=== PATIENT | female | born 1980 | race Caucasian/White ===

== ENCOUNTER 2017-03-12 06:40 | Day surgery (SDC) | payer OTHER ==
[~2017-03-12] VITALS: Ht 177.8 cm; Wt 81.7 kg
--- NOTE | 2017-03-12 09:34 | NUR ---
03/12/17 0933 Vilma Hester PT O2 100%, O2 DECREASED TO 6L
[2017-03-12] MEDS ORDERED: HYCET 7.5 MG-3473 ML PO (10:55)
--- NOTE | 2017-03-12 12:19 | NUR ---
PT IN RESTING-SEEMED TO BE ALMOST ENJOYING QUIETNESS. SHE WAS INFORMED AND SEEMED READY. HER MOTHER CAME IN WELL STAFF TO CONTINUE PREP. GOD BLESS HER.
--- NOTE | 2017-03-26 15:10 | OR ---
[facility] [address] [place], [place] [address] Signed DATE OF PROCEDURE: 03/12/17 PREOPERATIVE DIAGNOSIS: Chronic tonsillitis. POSTOPERATIVE DIAGNOSIS: Chronic tonsillitis. PROCEDURE: Tonsillectomy. ANESTHESIA: General orotracheal by Sylvia Rojas CRNA. PREOPERATIVE HISTORY Jayda is a 36-year-old young lady with chronic tonsillitis, multiple infections, persistent difficulties. She is taken to the operating room for the above-mentioned procedures. OPERATIVE PROCEDURE AND FINDINGS After informed consent, the patient was taken to the operating room, placed in supine position where general orotracheal anesthesia was induced. The patient and procedure were verified. The patient was repositioned. McIvor mouth gag placed into suspension. Headlight exam of the pharynx showed cryptic tonsils, not acutely infected. The right tonsil was grasped with a tenaculum, retracted medially and removed from its fossa with mucosa-sparing incision with coblation. Field was dry after the procedure. Same procedure on the left tonsil. Tonsils were sent to pathology. Reinspection of the tonsil fossae showed no bleeding points. The pharynx was suctioned clear of blood and secretions. The mouth gag was removed. The patient was awakened, extubated and transported to recovery room in good condition. No complications. BLOOD LOSS: Minimal. SPECIMEN: To pathology. DRAINS: No drains. Qamar Qureshi MD GC/Modl Electronically Signed By: QAMAR QURESHI MD 03/26/17 1510 PATIENT NAME: JAYDA DAVID OPERATIVE REPORT DATE OF : 80 PHYSICIAN: QAMAR QURESHI MD REPORT #: [id number] REPORT IS CONFIDENTIAL AND NOT TO BE RELEASED WITHOUT AUTHORIZATION [address] [address] Signed /[id number] Electronically Signed By: QAMAR QURESHI MD 03/26/17 1510 PATIENT NAME: JAYDA DAVID OPERATIVE REPORT DATE OF : 80 PHYSICIAN: QAMAR QURESHI MD REPORT #: [id number] REPORT IS CONFIDENTIAL AND NOT TO BE RELEASED WITHOUT AUTHORIZATION
== END 2017-03-12 13:00 | disposition home or self-care (01) ==
LOC: DS 06:40
PROVIDERS: Otolaryngology
PROC: 0CTPXZZ Resection of Tonsils, External Approach (ICD-10-PCS; principal; 2017-03-12 08:30)
DX: J35.1 Hypertrophy of tonsils (principal)
CPT/HCPCS: 00170; J0330; J1100; J2250; J2405; J2704; J3010; J7120

== ENCOUNTER 2017-03-14 09:26 | Emergency (ER) | payer OTHER ==
[~2017-03-14] VITALS: Ht 177.8 cm; Wt 81.7 kg
[~2017-03-14 09:26] MED LIST: HYCET 7.5 MG-3473 ML PO
[2017-03-14] MEDS ORDERED: AUGMENTIN 875-1 EACH PO (11:51)
[2017-03-14] MEDS ORDERED: ONDANSETRON ODT8 MG PO (11:51)
== END 2017-03-14 13:05 | disposition home or self-care (01) ==
LOC: ED 09:26
DX: J18.9 Pneumonia, unspecified organism (principal); Z90.89 Acquired absence of other organs; Z88.2 Allergy status to sulfonamides; Z88.6 Allergy status to analgesic agent; Z91.040 Latex allergy status; Z88.5 Allergy status to narcotic agent; Z88.8 Allergy status to other drugs, medicaments and biological substances
CPT/HCPCS: 71020; 80053; 81001; 83605; 85025; 96374; 96375; 99284; J0295; J1885; J2405; J7030

== ENCOUNTER 2019-05-03 16:49 | Emergency (ER) | payer OTHER ==
[~2019-05-03] VITALS: Ht 177.8 cm; Wt 86.2 kg
--- OUTSIDE RECORDS SUMMARY | ~2019-05-03 | XMS | Clinical Summary ---
Demographics + + + | Address | [address] | | | [place] [address] | + + + | Home Phone | | + + + | Preferred Language | Unknown | + + + | Marital Status | | + + + | Moravian Affiliation | Unknown | + + + | Race | Unknown | + + + | Ethnic Group | Unknown | + + + Author + + + | Author | [facility] | | | and [place] | + + + | Organization | [facility] | | | and [...] Team Providers + +------+ + | Care Welt Butter Hand Name | Role | Phone | + +------+ + | Jarocho Tate | PCP | | | MD | | | + +------+ + Allergies + + + + + + | Active Allergy | Reactions | Severity | Noted | Comments | | | | | Date | | + + + + + + | Sulfamethoxazole-Tri | Other (See Comments) | Medium | 07/21/19 | Kidney failure | | methoprim | | | 19 | | + + + + + + | Bee Venom | Other (See Comments) | Medium | 07/21/19 | Other | | | | | 19 | | + + + + + + | Dicyclomine | Other (See Comments) | Medium | | | + + + + + + | Latex | Other (See Comments) | Medium | 07/21/19 | Other | | | | | 19 | | + + + + + + | Oxycodone-Acetaminop | Other (See Comments) | High | 07/21/19 | Other reaction(s): | | hen | | | 19 | Vomiting, Other | | | | | | reaction(s): | | | | | | Confusion, other | + + + + + + | Sulfa Antibiotics | Other (See Comments) | Medium | | | + + + + + + Medications + + + +---------+------+------+-------+ | Medication | Sig | Dispensed | Refills | Star | End | Statu | | | | | | t | Date | s | | | | | | Date | | | + + + +---------+------+------+-------+ | VOLTAREN 1 % GEL | | | 0 | 08/1 | | Activ | | | | | | 3/20 | | e | | | | | | 19 | | | + + + +---------+------+------+-------+ | metroNIDAZOLE | Apply bid to face | 45 g | 11 | 10/0 | | Activ | | (METROGEL) 0.75 % | | | | 8/20 | | e | | gelIndications: | | | | 19 | | | | Perioral dermatitis | | | | | | | + + + +---------+------+------+-------+ | meloxicam (MOBIC) | Take 1 tablet by | 30 | 0 | 11/1 | | Activ | | 15 mg | mouth Daily. | tablet | | 1/20 | | e | | tabletIndications: | | | | 19 | | | | Impingement syndrome | | | | | | | | of right shoulder | | | | | | | + + + +---------+------+------+-------+ Active Problems + + + | Problem | Noted Date | + + + | Fibrocystic disease of breast | 09/03/2018 | + + + | Fibroadenoma of right breast | 07/30/2018 | + + + | Knee pain | 07/30/2018 | + + + | Mastodynia of right breast | 07/30/2018 | + + + | Peripheral venous insufficiency | 07/30/2018 | + + + | Pain of breast | 07/28/2018 | + + + Encounters +--------+ + + + + | Date | Type | Specialty | Care Team | Description | +--------+ + + + + | 04/03/ | Hospital | Radiology | Forest Castillo, | Acute pain of right | | 2018 | Encounter | | MD | shoulder | +--------+ + + + + | 04/03/ | Office | Orthopedic Surgery | Forest Castillo, | Acute pain of right | | 2018 | Visit | | MD | shoulder (Primary | | | | | | Dx); Impingement | | | | | | syndrome of right | | | | | | shoulder | +--------+ + + + + | 03/19/ | Office | Vascular Surgery | Selvin Larson MD | Chronic venous | | 2018 | Visit | | | insufficiency | | | | | | (Primary Dx); | | | | | | 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 | | | | | | extremities with | | | | | | pain | +--------+ + + + + | 03/03/ | Office | Dermatology | Aniekt Melia | Perioral dermatitis | | 2018 | Visit | | [address] | (Primary Dx); | | | | | | Seborrheic | | | | | | dermatitis; Pilar | | | | | | cyst; Multiple | | | | | | benign nevi | +--------+ + + + + from Last 3 Months Family History + + +------+ + | Medical History | Relation | Name | Comments | + + +------+ + | Dementia | Father | | | + + +------+ + | High cholesterol | Father | | | + + +------+ + | Parkinsonism | Father | | | + + +------+ + | Cancer | Mother | | uvula | + + +------+ + | Drug abuse | Mother | | | + + +------+ + | Heart attack | Paternal | | | | | Grandfath | | | | | er | | | + + +------+ + | Cancer | Paternal | | colon | | | Grandmoth | | | | | er | | | + + +------+ + | Diabetes, IDDM | Paternal | | | | | Grandmoth | | | | | er | | | + + +------+ + | Other (see comment) | Paternal | | Hypothyroidism | | | Grandmoth | | | | | er | | | + + +------+ + + +------+--------+ + | Relation | Name | Status | Comments | + +------+--------+ + | Father | | Alive | | + +------+--------+ + | Father | | | | + +------+--------+ + | Mother | | | | + +------+--------+ + | Mother | | | | + +------+--------+ + | Paternal Grandfather | | | | + +------+--------+ + | Paternal Grandfather | | | | + +------+--------+ + | Paternal Grandmother | | | | + +------+--------+ + | Paternal Grandmother | | | | + +------+--------+ + Social History + +-------+ +--------+------+ | [...] recent travel history available. | + + Last Filed Vital Signs + + + + + | Vital Sign | Reading | Time Taken | Comments | + + + + + | Blood Pressure | 140/60 | 04/03/2019 8:35 AM | | | | | PST | | + + + + + | Pulse | 71 | 04/03/2019 8:35 AM | | | | | PST | | + + + + + | Temperature | - | - | | + + + + + | Respiratory Rate | 16 | 01/13/2019 8:25 AM | | | | | PDT | | + + + + + | Oxygen Saturation | 98% | 04/03/2019 8:35 AM | | | | | PST | | + + + + + | Inhaled Oxygen | - | - | | | Concentration | | | | + + + + + | Weight | 88.7 kg (195 lb 9.6 | 04/03/2019 8:35 AM | | | | oz) | PST | | + + + + + | Height | 177.8 cm (5' 10") | 04/03/2019 8:35 AM | | | | | PST | | + + + + + | Body Mass Index | 28.07 | 04/03/2019 8:35 AM | | | | | PST | | + + + + + Plan of Treatment +--------+---------+ + + + | Date | Type | Specialty | Care Team | Description | +--------+---------+ + + + | 05/26/ | Office | Orthopedic Surgery | Forest Castillo, | | | 2018 | Visit | | [address] | | | | | | [place] [address] | | | | | | [phone] | | | | | | | | +--------+---------+ + + + + + + + + | Health Maintenance | Due Date | Last Done | Comments | + + + + + | Vaccine: | | | | | Dtap/Tdap/Td (1 - | 9 | | | | Tdap) | | | | + + + + + | Cervical Cancer | 11/23/201 | | | | Screening (Pap) | 0 | | | + + + + + | Vaccine: Influenza | Completed | 03/19/2019 | | + + + + + Procedures + +--------+ + + + | Procedure Name | Priori | Date/Time | Associated Diagnosis | Comments | | | ty | | | | + +--------+ + + + | XR SHOULDER RIGHT 2 | Routin | 04/03/2019 | Acute pain of | Results for this | | + VW | e | 8:51 AM | right shoulder | procedure are in the | | | | PST | | results section. | + +--------+ + + + from Last 3 Months Results XR Shoulder Right 2 + Vw (04/03/2019 8:51 AM PST) + + | Specimen | + + | | + + + + + | Narrative | Performed At | + + + | History: This | [facility] | | is a 38 y.o. year old female. Diagnosis for Order right shoulder | | | pain. Findings: No fracture, subluxation, dislocation, no | | | degeneration. Electronically signed by: Forest Castillo MD 04/03/2019 | | | 8:58 Forest Castillo MD has created this entry using Mod[employer] | | | Voice Recognition software and [employer]. The entry has been | | | reviewed and there may still exist sound alike word errors. | | | | | | | | |Forest Castillo MD has created this entry using [employer] | | |Recognition software and [employer]. The entry has been reviewed and | | |there may still exist sound alike word errors. | | | | | + + + + +---------+ + + | Performing | Address | City/State/Zipcode | Phone Number | | Organization | | | | + +---------+ + + | [facility] | | | | + +---------+ + + from Last 3 Months Insurance + +--------+ +--------+ +---------+------+ | Payer | Benefi | Subscriber | Effect | Phone | Address | Type | | | t Plan | ID | branden | | | | | | / | | Dates | | | | | | Group | | | | | | + +--------+ +--------+ +---------+------+ | [employer] | UNITED | [id number] | 05/27/19 | [phone] | | PPO | | | | | 19-Pre | 2 | | | | | HEALTH | | sent | | | | | | CARE | | | | | | | | PPO | | | | | | + +--------+ +--------+ +---------+------+ + +--------+ +--------+ + + | Guarantor Name | Accoun | Relation to | Date | Phone | Billing Address | | | t Type | Patient | of | | | | | | | | | | + +--------+ +--------+ + + | Anushka Delcid | Person | Self [birth year] | [address] | | [place] | al/Fam | | 1980 | [phone] | [place] | | | albaro | | | [address] (Home) | [address] | + +--------+ +--------+ + + Advance Directives + + + + + | Type | Date Recorded | Patient | Explanation | | | | Corporate Financial Analyst | | + + + + + | Power of | | | | | Vegetable Washing Machine Operator | | | | + + + + + | Advance | | | | | Directive | | | | + + + + +
--- OUTSIDE RECORDS SUMMARY | ~2019-05-03 | XMS | Encounter Summary ---
Demographics + + + | Address | [address] | | | [place] [address] | + + + | Home Phone | | + + + | Preferred Language | Unknown | + + + | Marital Status | | + + + | Episcopalian Affiliation | Unknown | + + + | Race | Unknown | + + + | Ethnic Group | Unknown | + + + Author + + + | Author | [facility] | | | and [place] | + + + | Organization | [facility] | | | and [...] Team Providers + +------+ + | Care Hospice Director Name | Role | Phone | + +------+ + | Edwige Moreira MD | PCP | | + +------+ + Reason for Visit + + + | Reason | Comments | + + + | Annual Exam | | + + + Encounter Details +--------+---------+ + + + | Date | Type | Department | Care Team | Description | +--------+---------+ + + + | 03/03/ | Office | [facility] | Melia Marcial | Perioral dermatitis | | 2019 | Visit | PLASTIC SURGERY AND | [address] | (Primary Dx); | | | | DERMATOLOGY [address] | Seborrheic | | | | [address] | [place] [address] | dermatitis; Pilar | | | | [place], [place] | [phone] | cyst; Multiple | | | | [address] | | benign nevi | | | | [phone] | | | +--------+---------+ + + + [...] + + + | Blood Pressure | - | - | | + [...] + + + + | Weight | 88.5 kg (195 lb) | 03/03/2019 8:57 AM | | | | | PDT | | + + + + + | Height | 177.8 cm (5' 10") | 03/03/2019 8:57 AM | | | | | PDT | | + + + + + | Body Mass Index | 27.98 | 03/03/2019 8:57 AM | | | | | PDT | | + + + + + documented in this encounter Patient Instructions Patient Instructions Anjali Villeda, Supervisor Brine - 03/03/2019 9:20 AM PDTFormattin g of this note might be different from the original. Preventing Skin Cancer Use sunscreen of SPF 30 or greater. Apply liberally. Relaxing in the sun may feel good, but it isn t good for your skin. In fact, being expose d to the sun s harmful rays is a major cause of skin cancer. This is a serious disease asiya t can be life-threatening. People of all ages and backgrounds are at risk. But in most cases , skin cancer can be prevented. Your role in prevention You can act today to help prevent skin cancer. Start by avoiding the sun s UV (ultraviole t) rays. And don t use tanning beds. These are no safer than the sun. Taking these steps c an help keep you from getting skin cancer. It can also help prevent wrinkles and otheragin g effects caused by the sun. Make sure your children also follow these safeguards. Now is th e time to start taking preventive steps against skin cancer. When you are outdoors Protect your skin when you go outdoors during the day. Take precautions whenever you go out to eat, run errands by car or on foot, or do any outdoor activity. There isn t just one e asy way to protect your skin. It s best to follow all of these steps: Wear tightly woven clothing that covers your skin. Put on a wide-brimmed hat to protect your face, ears, and scalp. Watch the clock. Try to avoid the sun between 10 a.m. and 4 p.m., when it is strongest. Head for the shade or create your own. Use an umbrella when sitting or strolling. Know that the sun s rays can reflect off sand, water, and snow. This can harm your ski n. Take extra care when you are near reflective surfaces. Keep in mind that even when the weather is hazy or cloudy, your skin can be exposed to s lewis UV rays. Shield your skin with sunscreen. Also apply sunscreen to your children s skin. Tips for using sunscreen To help prevent skin cancer, choose the right sunscreen and use it correctly. Try the follo wing tips: Choose a sunscreen that has a sun protection factor (SPF) of at least 30. Also choose a sunscreen labeled broad spectrum. This will shield you from both UVA and UVB (ultravio let A and B) rays. If one brand irritates your skin, try another, particularly ones without fragrance. Use a water-resistant sunscreen if you swim or sweat. Use at least an ounce of sunscreento cover exposed areas. This is enough to fill a forest t glass. You might need to adjust the amount depending on your body size. Apply the sunscreen to dry skin about 15 minutes before going outdoors. This gives it ti me to be absorbed. Reapply sunscreen every2 hours. If you re active, do this more often. Cover any sun-exposed skin, from your face to your feet. Don t forget your ears and yo ur lips. Know that while sunscreen helps protect you, it isn t enough. Sunscreens extend the le ngth of time you can be outdoors before your skin begins to vannesa, but they don't give you total protection. Using sunscreen doesn't mean you can stay out in the sun indefinitely. Dam age to the skin cells is still occurring. You should also wear protective clothing. And try to stay out of the sun as much as you can, especially from 10 a.m. to 4 p.m. Date Last Reviewed: 05/27/201619998318-6012 [employer]. [address] [place] [address], [place] [address]. All righ ts reserved. This information is not intended as a substitute for professional medical care. Always follow your healthcare professional's instructions. documented in this encounter Progress Notes Melia Marcial ARNP - 03/03/2019 9:20 AM PDT Subjective Patient ID: Anushka Delcid is a 38 y.o. female. New patient is here for a full cutaneous exam due to a family history of skin cancer (grand mother). She complains of a growth located on the scalp, it has been present for over a year . She states that its raised and has not gone away, it has not been treated. She also compla ins of constantly breaking out around the chin area along with facial redness present throug hout the facial cheeks, it has been going on for the last 2 years. She states that she break s out in whiteheads and large painful cysts, it has not been treated. She also complains of a rash located in between the eyebrows, the skin is scaly and itchy, it has not been treated . The following elements of the patient's history were reviewed and updated as appropriate. T hey are available elsewhere in the patient record. allergies, current medications, past fam albaro history, past medical history, past social history, past surgical history and problem li st Review of Systems Constitutional: Negative. Skin: FB All other systems reviewed and are negative. Objective Ht 1.778 m (5' 10") | Wt 88.5 kg (195 lb) | BMI 27.98 kg/m Physical Exam Constitutional: She is oriented to person, place, and time. She appears well-developed and well-nourished. HENT: Head: Normocephalic. Eyes: Pupils are equal, round, and reactive to light. Neck: Normal range of motion. Neck supple. Pulmonary/Chest: Effort normal. Abdominal: Soft. Musculoskeletal: Normal range of motion. Neurological: She is alert and oriented to person, place, and time. Skin: Skin is warm and dry. Erythematous papular dermatitis present around the mouth Easily movable cystic nodule present on the posterior scalp. Intradermal, junctional, and compound nevi scattered on the face, trunk, bilateral arms, an d bilateral legs with uniform shape and color- examined under dermoscopy. Brown circular areas of macular discoloration present throughout face, neck, chest, bilater al arms, back, and bilateral legs. Non irritated waxy brown keratotic exophytic papules and plaques with uniform color distrib uted throughout face and body. Multiple bright red circular, asymptomatic, domed vascular lesions throughout body. Psychiatric: She has a normal mood and affect. Her behavior is normal. Assessment /Plan Assessment: perioral dermatitis. We discussed this distinctive eruption that occurs in wom en and can resemble other rashes and skin conditions such as acne. I explained that topical steroids make this condition worsen which can be helpful for diagnosis. I explained that top ical treatments with benzoyl peroxide, tretinoin, and alcohol based products can aggravate t his condition as well. I explained that the exact cause is unknown but there could be a sonia k with petroleum based cosmetic products so these should be avoided as well. We discussed t reatment options and doxycycline 50 mg daily for 1 month, pt will also be prescribed metroge l. Assessment seborrheic dermatitis. We discussed that this is an overgrowth of yeast on the s kin and the chronicity and high probability of recurrence in the future. I discussed the di fference in strength with over the counter and with prescription shampoos/ solutions for thi s problem. Pt will treat with otc hydrocortisone. Assessment pilar cyst. We discussed this benign entity and the possiblity of surgical esequiel karime. We discussed the possibility of inflammation with injury and we discussed the importanc e of not squeezing the cyst. Pt opted to wait to schedule surgical removal if the cyst becom es inflamed or painful. Skin cancer screening. Multiple benign skin growths found throughout the full cutaneous exa m, including multiple benign nevi. I explained each of these benign growths in detail. The nature of sun-induced photo-aging and skin cancers was discussed. I discussed character istics of skin cancer, including large size, irregular border, irregular shape, or color. I explained precancerous lesions actinic keratosis and typical nevus, and skin cancers includi ng basal cell carcinoma, squamous cell carcinoma, and melanoma. We discussed continuing to monitor for any changes and continuing to have full cutaneous ex ams. Sun avoidance, protective clothing, and the use of SPF 30-50 sunscreen advised. The for clifford should block both UVA and UVB rays. We discussed reapplying sunscreen every 2 hours or hourly if the patient is in the water or sweating profusely, even if product is labeled javier erproof or sweatproof. We discussed the difference between sunscreens and sunblocks. We disc ussed the best formula to use is the one that the pt will use consistently and reapply as di rected. Observe closely for skin damage/changes, and recheck sooner if such occurs. Anushka was seen today for annual exam. Diagnoses and all orders for this visit: Perioral dermatitis - doxycycline (VIBRAMYCIN) 50 MG capsule; Take 1 capsule by mouth Daily for 30 days. - metroNIDAZOLE (METROGEL) 0.75 % gel; Apply bid to face Seborrheic dermatitis Pilar cyst Multiple benign nevi I, Anjali Villeda CMA, am scribing for, and in the presence of Melia RUBIN. I, CARYN Jurado, personally performed the services described in this documentati on, as scribed by Anjali Villeda CMA in my presence, and it is both accurate and complete. documented in this encounter Plan of Treatment +--------+---------+ + + + | Date | Type | Specialty | Care Team | Description | +--------+---------+ + + + | 05/26/ | Office | Orthopedic Surgery | Forest Castillo, | | | 2018 | Visit | | MD Nikki MARTE | | | | | | [place] [address] | | | | | | [phone] | | | | | | | | +--------+---------+ + + + documented as of this encounter Visit Diagnoses + + | Diagnosis | + + | Perioral dermatitis - Primary Rosacea | + + | Seborrheic dermatitis Seborrheic dermatitis, unspecified | + + | Pilar cyst | + + | Multiple benign nevi Benign neoplasm of skin, site unspecified | + + documented in this encounter
--- OUTSIDE RECORDS SUMMARY | ~2019-05-03 | XMS | Encounter Summary ---
Demographics + + + | Address | [address] | | | [place] [address] | + + + | Home Phone | | + + + | Preferred Language | Unknown | + + + | Marital Status | | + + + | Mormonism Affiliation | Unknown | + + + | Race | Unknown | + + + | Ethnic Group | Unknown | + + + Author + + + | Author | [facility] | | | and [place] | + + + | Organization | [facility] | | | [...] Team Providers + +------+ + | Care Roustabout Hand Name | Role | Phone | + +------+ + | Edwige Moreira MD | PCP | | + +------+ + Encounter Details +--------+ + + + + | Date | Type | Department | Care Team | Description | +--------+ + + + + | 11/10/ | Orders Only | [facility] | Vianney Michele, | | | 2019 | | VASCULAR SURGERY | ZINC PLATE GRAINER [address] | | | | | ULTR[address]OUND [address] | [address] [place], [place] | | | | | [address] | [address] | | | | | [place] | [phone] | | | | | [address] | | | | | | [phone] | | | +--------+ + + + [...] as of this encounter Plan of Treatment +--------+---------+ + + + | Date | Type | Specialty | Care Team | Description | +--------+---------+ + + + | 05/26/ | Office | Orthopedic Surgery | Forest Castillo, | | | 2018 | Visit | | [address] | | | | | | [place] [address] | | | | | | [phone] | | | | | | | | +--------+---------+ + + + documented as of this encounter Procedures + +--------+ + + + | Procedure Name | Priori | Date/Time | Associated Diagnosis | Comments | | | ty | | | | + +--------+ + + + | VAS VENOUS REFLUX | Routin | 11/10/2018 | | Results for this | | BILATERAL | e | 2:38 PM | | procedure are in the | | | | PDT | | results section. | + +--------+ + + + documented in this encounter Results VAS Venous Reflux Bilateral (11/10/2018 2:38 PM PDT) + + | Specimen | + + | | + + + + + | Impressions | Performed At | + + + | 1. No evidence of acute or chronic deep or superficial venous | | | thrombosis in either lower extremity from the inguinal ligament | | | through the calves. 2. Please see details above regarding bilateral | | | lower extremity venous insufficiency studies. Signed by: Rosibel | | | Artur Hernandez Date/Time: 11/11/2018 10:37 AM | | + + + + + + | Narrative | Performed At | + + + | VAS VENOUS REFLUX BILATERAL CLINICAL INFORMATION: Varicose veins | | | COMPARISON: None PROCEDURE: Grayscale, color Doppler and spectral | | | Doppler evaluation with compression was performed in both lower | | | extremity deep and superficial veins from the inguinal ligament | | | through the calves. Bilateral lower extremity deep venous and greater | | | and lesser saphenous vein insufficiency studies were performed using | | | both Valsalva and augmentation, and weight-bearing, if needed. | | | FINDINGS: No evidence of acute or chronic deep or superficial venous | | | thrombosis in either lower extremity from the inguinal ligament | | | through the calves. No intraluminal echoes seen. Normal | | | compressibility noted. Augmentation noted. Venous insufficiency | | | studies: RIGHT: Right calf incompetent varicose veins appear to | | | confluence with the greater saphenous vein. Common femoral vein: | | | Reflux greater than 1 second Femoral proximal: Reflux greater than 1 | | | second Femoral mid: No reflux Femoral distal: No reflux Popliteal | | | mid: Reflux greater than 0.5 seconds Posterior tibial: No reflux | | | Peroneal: No reflux Greater saphenous: Saphenofemoral junction: 9.1 | | | mm AP diameter, 19.1 mm depth, greater than 1 second reflux Thigh | | | proximal: 5.6 mm AP diameter, 20.1 mm depth Thigh mid: 5.1 mm AP | | | diameter, 16 mm depth, greater than 0.5 seconds reflux Thigh distal: | | | 4.9 mm AP diameter diameter, 13.8 mm depth, no reflux Knee: 3.8 mm | | | AP diameter, 10.3 mm depth, no reflux Calf proximal: 0.6 mm AP | | | diameter, 8.6 mm depth, greater than 0.5 seconds reflux Calf mid: | | | 4.0 mm AP diameter, 5.4 mm depth, no reflux Calf distal: 3.7 mm AP | | | diameter, 6.7 mm depth, no reflux Lesser saphenous: Calf proximal: | | | 1.8 mm AP diameter, 12.6 mm depth, greater than 1 second reflux Calf | | | mid: 3.0 mm AP diameter, 16.3 mm depth, no reflux Calf distal: 2.9 | | | mm AP diameter, 9.1 mm depth, no reflux LEFT: Common femoral: Reflux | | | greater than 1 second Femoral proximal: No reflux Femoral mid: | | | Reflux greater than 0.5 seconds Femoral distal: No reflux Popliteal | | | mid: No reflux Posterior tibial: Reflux greater than 0.5 seconds | | | Peroneal: No reflux Greater saphenous: Saphenofemoral junction: 7.1 | | | mm AP diameter, 19.7 mm depth, no reflux Thigh proximal: 4.8 mm AP | | | diameter, 20.2 mm depth Thigh mid: 4.0 mm AP diameter, 16.2 mm depth, | | | no reflux Thigh distal: 4.0 mm AP diameter, 15.4 mm depth, no reflux | | | Knee: 3.0 mm AP diameter, 8.3 mm depth, greater than 0.5 seconds | | | reflux Calf proximal: 2.8 mm AP diameter, 8.5 mm depth, no reflux | | | Calf mid: 2.3 mm AP diameter, 7.9 mm depth, greater than 1 second | | | reflux Calf distal: 2.0 mm AP diameter, 10.7 mm depth, no reflux | | | Lesser saphenous: Calf proximal: 2.8 mm AP diameter, 14.0 mm depth, | | | no reflux Calf mid: 3.3 mm AP diameter, 13.7 mm depth, no reflux | | | Calf distal: 3.0 mm AP diameter, 10.3 mm depth, no reflux | | + + + + + | Procedure Note | + + | Timbo Sheth Conversion - 01/15/2019 2:01 PM PDT VAS VENOUS REFLUX BILATERAL | | CLINICAL INFORMATION: | | Varicose veins | | COMPARISON: | | None | | PROCEDURE: | | Grayscale, color Doppler and spectral Doppler evaluation with | | compression was performed in both lower extremity deep and superficial | | veins from the inguinal ligament through the calves. | | Bilateral lower extremity deep venous and greater and lesser saphenous | | vein insufficiency studies were performed using both Valsalva and | | augmentation, and weight-bearing, if needed. | | FINDINGS: | | No evidence of acute or chronic deep or superficial venous thrombosis | | in either lower extremity from the inguinal ligament through the | | calves. No intraluminal echoes seen. Normal compressibility noted. | | Augmentation noted. | | Venous insufficiency studies: | | RIGHT: | | Right calf incompetent varicose veins appear to confluence with the | | greater saphenous vein. | | Common femoral vein: Reflux greater than 1 second | | Femoral proximal: Reflux greater than 1 second | | Femoral mid: No reflux | | Femoral distal: No reflux | | Popliteal mid: Reflux greater than 0.5 seconds | | Posterior tibial: No reflux | | Peroneal: No reflux | | Greater saphenous: | | Saphenofemoral junction: 9.1 mm AP diameter, 19.1 mm depth, greater | | than 1 second reflux | | Thigh proximal: 5.6 mm AP diameter, 20.1 mm depth | | Thigh mid: 5.1 mm AP diameter, 16 mm depth, greater than 0.5 seconds | | reflux | | Thigh distal: 4.9 mm AP diameter diameter, 13.8 mm depth, no reflux | | Knee: 3.8 mm AP diameter, 10.3 mm depth, no reflux | | Calf proximal: 0.6 mm AP diameter, 8.6 mm depth, greater than 0.5 | | seconds reflux | | Calf mid: 4.0 mm AP diameter, 5.4 mm depth, no reflux | | Calf distal: 3.7 mm AP diameter, 6.7 mm depth, no reflux | | Lesser saphenous: | | Calf proximal: 1.8 mm AP diameter, 12.6 mm depth, greater than 1 second | | reflux | | Calf mid: 3.0 mm AP diameter, 16.3 mm depth, no reflux | | Calf distal: 2.9 mm AP diameter, 9.1 mm depth, no reflux | | LEFT: | | Common femoral: Reflux greater than 1 second | | Femoral proximal: No reflux | | Femoral mid: Reflux greater than 0.5 seconds | | Femoral distal: No reflux | | Popliteal mid: No reflux | | Posterior tibial: Reflux greater than 0.5 seconds | | Peroneal: No reflux | | Greater saphenous: | | Saphenofemoral junction: 7.1 mm AP diameter, 19.7 mm depth, no reflux | | Thigh proximal: 4.8 mm AP diameter, 20.2 mm depth | | Thigh mid: 4.0 mm AP diameter, 16.2 mm depth, no reflux | | Thigh distal: 4.0 mm AP diameter, 15.4 mm depth, no reflux | | Knee: 3.0 mm AP diameter, 8.3 mm depth, greater than 0.5 seconds reflux | | Calf proximal: 2.8 mm AP diameter, 8.5 mm depth, no reflux | | Calf mid: 2.3 mm AP diameter, 7.9 mm depth, greater than 1 second reflux | | Calf distal: 2.0 mm AP diameter, 10.7 mm depth, no reflux | | Lesser saphenous: | | Calf proximal: 2.8 mm AP diameter, 14.0 mm depth, no reflux | | Calf mid: 3.3 mm AP diameter, 13.7 mm depth, no reflux | | Calf distal: 3.0 mm AP diameter, 10.3 mm depth, no reflux | | IMPRESSION: | | 1. No evidence of acute or chronic deep or superficial venous | | thrombosis in either lower extremity from the inguinal ligament through | | the calves. | | 2. Please see details above regarding bilateral lower extremity venous | | insufficiency studies. | | Signed by: Mary Gleason Sean | | Sign Date/Time: 11/11/2018 10:37 AM | + + documented in this encounter Visit Diagnoses Not on filedocumented in this encounter"
--- OUTSIDE RECORDS SUMMARY | ~2019-05-03 | XMS | Encounter Summary ---
Demographics + + + | Address | [address] | | | [place] [address] | + + + | Home Phone | | + + + | Preferred Language | Unknown | + + + | Marital Status | | + + + | Zoroastrianism Affiliation | Unknown | + + + [...] Team Providers + +------+ + | Care Lime Spreader Name | Role | Phone | + +------+ + | Edwige Moreira MD | PCP | | + +------+ + Encounter Details +--------+ + + + + | Date | Type | Department | Care Team | Description | +--------+ + + + + | 11/10/ | Orders Only | [facility] | Vianney Michele, | | | 2019 | | VASCULAR SURGERY | FURNACE OPERATOR OIL OR GAS [address] | | | | | ULTRASOUND [address] | [address] [place], [place] | | | | | [address] | [address] | | | | | [place] | [phone] | | | | | [address] | | | | | | [phone] | | | +--------+ + + + [...] [address] | | | | | | [place] [address] | | | | | | [phone] | | | | | | | [...] studies. Signed by: Rosibel | | | Arutr Hernandez Date/Time: 11/11/2018 10:37 AM | | [...]
--- OUTSIDE RECORDS SUMMARY | ~2019-05-03 | XMS | Encounter Summary ---
Demographics + + + | Address | [address] | | | [place] [address] | + + + | Home Phone | | + + + | Preferred Language | Unknown | + + + | Marital Status | | + + + | Cheondoism Affiliation | Unknown | + + + | Race | Unknown | + + + | Ethnic Group | Unknown | + + + Author + + + | Author | [facility] | | | and [place] | + + + | Organization | [facility] | | | and [place] | + + + | Address | Unknown | + + + | Phone | Unavailable | + + + Support + + +---------+ + | Name | Relationship | Address | Phone | + + +---------+ + | Rubén Henryveronica | ECON | Unknown | | + + +---------+ + | Anushka Mitchell | ECON | Unknown | | + + +---------+ + Care Team Providers + +------+ + | Care Day Camp Unit Leader Name | Role | Phone | + +------+ + | Jarocho Tate | PCP | | | MD | | | + +------+ + Reason for Referral Evaluate & Treat (Routine) + + + + + + + | Status | Reason | Specialty | Diagnoses / | Referred By | Referred To | | | | | Procedures | Contact | Contact | + + + + + + + | Authorized | Specialty | Physical | Diagnoses | [facility] | | | Services | Therapy | Impingement | Forest White MD | [place] | | | Required | | syndrome of | [address] | PHYSICAL | | | | | right | ST | THERAPY - | | | | | shoulder | [address] | [place] | | | | | | [address] | [address] | | | | | | Phone: | [address] | | | | | | [phone] | 15 | | | | | | Fax: | [place] | | | | | | [phone] | [address] | | | | | | | Phone: | | | | | | | [phone] | | | | | | | Fax: | | | | | | | [phone] | + + + + + + + Reason for Visit + + + | Reason | Comments | + + + | Shoulder Pain | Right Shoulder Pain | + + + Self-referral (Routine) + +--------+ + + + + | Status | Reason | Specialty | Diagnoses / | Referred By | Referred To | | | | | Procedures | Contact | Contact | + +--------+ + + + + | Authorized | | Orthopedic | Diagnoses | | Jonathan, | | | | Surgery | new pt | | Forest White MD | | | | | right | | [address] | | | | | shoulder | | [facility], | | | | | pain/crane | | [place] [address] | | | | | conf | | Phone: | | | | | Procedures | | [phone] | | | | | NEW PATIENT | | Fax: | | | | | | | [phone] | + +--------+ + + + + Encounter Details +--------+---------+ + + + | Date | Type | Department | Care Team | Description | +--------+---------+ + + + | 04/03/ | Office | [facility] | Forest Castillo, | Acute pain of right | | 2019 | Visit | ORTHO SPORTS | [address] | shoulder (Primary | | | | MED[facility] [place] | [place] [address] | Dx); Impingement | | | | [address] | [phone] | syndrome of right | | | | [place], [place] | | shoulder | | | | [address] | | | | | | [phone] | | | +--------+---------+ + + + [...] + documented in this encounter Progress Notes Forest Castillo MD - 04/03/2019 8:20 AM PSTFormatting of this note might be different fro m the original. [facility]opaedic [facility] Medicine Service: Orthopedic Surgery History and Physical Exam Chief complaint: Right shoulder pain Subjective: Anushka Delcid is a pleasant 38 y.o. year old female who presents compl aining of right shoulder pains. She states she has had pain in the right shoulder off and o n for years. 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 She states the pain is in the medial scapula and is a stabbing, aching pain with b urning with reaching. She states the pain is an 8 out of 10 and is fairly constant. It is worse with laying at night as well as with wearing a backpack or with activity. She denies loss of motion, instability. She does report some numbness in her fingers. She had chante jade tried physical therapy years ago which did provide improvement. She occasionally takes anti-inflammatories. She also had multiple injections years ago. She has been trying chiro practics and massage without relief.. Past Medical History: Past Medical History: Diagnosis Date Breast mass, right Dyslipidemia Endometriosis PCOS (polycystic ovarian syndrome) Past Surgical History: Past Surgical History: Procedure Laterality Date CERVICAL SPINE SURGERY 2010 c2-c5 OTHER SURGICAL HISTORY Bilateral 2010 UNLISTED PROCEDURE ARTHROSCOPY - knee OTHER SURGICAL HISTORY 2009 NASAL RECONSTRUCTION TONSILLECTOMY AND ADENOIDECTOMY 2016 Dr. Mercado TUBAL LIGATION 12/2003 Medications: Current Outpatient Medications: metroNIDAZOLE (METROGEL) 0.75 % gel, Apply bid to face, Disp: 45 g, Rfl: 11 VOLTAREN 1 % GEL, , Disp: , Rfl: 0 Allergies: Allergies Allergen Reactions Percocet [Oxycodone-Acetaminophen] Other (See Comments) Other reaction(s): Vomiting, Other reaction(s): Confusion, other Bactrim [Sulfamethoxazole-Trimethoprim] Other (See Comments) Kidney failure Bee Venom Other (See Comments) Other Dicyclomine Other (See Comments) Latex Other (See Comments) Other Sulfa Antibiotics Other (See Comments) Review of Systems: Review of Systems HENT: Positive for ear pain, rhinorrhea and sore throat. Eyes: Positive for visual disturbance. Cardiovascular: Positive for leg swelling. Musculoskeletal: Positive for myalgias, neck pain and neck stiffness. Allergic/Immunologic: Positive for environmental allergies. Neurological: Positive for weakness, numbness and headaches. Psychiatric/Behavioral: Positive for sleep disturbance. All other systems reviewed and are negative. Objective: Vital Signs: There were no vitals taken for this visit. There is no height or weight on file to calculate BMI. Exam: Gen: No acute distress, pleasant and cooperative with examination. Alert and oriented. Head: Normocephalic, conjugate gaze Neck: Supple Resp: Clear unlabored breathing Cardiac: Palpable peripheral pulses Gait: Normal Right shoulder: Skin is intact without erythema, ecchymosis or edema. Posterior scapular tenderness to palpation Range of motion, forward flexion 180 Abduction 165 Internal rotation T10 External rotation 60 Empty can test: 5/5 strength without pain External Rotation against resistance: 5/5 strength without pain Belly Press: 5/5 strength without pain Speeds Test: 5/5 strength without pain Acevedo's test: 5/5 strength with mild pain Pain with impingement Mild pain with apprehension test Palpable Radial pulse Sensation intact to light touch. Imaging: Recent Results (from the past 360 hour(s)) XR Shoulder Right 2 + Vw Narrative History: This is a 38 y.o. year old female. Diagnosis for Order right shoulder pain. Findings: No fracture, subluxation, dislocation, no degeneration. Electronically signed by: Forest Castillo MD 04/03/2019 8:58 Forest Castillo MD has created this entry using [employer] Recognition software and Twonq macros. The entry has been reviewed and there may still exist sound alike word errors. Assessment: Right shoulder impingement Plan: I reviewed the patient's findings and diagnosis and would recommend conservative man agement. We discussed NSAIDS, activity modification, and physical therapy with the patient and they would like to proceed with these at this time. We have provided a therapy prescrip tion today as well as a prescription for meloxicam. We will plan to see her back in 6 weeks if her pain persists. All questions were answered they understood this plan. Forest Castillo MD has created this entry using [employer] Voice Recognition software a [employer]. The entry has been reviewed and there may still exist sound alike word err ors. documented in this encounter Plan of Treatment +--------+---------+ + + + | Date | Type | Specialty | Care Team | Description | +--------+---------+ + + + | 05/26/ | Office | Orthopedic Surgery | Forest Castillo, | | | 2018 | Visit | | MD [address] | | | | | | [place] [address] | | | | | | [phone] | | | | | | | | +--------+---------+ + + + + + +--------+ + + | Name | Type | Priori | Associated Diagnoses | Order Schedule | | | | ty | | | + + +--------+ + + | Ambulatory referral | Outpatient | Routin | Impingement | Ordered: 04/06/2019 | | to Physical Therapy | Referral | e | syndrome of right | | | | | | shoulder | | + + +--------+ + + documented as of this encounter Results XR Shoulder Right 2 [...] Castillo MD has created this entry using [employer] | | | Voice Recognition software and Netadmin. The entry has been | | | reviewed and there may still exist sound alike word errors. | | | | | | | | |Forest Castillo MD has created this entry using [employer] | | |Recognition software and Netadmin. The entry has been reviewed and | | |there may still exist sound alike word errors. | | | | | + + + + +---------+ + + | Performing | Address | City/State[facility] | Phone Number | | Organization | | | | + +---------+ + + | [facility] | | | | + +---------+ + + documented in this encounter Visit Diagnoses + + | Diagnosis | + + | Acute pain of right shoulder - Primary | + + | Impingement syndrome of right shoulder Other affections of shoulder region, not | | elsewhere classified | + + documented in this encounter
--- OUTSIDE RECORDS SUMMARY | ~2019-05-03 | XMS | Encounter Summary ---
Demographics + + + | Address | [address] | | | [place] [address] | + + + | Home Phone | | + + + | Preferred Language | Unknown | + + + | Marital Status | | + + + | Judaism Affiliation | Unknown | + + + | Race | Unknown | + + + | Ethnic Group | Unknown | + + + Author + + + | Author | [facility] | | | and [place] | + + + | Organization | [facility] | | | and [...] Team Providers + +------+ + | Care Car Park Attendant Name | Role | Phone | + +------+ + | Jarocho Tate | PCP | | | MD | | | + +------+ + Encounter Details +--------+ + + + + | Date | Type | Department | Care Team | Description | +--------+ + + + + | 11/10/ | Orders Only | [facility] | Conversion | | | 2019 | | [address] | Transaction, | | | | | [address] | Provider Unknown | | | | | [place], [place] | [phone] | | | | | [address] | | | | | | [phone] | | | +--------+ + + + [...] [address] | | | | | | [place] [address] | | | | | | [phone] | | | | | | | | +--------+---------+ + + + documented as of this encounter Visit Diagnoses Not on filedocumented in this encounter"
--- OUTSIDE RECORDS SUMMARY | ~2019-05-03 | XMS | Encounter Summary ---
Demographics + + + | Address | [address] | | | [place] [address] | + + + | Home Phone | | + + + | Preferred Language | Unknown | + + + | Marital Status | | + + + | Baptism Affiliation | Unknown | + + + | Race | Unknown | + + + | Ethnic Group | Unknown | + + + Author + + + | Author | [facility] | | | and [place] | + + + | Organization | [facility] | | | [...] Team Providers + +------+ + | Care Aircraft Avionics Technician Name | Role | Phone | + +------+ + | Edwige Moreira MD | PCP | | + +------+ + Encounter Details +--------+ + + + + | Date | Type | Department | Care Team | Description | +--------+ + + + + | 01/13/ | Hospital | [facility] | Shaheed Bailon | Right foot pain; | | 2018 | Encounter | [facility] ANKLE XRAY [address] | [address] | Left foot pain | | | | [address] | [address] | | | | | [place], [place] | [place] [address] | | | | | [address] | [phone] | | | | | [phone] | | | +--------+ + + + [...] + + +---------+ + + | | take 1 tablet by | | 0 | 01/13/20 | | | amoxicillin-clavulan | mouth every 12 hours | | | 19 | 9 | | ate (AUGMENTIN) | for 10 days | | | | | | 875-125 mg per | | | | | | | tablet | | | | | | + + + +---------+ + + | chlorhexidine | RINSE AND SWISH AND | | 0 | 09/23/19 | | | (PERIDEX) 0.12% | SPIT WITH 1 CAPFULL | | | 19 | 9 | | solution | TWO TIMES DAILY | | | | | + + + +---------+ + + | ibuprofen | | | 0 | 08/14/19 | | | (KATI JOHNSON) 600 | | | | 19 | 9 | | MG tablet | | | | | | + + + +---------+ + + | methylPREDNISolone | Follow package | 21 | 0 | 01/14/20 | | | (MEDROL DOSEPAK) 4 | directions. | tablet | | 19 | 9 | | mg tablet | | | | | | + + + +---------+ + + | Multiple | Take 1 tablet by | | 0 | 07/21/19 | | | Vitamins-Minerals | mouth daily. | | | 19 | 9 | | (MULTIVITAMIN ADULT | | | | | | | PO) | | | | | | + + + +---------+ + + | oxybutynin | Take 5 mg by mouth | | 0 | 07/21/19 | | | (DITROPAN XL) 5 mg | daily. | | | 19 | 9 | | 24 hr tablet | | | | | | + + + +---------+ + + documented as of this encounter Plan of Treatment +--------+---------+ + + + | Date | Type | Specialty | Care Team | Description | +--------+---------+ + + + | 05/26/ | Office | Orthopedic Surgery | Forest Castillo, | | | 2019 | Visit | | [address] | | | | | | [place] [address] | | | | | | [phone] | | | | | | | | +--------+---------+ + + + documented as of this encounter Procedures + +--------+ + + + | Procedure Name | Priori | Date/Time | Associated Diagnosis | Comments | | | ty | | | | + +--------+ + + + | XR FOOT RIGHT 3 + VW | Routin | 01/13/2019 | Right foot pain | Results for this | | | e | 8:39 AM | | procedure are in the | | | | PDT | | results section. | + +--------+ + + + | XR FOOT LEFT 3 + VW | Routin | 01/13/2019 | Left foot pain | Results for this | | | e | 8:39 AM | | procedure are in the | | | | PDT | | results section. | + +--------+ + + + documented in this encounter Results XR Foot Left 3 + Vw (01/13/2019 8:39 AM [...] + | Diagnosis | + + | Right foot pain Pain in limb | + + | Left foot pain Pain in limb | + + documented in this encounter"
--- OUTSIDE RECORDS SUMMARY | ~2019-05-03 | XMS | Clinical Summary ---
Demographics + + + | Address | [address] | | | [place] [address] | + + + | Home Phone | | + + + | Preferred Language | Unknown | + + + | Marital Status | | + + + | Scientology Affiliation | Unknown | + + + | Race | Unknown | + + + | Ethnic Group | Unknown | + + + Author + + + | Author | [facility] | | | and [place] | + + + | Organization | [facility] | | | [...] Team Providers + +------+ + | Care Ship Liner Name | Role | Phone | + [...] | 03/03/ | Office | Dermatology | Aniket Melia | Perioral dermatitis | | 2018 [...] [address] | | | | | | [place] [address] | | | | | | [phone] | | | | | | | [...] Castillo MD has created this entry using Restaro | | | Voice Recognition software and NeoStem. The entry has been | | | reviewed and there may still exist sound alike word errors. | | | | | | | | |Forest Castillo MD has created this entry using StyleTread | | |Recognition software and NeoStem. The entry has been reviewed and | [...] +---------+------+ | [employer] | UNITED | [id number] | 05/27/19 | [phone] | | PPO [...] | Self | [birth year] | [address] | | [place] | al/Fam | | 1980 | [phone] | [place] | | | [place]baro | | | 5 (Home) | [address] | + +--------+ +--------+ + + Advance Directives + + + + + | Type | Date Recorded | Patient | Explanation | | | | Virtual Recruiter | | + + + + + | Power of | | | | | Boat Cleaning Supervisor | | | | + + + + + | Advance | | | | | Directive | | | | + + + + +
--- OUTSIDE RECORDS SUMMARY | ~2019-05-03 | XMS | Encounter Summary ---
Demographics + + + | Address | [address] | | | [place] [address] | + + + | Home Phone [...] Team Providers + +------+ + | Care Electrician Supervisor Airplane Name | Role | Phone | + +------+ + | Edwige Moreira MD | PCP | | + +------+ + Encounter Details +--------+---------+ + + + | Date | Type | Department | Care Team | Description | +--------+---------+ + + + | 01/13/ | Office | [facility] | Kb Bailon | Plantar fasciitis, | | 2019 | Visit | [address] | [address] | bilateral (Primary | | | | [address] | [address] | Dx); Right foot | | | | [place], [place] | [place] [address] | pain; Left foot | | | | [address] | [phone] | pain; Tendonitis of | | | | [phone] | | ankle | +--------+---------+ + + [...] encounter Patient Instructions Patient Instructions Florence Alejo, Arts Therapist - 01/13/2019 8:30 AM PDTPlantar Fasciitis Regimen [...] co unter arch support (can find on [employer] or other online vendor) 5. Injections: If [...] Kb Bailon DPM - 01/20/2019 9:28 AM [facility] OFFICE NOTE KB BAILON DPRick Patient: JAYDA DELCID Admitting: MR #: [id number] LOC: PT TYPE: Adm Date: 01/13/2019 : 1980 Three views of the left foot demonstrate a calcaneal inclination angle within normal limits . Infracalcaneal spurring. Bone density within normal limits. Rectus great toe position. IMPRESSION: Normal x-ray left foot with infracalcaneal spurring. KB BAILON DPM Dictated by KB BAILON DPM 01/20/2019 09:28:10 Transcribed on 01/20/2019 10:01:19 by job# [id number] Confirmation #: [id number] signed by Kb Bailon DPM at 01/20/2019 4:02 PM Kb Casiano DPM - 01/20/2019 9:27 AM [facility] OFFICE NOTE KB BAILON DPRick Patient: JAYDA DELCID Admitting: MR #: [id number] LOC: PT TYPE: Adm Date: 01/13/2019 : [...] 01/20/2019 09:27:26 Transcribed on 01/20/2019 10:03:42 by job# [id number] Confirmation #: [id number] signed by Kb Bailon DPM at 01/20/2019 4:03 PM Kb Casiano DPM - 01/13/2019 8:30 AM PDT [facility] Date of visit:01/13/2019 Patient [...] 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 Larson in [facility] for lower extremity edema and has been [...] ADENOIDECTOMY 2016 Dr. Mercado TUBAL LIGATION 12/2003 Allergies Allergen [...] 5 mg by mouth daily. 07/21/18 Provider Woodrowk jaleesan Conversion Transaction Family History Problem Relation Age [...] or malodor. No str eaking. Muscle strength /5. PROBLEM LIST Encounter Diagnoses Name Primary? Right [...] | 2018 | Visit | | [address] | | | | | | [place] [address] | | | | | | [phone] | | | | | | | | +--------+---------+ + + + documented as of this encounter Results XR Foot Left 3 [...]
--- OUTSIDE RECORDS SUMMARY | ~2019-05-03 | XMS | Encounter Summary ---
Demographics + + + | Address | [address] | | | [place] [address] | + + + | Home Phone | | + + + | Preferred Language | Unknown | + + + | Marital Status | | + + + | Religion Affiliation | Unknown | + + + | Race | Unknown | + + + | Ethnic Group | Unknown | + + + Author + + + | Author | [facility] | | | and [place] | + + + | Organization | [facility] | | | [...] Team Providers + +------+ + | Care Department Clerk Name | Role | Phone | + +------+ + | Jarocho Tate | PCP | | | MD | | | + +------+ + Reason for Visit + + + | Reason | Comments | + + + | Varicose Veins | | + + + Encounter Details +--------+---------+ + + + | Date | Type | Department | Care Team | Description | +--------+---------+ + + + | 03/19/ | Office | [facility] | Selvin Larson MD | Chronic venous | | 2019 | Visit | VASCULAR SURGERY | [address] | insufficiency | | | | [address] | [place], [place] | (Primary Dx); | | | | [place], [place] | [address] | Varicose veins of | | | | [address] | [phone] | bilateral lower | | | | [phone] | | extremities with | | | | | | pain | +--------+---------+ + + + Social History [...] +---------+ + + | Blood Pressure | 121/89 | 03/19/2019 3:25 PM | | | | | PDT | | + +---------+ + + | Pulse | 57 | 03/19/2019 3:25 PM | | | | | PDT | | + +---------+ + + | Temperature | - | - | | + +---------+ + + | Respiratory Rate | - | - | | + +---------+ + + | Oxygen Saturation | 99% | 03/19/2019 3:25 PM | | | | | PDT | [...] +---------+ + + documented in this encounter Progress Notes Selvin Larson MD - 03/19/2019 4:30 PM PDT Subjective Subjective Ms. Delcid is a pleasant 38 y.o. female with PMH significant for dyslipidemia who presents for follow-up concerning varicose veins. The patient was seen here three months ago for leg swelling and venous duplex ultrasound was obtained which showed evidence of valvular insuff iciency and venous reflux bilaterally. The patient was prescribed compression stockings. Pat richi indicates that she has been tolerating compression stocking use very well and her leg s welling and has been greatly improved. The patient seems happy with her compression stocking s. 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 When she looked at her left leg she found a bruise on the upper calf area. Past Medical History: Diagnosis Date Breast mass, right Dyslipidemia Endometriosis PCOS (polycystic ovarian syndrome) Past Surgical History: Procedure Laterality Date CERVICAL SPINE SURGERY 2010 c2-c5 OTHER SURGICAL HISTORY Bilateral 2010 UNLISTED PROCEDURE ARTHROSCOPY - knee OTHER SURGICAL HISTORY 2010 NASAL RECONSTRUCTION TONSILLECTOMY AND ADENOIDECTOMY 2016 Dr. Mercado TUBAL LIGATION 12/2003 Social History Tobacco Use Smoking status: Never Smoker Smokeless tobacco: Never Used Substance Use Topics Alcohol use: Not on file Drug use: Not on file Comment: Drug use: No Family History Problem Relation Age of Onset Cancer Mother uvula Drug abuse Mother Parkinsonism Father High cholesterol Father Dementia Father Cancer Paternal Grandmother colon Diabetes, IDDM Paternal Grandmother Other (see comment) Paternal Grandmother Hypothyroidism Heart attack Paternal Grandfather Current Outpatient Medications on File Prior to Visit Medication Sig Dispense Refill doxycycline (VIBRAMYCIN) 50 MG capsule Take 1 capsule by mouth Daily for 30 days. 30 ca psule 0 metroNIDAZOLE (METROGEL) 0.75 % gel Apply bid to face 45 g 11 VOLTAREN 1 % GEL 0 No current facility-administered medications on file prior to visit. Allergies Allergen Reactions Percocet [Oxycodone-Acetaminophen] Other (See Comments) Other reaction(s): Vomiting, Other reaction(s): Confusion, other Bactrim [Sulfamethoxazole-Trimethoprim] Other (See Comments) Kidney failure Bee Venom Other (See Comments) Other Dicyclomine Other (See Comments) Latex Other (See Comments) Other Sulfa Antibiotics Other (See Comments) Comprehensive ROS performed and pertinent items described in the HPI. Objective Objective Vitals:reviewed CONSTITUTIONAL: Conversant, well developed, NAD EYES: Anicteric sclerae, no lid drag, no proptosis RESP: Normal effort, regular, even, unlabored rate CV: No peripheral edema, rate regular SKIN: [place], warm, dry without rash/lesion MS: ROM not limited, no digital cyanosis, normal gait NEURO: Cranial nerves II-XII grossly intact, A&O times 3 PSYCH: appropriate affect, speech and tone, judgement and insight intact Vascular: Minimal edema Assessment Assessment and Plan As the patient's leg swelling has improved significantly and the patient has been toleratin g compression stockings well, I recommend lifelong compression stocking use for the patient. I do not believe surgery would benefit the patient greatly as her symptoms are well control led with compression. I discussed with the patient that the bruise on her left leg is not co ncerning and is likely just a broken capillary. I recommend that the patient wear a minimum of 20-30 mm Hg compression stockings but I would recommend 30-40 mm Hg compression stockings if the she is looking for tighter compression and if she is able to tolerate them. Patient was reminded to put on compression stockings first thing in the morning and to wear them unt il she goes to bed at night. Patient was also encouraged to elevate her legs during the nigh t. Patient was instructed to change her compression stockings every 6 months as they lose th eir elasticity over time. All questions and concerns addressed. Patient will follow up as ne eded. Patient understands and is agreeable. Attending Note: Documentation assistance provided by Hailey Sevilla (Jaqui). Information homer rded by the jaqui has been reviewed and validated by me. I agree with its contents. Signed by: Jaqui Richter 03/19/19, 15:44 Selvin Larson MD documented in this encounter Plan of Treatment +--------+---------+ + + + | Date | Type | Specialty | Care Team | Description | +--------+---------+ + + + | 05/26/ | Office | Orthopedic Surgery | Forest Castillo, | | | 2018 | Visit | | [address] | | | | | | [place] [address] | | | | | | [phone] | | | | | | | | +--------+---------+ + + + documented as of this encounter Visit Diagnoses + + | Diagnosis | + + | Chronic venous insufficiency - Primary Unspecified venous (peripheral) insufficiency | + + | Varicose veins of bilateral lower extremities with pain | + + documented in this encounter"
--- OUTSIDE RECORDS SUMMARY | ~2019-05-03 | XMS | Encounter Summary ---
Demographics + + + | Address | [address] | | | [place] [address] | + + + | Home Phone | | + + + | Preferred Language | Unknown | + + + | Marital Status | | + + + | Protestant Affiliation | Unknown | + + + | Race | Unknown | + + + | Ethnic Group | Unknown | + + + Author + + + | Author | [facility] | | | and [place] | + + + | Organization | [facility] | | | and [...] Team Providers + +------+ + | Care Community Specialist Name | Role | Phone | + +------+ + | Jarocho Tate | PCP | | | MD | | | + +------+ + Encounter Details +--------+ + + + + | Date | Type | Department | Care Team | Description | +--------+ + + + + | 04/03/ | Hospital | [facility] | Forest Castillo, | Acute pain of right | | 2019 | Encounter | [facility] | MD [address] | shoulder | | | | [address] | [place] [address] | | | | | [place], [place] | [phone] | | | | | [address] | | | | | | [phone] | | | +--------+ + + + [...] | | 2019 | Visit | | [address] | | | | | | [place] [address] | | | | | | [phone] | | | | | | | [...] Castillo MD has created this entry using Camerborn | | | Voice Recognition software and TIME PLUS Q. The entry has been | | | reviewed and there may still exist sound alike word errors. | | | | | | | | |Forest Castillo MD has created this entry using VirnetX | | |Recognition software and TIME PLUS Q. The entry has been reviewed and | [...]
--- OUTSIDE RECORDS SUMMARY | ~2019-05-03 | XMS | Encounter Summary ---
Demographics + + + | Address | [address] | | | [place] [address] | + + + | Home Phone | | + + + | Preferred Language | Unknown | + + + | Marital Status | | + + + | Buddhism Affiliation | Unknown | + + + | Race | Unknown | + + + | Ethnic Group | Unknown | + + + Author + + + | Author | [facility] | | | and [place] | + + + | Organization | [facility] | | | [...] Team Providers + +------+ + | Care Hydrodynamics Teacher Name | Role | Phone | + +------+ + | Edwige Moreira MD | PCP | | + +------+ + Encounter Details +--------+---------+ + + + | Date | Type | Department | Care Team | Description | +--------+---------+ + + + | 01/13/ | Office | [facility] | Kb Bailon | Plantar fasciitis, | | 2019 | Visit | [address] | [address] | bilateral (Primary | | | | [address] | [address] | Dx); Right foot | | | | [place], [place] | [place] [address] | pain; Left foot | | | | [address] | [phone] | pain; Tendonitis of | | | | [phone] | | ankle | +--------+---------+ + + [...] encounter Patient Instructions Patient Instructions Florence Alejo, Sql Database Developer - 01/13/2019 8:30 AM PDTPlantar Fasciitis Regimen [...] co unter arch support (can find on [employer] or other online vendor) 5. Injections: If [...] Kb Bailon DPM - 01/20/2019 9:28 AM [facility] OFFICE NOTE KB BAILON DPRick Patient: JAYDA DELCID Admitting: MR #: [id number] LOC: PT TYPE: Adm Date: 01/13/2019 : 1980 Three views of the left foot demonstrate a calcaneal inclination angle within normal limits . Infracalcaneal spurring. Bone density within normal limits. Rectus great toe position. IMPRESSION: Normal x-ray left foot with infracalcaneal spurring. KB BAILON DPM Dictated by KB BAILON DPM 01/20/2019 09:28:10 Transcribed on 01/20/2019 10:01:19 by job# [id number] Confirmation #: [id number] signed by Kb Bailon DPM at 01/20/2019 4:02 PM Kb Casiano DPM - 01/20/2019 9:27 AM [facility] OFFICE NOTE KB BAILON DPRick Patient: JAYDA DELCID Admitting: MR #: [id number] LOC: PT TYPE: Adm Date: 01/13/2019 : [...] 09:27:26 Transcribed on 01/20/2019 10:03:42 by job# [id number] Confirmation #: [id number] signed by Kb Bailon DPM at 01/20/2019 4:03 PM Kb Casiano DPM - 01/13/2019 8:30 AM PDT [facility] Date of visit:01/13/2019 Patient [...] 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 The patient states that she does have a large hike that [place] in the coming weeks and is preparing for this hike. The patient states she has tried different shoes, custom orthotics, topical Voltaren gel a nd other treatment options with minimal relief. The patient has seen Dr. Larson in [facility] for lower extremity edema and has been [...] | 2018 | Visit | | [address] | | | | | | [place] [address] | | | | | | [phone] | | | | | | | [...]
--- OUTSIDE RECORDS SUMMARY | ~2019-05-03 | XMS | Clinical Summary ---
Demographics + + + | Address | [address] | | | [place] [address] | + + + | Home Phone | | + + + | Preferred Language | Unknown | + + + | Marital Status | | + + + | Yarsanism Affiliation | Unknown | + + + | Race | Unknown | + + + | Ethnic Group | Unknown | + + + Author + + + | Author | [facility] (Historical as of | | | 01-10-19) | + + + | Organization | [facility] (Historical as of | | | 01-10-19) | + + + | Address | Unknown | + + + | Phone | Unavailable | + + + Support + + +---------+ + | Name | Relationship | Address | Phone | + + +---------+ + | Contact,No | ECON | Unknown | | + + +---------+ + Care Team Providers + +------+ + | Care Kettle Skimmer Name | Role | Phone | + +------+ + | Edwige Moreira MD | PP | | + +------+ + Allergies + [...] | hen | | | 19 | Vomiting Other | | | | | | reaction(s): | | | | | | Confusion other | + + + + + + | Sulfa Antibiotics | Other (See Comments) | Medium | | | + + + + + + Current Medications + + +-------+---------+------+------+-------+ | Prescription | Sig. | Disp. | Refills | Star | End | Statu | | | | | | t | Date | s | | | | | | Date | | | + + +-------+---------+------+------+-------+ | oxybutynin | Take 5 mg by mouth | | | | | Activ | | (DITROPAN-XL) 5 MG | daily. | | | | | e | | 24 hr tablet | | | | | | | + + +-------+---------+------+------+-------+ | Multiple | Take 1 tablet by | | | | | Activ | | Vitamins-Minerals | mouth daily. | | | | | e | | (MULTIVITAMIN ADULT | | | | | | | | PO) | | | | | | | + + +-------+---------+------+------+-------+ | chlorhexidine | RINSE AND SWISH AND | | 0 | 04/2 | | Activ | | (PERIDEX) 0.12 % | SPIT WITH 1 CAPFULL | | | 9/20 | | e | | solution | TWO TIMES DAILY | | | 19 | | | + + +-------+---------+------+------+-------+ | ibuprofen (MOTRIN) | | | 0 | 03/2 | | Activ | | 600 MG tablet | | | | 0/20 | | e | | | | | | 19 | | | + + +-------+---------+------+------+-------+ Active Problems + + + | Problem [...] breast | 07/28/2018 | + + + Family History + + +------+ + | Medical History | Relation | Name | Comments | + + +------+ + | Dementia | Father | | | + + +------+ + | Hypercholesterolemia | Father | | | + + +------+ + | Parkinson's disease | Father | | | + + [...] | | + + +------+ + | Diabetes type I | Paternal | | | | | Grandmoth | | | | | er | | | + + +------+ + | Hypothyroidism | Paternal | | | | | Grandmoth | | | | | er | | | + + +------+ + + +------+--------+ + | Relation | Name | Status | Comments | + +------+--------+ + | Father | | Alive | | + +------+--------+ + | Mother [...] + +---------+ + | Alcohol Use | Drinks/We | oz/Week | Comments | | | ek | | | + + +---------+ + | Yes | | | | + + +---------+ + + + + | Sex Assigned at | Date Recorded | | | | + + + | Not on file | | + + + Last Filed Vital Signs + +---------+ + | Vital Sign | Reading | Time Taken | + +---------+ + | Blood Pressure | 112/77 | 11/10/2018 2:33 PM PDT | + +---------+ + | Pulse | 57 | 11/10/2018 2:33 PM PDT | + +---------+ + | Temperature | - | - | + +---------+ + | Respiratory Rate | - | - | + +---------+ + | Oxygen Saturation | 99% | 11/10/2018 2:33 PM PDT | + +---------+ + | Inhaled Oxygen | - | - | | Concentration | | | + +---------+ + | Weight | - | - | + +---------+ + | Height | - | - | + +---------+ + | Body Mass Index | - | - | + +---------+ + Plan of Treatment + + + + + | Health Maintenance | Due Date | Last Done | Comments | + + + + + | Vaccine: | | | | | Dtap/Tdap/Td (1 - | 9 | | | | Tdap) | | | | + + + + + | Cervical Cancer | | | | | Screening (Pap) | 0 | | | + + + + + | Vaccine: Influenza | | | | | (#1) | 9 | | | + + + + + Results Not on filefrom Last 3 Months Insurance + +--------+ +------+-------+---------+ | Payer | Benefi | Subscriber | Type | Phone | Address | | | t Plan | ID | | | | | | / | | | | | | | Group | | | | | + +--------+ +------+-------+---------+ | [employer] | UNITED | [id number] | | | | | | | | | | | | | HEALTH | | | | | | | CARE - | | | | | | | SLC | | | | | + +--------+ +------+-------+---------+ + +--------+ +--------+ + + | Guarantor Name | Accoun | Relation to | Date | Phone | Billing Address | | | t Type | Patient | of | | | | | | | | | | + +--------+ +--------+ + + | JAYDA DAVID | Person | Self [birth year] | Home: | [address] | | [place] | al/Fam | | 1980 | [phone] | [place] | | | [place] | | | [phone] | [address] | + +--------+ +--------+ + +"
--- OUTSIDE RECORDS SUMMARY | ~2019-05-03 | XMS | Encounter Summary ---
Demographics + + + | Address | [address] | | | [place] [address] | + + + | Home Phone | | + + + | Preferred Language | Unknown | + + + | Marital Status | | + + + | Sikh Affiliation | Unknown | + + + | Race | Unknown | + + + | Ethnic Group | Unknown | + + + Author + + + | Author | [facility] | | | and [place] | + + + | Organization | [facility] | | | [...] Team Providers + +------+ + | Care Bag Worker Name | Role | Phone | + +------+ + | Jarocho Tate | PCP | | | MD | | | + +------+ + Encounter Details +--------+ + + + + | Date | Type | Department | Care Team | Description | +--------+ + + + + | 07/21/ | Orders Only | [facility] | Conversion | | | 2019 | | CONVERSION [address] | Transaction, | | | | [address] | Provider Unknown | | | | | [place], [place] | [phone] | | | | | [address] | | | | | | [phone] | | | +--------+ + + + [...] | | | | | [place] [address] | | | | | | [phone] | | | | | | | | +--------+---------+ + + + documented as of this encounter Visit Diagnoses Not on filedocumented in this encounter"
--- OUTSIDE RECORDS SUMMARY | ~2019-05-03 | XMS | Encounter Summary ---
Demographics + + + | Address | [address] | | | [place] [address] | + + + | Home Phone | | + + + | Preferred Language | Unknown | + + + | Marital Status | | + + + | Sabianism Affiliation | Unknown | + + + | Race | Unknown | + + + | Ethnic Group | Unknown | + + + Author + + + | Author | [facility] | | | and [place] | + + + | Organization | [facility] | | | and [...] Team Providers + +------+ + | Care Information Systems Security Specialist Name | Role | Phone | [...] Provider Unknown | | | | | [place], [place] | [phone] | | | | | [address] | | | | | | [phone] | | | +--------+ + + + [...] | | | | | [place] [address] | | | | | | [phone] | | | | | | | | +--------+---------+ + + + documented as of this encounter Visit Diagnoses Not on filedocumented in this encounter"
--- OUTSIDE RECORDS SUMMARY | ~2019-05-03 | XMS | Clinical Summary ---
Demographics + + + | Address | [address] | | | [place] [address] | + + + | Home Phone | | + + + | Preferred Language | Unknown | + + + | Marital Status | | + + + | Caodaism Affiliation | Unknown | + + + | Race | Unknown | + + + | Ethnic Group | Unknown | + + + Author + + + | Author | [facility] (Historical as of | | | 01-10-19) | + + + | Organization | [facility] (Historical as of | | | 01-10-19) [...] Team Providers + +------+ + | Care Station Air Traffic Control Specialist Name | Role | Phone | [...] +------+-------+---------+ | [employer] | UNITED | [id number] | | | | | | | [...] Self | [birth year] | Home: | [address] | | [place] | al/Fam | | 1980 | [phone] | [place] | | | [place] | | | [address] | [address] | + +--------+ +--------+ + +"
--- OUTSIDE RECORDS SUMMARY | ~2019-05-03 | XMS | Encounter Summary ---
Demographics + + + | Address | [address] | | | [place] [address] | + + + | Home Phone [...] Team Providers + +------+ + | Care Forest Fire Prevention Specialist Name | Role | Phone | [...] + + | 03/03/ | Office | [facility] | Melia Marcial | Perioral dermatitis | | 2019 | Visit | PLASTIC SURGERY AND | [address] | (Primary Dx); | | | | DERMATOLOGY [address] | [address] | Seborrheic | | | | [address] | [place] [address] | dermatitis; Pilar | | | | [place], [place] | [phone] | cyst; Multiple | | | | [address] | | benign nevi | | | | [phone] | | | +--------+---------+ + + + [...] encounter Patient Instructions Patient Instructions Anjali Villeda, Quartz Orientator - 03/03/2019 9:20 AM PDTFormattin g of [...] a.m. to 4 p.m. Date Last Reviewed: 05/27/201619997228-6314 [employer]. [address] [place] [address], [place] [address]. All righ ts reserved. This information is not intended as a substitute for professional medical care. Always follow your healthcare professional's instructions. documented in this encounter Progress Notes Melia Marcial ARNP - 03/03/2019 9:20 AM PDT Subjective Patient ID: Anushka Dlecid is a 38 y.o. female. New patient [...] [address] | | | | | | [place] [address] | | | | | | [phone] | | | | | | | [...]
--- OUTSIDE RECORDS SUMMARY | ~2019-05-03 | XMS | Encounter Summary ---
Demographics + + + | Address | [address] | | | [place] [address] | + + + | Home Phone | | + + + | Preferred Language | Unknown | + + + | Marital Status | | + + + | Baptism Affiliation | Unknown | + + + | Race | Unknown | + + + | Ethnic Group | Unknown | + + + Author + + + | Author | [facility] | | | and [place] | + + + | Organization | [facility] | | [...] Team Providers + +------+ + | Care Offshoring Manager Name | Role | Phone | + +------+ + | Edwige Moreira MD | PCP | | + +------+ + Encounter Details +--------+ + + + + | Date | Type | Department | Care Team | Description | +--------+ + + + + | 01/13/ | Hospital | [facility] | Shaheed Bailon | Right foot pain; | | 2018 | Encounter | [address] | Dusty, DPM [address] | Left foot pain | | | | [address] | [address] | | | | | [place], [place] | [place] [address] | | | | | [address] | [phone] | | | | | [phone] | | | +--------+ + + + [...] | | 2019 | Visit | | [address] | | | | | | [place] [address] | | | | | | [phone] | | | | | | | [...]
--- OUTSIDE RECORDS SUMMARY | ~2019-05-03 | XMS | Encounter Summary ---
Demographics + + + | Address | [address] | | | [place] [address] | + + + | Home Phone | | + + + | Preferred Language | Unknown | + + + | Marital Status | | + + + | Sabianist Affiliation | Unknown | + + + | Race | Unknown | + + + | Ethnic Group | Unknown | + + + Author + + + | Author | [facility] | | | and [place] | + + + | Organization | [facility] | | | and [...] Team Providers + +------+ + | Care Lightning Rod Erector Name | Role | Phone | + [...] + + | 03/19/ | Office | [facility] | Selvin Larson MD | Chronic venous | | 2019 | Visit | VASCULAR SURGERY | [address] | insufficiency | | | | [address] | [address], [place] | (Primary Dx); | | | | [place], [place] | [address] | Varicose veins of | | | | [address] | [phone] | bilateral lower | | | | [phone] | | extremities with | | | [...] CV: No peripheral edema, rate regular SKIN: [place], warm, dry without rash/lesion MS: ROM not [...] 05/26/ | Office | Orthopedic Surgery | Froest Castillo, | | | 2018 | Visit | | [address] | | | | | | [place] [address] | | | | | | [phone] | | | | | | | | +--------+---------+ + + + documented as of this encounter Visit Diagnoses + + | Diagnosis | + + | Chronic venous insufficiency - Primary Unspecified venous (peripheral) insufficiency | + + | Varicose veins of bilateral lower extremities with pain | + + documented in this encounter"
--- OUTSIDE RECORDS SUMMARY | ~2019-05-03 | XMS | Encounter Summary ---
Demographics + + + | Address | [address] | | | [place] [address] | + + + | Home Phone [...] | Author | [facility] | | | and [place] | + + + | Organization | [facility] | | | [...] Team Providers + +------+ + | Care Checker Loader Name | Role | Phone | [...] Provider Unknown | | | | | [place], [place] | [phone] | | | | | [address] | | | | | | [phone] | | | +--------+ + + + [...] | | | | | [place] [address] | | | | | | [phone] | | | | | | | | +--------+---------+ + + + documented as of this encounter Visit Diagnoses Not on filedocumented in this encounter"
--- OUTSIDE RECORDS SUMMARY | ~2019-05-03 | XMS | Encounter Summary ---
Demographics + + + | Address | [address] | | | [place] [address] | + + + | Home Phone | | + + + | Preferred Language | Unknown | + + + | Marital Status | | + + + | Orthodox Affiliation | Unknown | + + + | Race | Unknown | + + + | Ethnic Group | Unknown | + + + Author + + + | Author | [facility] | | | and [place] | + + + | Organization | [facility] | | | [...] Providers + +------+ + | Care Fire Control Officer Name | Role | Phone | [...] JES | | | | | | [address] | [address] | | | | | | Phone: | [address] | | | | | | [phone] | 15 | | | | | | Fax: | [place] | | | | | | [phone] | [address] | | | | | | | Phone: | | | | | | | [phone] | | | | | | | Fax: | | | | | | | [phone] | + + + + + + [...] | | | | shoulder | | [facility], | | | | | pain/crane | | [place] [address] | | | | | conf | | Phone: | | | | | Procedures | | [phone] | | | | | NEW PATIENT | | Fax: | | | | | | | [phone] | + +--------+ + + + + Encounter Details +--------+---------+ + + + | Date | Type | Department | Care Team | Description | +--------+---------+ + + + | 04/03/ | Office | [facility] | Forest Castillo, | Acute pain of right | | 2019 | Visit | ORTHO SPORTS | [address] | shoulder (Primary | | | | MEDICINE [facility] | [place] [address] | Dx); Impingement | | | | [address] | [phone] | syndrome of right | | | | [place], [place] | | shoulder | | | | [address] | | | | | | [phone] | | | +--------+---------+ + + + [...] might be different fro m the original. [facility] Service: Orthopedic Surgery [...] dislocation, no degeneration. Electronically signed by: Forest Casitllo MD 04/03/2019 8:58 Forest Castillo MD has created this entry using Saber Hacer Recognition software and [employer]ee[employer]ee macros. The entry has been reviewed and [...] Castillo MD has created this entry using Parametric Voice Recognition software a [employer]. The entry has been reviewed and there [...] [address] | | | | | | [place] [address] | | | | | | [phone] | | | | | | | [...] Castillo MD has created this entry using Parametric | | | Voice Recognition software and [employer]. The entry has been | | | reviewed and there may still exist sound alike word errors. | | | | | | | | |Forest Castillo MD has created this entry using Saber Hacer | | |Recognition software and [employer]. The entry has been reviewed and | | |there may still exist sound alike word errors. | | | | | + + + + +---------+ + + | Performing | Address | City/State/[facility] | Phone Number | | Organization | [...]
--- OUTSIDE RECORDS SUMMARY | ~2019-05-03 | XMS | Encounter Summary ---
Demographics + + + | Address | [address] | | | [place] [address] | + + + | Home Phone | | + + + | Preferred Language | Unknown | + + + | Marital Status | | + + + | Gnosticist Affiliation | Unknown | + + + | Race | Unknown | + + + | Ethnic Group | Unknown | + + + Author + + + | Author | [facility] | | | and [place] | + + + | Organization | [facility] | | [...] Team Providers + +------+ + | Care Educational Psychology Professor Name | Role | Phone | + +------+ + | Jarocho Tate | PCP | | | MD | | | + +------+ + Encounter Details +--------+ + + + + | Date | Type | Department | Care Team | Description | +--------+ + + + + | 04/03/ | Hospital | [facility] | Forest Castillo, | Acute pain of right | | 2019 | Encounter | [address] | MD [address] | shoulder | | | | [address] | [place] [address] | | | | | [place], [place] | [phone] | | | | | [address] | | | | | | [phone] | | | +--------+ + + + [...] | | 2019 | Visit | | [address] | | | | | | [place] [address] | | | | | | [phone] | | | | | | | [...] Castillo MD has created this entry using Smarter Remarketer | | | Voice Recognition software and crobo. The entry has been | | | reviewed and there may still exist sound alike word errors. | | | | | | | | |Forest Castillo MD has created this entry using Simplilearn | | |Recognition software and crobo. The entry has been reviewed and | [...]
[~2019-05-03 16:49] MED LIST changes: +AUGMENTIN 875-1 EACH PO; +HYDROCODON-ACE1 EA10 PO; +IBUPROFEN600 MG PO; +MAPAP325 MG PO; +ONDANSETRON ODT8 MG PO
[2019-05-03] MEDS ORDERED: SUDAFED 12-HOU120 MG PO (18:50)
== END 2019-05-03 19:33 | disposition home or self-care (01) ==
LOC: ED 16:49
DX: J32.9 Chronic sinusitis, unspecified (principal); Z91.040 Latex allergy status; Z88.2 Allergy status to sulfonamides; Z88.5 Allergy status to narcotic agent; Z88.1 Allergy status to other antibiotic agents; Z88.8 Allergy status to other drugs, medicaments and biological substances
CPT/HCPCS: 70486; 96372; 99284-25; J1885

== ENCOUNTER 2019-12-19 11:07 | Emergency (ER) | payer OTHER ==
[~2019-12-19] VITALS: Ht 177.8 cm; Wt 86.2 kg
--- OUTSIDE RECORDS SUMMARY | ~2019-12-19 | XMS | Encounter Summary ---
Demographics + + + | Address | [address] | | | [place] [address] | + + + | Home Phone | | + + + | Preferred Language | Unknown | + + + | Marital Status | | + + + | Gnosticism Affiliation | Unknown | + + + | Race | Unknown | + + + | Ethnic Group | Unknown | + + + Author + + + | Author | [facility] | | | and [place] | + + + | Organization | [facility] | | | and [place] | + + + | Address | Unknown | + + + | Phone | Unavailable | + + + Support + + +---------+ + | Name | Relationship | Address | Phone | + + +---------+ + | Rubén Puentes | ECON | Unknown | | + + +---------+ + | Anushka Mitchell | ECON | Unknown | | + + +---------+ + Care Team Providers + +------+ + | Care Edi Manager Name | Role | Phone | + +------+ + | Jarocho Tate | PCP | | | MD | | | + +------+ + Encounter Details +--------+ + + + + | Date | Type | Department | Care Team | Description | +--------+ + + + + | 06/18/ | Imaging | [facility] | Provider, | | | 2020 | Exam | [facility] | MD [address] | | | | | IMAGING [address] | [address] | | | | | [address] | [place] [address] | | | | | [place] [address] | | | | | | [phone] | | | +--------+ + + + + Social History + +-------+ +--------+------+ | Tobacco Use | Types | Packs/Day | Years | Date | | | | | Used | | + +-------+ +--------+------+ | Never Smoker | | | | | + +-------+ +--------+------+ + +---+---+---+ | Smokeless Tobacco: | | | | | Never Used | | | | + +---+---+---+ + + + | Sex Assigned at | Date Recorded | | | | + + + | Not on file | | + + + documented as of this encounter Plan of Treatment Not on filedocumented as of this encounter Procedures + +--------+ + + + | Procedure Name | Priori | Date/Time | Associated Diagnosis | Comments | | | ty | | | | + +--------+ + + + | MRI BRAIN W WO | Routin | 05/08/2019 | | Results for this | | CONTRAST | e | 12:00 AM | | procedure are in the | | | | PST | | results section. | + +--------+ + + + documented in this encounter Results MRI Brain w wo Contrast (05/08/2019 12:00 AM PST) + + | Specimen | + + | | + + + + + | Narrative | Performed At | + + + | External films for comparison only | [facility] | | | | | No results will be in the chart. | | + + + + +---------+ + + | Performing | Address | City/State/Zipcode | Phone Number | | Organization | | | | + +---------+ + + | [facility] | | | | + +---------+ + + documented in this encounter Visit Diagnoses Not on filedocumented in this encounter"
--- OUTSIDE RECORDS SUMMARY | ~2019-12-19 | XMS | Encounter Summary ---
Demographics + + + | Address | [address] | | | [place] [address] | + + + | Home Phone | | + + + | Preferred Language | Unknown | + + + | Marital Status | | + + + | Buddhist Affiliation | CHR | + + + | Race | White | + + + | Ethnic Group | Not or | + + + Author + + + | Author | [facility] | + + + | Organization | [facility] | + + + | Address | Unknown | + + + | Phone | Unavailable | + + + Support + + +---------+ + | Name | Relationship | Address | Phone | + + +---------+ + | Anushka Mitchell | ECON | Unknown | | + + +---------+ + Care Team Providers + +------+ + | Care Warp Trucker Name | Role | Phone | + +------+ + | Lisa Adorno PA-C | PCP | | + +------+ + Encounter Details +--------+ + + + + | Date | Type | Department | Care Team | Description | +--------+ + + + + | 12/17/ | MyChart | Diagnostic Imaging | | MRI Screening Form | | 2019 | Encounter | Services [address] | | | | | [address] | | | | | | [place], [place] | | | | | | [address] | | | +--------+ + + + [...] | | | + +---+---+---+ + + +---------+ + | Alcohol Use | Drinks/Week | oz/Week | Comments | + + +---------+ + | Not Currently | | | | + + +---------+ + + + + | Sex Assigned at | Date Recorded | | | | + + + | Not on file | | + + + + + + + | Job Start Date | Occupation | Industry | + + + + | Not on file | Not on file | Not on file | + + + + + + + + | Travel History | Travel Start | Travel End | + + + + + + | No recent travel history available. | + + + + + + | COVID-19 Exposure | Response | Date Recorded | + + + + | In the last month, have you been in contact | No / Unsure | 11/20/2019 9:30 AM | | with someone who was confirmed or | | PDT | | suspected to have Coronavirus / COVID-19? | | | + + + + documented as of this encounter Functional Status + + + + | Functional Status | Response | Date of Assessment | + + + + | Because of a physical, mental, or emotional | No | 07/30/2019 | | condition, do you have serious difficulty | | | | doing errands alone such as visiting the | | | | doctor? | | | + + + + + + + + | Cognitive Status | Response | Date of Assessment | + + + + | Because of a physical, mental, or emotional | No | 07/30/2019 | | condition, do you have serious difficulty | | | | concentrating, remembering, or making | | | | decisions? (5 years old or older) | | | + + + + documented as of this encounter Plan of Treatment +--------+ + + + + | Date | Type | Specialty | Care Team | Description | +--------+ + + + + | 11/19/ | Procedure | Radiology | | | | 2019 | Pass | | | | +--------+ + + + + | 11/19/ | Procedure | Radiology | | | | 2019 | Pass | | | | +--------+ + + + + | 12/30/ | Appointment | Clinical | Celestino Henriquez | | | 2019 | | Neurophysiology | Outpatient [address] | | | | [address] | | | | | | [address] [place], [place] | | | | | | [address] | | +--------+ + + + + | 12/30/ | Appointment | Radiology | Thu Fields, | | | 2019 | | | [address] | | | | | | [address] | | | | | | [place] [address] | | | | | | [phone] | | | | | | | | +--------+ + + + + | 12/30/ | Appointment | Radiology | Thu Fields, | | | 2019 | | | MD [address] | | | | | | [address] [place], | | | | | | [place] [address] | | | | | | [phone] | | | | | | | | +--------+ + + + + | 01/21/ | Office | Neurology | Thu Fields, | | 2019 | Visit | | MD [address] | | | | | | [address] [place], | | | | | | [place] [address] | | | | | | [phone] | | | | | | | | +--------+ + + + + documented as of this encounter Visit Diagnoses Not on filedocumented in this encounter"
--- OUTSIDE RECORDS SUMMARY | ~2019-12-19 | XMS | Encounter Summary ---
Demographics + + + | Address | [address] | | | [place] [address] | + + + | Home Phone | | + + + | Preferred Language | Unknown | + + + | Marital Status | | + + + | Hinduism Affiliation | CHR | + + + | Race | White | + + + | Ethnic Group | Not or | + + + Author + + + | Author | [facility] | + + + | Organization | [facility] | + + + | Address | Unknown | + + + | Phone | Unavailable | + + + Support + + +---------+ + | Name | Relationship | Address | Phone | + + +---------+ + | Anushka Mitchell | ECON | Unknown | | + + +---------+ + Care Team Providers + +------+ + | Care Astronomy Professor Name | Role | Phone | + +------+ + | Lisa Adorno PA-C | PCP | | + +------+ + Encounter Details +--------+ + + + + | Date | Type | Department | Care Team | Description | +--------+ + + + + | 07/14/ | Anesthesia | Preoperative | Rios, | | | 2020 | Event | Medicine Clinic at | Jamie Downing NP [address] | | | | | [facility] | [facility] | | | | | [address] | [place], [place] | | | | | [place] [facility] | [address] | | | | | and Healing, | [phone] | | | | | [address] | | | | | | [facility] [place] | | | | | | [address] | | | | | | [phone] | | | +--------+ + + + + Anesthesia Record + + + + + | Procedure Name | Responsible | Anesthesia Start | Anesthesia Stop Time | | | Anesthesiologist | Time | | + + + + + | PREANESTHETIC | | | | | EVALUATION | | | | + + + + + + + | No events on file. | + + +------+ | Meds | +------+ + + + No medications | on file. | + + + + + | No agents on file. | + + + + | No blood administrations on file. | + + + + | No LDAs on file. | + + documented in this encounter Social History + +-------+ +--------+------+ | Tobacco [...] in contact | No / Unsure | 08/11/2019 9:51 AM | | with someone who was [...] | 12/30/ | Appointment | Clinical | Tech[facility] | | | 2019 | | Neurophysiology | Outpatient [address] | [address] | | | | | | Road [place], [place] | | | | | | [address] | | +--------+ + + + + | 12/30/ | Appointment | Radiology | Thu Fields, | | | 2019 | | | MD [address] | | | | | | [address] [place], | | | | | | [place] [address] | | | | | | [phone] | | | | | | | | +--------+ + + + + | 12/30/ | Appointment | Radiology | Thu Fields, | | | 2019 | | | MD [address] | | | | | | [address] [place], | | | | | | [place] [address] | | | | | | [phone] | | | | | | | | +--------+ + + + + | 01/21/ | Office | Neurology | Thu Fields, | | | 2020 | Visit | | [address] | | | | | | [address], | | | | | | [place] [address] | | | | | | [phone] | | | | | | | | +--------+ + + + + documented as of this encounter Visit Diagnoses Not on filedocumented in this encounter"
--- OUTSIDE RECORDS SUMMARY | ~2019-12-19 | XMS | Encounter Summary ---
Demographics + + + | Address | [address] | | | [place] [address] | + + + | Home Phone | | + + + | Preferred Language | Unknown | + + + | Marital Status | | + + + | Adventism Affiliation | CHR | + + + | Race | White | + + + | Ethnic Group | Not or | + + + Author + + + | Author | [facility] | + + + | Organization | [facility] | + + + | Address | Unknown | + + + | Phone | Unavailable | + + + Support + + +---------+ + | Name | Relationship | Address | Phone | + + +---------+ + | Anushka Mitchell | ECON | Unknown | | + + +---------+ + Care Team Providers + +------+ + | Care Mdm Sr Name | Role | Phone | + +------+ + | Lisa Adorno PA-C | PCP | | + +------+ + Encounter Details +--------+ + + + + | Date | Type | Department | Care Team | Description | +--------+ + + + + | 09/03/ | [facility] | Neurosurgery at | Kathryn, | RE: FMLA Back to | | 2019 | Encounter | [facility] | Shayy, | Work Papers | | | | and Healing [address] | DENISSE,PROFESSOR IN FAMILY [employer]UDIES,[place] [address] | | | | | [address] [facility] | [facility] | | | | | Health and Healing, | [place] [address] | | | | | [place] [address] | [phone] | | | | | [place], [place] | | | | | | [address] | | | | | | [phone] | | | +--------+ + + + [...] | Appointment | Clinical | Celestino Henriquez [facility] | | | 2019 | | Neurophysiology | Outpatient [address] | | | | | [address] | | | | | | Road [place], [place] | | | | | | [address] | | +--------+ + + + + | 12/30/ | Appointment | Radiology | Thu Fields, | | | 2019 | | | [address] | | | | | | [facility] [address] [place], | | | | | | [place] [address] | | | | | | [phone] | | | | | | | | +--------+ + + + + | 12/30/ | Appointment | Radiology | Thu Fields, | | | 2019 | | | MD [address] | | | | | | [address] [place], | | | | | | [place] [address] | | | | | | [phone] | | | | | | | | +--------+ + + + + | 01/21/ | Office | Neurology | Thu Fields, | | | 2019 | Visit | | MD [address] | | | | | | [address] [place], | | | | | | [place] [address] | | | | | | [phone] | | | | | | | | +--------+ + + + + documented as of this encounter Visit Diagnoses Not on filedocumented in this encounter"
--- OUTSIDE RECORDS SUMMARY | ~2019-12-19 | XMS | Encounter Summary ---
Demographics + + + | Address | [address] | | | [place] [address] | + + + | Home Phone | | + + + | Preferred Language | Unknown | + + + | Marital Status | | + + + | Anglican Affiliation | CHR | + + + | Race | White | + + + | Ethnic Group | Not or | + + + Author + + + | Author | [facility] | + + + | Organization | [facility] | + + + | Address | Unknown | + + + | Phone | Unavailable | + + + Support + + +---------+ + | Name | Relationship | Address | Phone | + + +---------+ + | Anushka Mitchell | ECON | Unknown | | + + +---------+ + Care Team Providers + +------+ + | Care Boating Safety Officer Name | Role | Phone | + +------+ + | Lisa Adorno PA-C | PCP | | + +------+ + Reason for Visit Benefits Check (Routine) + +--------+ + + + + | Status | Reason | Specialty | Diagnoses / | Referred By | Referred To | | | | | Procedures | Contact | Contact | + +--------+ + + + + | Pending | | Otolaryngolog | Diagnoses | Kyree, | Krish, | | Review | | y | Zach | Lisa | MD Brandon | | | | | disorders of | JEROME Sin | [address] | | | | | pituitary | [place] | [place] [place] | | | | | gland | Family | Andrew Bolanos | | | | | Procedures | Medicine | [place] | | | | | [place] | [address] | [address] | | | | | OFFICE/OUTPT | Mike Dias | Phone: | | | | | | Analy, | [phone] | | | | | VISIT,EST,[place] | [place] [address] | Fax: | | | | | KORINA III | Phone: | [phone] | | | | | | [phone] | | | | | | | Fax: | | | | | | | [phone] | | + +--------+ + + + + Encounter Details +--------+ + + + + | Date | Type | Department | Care Team | Description | +--------+ + + + + | 09/07/ | Video/TeleH | Otolaryngology | Brandon Rutherford, | | | 2020 | ealt-Sched | Head and Neck | [address] | | | | uled | Surgery Services at | [facility] [address] | | | | | [facility] [address] | [place], [place] | | | | | [facility] | [address] | | | | | [facility] and He[facility], | [phone] | | | | | [address] | | | | | | [facility] [place] | | | | | | [address] | | | | | | [phone] | | | +--------+ + + + [...] + + documented as of this encounter Progress Brandon Hung MD - 09/08/2019 1:45 PM PDTFormatting of this note might be different fro m the original. [address] The visit took place via Telemedicine. Patient location is the home. Patient was located in the [facility] at the time of the visit. Telepresenter (relative and/or event promoter) wa s not used during the visit. She is doing OK from a nasal standpoint. No evidence of CSF leakage. Her main concern is a sore throat that has been going on for 3 weeks. Says she has been to PCP several times. Has had labs done and swab for strep and mono. Says both were negative. H as had US which shows swollen lymph nodes. All this is from Ms. Delcid. I don't have any r ecords. Has been tried on z-pack, diflucan. 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 She will have to come in for visit. Brandon Rutherford MD Professor of Otolaryngology, Head & Neck Surgery documented in this en counter Plan of Treatment +--------+ + + + + | Date | Type | Specialty | Care Team | Description | +--------+ + + + + | 11/19/ | Procedure | Radiology | | | 2019 | Pass | | | | +--------+ + + + + | 11/19/ | Procedure | Radiology | | | | 2019 | Pass | | | | +--------+ + + + + | 12/30/ | Appointment | Clinical | [facility] | | | 2019 | | Neurophysiology | Outpatient [address] | | | | | [address] [place], [place] | | | | | | [address] | | +--------+ + + + + | 12/30/ | Appointment | Radiology | Thu Fields, | | | 2019 | | | MD [address] | | | | | | [address] [place], | | | | | | [place] [address] | | | | | | [phone] | | | | | | | | +--------+ + + + + | 12/30/ | Appointment | Radiology | Thu Fields, | | | 2019 | | | MD [address] | | | | | | [address] [place], | | | | | | [place] [address] | | | | | | [phone] | | | | | | | | +--------+ + + + + | 01/21/ | Office | Neurology | Thu Fields, | | | 2019 | Visit | | MD [address] | | | | | | [address] [place], | | | | | | [place] [address] | | | | | | [phone] | | | | | | | | +--------+ + + + + documented as of this encounter Visit Diagnoses + + | Diagnosis | + + | 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
--- OUTSIDE RECORDS SUMMARY | ~2019-12-19 | XMS | Encounter Summary ---
Demographics + + + | Address | [address] | | | [place] [address] | + + + | Home Phone | | + + + | Preferred Language | Unknown | + + + | Marital Status | | + + + | Taoist Affiliation | CHR | + + + | Race | White | + + + | Ethnic Group | Not or | + + + Author + + + | Author | [facility] | + + + | Organization | [facility] | + + + | Address | Unknown | + + + | Phone | Unavailable | + + + Support + + +---------+ + | Name | Relationship | Address | Phone | + + +---------+ + | Anushka Mitchell | ECON | Unknown | | + + +---------+ + Care Team Providers + +------+ + | Care Marketing Associate Name | Role | Phone | + +------+ + | Lisa Adorno PA-C | PCP | | + +------+ + Reason for Visit AUTH/CERT +--------+--------+ + + + + | Status | Reason | Specialty | Diagnoses / | Referred By | Referred To | | | | | Procedures | Contact | Contact | +--------+--------+ + + + + | | | | | | | +--------+--------+ + + + + Encounter Details +--------+---------+ + + + | Date | Type | Department | Care Team | Description | +--------+---------+ + + + | 07/28/ | Surgery | 6A Intra Op [id number] | Pawan Mann MD | FRAMELESS | | 2019 | | [facility] | [address] | STEREOTACTIC | | | | Rd [facility] | [place], [place] | EXPANDED ENDOSCOPIC | | | | Hospital Admitting | [address] | ENDONASAL APPROACH | | | | Desk Located on the | [phone] | FOR RESECTION OF | | | | 9th floor | | PIT[place]ARY [place] | | | | [place], [place] | | | | | | [address] | | | +--------+---------+ + + + Social History + +-------+ [...] recent travel history available. | + + documented as of this encounter Last Filed Vital Signs + + + + + | Vital Sign | Reading | Time Taken | Comments | + + + + + | Blood Pressure | 114/72 | 08/01/2019 8:00 AM | | | | | PST | | + + + + + | Pulse | 55 | 08/01/2019 8:00 AM | | | | | PST | | + + + + + | Temperature | 36.7 C (98.1 F) | 08/01/2019 8:00 AM | | | | | PST | | + + + + + | Respiratory Rate | 16 | 08/01/2019 8:00 AM | | | | | PST | | + + + + + | Oxygen Saturation | 98% | 08/01/2019 8:00 AM | | | | | PST | | + + + + + | Inhaled Oxygen | - | - | | | Concentration | | | | + + + + + | Weight | 93.3 kg (205 lb 11 | 07/29/2019 6:41 AM | | | | oz) | PST | | + + + + + | Height | 172.7 cm (5' 8") | 07/29/2019 6:41 AM | | | | | PST | | + + + + + | Body Mass Index | 31.27 | 07/29/2019 6:41 AM | | | | | PST | | + + + + + documented in this encounter Functional Status + + + [...] + + documented as of this encounter Discharge Summaries Kaye Trinidad PA-C - 08/01/2019 8:45 AM PSTFormatting of this note might be different f rom the original. NEUROSURGERY DISCHARGE SUMMARY: Patient: Anushka David Admission Date: 07/29/2019 Discharge Date: 08/01/2019 Attending Physician: Pawan Mann MD PCP: Lisa Diaz PA-C Service: [facility] Neurosurgery Diagnoses Principal Final Diagnosis: Pituitary adenoma; Additional Diagnoses: History reviewed. No pertinent past medical history. 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 You were sub sequently evaluated by Dr. Mann in clinic and after review of MRI, clinic evaluation, and c onsultation by our neuro-endocrine team it was determined that surgical resection was indica rossy. You were admitted to [facility] and underwent endoscopic nasal approach for resection of pituitar y mass on 07/29/19. A cerebrospinal fluid leak was not encountered during surgery. Post opera tively, you were monitored on the figueredo by neurosurgery, otolaryngology, and neuroendocrinolo gy. Serum sodium, urinary output/ intake, and urine specific gravity were monitored for evid ence of diabetes insipidus (elevated sodium) or syndrome of antidiuretic hormone (low sodium ). Labs did remain within normal range. You did not demonstrate evidence for spinal fluid leak throughout the hospital stay. You t olerated a general consistency diet without nausea or vomiting and were able to urinate with out a urinary catheter. Your pain was controlled with oral pain medications. You reported i mprovement in her left eye peripheral vision. You were able to walk independently. On post op day #3, you were cleared for discharge home in good condition. Follow up is scheduled a s below, including laboratory follow up, and instructions regarding use of hydrocortisone. Activity ACTIVITY: You should avoid lifting more than 10-15 lbs or strenuous exercise until instruct ed that it is safe to resume these activities by your surgeon. BATHING: You may shower or bathe when you go home. If you have an abdominal incision from a fat graft, avoid getting it wet for the first 4 days after surgery by covering it with plas tic wrap. After the 4th post-operative day your abdominal incision needs no dressing. Suture removal is not necessary as the sutures are buried. DRIVING: You may resume driving two weeks after surgery provided your vision is not impaire d since surgery and you do not have double vision. You should not drive while you are on kay cotics. WORK: You should have clearance from your doctor before going back to work. At least 2-3 we eks off after surgery is recommended before resuming work although working at a desk on a co mputer is often possible after 7 to 10 days. Follow Up Please call the Otolaryngology (ENT) office at as needed for any sinus or na allen issues. PCP:Lisa Diaz PA-C When: Please follow-up with your primary care physician as soon as possible to review new medications and recent interventions Call: Please call and ask for the Neurosurgery Resident on-call if you have any of the following: - Difficulty breathing or unusual shortness of breath - Excessive bleeding, drainage at the operative site - Fevers, chills, increased pain that is not relieved by pain medications - Persistent nausea or vomiting - Severe headaches, dizziness, or visual changes Medication List START taking these medications acetaminophen 500 mg Tab Commonly known as: TYLENOL Take 2 tablets by mouth every six hours. guaiFENesin LA 600 mg Ta12 Commonly known as: MUCINEX Take 1 tablet by mouth two times daily. hydrocortisone 20 mg Tab Commonly known as: CORTEF Take 1 tablet by mouth once daily in the morning. HYDROmorphone 2 mg Tab Commonly known as: DILAUDID Take 1 tablet by mouth every three hours as needed for moderate pain or severe pain. polyethylene glycol 17 gram Pwpk Commonly known as: MIRALAX Mix 1 packet and take orally three times daily as needed (1st line - for no BM for 2 days). Indications: constipation senna-docusate 8.6-50 mg Tab Commonly known as: SENOKOT S Take 1 tablet by mouth two times daily. Indications: constipation sodium chloride 0.65 % Spra Commonly known as: OCEAN Instill 2 sprays into each nostril as needed. Indications: dryness of the nose CONTINUE taking these medications ascorbic acid (vitamin C) 250 mg Tab Take 250 mg by mouth three times daily. BIOTIN ORAL Take by mouth. FIBER DIET ORAL Take by mouth. MULTIPLE VITAMIN, WOMENS ORAL Take by mouth. ondansetron ODT 4 mg Tbdi Commonly known as: ZOFRAN ODT Dissolve 1 tablet on tongue and swallow every eight hours as needed for nausea/vomiting. pregabalin 75 mg Cap Commonly known as: LYRICA Take 1 capsule by mouth two times daily. UP4 PROBIOTICS WOMEN'S ORAL Take by mouth. VITAMIN D-3 ORAL Take by mouth. Special Instructions/Tests: N/A Condition On Discharge: Good Vital Signs at discharge as appropriate: BP: 114/72 (08/01/19799) Pulse: 55 (08/01/19799) Resp: 16 (799) Weight: 93.3 kg (205 lb 11 oz) (07/29/19 0641) Discharge Patient To: Home Does patient have a planned readmission: No Discharge Summary Completed?: Yes. 08/01/2019 Discharging Provider: KAYE TRINIDAD PA-C Date Completed: 08/01/2019 Time Completed: 8:45 AM Discharging Attending: Pawan Mann MD [id number] [address] documented in this encounter Medications at Time of Discharge + + + +---------+ + + | Medication | Sig | Dispensed | Refills | Start | End Date | | | | | | Date | | + + + +---------+ + + | acetaminophen 500 | Take 2 tablets by | | 0 | 08/01/19 | | | mg oral | mouth every six | | | 20 | | | tabletIndications: | hours. | | | | | | Pituitary mass (HCC) | | | | | | + + + +---------+ + + | ascorbic acid | Take 250 mg by mouth | | 0 | | | | (vitamin C) 250 mg | three times daily. | | | | | | oral tablet | | | | | | + + + +---------+ + + | BIOTIN ORAL | Take by mouth. | | 0 | | | + + + +---------+ + + | calcium | Take by mouth. | | 0 | | | | carbonate/vitamin D3 | | | | | | | (VITAMIN D-3 ORAL) | | | | | | + + + +---------+ + + | guaiFENesin LA 600 | Take 1 tablet by | | 0 | 08/01/19 | | | mg oral tablet | mouth two times | | | 20 | | | extended release | daily. | | | | | | 12hr | | | | | | + + + +---------+ + + | herbal drugs | Take by mouth. | | 0 | | | | (FIBER DIET ORAL) | | | | | | + + + +---------+ + + | hydrocortisone 20 | Take 1 tablet by | 30 | 1 | 08/01/19 | | | mg oral | mouth once daily in | tablet | | 20 | | | tabletIndications: | the morning. | | | | | | Pituitary mass (HCC) | | | | | | + + + +---------+ + + | HYDROmorphone 2 mg | Take 1 tablet by | 80 | 0 | 08/01/19 | | | oral | mouth every three | tablet | | 20 | | | tabletIndications: | hours as needed for | | | | | | Pituitary mass (HCC) | moderate pain or | | | | | | | severe pain. | | | | | + + + +---------+ + + | | Take by mouth. | | 0 | | | | L.acid,gas,plan,rhm/ | | | | | | | B.ani/cran (UP4 | | | | | | | PROBIOTICS WOMEN'S | | | | | | | ORAL) | | | | | | + + + +---------+ + + | multivit with | Take by mouth. | | 0 | | | | calcium,iron,min | | | | | | | (MULTIPLE VITAMIN, | | | | | | | WOMENS ORAL) | | | | | | + + + +---------+ + + | ondansetron ODT 4 | Dissolve 1 tablet on | 30 | 2 | 07/10/19 | | | mg oral | tongue and swallow | tablet | | 20 | | | tablet,disintegratin | every eight hours as | | | | | | gIndications: | needed for | | | | | | Atypical facial | nausea/vomiting. | | | | | | pain, Pituitary | | | | | | | adenoma (HCC), | | | | | | | Nausea and vomiting, | | | | | | | intractability of | | | | | | | vomiting not | | | | | | | specified, | | | | | | | unspecified vomiting | | | | | | | type | | | | | | + + + +---------+ + + | polyethylene | Mix 1 packet and | 30 | 0 | 08/01/19 | | | glycol 17 gram oral | take orally three | packet | | 20 | | | powder in | times daily as | | | | | | packetIndications: | needed (1st line - | | | | | | constipation | for no BM for 2 | | | | | | | days). Indications: | | | | | | | constipation | | | | | + + + +---------+ + + | senna-docusate | Take 1 tablet by | 60 | 0 | 08/01/19 | | | 8.6-50 mg oral | mouth two times | tablet | | 20 | | | tabletIndications: | daily. Indications: | | | | | | constipation | constipation | | | | | + + + +---------+ + + | sodium chloride | Instill 2 sprays | | 0 | 08/01/19 | | | 0.65 % nasal | into each nostril as | | | 20 | | | aerosol,sprayIndicat | needed. | | | | | | ions: dry nose | Indications: dryness | | | | | | | of the nose | | | | | + + + +---------+ + + documented as of this encounter Progress Notes Layo Javed MD - 08/01/2019 9:23 AM PSTFormatting of this note might be differ ent from the original. DOS: 07/31/2019 Head and Neck Surgery Inpatient Daily Progress Note: Primary Care Provider: Lisa Diaz PA-C Admission Date: 07/29/2019 ANUSHKA DAVID, [id number] Hospital Day #3 SUBJECTIVE INTERVAL EVENTS: No evidence of any CSF leak Wants to DC home OBJECTIVE Last 24 hour min/max Temp: 36.7 C (98.1 F) Temp Min: 36.3 C (97.3 F) Max: 36.7 C (98.1 F) Pulse: 55 Pulse Min: 55 Max: 72 Resp: 16 Resp Min: 16 Max: 16 BP: 114/72 BP Min: 98/66 Max: 114/72 SpO2: 98 % SpO2 Min: 95 % Max: 98 % Body mass index is 31.27 kg/m. Intake/Output Summary (Last 24 hours) at 08/01/2019 0923 Last data filed at 08/01/2019 0800 Gross per 24 hour Intake 1280 ml Output 1475 ml Net -195 ml PHYSICAL EXAM: General: Alert, comfortable, NAD HEENT: No evidence of any CSF leak Respiratory: breathing non-labored on RA LABS: Recent Labs 07/30/19 0920 07/31/19 0515 07/31/19 1446 07/31/19202908/01/19 0155 NA 140 | 140 < > 142 < > 143 139 142 K 4.0 -- 4.0 -- -- -- 4.0 CL 110* -- 111* -- -- -- 111* BICARB 23 -- 24 -- -- -- 25 BUN 9 -- 12 -- -- -- 16 CR 0.77 -- 0.78 -- -- -- 0.72 GLU 99 -- 91 -- -- -- 92 CA 9.0 -- 8.5* -- -- -- 8.4* < > = values in this interval not displayed. CBG's Recent Labs 07/29/19 1058 07/30/19 0920 07/31/19 0515 08/01/19 0155 GLU 93 99 91 92 ASSESSMENT/PLAN: Anushka David is a 39 y.o. female with Sellar mass who is HD# 3, POD#3 S/P Endoscopi c endonasal transsphenoidal approach by ENT and resection of sellar mass by NSG. No evidence of any CSF leak Continue saline nasal spray to keep nasal mucosa moist and to prevent nasal crusting and nasal congestion ENT team will continue to follow along with you, ok with discharge Appointment has been scheduled with ENT team as an o/p Code Status: FULL LAYO JAVED MD Pager #[phone] Surgery Resident R4 [facility] [place], Kaye García PA-C - 08/01/2019 8:19 AM PSTFormatting of this note might be different from the origina l. Neurosurgery Progress Note Hospital Day:3 Author; KAYE TRINIDAD PA-C Attending Physician: Pawan Mann MD Interval Hx: -Patient reports stable MACIEL. No nausea. Not very stuffy. States she has improved peripheral vision in OS since surgery. -Na is 142, SG is 1.031 Last Vitals: BP 114/72 (BP Location: Left upper arm, Patient Position: Sitting) | Pulse 55 | Temp 36.7 C (98.1 F) (Axillary) | Resp 16 | Ht 1.727 m (5' 8") | Wt 93.3 kg (205 lb 11 oz) | SpO2 98% | BMI 31.27 kg/m | BSA 2.12 m O2 Delivery Device: None (room ai r) (08/01/19 0800) 24 Hour Vital Min/Max: Systolic (24hrs), Av , Min:98 , Max:114 Diastolic (24hrs), Av, Min:66, Max:78Pulse Min: 55 Max: 72 Temp Min: 36.3 C (97.3 F) Max: 36.7 C (98.1 F) Resp Min: 16 Max: 16 SpO2 Min: 95 % Max: 98 % Intake/Output Summary (Last 24 hours) at 08/01/2019 0819 Last data filed at 08/01/2019 0800 Gross per 24 hour Intake 1280 ml Output 1475 ml Net -195 ml Exam: Alert, oriented x3. Speech clear, fluent. Pupils equal, brisk. Gaze conjugate. EOMI. VSS. No drainage from nares. LT sensation inta ct. Face symmetric. Tongue midline. Moves AE>AG Labs: Chemistries: Last 72 Hours (or 3 results): Recent Labs 07/30/19 0920 07/31/19 0515 07/31/19 1446 07/31/19202908/01/19 0155 NA 140 | 140 < > 142 < > 143 139 142 K 4.0 -- 4.0 -- -- -- 4.0 CL 110* -- 111* -- -- -- 111* BICARB 23 -- 24 -- -- -- 25 BUN 9 -- 12 -- -- -- 16 EGFRAFRICAN >60 -- >60 -- -- -- >60 CR 0.77 -- 0.78 -- -- -- 0.72 GLU 99 -- 91 -- -- -- 92 CA 9.0 -- 8.5* -- -- -- 8.4* MG 2.1 -- -- -- -- -- -- PO4 2.4 -- -- -- -- -- -- < > = values in this interval not displayed. Results for ANUSHKA DAVID ( ) as of 08/01/2019 08:24 Ref. Range 07/31/2019 14:46 07/31/2019 20:00 07/31/2019 20:30 08/01/2019 01:55 08/01/2019 01:58 SPECIFIC GRAVITY Latest Ref Range: 1.005 - 1.030 1.021 1.031 (H) Current Medications: acetaminophen (TYLENOL) tablet 1,000 mg, 1,000 mg, oral, Q6H bisacodyL (DULCOLAX) suppository 10 mg, 10 mg, rectal, DAILY PRN guaiFENesin LA (MUCINEX) tablet 600 mg, 600 mg, oral, BID hydrocortisone (CORTEF) tablet 20 mg, 20 mg, oral, QAM HYDROmorphone (DILAUDID) tablet 2 mg, 2 mg, oral, Q3H PRN ondansetron ODT (ZOFRAN ODT) tablet 4 mg, 4 mg, oral, Q12H PRN OR ondansetron (ZOFRAN) injection 4 mg, 4 mg, intravenous, Q12H PRN phenol (CHLORASEPTIC) 1.4 % spray 1-3 spray, 1-3 spray, oral, Q2H PRN polyethylene glycol (MIRALAX) packet 34 g, 34 g, oral, TID PRN pregabalin (LYRICA) capsule 75 mg, 75 mg, oral, BID senna-docusate (SENOKOT S) 8.6-50 mg 1 tablet, 1 tablet, oral, BID sodium chloride (OCEAN) 0.65 % nasal spray 2 spray, 2 spray, both nostrils, PRN Impression: Anushka David is a 39 y.o. female with incidentally discovered pituitary macroadenoma found upon work up of headaches and sinusitis; irregular menses; abnormal hair growth; facia l pain admitted to [facility] on 07/29/[address] Rutherfrod and Dr Mann. No CSF leakencou ntered. Doing well post op with expected post op pain, improving. Plan: Neuro: Improved OS peripheral vision. Pain control with APAP and dilaudid. Continue home ga bapentin 75mg BID for baseline facial pain. Endo: Appreciate Endocrinology following with recs. - At risk for AI: continue HC taper per Endo, currently on 20mg daily until OP follow up - At risk for DI/SIADH: continue q6h Na+/uSG checks, strict I/O HEENT: Appreciate ENT following. Nasal spray to keep mucosa moist. CV: HD stable. Pulm: IS, cough/deep breath GI/diet: Regular diet. +Anti-emetics. Scheduled bowl regimen to prevent straining. : Voiding independently. Musculoskeletal/skin: Routine decubitus ulcer prevention. Activity ad jordan. ID/Heme: Afebrile. DVT ppx: SCDs while in bed Dispo: Home today. KAYE TRINIDAD PA-C [facility] [id number] [place] [address] ttila Woodson P A-C - 07/31/2019 8:59 AM PST DOS: 07/31/2019 Head and Neck Surgery Inpatient Daily Progress Note: Primary Care Provider: Lisa Diaz PA-C Admission Date: 07/29/2019 ANUSHKA Downing DAVID, [id number] Hospital Day #2 SUBJECTIVE INTERVAL EVENTS: No evidence of any CSF leak OBJECTIVE Last 24 hour min/max Temp: 36.4 C (97.5 F) Temp Min: 36.4 C (97.5 F) Max: 36.7 C (98.1 F) Pulse: 64 Pulse Min: 59 Max: 73 Resp: 16 Resp Min: 16 Max: 16 BP: 102/71 BP Min: 102/71 Max: 118/74 SpO2: 94 % SpO2 Min: 93 % Max: 97 % Body mass index is 31.27 kg/m. Intake/Output Summary (Last 24 hours) at 07/31/2019 0859 Last data filed at 07/31/2019 0800 Gross per 24 hour Intake 2111 ml Output 1400 ml Net 711 ml PHYSICAL EXAM: General: Alert, comfortable, NAD HEENT: No evidence of any CSF leak Respiratory: breathing non-labored on RA LABS: Recent Labs 07/29/19 1058 07/30/19 0920 07/30/19201607/31/19 0202 07/31/19 0515 NA -- < > 140 | 140 < > 141 143 142 K -- -- 4.0 -- -- -- 4.0 CL -- -- 110* -- -- -- 111* BICARB -- -- 23 -- -- -- 24 BUN -- -- 9 -- -- -- 12 CR -- -- 0.77 -- -- -- 0.78 GLU 93 -- 99 -- -- -- 91 CA -- -- 9.0 -- -- -- 8.5* < > = values in this interval not displayed. CBG's Recent Labs 07/29/19 1058 07/30/19 0920 07/31/19 0515 GLU 93 99 91 ASSESSMENT/PLAN: Anushka David is a 39 y.o. female with Sellar mass who is HD# 2, POD# 2 S/P Endoscop ic endonasal transsphenoidal approach by ENT and resection of sellar mass by NSG. No evidenc e of any CSF leak Continue saline nasal spray to keep nasal mucosa moist and to prevent nasal crusting and nasal congestion ENT team will continue to follow along with you Appointment has been scheduled with ENT team as an o/p Code Status: FULL ATTILA WOODSON PA-C Otolaryngology-Head and Neck Surgery [facility] Pager [phone] Associated attestation - Bradnon Rutherford MD - 07/31/2019 9:14 AM PSTI examined the patien t on rounds and agree with Ms. Woodson's assessment and plan. Brandon Rutherford MD Professor of Otolaryngology, Head & Neck Surgery Sharonda Sommers AGACNP - 07/31/2019 7:40 AM PSTFormatting of this note might be d ifferent from the original. NEUROLOGICAL SURGERY INPATIENT PROGRESS NOTE Hospital Day:2 Author: DERIK Krishna Attending Physician: Pawan Mann MD 07/29/19: with Dr Rutherford 1. Endoscopic endonasal transsphenoidal approach for resection of sellar mass - Left sphenoidotomy - Right sphenoidotomy - Removal of posterior nasal septum 2. Use of frameless stereotactic navigation Interval Hx: - NAEON; VS WNL - Na+ 143-->142, uSG 1.032-->1.029 - I/O net even over last 24h Objective: Last Vitals: BP 102/70 (BP Location: Left upper arm, Patient Position: Lying on back) | Pulse 59 | Tem p 36.5 C (97.7 F) (Oral) | Resp 16 | Ht 1.727 m (5' 8") | Wt 93.3 kg (205 lb 11 oz) | SpO2 97% | BMI 31.27 kg/m | BSA 2.12 m O2 Delivery Device: None (room air) (07/31/19 0434) 24 Hour Vital Min/Max: Systolic (24hrs), Av , Min:102 , Max:118 Diastolic (24hrs), Av, Min:64, Max:74 Pulse Min: 59 Max: 73 Temp Min: 36.4 C (97.5 F) Max: 36.7 C (98.1 F) Resp Min: 16 Max: 16 SpO2 Min: 93 % Max: 97 % Intake/Output Summary (Last 24 hours) at 07/31/2019 0740 Last data filed at 07/31/2019 0400 Gross per 24 hour Intake 1726 ml Output 1550 ml Net 176 ml Physical Exam: Awake, alert and oriented to person, place, time, situation PERRL, gaze conjugate, EOMI, VFF Faces symmetric, TML Fluent and articulate without evidence of aphasia or dysarthria Zoraida, equal strength and sensation to light touch intact BUE/BLE No nasal drainage noted Labs: CBC with diff last 72 hours (or 3 results) - Refreshable Chemistries: Last 72 Hours (or 3 results) - Refreshable Recent Labs 07/29/19 1058 07/30/19 0920 07/30/19201607/31/19 0202 07/31/19 0515 NA -- < > 140 | 140 < > 141 143 142 K -- -- 4.0 -- -- -- 4.0 CL -- -- 110* -- -- -- 111* BICARB -- -- 23 -- -- -- 24 BUN -- -- 9 -- -- -- 12 EGFRAFRICAN -- -- >60 -- -- -- >60 CR -- -- 0.77 -- -- -- 0.78 GLU 93 -- 99 -- -- -- 91 CA -- -- 9.0 -- -- -- 8.5* MG -- -- 2.1 -- -- -- -- PO4 -- -- 2.4 -- -- -- -- < > = values in this interval not displayed. Current Medications: acetaminophen (TYLENOL) tablet 1,000 mg, 1,000 mg, oral, Q6H bisacodyL (DULCOLAX) suppository 10 mg, 10 mg, rectal, DAILY PRN guaiFENesin LA (MUCINEX) tablet 600 mg, 600 mg, oral, BID hydrocortisone (CORTEF) tablet 20 mg, 20 mg, oral, QAM HYDROmorphone (DILAUDID) tablet 2 mg, 2 mg, oral, Q3H PRN ondansetron ODT (ZOFRAN ODT) tablet 4 mg, 4 mg, oral, Q12H PRN OR ondansetron (ZOFRAN) injection 4 mg, 4 mg, intravenous, Q12H PRN phenol (CHLORASEPTIC) 1.4 % spray 1-3 spray, 1-3 spray, oral, Q2H PRN polyethylene glycol (MIRALAX) packet 34 g, 34 g, oral, TID PRN pregabalin (LYRICA) capsule 75 mg, 75 mg, oral, BID senna-docusate (SENOKOT S) 8.6-50 mg 1 tablet, 1 tablet, oral, BID sodium chloride (OCEAN) 0.65 % nasal spray 2 spray, 2 spray, both nostrils, PRN ASSESSMENT: Anushka David is a 39 y.o. female with incidentally discovered pituitary macroadenoma found upon work up of headaches and sinusitis; irregular menses; abnormal hair growth; facia l pain admitted to [facility] on 07/29/[address] Rutherford and Dr Mann. No CSF leak encoun tered. Doing well post op with expected post op pain, improving. PLAN: Neurological: - Continue acute care therapies - Pain control: sched tylenol, prn PO dilaudid, toradol available; lyrica for baseline faci al pain - Monitor for acute neurologic changes HEENT: Nasal cares per ENT; continue to monitor for CSF rhinorrhea Cardiovascular: Monitor BP and HR; goal SBP < 160 Respiratory: IS, cough/deep breathe GI: Diet: Reg; anti-emetics, bowel regimen / Renal: 24-hour I/O goal: euvolemic; strict I/O ID/HO: No active issues Endocrine: Endo following, appreciate recs - At risk for AI: continue HC taper per Endo - At risk for DI/SIADH: continue q6h Na+/uSG checks, strict I/O Musculoskeletal / Skin: No active issues. Routine decubitus ulcer prevention. Ambulate, PT/ OT DVT prophylaxis: SCDs while in bed, ambulate Disposition: Plan is for home, likely ready for discharge Sat DERIK Krishna Neurological Surgery Pager: [phone] Attila Banuelos PA-C - 07/30/2019 11:02 AM PSTFormatting of this note might be different from the o riginal. DOS: 07/30/2019 Head and Neck Surgery Inpatient Daily Progress Note: Primary Care Provider: Lisa Diaz PA-C Admission Date: 07/29/2019 ANUSHKA Chang DAVID, [id number] Hospital Day #1 SUBJECTIVE INTERVAL EVENTS: No evidence of any CSF leak OBJECTIVE Last 24 hour min/max Temp: 36.4 C (97.5 F) Temp Min: 36.4 C (97.5 F) Max: 36.9 C (98.4 F) Pulse: 59 Pulse Min: 49 Max: 84 Resp: 16 Resp Min: 10 Max: 18 BP: 108/65 BP Min: 98/62 Max: 134/83 SpO2: 94 % SpO2 Min: 90 % Max: 100 % Body mass index is 31.27 kg/m. Intake/Output Summary (Last 24 hours) at 07/30/2019 1102 Last data filed at 07/30/2019 1027 Gross per 24 hour Intake 1300 ml Output 3300 ml Net -2000 ml PHYSICAL EXAM: General: Alert, comfortable, NAD HEENT: No evidence of any CSF leak Respiratory: breathing non-labored on RA LABS: Recent Labs 07/29/19 1058 07/29/19 1511 07/29/19 20307/30/19 0219 NA -- 139 138 138 GLU 93 -- -- -- CBG's Recent Labs 07/29/19 1058 GLU 93 ASSESSMENT/PLAN: Anushka David is a 39 y.o. female with Sellar mass who is HD# 1, POD# 1 S/P Endoscop ic endonasal transsphenoidal approach by ENT and resection of sellar mass by NSG. No evidenc e of any CSF leak Continue saline nasal spray to keep nasal mucosa moist and to prevent nasal crusting and nasal congestion ENT team will continue to follow along with you Code Status: FULL YVETTE PALOMINO-C Otolaryngology-Head and Neck Surgery [facility] Pager [phone] Associated attestation - Brandon Rutherford MD - 07/30/2019 12:01 PM PSTI examined the patien t on rounds and agree with Kandice's assessment and plan. Brandon Rutherford MD Professor of Otolaryngology, Head & Neck Surgery Shu Cade PA - 07/30/2019 6:28 AM PST INPATIENT PROGRESS NOTE Hospital Day:1 Author; YVETTE ROJAS Attending Physician: Pawan Mann MD Interval Hx: -POD 1 from [facility] -Na+ 138; spec grav 1.012 -pt reports headache/frontal sinus pain Physical Exam: Last Vitals: BP 98/62 (BP Location: Left upper arm, Patient Position: Lying on back) | Pul se 55 | Temp 36.4 C (97.5 F) (Axillary) | Resp 16 | Ht 1.727 m (5' 8") | Wt 93.3 kg (205 lb 11 oz) | SpO2 90% | BMI 31.27 kg/m | BSA 2.12 m O2 Delivery Device: None (ro om air) (07/30/19 0528) 24 Hour Vital Min/Max: Systolic (24hrs), Av , Min:98 , Max:134 Diastolic (24hrs), Av, Min:62, Max:98Pulse Min: 49 Max: 84 Temp Min: 36.4 C (97.5 F) Max: 36.9 C (98.4 F) Resp Min: 9 Max: 18 SpO2 Min: 90 % Max: 100 % Intake/Output Summary (Last 24 hours) at 07/30/2019 0628 Last data filed at 07/30/2019 0500 Gross per 24 hour Intake 1980 ml Output 2625 ml Net -645 ml Physical Exam: Awake, alert and oriented to person, place and time ANTON; EOMs intact; VF intact Faces symmetric No notable nasal drainage LOPEZ's Labs: Chemistries: Last 72 Hours (or 3 results): Recent Labs 07/29/19 1058 07/29/19 1511 07/29/19203007/30/19 0219 NA -- 139 138 138 GLU 93 -- -- -- Current Medications: acetaminophen (TYLENOL) tablet 650 mg, 650 mg, oral, Q4H PRN bisacodyL (DULCOLAX) suppository 10 mg, 10 mg, rectal, DAILY PRN ceFAZolin IV 2 grams in NS (RTU), 2 g, intravenous, Q8H hydrocortisone (CORTEF) tablet 20 mg, 20 mg, oral, BID [START ON 07/31/2019] hydrocortisone (CORTEF) tablet 20 mg, 20 mg, oral, QAM HYDROmorphone (DILAUDID) injection 0.5-1 mg, 0.5-1 mg, intravenous, Q3H PRN HYDROmorphone (DILAUDID) tablet 2-4 mg, 2-4 mg, oral, Q3H PRN ondansetron ODT (ZOFRAN ODT) tablet 4 mg, 4 mg, oral, Q12H PRN OR ondansetron (ZOFRAN) injection 4 mg, 4 mg, intravenous, Q12H PRN oxyCODONE (immediate release) (ROXICODONE) tablet 5-15 mg, 5-15 mg, oral, Q4H PRN phenol (CHLORASEPTIC) 1.4 % spray 1-3 spray, 1-3 spray, oral, Q2H PRN polyethylene glycol (MIRALAX) packet 34 g, 34 g, oral, TID PRN pregabalin (LYRICA) capsule 75 mg, 75 mg, oral, BID senna-docusate (SENOKOT S) 8.6-50 mg 1 tablet, 1 tablet, oral, BID sodium chloride (OCEAN) 0.65 % nasal spray 2 spray, 2 spray, both nostrils, PRN ASSESSMENT: Anushka David is a 39 y.o. year old F with incidentally discovered pituitary macroaden shaka found upon work up of headaches and sinusitis; irregular menses; abnormal hair growth; f acial pain admitted to [facility] on 07/28 for EEEA. No CSF leak encountered. Doing well post op wit h expected post op pain PLAN: Neurological: -Pain control- -toradol 30 mg every 6 hrs x 3 doses -schedule tylenol 1 g every 6 hrs -continue Lyrica 75 mg BID -decrease hydromorphone to 2 mg every 3 hrs prn breakthrough pain -Monitor for acute neurologic changes -Hydrocortisone taper per endocrine HEENT: routine nasal care; monitor for evidence CSF leak Cardiovascular: monitor BP and HR Respiratory: IS GI: oral diet (ok for straws); anti-emetics prn; aggressive bowel regimen to prevent from v alsalva / Renal: 24-hour I/O goal: euvolemic; remove barrett catheter (out) ID/HO: Continue ancef while nasal packs in place Endocrine: monitor for evidence of DI/SIADH via q 6 hr serum sodium; q 6 hr specific gravit y; I/O's Musculoskeletal / Skin: No active issues. Routine decubitus ulcer prevention. DVT prophylaxis: SCDs while in bed, ambulate Disposition: pending clinical course; anticipate discharge to home in next 2-3 days. YVETTE ROJAS [facility] [email or web address] [place], [place] [id number] Joshua Claudio MD - 07/29/2019 11:36 AM PSTNeurosurgery Post-Op Check 07/29/2019 11:36 AM Examined in PACU Procedure performed: EEA Awakening from anesthesia Minimally interactive PERRL, EOMI, VFF FS BUE/BLE 09/28 No drift SILT No drainage from nares Please page [phone] with any questions Joshua Miller M.D. Neurosurgery PGY-2 documented in this enc ounter Plan of Treatment +--------+ + + + [...] 2019 | | Neurophysiology | Outpatient [address] | | | | | [address] | | | | | | [address] [place], [place] | | | | | | [address] | | +--------+ + + + + | 12/30/ | Appointment | Radiology | Thu Fields, | | | 2019 | | | MD [address] | | | | | | [address] [place], | | | | | | [place] [address] | | | | | | [phone] | | | | | | | | +--------+ + + + + | 12/30/ | Appointment | Radiology | Thu Fields, | | | 2019 | | | MD [address] | | | | | | [address] [place], | | | | | | [place] [address] | | | | | | [phone] | | | | | | | | +--------+ + + + + | 01/21/ | Office | Neurology | Thu Fields, | | | 2019 | Visit | | MD [address] | | | | | | [address] [place], | | | | | | [place] [address] | | | | | | [phone] | | | | | | | | +--------+ + + + + + +------+--------+ + + | Name | Type | Priori | Associated Diagnoses | Order Schedule | | | | ty | | | + +------+--------+ + + | BASIC METABOLIC SET | Lab | Urgent | | Daily, default to | | (NA, K, CL, TCO2, | | | | 0500. for 3 | | BUN, CR, GLU, CA) | | | | Occurrences starting | | | | | | 07/30/2019 until | | | | | | 08/01/2019, 3 | | | | | | completed | + +------+--------+ + + | BASIC METABOLIC SET | Lab | Routin | Pituitary mass | Expected: 08/01/2019 | | (NA, K, CL, TCO2, | | e | (HCC) | (Approximate), | | BUN, CR, GLU, CA) | | | | Expires: 08/31/2020 | + +------+--------+ + + documented as of this encounter Procedures + +--------+ + + + | Procedure Name | Priori | Date/Time | Associated Diagnosis | Comments | | | ty | | | | + +--------+ + + + | PROCEDURE NOTE | Routin | 08/01/2019 | | Results for this | | | e | 1:32 PM | | procedure are in the | | | | PST | | results section. | + +--------+ + + + | SODIUM, PLASMA | Urgent | 08/01/2019 | | Results for this | | | | 9:15 AM | | procedure are in the | | | | PST | | results section. | + +--------+ + + + | SPECIFIC | Urgent | 08/01/2019 | | Results for this | | GRAVITY,URINE | | 8:00 AM | | procedure are in the | | | | PST | | results section. | + +--------+ + + + | SPECIFIC | Urgent | 08/01/2019 | | Results for this | | GRAVITY,URINE | | 1:58 AM | | procedure are in the | | | | PST | | results section. | + +--------+ + + + | BASIC METABOLIC SET | Urgent | 08/01/2019 | | Results for this | | (NA, K, CL, TCO2, | | 1:55 AM | | procedure are in the | | BUN, CR, GLU, CA) | | PST | | results section. | + +--------+ + + + | SODIUM, PLASMA | Urgent | 07/31/2019 | | Results for this | | | | 8:30 PM | | procedure are in the | | | | PST | | results section. | + +--------+ + + + | SPECIFIC | Urgent | 07/31/2019 | | Results for this | | GRAVITY,URINE | | 8:00 PM | | procedure are in the | | | | PST | | results section. | + +--------+ + + + | SODIUM, PLASMA | Urgent | 07/31/2019 | | Results for this | | | | 2:46 PM | | procedure are in the | | | | PST | | results section. | + +--------+ + + + | SPECIFIC | Urgent | 07/31/2019 | | Results for this | | GRAVITY,URINE | | 2:25 PM | | procedure are in the | | | | PST | | results section. | + +--------+ + + + | SODIUM, PLASMA | Urgent | 07/31/2019 | | Results for this | | | | 9:17 AM | | procedure are in the | | | | PST | | results section. | + +--------+ + + + | SPECIFIC | Urgent | 07/31/2019 | | Results for this | | GRAVITY,URINE | | 8:08 AM | | procedure are in the | | | | PST | | results section. | + +--------+ + + + | BASIC METABOLIC SET | Urgent | 07/31/2019 | | Results for this | | (NA, K, CL, TCO2, | | 5:15 AM | | procedure are in the | | BUN, CR, GLU, CA) | | PST | | results section. | + +--------+ + + + | SPECIFIC | Urgent | 07/31/2019 | | Results for this | | GRAVITY,URINE | | 2:16 AM | | procedure are in the | | | | PST | | results section. | + +--------+ + + + | SODIUM, PLASMA | Urgent | 07/31/2019 | | Results for this | | | | 2:02 AM | | procedure are in the | | | | PST | | results section. | + +--------+ + + + | SODIUM, PLASMA | Urgent | 07/30/2019 | | Results for this | | | | 8:17 PM | | procedure are in the | | | | PST | | results section. | + +--------+ + + + | SPECIFIC | Urgent | 07/30/2019 | | Results for this | | GRAVITY,URINE | | 7:40 PM | | procedure are in the | | | | PST | | results section. | + +--------+ + + + | SPECIFIC | Urgent | 07/30/2019 | | Results for this | | GRAVITY,URINE | | 3:08 PM | | procedure are in the | | | | PST | | results section. | + +--------+ + + + | SODIUM, PLASMA | Urgent | 07/30/2019 | | Results for this | | | | 2:45 PM | | procedure are in the | | | | PST | | results section. | + +--------+ + + + | SPECIFIC | Urgent | 07/30/2019 | | Results for this | | GRAVITY,URINE | | 9:32 AM | | procedure are in the | | | | PST | | results section. | + +--------+ + + + | SODIUM, PLASMA | Urgent | 07/30/2019 | | Results for this | | | | 9:20 AM | | procedure are in the | | | | PST | | results section. | + +--------+ + + + | BASIC METABOLIC SET | Urgent | 07/30/2019 | | Results for this | | (NA, K, CL, TCO2, | | 9:20 AM | | procedure are in the | | BUN, CR, GLU, CA) | | PST | | results section. | + +--------+ + + + | PHOSPHORUS, PLASMA | Urgent | 07/30/2019 | | Results for this | | | | 9:20 AM | | procedure are in the | | | | PST | | results section. | + +--------+ + + + | MAGNESIUM, PLASMA | Urgent | 07/30/2019 | | Results for this | | | | 9:20 AM | | procedure are in the | | | | PST | | results section. | + +--------+ + + + | SPECIFIC | Urgent | 07/30/2019 | | Results for this | | GRAVITY,URINE | | 2:30 AM | | procedure are in the | | | | PST | | results section. | + +--------+ + + + | SODIUM, PLASMA | Urgent | 07/30/2019 | | Results for this | | | | 2:19 AM | | procedure are in the | | | | PST | | results section. | + +--------+ + + + | SPECIFIC | Urgent | 07/29/2019 | | Results for this | | GRAVITY,URINE | | 9:06 PM | | procedure are in the | | | | PST | | results section. | + +--------+ + + + | SODIUM, PLASMA | Urgent | 07/29/2019 | | Results for this | | | | 8:31 PM | | procedure are in the | | | | PST | | results section. | + +--------+ + + + | SPECIFIC | Urgent | 07/29/2019 | | Results for this | | GRAVITY,URINE | | 3:49 PM | | procedure are in the | | | | PST | | results section. | + +--------+ + + + | SODIUM, PLASMA | Urgent | 07/29/2019 | | Results for this | | | | 3:11 PM | | procedure are in the | | | | PST | | results section. | + +--------+ + + + | PROCEDURE NOTE | Routin | 07/29/2019 | | Results for this | | | e | 11:24 AM | | procedure are in the | | | | PST | | results section. | + +--------+ + + + | CAPILLARY BLOOD | Routin | 07/29/2019 | Pituitary mass | Results for this | | GLUCOSE (NO CHG), | e | 10:58 AM | (HCC) | procedure are in the | | POC | | PST | | results section. | + +--------+ + + + | SURGICAL PATHOLOGY | Routin | 07/29/2019 | | Results for this | | | e | 9:41 AM | | procedure are in the | | | | PST | | results section. | + +--------+ + + + | APPROACH FOR EEA | Electi | 07/29/2019 | D35.2 | | | SURGERY(OTOLARYNGOLO | ve | 7:32 AM | | | | GY) | Surgic | PST | | | | | al | | | | + +--------+ + + + | ENDOSCOPIC ENDONASAL | Electi | 07/29/2019 | D35.2 | | | APPROACH FOR | ve | 7:32 AM | | | | PITUITARY TUMOR | Surgic | PST | | | | RESECTION WITH STORZ | al | | | | | CAMERA | | | | | + +--------+ + + + | INTRAPROCEDURE | Routin | 07/29/2019 | | Results for this | | IMAGING | e | 6:01 AM | | procedure are in the | | | | PST | | results section. | + +--------+ + + + | CARDIOLOGY | | 07/29/2019 | | Results for this | | | | 12:00 AM | | procedure are in the | | | | PST | | results section. | + +--------+ + + + documented in this encounter Results PROCEDURE NOTE (08/01/2019 1:32 PM PST)SODIUM, PLASMA (08/01/2019 9:15 AM PST) + +-------+ + + + | Component | Value | Ref Range | Performed | Pathologist | | | | | At | Signature | + +-------+ + + + | SODIUM, | 143 | 136 - 145 | [facility] | | | PLASMA | | mmol/L | LABORATORY | | | (LAB) | | | SERVICES, | | | | | | CORE | | + +-------+ + + + + + | Specimen | + + | Blood - Blood | | (substance) | + + + + + + + | Performing | Address | City/State/Zipcode | Phone Number | | Organization | | | | + + + + + | [facility] | [address] | [place] [address] | | | SERVICES, CORE | [address] | | | + + + + + SPECIFIC GRAVITY,URINE (08/01/2019 8:00 AM PST) + + + + + + | Component | Value | Ref Range | Performed | Pathologist | | | | | At | Signature | + + + + + + | SPECIFIC | 1.032 (H)Comment: | 1.005 - 1.030 | [facility] | | | GRAVITY | Specific Nixon | | LABORATORY | | | | performed by | | SERVICES, | | | | refractometry | | CORE | | + + + + + + + + | Specimen | + + | Urine - Urine | | (substance) | + + + + + + + | Performing | Address | City/State/Zipcode | Phone Number | | Organization | | | | + + + + + | [facility] | [address] | [place] [address] | | | SERVICES, CORE | [address] | | | + + + + + SPECIFIC GRAVITY,URINE (08/01/2019 1:58 AM PST) + + + + + + | Component | Value | Ref Range | Performed | Pathologist | | | | | At | Signature | + + + + + + | SPECIFIC | 1.031 (H)Comment: | 1.005 - 1.030 | [facility] | | | GRAVITY | Specific Nixon | | LABORATORY | | | | performed by | | SERVICES, | | | | refractometry | | CORE | | + + + + + + + + | Specimen | + + | Urine - Urine | | (substance) | + + + + + + + | Performing | Address | City/State/Zipcode | Phone Number | | Organization | | | | + + + + + | [facility] | [address] | [place] [address] | | | SERVICES, CORE | [address] | | | + + + + + BASIC METABOLIC SET (NA, K, CL, TCO2, BUN, CR, GLU, CA) (08/01/2019 1:55 AM PST) + +---------+ + + + | Component | Value | Ref Range | Performed | Pathologist | | | | | At | Signature | + +---------+ + + + | GLUCOSE, | 92 | 70 - 99 mg/dL | [facility] | | | PLASMA | | | LABORATORY | | | (LAB) | | | SERVICES, | | | | | | CORE | | + +---------+ + + + | BUN, PLASMA | 16 | 6 - 20 mg/dL | [facility] | | | (LAB) | | | LABORATORY | | | | | | SERVICES, | | | | | | CORE | | + +---------+ + + + | CREATININE | 0.72 | 0.60 - 1.10 | [facility] | | | PLASMA | | mg/dL | LABORATORY | | | (LAB) | | | SERVICES, | | | | | | CORE | | + +---------+ + + + | EGFR | >60 | >60 mL/min | [facility] | | | - | | | LABORATORY | | | MICRONESIAN | | | SERVICES, | | | | | | CORE | | + +---------+ + + + | EGFR NON | >60 | >60 mL/min | [facility] | | | -JUAQUIN | | | LABORATORY | | | RICAN | | | SERVICES, | | | | | | CORE | | + +---------+ + + + | SODIUM, | 142 | 136 - 145 | [facility] | | | PLASMA | | mmol/L | LABORATORY | | | (LAB) | | | SERVICES, | | | | | | CORE | | + +---------+ + + + | POTASSIUM, | 4.0 | 3.4 - 5.0 | [facility] | | | PLASMA | | mmol/L | LABORATORY | | | (LAB) | | | SERVICES, | | | | | | CORE | | + +---------+ + + + | CHLORIDE, | 111 (H) | 97 - 108 mmol/L | [facility] | | | PLASMA | | | LABORATORY | | | (LAB) | | | SERVICES, | | | | | | CORE | | + +---------+ + + + | TOTAL CO2, | 25 | 21 - 32 mmol/L | [facility] | | | PLASMA | | | LABORATORY | | | (LAB) | | | SERVICES, | | | | | | CORE | | + +---------+ + + + | CALCIUM, | 8.4 (L) | 8.6 - 10.2 | [facility] | | | PLASMA | | mg/dL | LABORATORY | | | (LAB) | | | SERVICES, | | | | | | CORE | | + +---------+ + + + | ANION GAP | 6 | 4 - 11 mmol/L | [facility] | | | | | | LABORATORY | | | | | | SERVICES, | | | | | | CORE | | + +---------+ + + + | POTASSIUM | No Hemo | | [facility] | | | CMNT | | | LABORATORY | | | | | | SERVICES, | | | | | | CORE | | + +---------+ + + + | BUN/CREATIN | 22 | 8 - 25 | [facility] | | | INE RATIO | | | LABORATORY | | | | | | SERVICES, | | | | | | CORE | | + +---------+ + + + + + | Specimen | + + | Blood - Blood | | (substance) | + + + + + | Narrative | Performed At | + + + | GFR is estimated using the MDRD equation recommended by the National | [facility] | | Kidney Disease Education Program. Estimated GFR Interpretive | LABORATORY | | Information: <60 mL/min/1.73 sq m Chronic Kidney | SERVICES, CORE | | Disease <15 mL/min/1.73 sq m Kidney Failure | | | Estimated GFR greater than 60 mL/min/1.73 sq m is of limited clinical | | | value. The MDRD equation is not valid in the following situations: | | | - Patients under 18 years of age - Severe malnutrition or obesity | | | - Vegetarian diet - Rapidly changing kidney function - Amputees, | | | paraplegics, or other muscle-wasting diseases | | + + + + + + + + | Performing | Address | City/State/Zipcode | Phone Number | | Organization | | | | + + + + + | [facility] | [address] | [place] [address] | | | SERVICES, CORE | [address] | | | + + + + + SODIUM, PLASMA (07/31/2019 8:30 PM PST) + +-------+ + + + | Component | Value | Ref Range | Performed | Pathologist | | | | | At | Signature | + +-------+ + + + | SODIUM, | 139 | 136 - 145 | [facility] | | | PLASMA | | mmol/L | LABORATORY | | | (LAB) | | | SERVICES, | | | | | | CORE | | + +-------+ + + + + + | Specimen | + + | Blood - Blood | | (substance) | + + + + + + + | Performing | Address | City/State/Zipcode | Phone Number | | Organization | | | | + + + + + | [facility] | [address] | [place] [address] | | | SERVICES, CORE | [address] | | | + + + + + SPECIFIC GRAVITY,URINE (07/31/2019 8:00 PM PST) + + + + + + | Component | Value | Ref Range | Performed | Pathologist | | | | | At | Signature | + + + + + + | SPECIFIC | 1.021Comment: Specific | 1.005 - 1.030 | [facility] | | | GRAVITY | Nixon performed by | | LABORATORY | | | | refractometry | | SERVICES, | | | | | | CORE | | + + + + + + + + | Specimen | + + | Urine - Urine | | (substance) | + + + + + + + | Performing | Address | City/State/Zipcode | Phone Number | | Organization | | | | + + + + + | [facility] | [address] | [place] [address] | | | SERVICES, CORE | [address] | | | + + + + + SODIUM, PLASMA (07/31/2019 2:46 PM PST) + +-------+ + + + | Component | Value | Ref Range | Performed | Pathologist | | | | | At | Signature | + +-------+ + + + | SODIUM, | 143 | 136 - 145 | [facility] | | | PLASMA | | mmol/L | LABORATORY | | | (LAB) | | | SERVICES, | | | | | | CORE | | + +-------+ + + + + + | Specimen | + + | Blood - Blood | | (substance) | + + + + + + + | Performing | Address | City/State/Zipcode | Phone Number | | Organization | | | | + + + + + | [facility] | [address] | [place] [address] | | | SERVICES, CORE | [address] | | | + + + + + SPECIFIC GRAVITY,URINE (07/31/2019 2:25 PM PST) + + + + + + | Component | Value | Ref Range | Performed | Pathologist | | | | | At | Signature | + + + + + + | SPECIFIC | 1.029Comment: Specific | 1.005 - 1.030 | [facility] | | | GRAVITY | Nixon performed by | | LABORATORY | | | | refractometry | | SERVICES, | | | | | | CORE | | + + + + + + + + | Specimen | + + | Urine - Urine | | (substance) | + + + + + + + | Performing | Address | City/State/Zipcode | Phone Number | | Organization | | | | + + + + + | [facility] | [address] | [place] [address] | | | SERVICES, CORE | [address] | | | + + + + + SODIUM, PLASMA (07/31/2019 9:17 AM PST) + +-------+ + + + | Component | Value | Ref Range | Performed | Pathologist | | | | | At | Signature | + +-------+ + + + | SODIUM, | 145 | 136 - 145 | [facility] | | | PLASMA | | mmol/L | LABORATORY | | | (LAB) | | | SERVICES, | | | | | | CORE | | + +-------+ + + + + + | Specimen | + + | Blood - Blood | | (substance) | + + + + + + + | Performing | Address | City/State/Zipcode | Phone Number | | Organization | | | | + + + + + | [facility] | [address] | [place] [address] | | | MADHU, VALERY | [address] | | | + + + + + SPECIFIC GRAVITY,URINE (07/31/2019 8:08 AM PST) + + + + + + | Component | Value | Ref Range | Performed | Pathologist | | | | | At | Signature | + + + + + + | SPECIFIC | 1.027Comment: Specific | 1.005 - 1.030 | [facility] | | | GRAVITY | Nixon performed by | | LABORATORY | | | | refractometry | | MADHU, | | | | | | CORE | | + + + + + + + + | Specimen | + + | Urine - Urine | | (substance) | + + + + + + + | Performing | Address | City/State/Zipcode | Phone Number | | Organization | | | | + + + + + | [facility] | [address] | [place] [address] | | | SERVICES, CORE | [address] | | | + + + + + BASIC METABOLIC SET (NA, K, CL, TCO2, BUN, CR, GLU, CA) (07/31/2019 5:15 AM PST) + +---------+ + + + | Component | Value | Ref Range | Performed | Pathologist | | | | | At | Signature | + +---------+ + + + | GLUCOSE, | 91 | 70 - 99 mg/dL | [facility] | | | PLASMA | | | LABORATORY | | | (LAB) | | | SERVICES, | | | | | | CORE | | + +---------+ + + + | BUN, PLASMA | 12 | 6 - 20 mg/dL | [facility] | | | (LAB) | | | LABORATORY | | | | | | SERVICES, | | | | | | CORE | | + +---------+ + + + | CREATININE | 0.78 | 0.60 - 1.10 | [facility] | | | PLASMA | | mg/dL | LABORATORY | | | (LAB) | | | SERVICES, | | | | | | CORE | | + +---------+ + + + | EGFR | >60 | >60 mL/min | [facility] | | | - | | | LABORATORY | | | MICRONESIAN | | | SERVICES, | | | | | | CORE | | + +---------+ + + + | EGFR NON | >60 | >60 mL/min | [facility] | | | -JUAQUIN | | | LABORATORY | | | RICAN | | | SERVICES, | | | | | | CORE | | + +---------+ + + + | SODIUM, | 142 | 136 - 145 | [facility] | | | PLASMA | | mmol/L | LABORATORY | | | (LAB) | | | SERVICES, | | | | | | CORE | | + +---------+ + + + | POTASSIUM, | 4.0 | 3.4 - 5.0 | [facility] | | | PLASMA | | mmol/L | LABORATORY | | | (LAB) | | | SERVICES, | | | | | | CORE | | + +---------+ + + + | CHLORIDE, | 111 (H) | 97 - 108 mmol/L | [facility] | | | PLASMA | | | LABORATORY | | | (LAB) | | | SERVICES, | | | | | | CORE | | + +---------+ + + + | TOTAL CO2, | 24 | 21 - 32 mmol/L | [facility] | | | PLASMA | | | LABORATORY | | | (LAB) | | | SERVICES, | | | | | | CORE | | + +---------+ + + + | CALCIUM, | 8.5 (L) | 8.6 - 10.2 | [facility] | | | PLASMA | | mg/dL | LABORATORY | | | (LAB) | | | SERVICES, | | | | | | CORE | | + +---------+ + + + | ANION GAP | 7 | 4 - 11 mmol/L | [facility] | | | | | | LABORATORY | | | | | | SERVICES, | | | | | | CORE | | + +---------+ + + + | POTASSIUM | No Hemo | | [facility] | | | CMNT | | | LABORATORY | | | | | | SERVICES, | | | | | | CORE | | + +---------+ + + + | BUN/CREATIN | 15 | 8 - 25 | [facility] | | | [facility]ATIO | | | LABORATORY | | | | | | SERVICES, | | | | | | CORE | | + +---------+ + + + + + | Specimen | + + | Blood - Blood | | (substance) | + + + + + | Narrative | Performed At | + + + | GFR is estimated using the MDRD equation recommended by the National | [facility] | | Kidney Disease Education Program. Estimated GFR Interpretive | LABORATORY | | Information: <60 mL/min/1.73 sq m Chronic Kidney | SERVICES, CORE | | Disease <15 mL/min/1.73 sq m Kidney Failure | | | Estimated GFR greater than 60 mL/min/1.73 sq m is of limited clinical | | | value. The MDRD equation is not valid in the following situations: | | | - Patients under 18 years of age - Severe malnutrition or obesity | | | - Vegetarian diet - Rapidly changing kidney function - Amputees, | | | paraplegics, or other muscle-wasting diseases | | + + + + + + + + | Performing | Address | City/State/Zipcode | Phone Number | | Organization | | | | + + + + + | [facility] | [address] | [place] [address] | | | SERVICES, CORE | [address] | | | + + + + + SPECIFIC GRAVITY,URINE (07/31/2019 2:16 AM PST) + + + + + + | Component | Value | Ref Range | Performed | Pathologist | | | | | At | Signature | + + + + + + | SPECIFIC | 1.029Comment: Specific | 1.005 - 1.030 | [facility] | | | GRAVITY | [facility] performed by | | LABORATORY | | | | refractometry | | SERVICES, | | | | | | CORE | | + + + + + + + + | Specimen | + + | Urine - Urine | | (substance) | + + + + + + + | Performing | Address | City/State/Zipcode | Phone Number | | Organization | | | | + + + + + | [facility] | [address] | [place] [address] | | | SERVICES, CORE | [address] | | | + + + + + SODIUM, PLASMA (07/31/2019 2:02 AM PST) + +-------+ + + + | Component | Value | Ref Range | Performed | Pathologist | | | | | At | Signature | + +-------+ + + + | SODIUM, | 143 | 136 - 145 | [facility] | | | PLASMA | | mmol/L | LABORATORY | | | (LAB) | | | SERVICES, | | | | | | CORE | | + +-------+ + + + + + | Specimen | + + | Blood - Blood | | (substance) | + + + + + + + | Performing | Address | City/State/Zipcode | Phone Number | | Organization | | | | + + + + + | [facility] | [address] | [place] [address] | | | SERVICES, CORE | [address] | | | + + + + + SODIUM, PLASMA (07/30/2019 8:17 PM PST) + +-------+ + + + | Component | Value | Ref Range | Performed | Pathologist | | | | | At | Signature | + +-------+ + + + | SODIUM, | 141 | 136 - 145 | [facility] | | | PLASMA | | mmol/L | LABORATORY | | | (LAB) | | | SERVICES, | | | | | | CORE | | + +-------+ + + + + + | Specimen | + + | Blood - Blood | | (substance) | + + + + + + + | Performing | Address | City/State/Zipcode | Phone Number | | Organization | | | | + + + + + | [facility] | [address] | [place] [address] | | | SERVICES, CORE | [address] | | | + + + + + SPECIFIC GRAVITY,URINE (07/30/2019 7:40 PM PST) + + + + + + | Component | Value | Ref Range | Performed | Pathologist | | | | | At | Signature | + + + + + + | SPECIFIC | 1.032 (H)Comment: | 1.005 - 1.030 | [facility] | | | GRAVITY | Specific Nixon | | LABORATORY | | | | performed by | | MADHU, | | | | refractometry | | CORE | | + + + + + + + + | Specimen | + + | Urine - Urine | | (substance) | + + + + + + + | Performing | Address | City/State/Zipcode | Phone Number | | Organization | | | | + + + + + | [facility] | [address] | [place] [address] | | | MADHU, VALERY | [address] | | | + + + + + SPECIFIC GRAVITY,URINE (07/30/2019 3:08 PM PST) + + + + + + | Component | Value | Ref Range | Performed | Pathologist | | | | | At | Signature | + + + + + + | SPECIFIC | 1.011Comment: Specific | 1.005 - 1.030 | [facility] | | | GRAVITY | Nixon performed by | | LABORATORY | | | | refractometry | | SERVICES, | | | | | | CORE | | + + + + + + + + | Specimen | + + | Urine - Urine | | (substance) | + + + + + + + | Performing | Address | City/State/Zipcode | Phone Number | | Organization | | | | + + + + + | [facility] | [address] | [place] [address] | | | SERVICES, CORE | [address] | | | + + + + + SODIUM, PLASMA (07/30/2019 2:45 PM PST) + +-------+ + + + | Component | Value | Ref Range | Performed | Pathologist | | | | | At | Signature | + +-------+ + + + | SODIUM, | 141 | 136 - 145 | [facility] | | | PLASMA | | mmol/L | LABORATORY | | | (LAB) | | | SERVICES, | | | | | | CORE | | + +-------+ + + + + + | Specimen | + + | Blood - Blood | | (substance) | + + + + + + + | Performing | Address | City/State/Zipcode | Phone Number | | Organization | | | | + + + + + | [facility] | [address] | [place] [address] | | | SERVICES, CORE | [address] | | | + + + + + SPECIFIC GRAVITY,URINE (07/30/2019 9:32 AM PST) + + + + + + | Component | Value | Ref Range | Performed | Pathologist | | | | | At | Signature | + + + + + + | SPECIFIC | 1.005Comment: Specific | 1.005 - 1.030 | [facility] | | | GRAVITY | Nixon performed by | | LABORATORY | | | | refractometry | | SERVICES, | | | | | | CORE | | + + + + + + + + | Specimen | + + | Urine - Urine | | (substance) | + + + + + + + | Performing | Address | City/State/Zipcode | Phone Number | | Organization | | | | + + + + + | [facility] | [address] | [place] [address] | | | SERVICES, CORE | [address] | | | + + + + + SODIUM, PLASMA (07/30/2019 9:20 AM PST) + +-------+ + + + | Component | Value | Ref Range | Performed | Pathologist | | | | | At | Signature | + +-------+ + + + | SODIUM, | 140 | 136 - 145 | [facility] | | | PLASMA | | mmol/L | LABORATORY | | | (LAB) | | | SERVICES, | | | | | | CORE | | + +-------+ + + + + + | Specimen | + + | Blood - Blood | | (substance) | + + + + + + + | Performing | Address | City/State/Zipcode | Phone Number | | Organization | | | | + + + + + | [facility] | [address] | [place] [address] | | | SERVICES, CORE | [address] | | | + + + + + PHOSPHORUS, PLASMA (07/30/2019 9:20 AM PST) + +-------+ + + + | Component | Value | Ref Range | Performed | Pathologist | | | | | At | Signature | + +-------+ + + + | PHOSPHORUS, | 2.4 | 2.4 - 4.7 mg/dL | [facility] | | | PLASMA | | | LABORATORY | | | (LAB) | | | MADHU, | | | | | | CORE | | + +-------+ + + + + + | Specimen | + + | Blood - Blood | | (substance) | + + + + + + + | Performing | Address | City/State/Zipcode | Phone Number | | Organization | | | | + + + + + | [facility] | [address] | [place] [address] | | | SERVICES, VALERY | [address] | | | + + + + + MAGNESIUM, PLASMA (07/30/2019 9:20 AM PST) + +-------+ + + + | Component | Value | Ref Range | Performed | Pathologist | | | | | At | Signature | + +-------+ + + + | MAGNESIUM,P | 2.1 | 1.6 - 2.6 mg/dL | [facility] | | | LASMA | | | LABORATORY | | | | | | SERVICES, | | | | | | CORE | | + +-------+ + + + + + | Specimen | + + | Blood - Blood | | (substance) | + + + + + + + | Performing | Address | City/State/Zipcode | Phone Number | | Organization | | | | + + + + + | [facility] | [address] | [place] [address] | | | SERVICES, CORE | [address] | | | + + + + + BASIC METABOLIC SET (NA, K, CL, TCO2, BUN, CR, GLU, CA) (07/30/2019 9:20 AM PST) + +---------+ + + + | Component | Value | Ref Range | Performed | Pathologist | | | | | At | Signature | + +---------+ + + + | GLUCOSE, | 99 | 70 - 99 mg/dL | [facility] | | | PLASMA | | | LABORATORY | | | (LAB) | | | SERVICES, | | | | | | CORE | | + +---------+ + + + | BUN, PLASMA | 9 | 6 - 20 mg/dL | [facility] | | | (LAB) | | | LABORATORY | | | | | | SERVICES, | | | | | | CORE | | + +---------+ + + + | CREATININE | 0.77 | 0.60 - 1.10 | [facility] | | | PLASMA | | mg/dL | LABORATORY | | | (LAB) | | | SERVICES, | | | | | | CORE | | + +---------+ + + + | EGFR | >60 | >60 mL/min | [facility] | | | - | | | LABORATORY | | | MICRONESIAN | | | SERVICES, | | | | | | CORE | | + +---------+ + + + | EGFR NON | >60 | >60 mL/min | [facility] | | | -JUAQUIN | | | LABORATORY | | | RICAN | | | SERVICES, | | | | | | CORE | | + +---------+ + + + | SODIUM, | 140 | 136 - 145 | [facility] | | | PLASMA | | mmol/L | LABORATORY | | | (LAB) | | | SERVICES, | | | | | | CORE | | + +---------+ + + + | POTASSIUM, | 4.0 | 3.4 - 5.0 | [facility] | | | PLASMA | | mmol/L | LABORATORY | | | (LAB) | | | SERVICES, | | | | | | CORE | | + +---------+ + + + | CHLORIDE, | 110 (H) | 97 - 108 mmol/L | [facility] | | | PLASMA | | | LABORATORY | | | (LAB) | | | SERVICES, | | | | | | CORE | | + +---------+ + + + | TOTAL CO2, | 23 | 21 - 32 mmol/L | [facility] | | | PLASMA | | | LABORATORY | | | (LAB) | | | SERVICES, | | | | | | CORE | | + +---------+ + + + | CALCIUM, | 9.0 | 8.6 - 10.2 | [facility] | | | PLASMA | | mg/dL | LABORATORY | | | (LAB) | | | SERVICES, | | | | | | CORE | | + +---------+ + + + | ANION GAP | 7 | 4 - 11 mmol/L | [facility] | | | | | | LABORATORY | | | | | | SERVICES, | | | | | | CORE | | + +---------+ + + + | POTASSIUM | No Hemo | | [facility] | | | CMNT | | | LABORATORY | | | | | | SERVICES, | | | | | | CORE | | + +---------+ + + + | BUN/CREATIN | 12 | 8 - 25 | [facility] | | | INE RATIO | | | LABORATORY | | | | | | SERVICES, | | | | | | CORE | | + +---------+ + + + + + | Specimen | + + | Blood - Blood | | (substance) | + + + + + | Narrative | Performed At | + + + | GFR is estimated using the MDRD equation recommended by the National | [facility] | | Kidney Disease Education Program. Estimated GFR Interpretive | LABORATORY | | Information: <60 mL/min/1.73 sq m Chronic Kidney | SERVICES, [place] [facility] [place] | | Disease <15 mL/min/1.73 sq m Kidney Failure | | | Estimated GFR greater than 60 mL/min/1.73 sq m is of limited clinical | | | value. The MDRD equation is not valid in the following situations: | | | - Patients under 18 years of age - Severe malnutrition or obesity | | | - Vegetarian diet - Rapidly changing kidney function - Amputees, | | | paraplegics, or other muscle-wasting diseases | | + + + + + + + + | Performing | Address | City/State/Zipcode | Phone Number | | Organization | | | | + + + + + | [facility] | [address] | [place] [address] | | | VALERY LEUNG | [address] | | | + + + + + SPECIFIC GRAVITY,URINE (07/30/2019 2:30 AM PST) + + + + + + | Component | Value | Ref Range | Performed | Pathologist | | | | | At | Signature | + + + + + + | SPECIFIC | 1.012Comment: Specific | 1.005 - 1.030 | [facility] | | | GRAVITY | Nixon performed by | | LABORATORY | | | | refractometry | | SERVICES, | | | | | | CORE | | + + + + + + + + | Specimen | + + | Urine - Urine | | (substance) | + + + + + + + | Performing | Address | City/State/Zipcode | Phone Number | | Organization | | | | + + + + + | [facility] | [address] | [place] [address] | | | SERVICES, CORE | [address] | | | + + + + + SODIUM, PLASMA (07/30/2019 2:19 AM PST) + +-------+ + + + | Component | Value | Ref Range | Performed | Pathologist | | | | | At | Signature | + +-------+ + + + | SODIUM, | 138 | 136 - 145 | [facility] | | | PLASMA | | mmol/L | LABORATORY | | | (LAB) | | | SERVICES, | | | | | | CORE | | + +-------+ + + + + + | Specimen | + + | Blood - Blood | | (substance) | + + + + + + + | Performing | Address | City/State/Zipcode | Phone Number | | Organization | | | | + + + + + | [facility] | [address] | [place] [address] | | | SERVICES, CORE | [address] | | | + + + + + SPECIFIC GRAVITY,URINE (07/29/2019 9:06 PM PST) + + + + + + | Component | Value | Ref Range | Performed | Pathologist | | | | | At | Signature | + + + + + + | SPECIFIC | 1.023Comment: Specific | 1.005 - 1.030 | [facility] | | | GRAVITY | Nixon performed by | | LABORATORY | | | | refractometry | | SERVICES, | | | | | | CORE | | + + + + + + + + | Specimen | + + | Urine - Urine | | (substance) | + + + + + + + | Performing | Address | City/State/Zipcode | Phone Number | | Organization | | | | + + + + + | [facility] | [address] | [place] [address] | | | SERVICES, CORE | [address] | | | + + + + + SODIUM, PLASMA (07/29/2019 8:31 PM PST) + +-------+ + + + | Component | Value | Ref Range | Performed | Pathologist | | | | | At | Signature | + +-------+ + + + | SODIUM, | 138 | 136 - 145 | [facility] | | | PLASMA | | mmol/L | LABORATORY | | | (LAB) | | | SERVICES, | | | | | | CORE | | + +-------+ + + + + + | Specimen | + + | Blood - Blood | | (substance) | + + + + + + + | Performing | Address | City/State/Zipcode | Phone Number | | Organization | | | | + + + + + | [facility] | [address] | [place] [address] | | | SERVICES, VALERY | [address] | | | + + + + + SPECIFIC GRAVITY,URINE (07/29/2019 3:49 PM PST) + + + + + + | Component | Value | Ref Range | Performed | Pathologist | | | | | At | Signature | + + + + + + | SPECIFIC | 1.023Comment: Specific | 1.005 - 1.030 | [facility] | | | GRAVITY | Nixon performed by | | LABORATORY | | | | refractometry | | SERVICES, | | | | | | CORE | | + + + + + + + + | Specimen | + + | Urine - Catheter, | | device (physical | | object) | + + + + + + + | Performing | Address | City/State/Zipcode | Phone Number | | Organization | | | | + + + + + | [facility] | [address] | [place] [address] | | | SERVICES, CORE | [address] | | | + + + + + SODIUM, PLASMA (07/29/2019 3:11 PM PST) + +-------+ + + + | Component | Value | Ref Range | Performed | Pathologist | | | | | At | Signature | + +-------+ + + + | SODIUM, | 139 | 136 - 145 | [facility] | | | PLASMA | | mmol/L | LABORATORY | | | (LAB) | | | SERVICES, | | | | | | CORE | | + +-------+ + + + + + | Specimen | + + | Blood - Blood | | (substance) | + + + + + + + | Performing | Address | City/State/Zipcode | Phone Number | | Organization | | | | + + + + + | [facility] | [address] | [place] [address] | | | SERVICES, CORE | [address] | | | + + + + + PROCEDURE NOTE (07/29/2019 11:24 AM PST) + + + | Narrative | Performed At | + + + | Brandon Rutherford MD 07/29/2019 11:26 AM Date of Service: | | | 07/29/2019 Attending Surgeon: | | | Brandon Rutherford MD | | | Spike Machine Operator(s): | | | | | | Preoperative Diagnosis: Pituitary adenoma. Postoperative | | | Diagnosis: Pituitary adenoma. Procedure: 1. | | | Left sphenoidotomy. 2. Right | | | sphenoidotomy. 3. Removal of posterior | | | nasal septum. Anesthesia: General endotracheal. Specimens | | | Removed: None. Indications: The patient is a 39 y.o. female | | | with a sellar lesion. She is being brought to the operating room | | | today by Dr. Mann who has asked me to perform the endoscopic | | | approach. Findings: The patient appears to have had previous | | | sinus surgery with bilateral maxillary antrostomies, partial | | | resection of both middle turbinates and a partial ethmoidectomy on | | | the left. Description Of Procedure: The patient was brought to | | | the operating room, identified and placed on the table in the supine | | | position. After adequate anesthesia was obtained using an oral | | | endotracheal tube, she was prepped and draped in the usual fashion. | | | The nose was then inspected using the 0 degree endoscope and the | | | findings noted above. The nose was decongested using topical | | | epinephrine on neurosurgical cottonoids. Beginning on the | | | left-hand side, the turbinates were lateralized and the | | | sphenoethmoidal recess was identified. The left sphenoid sinus was | | | then entered and the opening was enlarged. Beginning on the | | | right-hand side, again the turbinates were lateralized and the | | | sphenoethmoidal recess was identified. This was opened and the | | | sphenoid sinus was widely opened. The septal mucosa was then | | | removed from the posterior nasal septum on both sides and the bony | | | septum was perforated, and the posterior bony septum was removed, | | | thus connecting the right and left sphenoid sinuses. The inner | | | sinus septum was removed as well as the mucosa of the sphenoid | | | sinus, and the bone overlying the sella was then removed. The | | | case was then turned over to Dr. Mann who will complete the | | | resection of the pituitary tumor. This will be dictated as a | | | separate procedure. At the conclusion of Dr. Mann' portion of the | | | operation, I came back into the field. The turbinates were then | | | medialized. Bilateral Nasopore dressings were placed into the | | | middle meatus on both sides and the procedure was terminated. | | | The patient's anesthesia was then reversed. She was removed from | | | the operating table and taken to the PAR in stable condition. | | | Sponge and needle counts were correct. Estimated Blood Loss: | | | The estimated blood loss for the head and neck portion of the | | | procedure was 100 cc's. The patient tolerated the procedure | | | well. There were no complications. Peter Rutherford, MD | | + + + CAPILLARY BLOOD GLUCOSE (NO CHG), POC (07/29/2019 10:58 AM PST) + +-------+ + + + | Component | Value | Ref Range | Performed | Pathologist | | | | | At | Signature | + +-------+ + + + | BLOOD | 93 | 70 - 99 mg/dL | [facility] - | | | GLUCOSE, | | | [facility] | | | POC | | | [facility] | | | | | | OF CARE | | | | | | TESTS | | + +-------+ + + + + + | Specimen | + + | Blood | + + + + + + + | Performing | Address | City/State/Zipcode | Phone Number | | Organization | | | | + + + + + | [facility] | [address] | [place], [place] | | | [facility] | [address] | [address] | | | TESTS | | | | + + + + + SURGICAL PATHOLOGY (07/29/2019 9:41 AM PST) + + + + + + | Component | Value | Ref Range | Performed | Pathologist | | | | | At | Signature | + + + + + + | Clinical | Per the requisition: | | [facility] | | | History | pituitary adenoma. Per | | DEPARTMENT | | | | review of the electronic | | OF | | | | medical record, the | | PATHOLOGY | | | | patient is a 39-year-old | | | | | | woman with history of | | | | | | headaches and sinusitis, | | | | | | found to have a >1 cm | | | | | | sellar mass on imaging. | | | | | | She presents for | | | | | | surgical resection. | | | | + + + + + + | Final | A. Brain, sellar mass, | | [facility] | Electronically | | Pathologic | resection: Anterior | | DEPARTMENT | signed by | | Diagnosis | pituitary tissue, no | | OF | Jerome Yoo, | | | adenoma identified. See | | PATHOLOGY | ,PhD on | | | comment.Comment: | | | 08/03/2019 at | | | Sections show anterior | | | 4:16 PM | | | pituitary with retained | | | | | | acinar architecture on | | | | | | H&E and highlighted by | | | | | | collagen IV | | | | | | immunhistochemisty. The | | | | | | tissue is composed of a | | | | | | mixture of anterior | | | | | | pituitary cell types | | | | | | that show positivity for | | | | | | the auditor/quality | | | | | | factors Pit-1, T-pit, | | | | | | and SF-1, as well as for | | | | | | anterior pituitary | | | | | | hormones. The Ki-67 | | | | | | labeling index is low. | | | | | | There is no significant | | | | | | inflammation. Additional | | | | | | level sections are | | | | | | examined on block A2 and | | | | | | support the final | | | | | | diagnosis.Case seen | | | | | | by:Deborah Hagen, DO - | | | | | | Neuropathology | | | | | | FellowJerome Yoo MD, | | | | | | PhD | | | | | | | | | | | | | | | | | | NeuropathologistPatholog | | | | | | y, [facility] | | | | | | [facility] | | | electronic signature | | | | | | indicates that I have | | | | | | personally reviewed all | | | | | | diagnostic slides, the | | | | | | gross and/or microscopic | | | | | | portion of this report | | | | | | and formulated the final | | | | | | diagnosis. | | | | + + + + + + | Gross | Received is 1 specimen | | [facility] | | | Description | fresh in a container, | | DEPARTMENT | | | | labeled with the | | OF | | | | patient's name (initials | | PATHOLOGY | | | | [facility]) and medical record | | | | | | number [id number]. | | | | | | Brain, Sellar mass: | | | | | | Received for | | | | | | intraoperative | | | | | | consultation labeled | | | | | | "sellar mass | | | | | | | | | | | | 1" is a 0.5 x 0.2 x 0.1 | | | | | | cm aggregate of red-pacheco | | | | | | soft tissue. | | | | | | Approximately one half | | | | | | the specimen is | | | | | | submitted for touch | | | | | | prep, squish prep, and | | | | | | frozen section diagnosis | | | | | | and resubmitted in | | | | | | cassette A1. The | | | | | | non-frozen remainder the | | | | | | specimen is wrapped in | | | | | | paper and submitted in | | | | | | cassette A2.RML | | | | + + + + + + | Intraoperat | Frozen section | | [facility] | | | branden use | diagnosis: A1. Brain. | | DEPARTMENT | | | only - | Sellar mass (FS, touch | | OF | | | Final | prep, squish prep): | | PATHOLOGY | | | diagnosis | small portion of | | | | | listed | anterior pituitary | | | | | separately | tissue, unclear if | | | | | | adenoma or normal | | | | | | pituitaryFrozen section | | | | | | pathologist(s): Cyndie | | | | | | DO [facility] | | | | | | | | | | | | Pathology | | | | | | Poornima Pérez, | | | | | | , PhD | | | | | | | | | | | | | | | | | | NeuropathologistPatholog | | | | | | , [facility] & | | | | | | [facility] | | | | + + + + + + | Ancillary | Immunohistochemical | | [facility] | | | Information | stains performed and | | DEPARTMENT | | | | evaluated on block A1 | | OF | | | | show:Collagen IV: | | PATHOLOGY | | | | Retained acinar | | | | | | architectureImmunohistoc | | | | | | hemical stains performed | | | | | | and evaluated on block | | | | | | A2 show:Collagen IV: | | | | | | Retained acinar | | | | | | architectureT-pit: | | | | | | Positive in a subset of | | | | | | cells, normal anterior | | | | | | pituitary patternPit-1: | | | | | | Positive in a subset of | | | | | | cells, normal anterior | | | | | | pituitary patternSF-1: | | | | | | Positive in a subset of | | | | | | cells, normal anterior | | | | | | pituitary patternACTH: | | | | | | Positive in a subset of | | | | | | cells, normal anterior | | | | | | pituitary patternHGH: | | | | | | Positive in a subset of | | | | | | cells, normal anterior | | | | | | pituitary | | | | | | patternProlactin: | | | | | | Positive in a subset of | | | | | | cells, normal anterior | | | | | | pituitary patternCAM5.2: | | | | | | Cytoplasmic positivity, | | | | | | no fibrous bodies or | | | | | | Crooke [id number]: | | | | | | Positive, patchyKi-67: | | | | | | Labeling index | | | | | | <1%Analyte specific | | | | | | reagents are used in | | | | | | many laboratory tests | | | | | | necessary for standard | | | | | | medical care. This test | | | | | | was developed and its | | | | | | performance | | | | | | characteristics | | | | | | determined by [facility] | | | | | | laboratories. It has not | | | | | | been cleared or | | | | | | approved by the [place] Food | | | | | | and Drug Administration | | | | | | (FDA). FDA does not | | | | | | require this test to go | | | | | | through premarket FDA | | | | | | review. This test is | | | | | | used for clinical | | | | | | purposes. It should not | | | | | | be regarded as | | | | | | investigational or for | | | | | | research. This | | | | | | laboratory is certified | | | | | | under the Clinical | | | | | | Laboratory Improvement | | | | | | Amendments (CLIA) as | | | | | | qualified to perform | | | | | | high complexity clinical | | | | | | laboratory testing. If | | | | | | immunohistochemical | | | | | | analysis (IHC) was | | | | | | performed concurrently | | | | | | with flow cytometry, the | | | | | | IHC was done to allow | | | | | | assessment of | | | | | | immunoarchitecture, | | | | | | which is not supplied by | | | | | | flow cytometry. Flow | | | | | | cytometry enables better | | | | | | assessment of clonality | | | | | | and antigen aberrancy | | | | | | than IHC. Appropriate | | | | | | positive controls and/or | | | | | | negative controls were | | | | | | used for all stains, | | | | | | including | | | | | | immunohistochemical | | | | | | stains, special stains, | | | | | | and in situ | | | | | | hybridization, and these | | | | | | reacted appropriately. | | | | + + + + + + + + | Specimen | + + | Tissue - Brain | | structure (body | | structure) | + + + + + + + | Performing | Address | City/State/Zipcode | Phone Number | | Organization | | | | + + + + + | [facility] | [address] | [place] [address] | | | PATHOLOGY | [address] | | | + + + + + INTRAPROCEDURE IMAGING (07/29/2019 6:01 AM PST) + + | Specimen | + + | | + + + + + | Narrative | Performed At | + + + | See admission or procedure notes for details of any intraprocedure | [facility] | | images obtained. | RADIOLOGY | + + + + +---------+ + + | Performing | Address | City/State/Zipcode | Phone Number | | Organization | | | | + +---------+ + + | [facility] | | | | + +---------+ + + CARDIOLOGY (07/29/2019 12:00 AM PST) + + + | Narrative | Performed At | + + + | | | + + + documented in this encounter Visit Diagnoses Not on filedocumented in this encounter Administered Medications + +--------+ + +------+------+ | Medication Order | MAR | Action | Dose | Rate | Site | | | Action | Date | | | | + +--------+ + +------+------+ | acetaminophen (TYLENOL) tablet | Given | 08/01/19 | 1,000 mg | | | | 1,000 mg 1,000 mg, oral, EVERY 6 | | 20 11:59 | | | | | HOURS, First dose (after last | | AM PST | | | | | modification) on Sat07/30/19 at | | | | | | | 1000, Until Discontinued | | | | | | + +--------+ + +------+------+ +-------+ + +---+---+ | Given | 08/01/19 | 1,000 mg | | | | | 20 6:15 | | | | | | AM PST | | | | +-------+ + +---+---+ | Given | 08/01/19 | 1,000 mg | | | | | 20 12:26 | | | | | | AM PST | | | | +-------+ + +---+---+ +---+---+ | | | +---+---+ + +-------+ +-------+---+ + | EPINEPHrine (ADRENALIN) 1 mg/mL | Given | 07/29/19 | 30 mL | | Surgical | | nasal solution INTRAPROCEDURE | | 20 8:18 | | | Site | | PRN, Starting Sat07/29/19 at 0818, | | AM PST | | | | | Until Sat07/29/19 at 1041 | | | | | | + +-------+ +-------+---+ + +---+---+ | | | +---+---+ + +-------+ +---------+---+ + | fluorescein (FLUORETS) | Given | 07/29/19 | 1 strip | | Surgical | | ophthalmic strip INTRAPROCEDURE | | 20 8:18 | | | Site | | PRN, Starting Sat07/29/19 at 0818, | | AM PST | | | | | Until Sat07/29/19 at 1041 | | | | | | + +-------+ +---------+---+ + +---+---+ | | | +---+---+ + +-------+ +--------+---+---+ | guaiFENesin LA (MUCINEX) tablet | Given | 08/01/19 | 600 mg | | | | 600 mg 600 mg, oral, TWICE | | 20 9:24 | | | | | DAILY, First dose on Sat07/30/19 | | AM PST | | | | | at 1200, Until Discontinued | | | | | | + +-------+ +--------+---+---+ +-------+ +--------+---+---+ | Given | 07/31/19 | 600 mg | | | | | 20 9:27 | | | | | | PM PST | | | | +-------+ +--------+---+---+ | Given | 07/31/19 | 600 mg | | | | | 20 7:52 | | | | | | AM PST | | | | +-------+ +--------+---+---+ +---+---+ | | | +---+---+ + +-------+ +-------+---+---+ | hydrocortisone (CORTEF) tablet | Given | 08/01/19 | 20 mg | | | | 20 mg 20 mg, oral, EVERY | | 20 9:24 | | | | | MORNING, First dose on Sat07/31/19 | | AM PST | | | | | at 0900, Until Discontinued | | | | | | + +-------+ +-------+---+---+ +-------+ +-------+---+---+ | Given | 07/31/19 | 20 mg | | | | | 20 7:51 | | | | | | AM PST | | | | +-------+ +-------+---+---+ +---+---+ | | | +---+---+ + +-------+ +------+---+---+ | HYDROmorphone (DILAUDID) tablet | Given | 08/01/19 | 2 mg | | | | 2 mg 2 mg, oral, EVERY 3 HOURS | | 20 12:34 | | | | | NEEDED, Starting Jimena 07/30/19 at | | PM PST | | | | | 0903, Until 08/01/19 at 1939, | | | | | | | moderate pain, severe pain | | | | | | + +-------+ +------+---+---+ +-------+ +------+---+---+ | Given | 08/01/19 | 2 mg | | | | | 20 9:24 | | | | | | AM PST | | | | +-------+ +------+---+---+ | Given | 08/01/19 | 2 mg | | | | | 20 6:15 | | | | | | AM PST | | | | +-------+ +------+---+---+ +---+---+ | | | +---+---+ + +-------+ +------+---+---+ | ondansetron (ZOFRAN) injection | Given | 07/29/19 | 4 mg | | | | 4 mg 4 mg, intravenous, EVERY 12 | | 20 5:26 | | | | | HOURS NEEDED, Starting Wed | | PM PST | | | | | 07/29/19 at 1410, Until 08/01/19 | | | | | | | at 1939, n/v, if unable to take | | | | | | | oral form of medication | | | | | | + +-------+ +------+---+---+ + +---+ | | | + +---+ | ondansetron ODT (ZOFRAN ODT) | | | tablet 4 mg 4 mg, oral, EVERY 12 | | | HOURS NEEDED, Starting Wed | | | 07/29/19 at 1410, Until 08/01/19 | | | at 1939, nausea/vomiting, first | | | line | | + +---+ | | | + +---+ + +-------+ + +---+ + | oxymetazoline (AFRIN) 0.05 % | Given | 07/29/19 | 2 sprays | | Surgical | | nasal spray INTRAPROCEDURE PRN, | | 20 8:10 | | | Site | | Starting 07/29/19 at 0810, | | AM PST | | | | | Until 07/29/19 at 1041 | | | | | | + +-------+ + +---+ + + +---+ | | | + +---+ | phenol (CHLORASEPTIC) 1.4 % | | | spray 1-3 spray 1-3 spray, oral, | | | EVERY 2 HOURS NEEDED, | | | Starting 07/29/19 at 1552, | | | Until 08/01/19 at 1939, sore | | | throat | | + +---+ | | | + +---+ + +-------+ +------+---+---+ | polyethylene glycol (MIRALAX) | Given | 07/31/19 | 34 g | | | | packet 34 g 34 g, oral, THREE | | 20 10:58 | | | | | TIMES DAILY NEEDED, Starting | | AM PST | | | | | 07/29/19 at 1408, Until Sat | | | | | | | 08/01/19 at 1939, 1st line - for no | | | | | | | BM for 2 days | | | | | | + +-------+ +------+---+---+ +-------+ +------+---+---+ | Given | 07/31/19 | 34 g | | | | | 20 8:05 | | | | | | AM PST | | | | +-------+ +------+---+---+ +---+---+ | | | +---+---+ + +-------+ +-------+---+---+ | pregabalin (LYRICA) capsule 75 | Given | 08/01/19 | 75 mg | | | | mg 75 mg, oral, TWICE DAILY, | | 20 9:24 | | | | | First dose on Sat07/29/19 at 2100, | | AM PST | | | | | Until Discontinued | | | | | | + +-------+ +-------+---+---+ +-------+ +-------+---+---+ | Given | 07/31/19 | 75 mg | | | | | 20 9:27 | | | | | | PM PST | | | | +-------+ +-------+---+---+ | Given | 07/31/19 | 75 mg | | | | | 20 7:51 | | | | | | AM PST | | | | +-------+ +-------+---+---+ +---+---+ | | | +---+---+ + +-------+ + +---+---+ | senna-docusate (SENOKOT S) | Given | 08/01/19 | 1 tablet | | | | 8.6-50 mg 1 tablet 1 tablet, | | 20 9:24 | | | | | oral, TWICE DAILY, First dose on | | AM PST | | | | | 07/29/19 at 1415, Until | | | | | | | Discontinued | | | | | | + +-------+ + +---+---+ +-------+ + +---+---+ | Given | 07/31/19 | 1 tablet | | | | | 20 9:27 | | | | | | PM PST | | | | +-------+ + +---+---+ | Given | 07/31/19 | 1 tablet | | | | | 20 7:52 | | | | | | AM PST | | | | +-------+ + +---+---+ +---+---+ | | | +---+---+ + +-------+ + +---+---+ | sodium chloride (OCEAN) 0.65 % | Given | 07/31/19 | 2 sprays | | | | nasal spray 2 spray 2 spray, | | 20 2:54 | | | | | both nostrils, NEEDED, | | PM PST | | | | | Starting 07/29/19 at 1408, | | | | | | | Until 08/01/19 at 1939, dry | | | | | | | nose, nasal congestion | | | | | | + +-------+ + +---+---+ +-------+ + +---+---+ | Given | 07/31/19 | 2 sprays | | | | | 20 7:53 | | | | | | AM PST | | | | +-------+ + +---+---+ | Given | 07/31/19 | 2 sprays | | | | | 20 4:36 | | | | | | AM PST | | | | +-------+ + +---+---+ +---+---+ | | | +---+---+ + +-------+ +---------+---+ + | thrombin 5000 unit topical | Given | 07/29/19 | 10,000 | | Surgical | | solution INTRAPROCEDURE PRN, | | 20 8:49 | Units | | Site | | Starting Sat07/29/19 at 0849, | | AM PST | | | | | Until Sat07/29/19 at 1041 | | | | | | + +-------+ +---------+---+ + +---+---+ | | | +---+---+ documented in this encounter
--- OUTSIDE RECORDS SUMMARY | ~2019-12-19 | XMS | Encounter Summary ---
Demographics + + + | Address | [address] | | | [place] [address] | + + + | Home Phone | | + + + | Preferred Language | Unknown | + + + | Marital Status | | + + + | Denominational Affiliation | CHR | + + + | Race | White | + + + | Ethnic Group | Not or | + + + Author + + + | Author | [facility] | + + + | Organization | [facility] | + + + | Address | Unknown | + + + | Phone | Unavailable | + + + Support + + +---------+ + | Name | Relationship | Address | Phone | + + +---------+ + | Anushka Mitchell | ECON | Unknown | | + + +---------+ + Care Team Providers + +------+ + | Care Cabinet Abrasive Sandblaster Name | Role | Phone | + +------+ + | Lisa Adorno PA-C | PCP | | + +------+ + Reason for Referral Diagnostic Testing (Routine) +--------+--------+ + + + + | Status | Reason | Specialty | Diagnoses / | Referred By | Referred To | | | | | Procedures | Contact | Contact | +--------+--------+ + + + + | Closed | | Radiology | Diagnoses | [facility], | [facility] | | | | | Benign | MD Pawan | [address] | | | | | neoplasm of | [address] | [place] | | | | | pituitary | Avenue | [place] | | | | | gland and | [place], [place] | Research | | | | | craniopharyn | [address] | Center | | | | | geal duct | Phone: | [facility] [place] | | | | | ([facility]) | [phone] | [address] | | | | | Pituitary | Fax: | Phone: | | | | | adenoma | [phone] | [phone] | | | | | (HCC) | | Fax: | | | | | Procedures | | [phone] | | | | | MRI | | | | | | | PITUITARY | | | | | | | WWO CONTRAST | | | | | | | MD MRI | | | | | | | BRAIN COMBO | | | +--------+--------+ + + + + Encounter Details +--------+ + + + + | Date | Type | Department | Care Team | Description | +--------+ + + + + | 07/09/ | [employer] | Neurosurgery at | Pawan Mann MD | Pituitary adenoma | | 2020 | | [facility] [address] | [address] | (HCC) (Primary Dx); | | | | e Center for | [place], [place] | Benign neoplasm of | | | | [facility], | [address] | pituitary gland and | | | | Building | [phone] | craniopharyngeal | | | | floor [place], [place] | | duct (HCC) | | | | [address] | | | | | | [phone] | | | +--------+ + + + [...] 12/30/ | Appointment | Clinical | [facility] | | | 2019 | | Neurophysiology | Outpatient [id number] | | | | | | [address] [place], [place] | | | | | | [address] | | +--------+ + + + + | 12/30/ | Appointment | Radiology | Thu Fields, | | | 2019 | | | [address] | | | | | | [address] | | | | | | [place] [address] | | | | | | [phone] | | | | | | | | +--------+ + + + + | 12/30/ | Appointment | Radiology | Thu Fields, | | | 2019 | | | MD [address] | | | | | | [address] [place], | | | | | | [place] [address] | | | | | | [phone] | | | | | | | | +--------+ + + + + | 01/21/ | Office | Neurology | Thu Fields, | | | 2019 | Visit | | MD [address] | | | | | | [address] [place], | | | | | | [place] [address] | | | | | | [phone] | | | | | | | | +--------+ + + + + documented as of this encounter Results MRI PITUITARY WWO CONTRAST (10/09/2019 9:27 AM PDT) + + | Specimen | + + | | + + + + + | Narrative | Performed At | + + + | EXAM: MRI PITUITARY WITHOUT AND WITH CONTRAST HISTORY: | [facility] | | pituitary evaluation. History of pituitary mass status post | RADIOLOGY VOICE | | transsphenoidal surgery on 07/29/2019 with pathology showing pituitary | RECOGNITION 2 | | tissue, no adenoma. COMPARISON: CTA from 07/14/2019 and pituitary | | | MRI from 06/04/2019. TECHNIQUE: Multiplanar multi-sequence MRI | | | tailored to the pituitary without and with gadolinium based | | | intravenous contrast: DOTAREM. FINDINGS: SELLA AND PARASELLAR: | | | Postsurgical changes of transsphenoidal surgery with marked T1 | | | shortening in the floor of the sella that resolves with fat saturation | | | imaging most likely reflecting fat packing. Previously noted T1 | | | hyperintense, T2 hypointense, hypoenhancing bilobed in the posterior | | | sella right of midline now measures approximately 3.0 x 2.6 x 3.5 mm | | | (AP X RL X CC), previously 6 x 12 x 6 mm. The infundibulum is | | | midline. Optic chiasm is normal. The sellar-suprasellar contents | | | previously contacted and mildly displace the optic chiasm although do | | | not contact the chiasm on the current exam. Parasellar structures are | | | normal. BRAIN: Visualized portions are unremarkable with similar | | | appearance of mildly asymmetric morphology of the lateral ventricles. | | | SOFT TISSUES AND MARROW: Visualized portions are unremarkable. | | | IMPRESSION: Interval decrease in size of a hypoenhancing focus to | | | the right of midline in the posterior pituitary, now measuring 3.0 x | | | 2.6 x 3.5 mm, status post transsphenoidal surgery. Attention on | | | follow-up imaging could be considered. Previously seen mild mass | | | effect on the undersurface of the optic chiasm has resolved. I | | | have personally reviewed the images and, if necessary, edited the | | | report. I agree with the report as now presented. Final | | | signature: Jonatan Bryant MD 10/09/2019 12:50 PM Preliminary: | | | Danae Downs MD Dictation initiated: Danae Downs MD | | | 10/09/2019 9:35 AM | | + + + + + | Procedure Note | + + | Service Account, Radiant Res In Interface - 10/09/2019 12:51 PM PDT EXAM: MRI | | PITUITARY WITHOUT AND WITH CONTRAST HISTORY: pituitary evaluation. History of pituitary | | mass status post transsphenoidal surgery on 07/29/2019 with pathology showing pituitary | | tissue, no adenoma. COMPARISON: CTA from 07/14/2019 and pituitary MRI from 06/04/2019. | | TECHNIQUE: Multiplanar multi-sequence MRI tailored to the pituitary without and with | | gadolinium based intravenous contrast: DOTAREM. FINDINGS: SELLA AND PARASELLAR: | | Postsurgical changes of transsphenoidal surgery with marked T1 shortening in the floor | | of the sella that resolves with fat saturation imaging most likely reflecting fat | | packing. Previously noted T1 hyperintense, T2 hypointense, hypoenhancing bilobed in the | | posterior sella right of midline now measures approximately 3.0 x 2.6 x 3.5 mm (AP X RL | | X CC), previously 6 x 12 x 6 mm. The infundibulum is midline. Optic chiasm is normal. | | The sellar-suprasellar contents previously contacted and mildly displace the optic | | chiasm although do not contact the chiasm on the current exam. Parasellar structures are | | normal. BRAIN: Visualized portions are unremarkable with similar appearance of mildly | | asymmetric morphology of the lateral ventricles.SOFT TISSUES AND MARROW: Visualized | | portions are unremarkable. IMPRESSION: Interval decrease in size of a hypoenhancing | | focus to the right of midline in the posterior pituitary, now measuring 3.0 x 2.6 x 3.5 | | mm, status post transsphenoidal surgery. Attention on follow-up imaging could be | | considered. Previously seen mild mass effect on the undersurface of the optic chiasm has | | resolved. I have personally reviewed the images and, if necessary, edited the report. I | | agree with the report as now presented. Final signature: Jonatan Bryant MD | | 10/09/2019 12:50 PM Preliminary: Danae Downs MD Dictation initiated: Danae Downs MD | | 10/09/2019 9:35 AM | |I have personally reviewed the images and, if necessary, edited the report. I agree with th e report as now presented. 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
--- OUTSIDE RECORDS SUMMARY | ~2019-12-19 | XMS | Encounter Summary ---
Demographics + + + | Address | [address] | | | [place] [address] | + + + | Home Phone | | + + + | Preferred Language | Unknown | + + + | Marital Status | | + + + | Jehovah'S Witness Affiliation | CHR | + + + | Race | White | + + + | Ethnic Group | Not or | + + + Author + + + | Author | [facility] | + + + | Organization | [facility] | + + + | Address | Unknown | + + + | Phone | Unavailable | + + + Support + + +---------+ + | Name | Relationship | Address | Phone | + + +---------+ + | Anushka Mitchell | ECON | Unknown | | + + +---------+ + Care Team Providers + +------+ + | Care Gas Turbine Powerplant Mechanic Name | Role | Phone | + [...] | +--------+ + + + + | 07/28/ | Hospital | [facility] [address] | Pawan Mann MD | | | 2020 - | Encounter | [place] | [address] | | | | | [id number] [facility] | [place], [place] | | | 07/31/ | | HOSPITAL [place], | [address] | | | 2019 | | [place] [address] | [phone] | | | | | [phone] | | | +--------+ + + + [...] Mann MD PCP: Lisa Diaz PA-C Service: [facility] Neurosurgery Diagnoses Principal Final Diagnosis: Pituitary adenoma; [...] was indica rossy. You were admitted to [facility] and underwent endoscopic nasal approach for resection [...] Signs at discharge as appropriate: BP: 114/72 (08/01/19 0800) Pulse: 55 (08/01/19 08) Resp: 16 (799) Weight: 93.3 kg (205 lb 11 oz) (07/29/19 0641) Discharge Patient To: Home Does patient have a planned readmission: No Discharge Summary Completed?: Yes. 08/01/2019 Discharging Provider: KAYE TRINIDAD PA-C Date Completed: 08/01/2019 Time Completed: 8:45 AM Discharging Attending: Pawan Mann MD [facility] [address] [email or web address] [address] documented in this encounter Medications at Time [...] tablet by | 80 | 0 | //20 | | | oral | mouth every [...] Diaz PA-C Admission Date: 07/29/2019 ANUSHKA Downing JOANN, [id number] Hospital Day #3 SUBJECTIVE INTERVAL EVENTS: No [...] Code Status: FULL LAYO JAVED MD Pager #[phone] Surgery Resident R4 Replaced By [facility] dams, Kaye García PA-C - 08/01/2019 8:19 AM PSTFormatting of this note might be different from the milly lOmer Neurosurgery Progress Note Hospital Day:3 Author; KAYE [...] hair growth; facia l pain admitted to [facility] on 07/29/[address] Rutherford and Dr Mann. No CSF leakencou ntered. [...] bed Dispo: Home today. KAYE TRINIDAD PA-C [facility] [address] [email or web address] [address] iAttila leon P A-C - 07/31/2019 8:59 AM PST DOS: 07/31/2019 Head and Neck Surgery Inpatient Daily Progress Note: Primary Care Provider: Lisa Diaz PA-C Admission Date: 07/29/2019 ANUSHKA DAVID, [id number] Hospital Day #2 SUBJECTIVE INTERVAL EVENTS: No [...] ATTILA WOODSON PA-C Otolaryngology-Head and Neck Surgery Replaced By [facility] Pager [phone] Associated attestation - Brandon Rutherford MD - 07/31/2019 9:14 AM PSTI [...] hair growth; facia l pain admitted to [facility] on 07/29/[address] Rutherford [...] discharge Sat DERIK Krishna Neurological Surgery Pager: [phone] Attila Banuelos PA-C - 07/30/2019 11:02 AM PSTFormatting of this note might be different from the o riginal. DOS: 07/30/2019 Head and Neck Surgery Inpatient Daily Progress Note: Primary Care Provider: Lisa Diaz PA-C Admission Date: 07/29/2019 ANUSHKA DAVID, [id number] Hospital Day #1 SUBJECTIVE INTERVAL EVENTS: No [...] Recent Labs 07/29/19 1058 07/29/19 1511 07/29/19 2031 07/30/19 0219 NA -- 139 138 138 GLU [...] follow along with you Code Status: FULL DONALDO PALOMINOC Otolaryngology-Head and Neck Surgery Replaced By [facility] Pager [phone] Associated attestation - Brandon Rutherford MD - 07/30/2019 12:01 PM PSTI examined the patien t on rounds and agree with Ms. Woodson's assessment and plan. Brandon Rutherford MD Professor of Otolaryngology, Head & Neck Surgery Shu Cade PA - 07/30/2019 6:28 AM PST INPATIENT PROGRESS NOTE Hospital Day:1 Author; YVETTE ROJAS Attending Physician: Pawan Mann MD Interval Hx: -POD 1 from EEEA -Na+ 138; spec grav 1.012 -pt reports [...] hair growth; f acial pain admitted to [facility] on 07/28 for EEEA. No CSF leak [...] home in next 2-3 days. YVETTE ROJAS [facility] [address] [email or web address] [place], [place] [id number] Joshua Claudio MD - 07/29/2019 11:36 AM PSTNeurosurgery Post-Op Check 07/29/2019 11:36 AM Examined in PACU Procedure performed: EEA Awakening from anesthesia Minimally interactive PERRL, EOMI, VFF FS BUE/BLE / No drift SILT No drainage from nares Please page [phone] with any questions Joshua Miller M.D. Neurosurgery [...] | Clinical | Celestino Henriquez [facility] | | | 2019 | | Neurophysiology | Outpatient [address] | | | | | [address] | | | | | | [address] [place], [place] | | | | | | [address] | | +--------+ + + + + | 12/30/ | Appointment | Radiology | Thu Fields, | | | 2019 | | | [address] | | | | | | [address] [place], | | | | | | [place] [address] | | | | | | [phone] | | | | | | | | +--------+ + + + + | 12/30/ | Appointment | Radiology | Thu Fields, | | | 2019 | | | MD [address] | | | | | | [address] [place], | | | | | | [place] [address] | | | | | | [phone] | | | | | | | | +--------+ + + + + | 01/21/ | Office | Neurology | Thu Fields, | | | 2019 | Visit | | MD [address] | | | | | | [address] [place], | | | | | | [place] [address] | | | | | | [phone] | | | | | | | [...] | + + + + + | [facility] | [address] | [place] [address] | | | SERVICES, CORE | MAICO [...] [facility] | | | GRAVITY | Specific [place] | | LABORATORY | | | | [...] | + + + + + | [facility] | [address] | [place] [address] | | | VALERY LEUNG | MAICO [...] [facility] | | | GRAVITY | Specific [place] | | LABORATORY | | | | [...] [facility] | [address] | [place] [address] | | | SERVICES, CORE | PARK [...] | | | LABORATORY | | | EGYPTIAN | | | SERVICES, | | | [...] MDRD equation recommended by the National | [facility] | | Kidney Disease Education Program. Estimated [...] [facility] | [address] | [place] [address] | | | SERVICES, CORE | PARK [...] | + + + + + | [facility] | [address] [facility] | [place] [address] | | | SERVICES, CORE | MAICO [...] | [facility] | | | GRAVITY | [place] performed by | | LABORATORY | | [...] [facility] | [address] | [place] [address] | | | SERVICES, CORE | PARK [...] | + + + + + | [facility] | [address] | [place] [address] | | | SERVICES, CORE | PARK [...] | [facility] | | | GRAVITY | [place] performed by | | LABORATORY | | [...] | + + + + + | [facility] | [address] | [place] [address] | | | SERVICES, CORE | MAICO [...] [facility] | [address] | [place] [address] | | | SERVICES, CORE | PARK [...] | [facility] | | | GRAVITY | [place] performed by | | LABORATORY | | [...] [facility] | [address] | [place] [address] | | | SERVICES, CORE | PARK [...] | | | LABORATORY | | | EGYPTIAN | | | SERVICES, | | | [...] MDRD equation recommended by the National | [facility] | | Kidney Disease Education Program. Estimated [...] | + + + + + | [facility] | [address] | [place] [address] | | | SERVICES, CORE | MAICO [...] | [facility] | | | GRAVITY | [place] performed by | | LABORATORY | | [...] | + + + + + | [facility] | [address] | [place] [address] | | | SERVICES, CORE | MAICO [...] [facility] | [address] | [place] [address] | | | SERVICES, CORE | PARK [...] | + + + + + | [facility] | [address] | [place] [address] | | | SERVICES, VALERY | MAICO [...] [facility] | | | GRAVITY | Specific [place] | | LABORATORY | | | | [...] | + + + + + | [facility] | [address] | [place] [address] | | | SERVICES, CORE | PARK [...] | [facility] | | | GRAVITY | [place] performed by | | LABORATORY | | [...] [facility] | [address] | [place] [address] | | | SERVICES, CORE | PARK [...] | + + + + + | [facility] | [address] | [place] [address] | | | SERVICES, CORE | MAICO [...] | [facility] | | | GRAVITY | [place] performed by | | LABORATORY | | [...] [facility] | [address] | [place] [address] | | | SERVICES, CORE | MAICO [...] [facility] | [address] | [place] [address] | | | SERVICES, CORE | PARK [...] | + + + + + | [facility] | [address] | [place] [address] | | | SERVICES, CORE | [address] | | | + + + + + MAGNESIUM, PLASMA (07/30/2019 9:20 AM PST) + +-------+ + + + | Component | Value | Ref Range | Performed | Pathologist | | | | | At | Signature | + +-------+ + + + | MAGNESIUM,P | 2.1 | 1.6 - 2.6 mg/dL | WON | | | LASMA | | | [...] [facility] | [address] | [place] [address] | | | MADHU, VALERY | MAICO [...] | | | LABORATORY | | | EGYPTIAN | | | SERVICES, | | | [...] MDRD equation recommended by the National | [facility] | | Kidney Disease Education Program. Estimated [...] | + + + + + | [facility] [employer] | [address] [facility] | [place] [address] | | | VALERY LEUNG | [address] | | | + [...] | [facility] | | | GRAVITY | [place] performed by | | LABORATORY | | [...] [facility] | [address] | [place] [address] | | | SERVICES, CORE | PARK [...] | + + + + + | [facility] | [address] | [place] [address] | | | SERVICES, CORE | MAICO [...] | [facility] | | | GRAVITY | [place] performed by | | LABORATORY | | [...] [facility] | [address] | [place] [address] | | | SERVICES, CORE | PARK [...] [facility] | [address] | [place] [address] | | | SERVICES, CORE | PARK [...] | [facility] | | | GRAVITY | [place] performed by | | LABORATORY | | [...] | + + + + + | [facility] | [address] [facility] | [place] [address] | | | MADHU, VALERY | MAICO [...] [facility] | [address] | [place] [address] | | | SERVICES, CORE | [address] | | | + + + + + PROCEDURE NOTE (07/29/2019 11:24 AM PST) + + + | Narrative | Performed At | + + + | Brandon Rutherford MD 07/29/2019 11:26 AM Date of Service: | | | 07/29/2019 Attending Surgeon: | | | Brandon Rutherford MD | | | Qa Architect(s): | | | | | | Preoperative [...] | | well. There were no complications. Brandon Rutherford MD | | + + + CAPILLARY [...] | | | POC | | | [facility] | | | | | | OF CARE | | | | | | TESTS | | + +-------+ + + + + + | Specimen | + + | Blood | + + + + + + + | Performing | Address | City/State/Zipcode | Phone Number | | Organization | | | | + + + + + | [facility] | [address] [facility] [address] | [place], [place] | | | [facility] | [address] | [address] | | | TESTS | | | [...] | | | | | | the roller coaster operator | | | | | | factors [...] Neuropathology | | | | | | FellowMamaribeth Yoo MD, | | | | | | PhD | | | | | | | | | | | | | | | | | | NeuropathologistPatholog | | | | | | y, Replaced By [facility] | | | | | | [facility] | | | | [...] | | PATHOLOGY | | | | RUST) and medical record | | | | | | number [id number]. | | | | | | Brain, [...] | | | | | | , Replaced By [facility] | | | | | | [facility] | | | | + + + [...] | | | | | | [place] [id number]: | | | | | | Positive, [...] | | | | | determined by [facility] | | | | | | laboratories. [...] | + + + + + | [facility] DEPARTMENT | [address] | [place] [address] | | | PATHOLOGY | [address] [...] control | + + documented in this encounter Administered Medications + +--------+ [...] | | | | | modification) on [facility] 07/30/19 at | | | | | | [...] | | +---+---+ + +-------+ +--------+---+---+ | acetaminophen (TYLENOL) tablet | Given | 07/29/19 | 650 mg | | | | 650 mg 650 mg, oral, | | 20 12:34 | | | | | POSTPROCEDURE PRN, 1 dose, | | PM PST | | | | | Starting 07/29/19 at 0835, | | | | | | | Until 07/29/19 at 1234, mild or | | | | | | | greater pain while in Phase 1 | | | | | | + +-------+ +--------+---+---+ +---+---+ | | | +---+---+ + +-------+ +--------+---+---+ | acetaminophen (TYLENOL) tablet | Given | 07/30/19 | 650 mg | | | | 650 mg 650 mg, oral, EVERY 4 | | 20 5:08 | | | | | HOURS NEEDED, Starting Wed | | AM PST | | | | | 07/29/19 at 1233, Until Jimena 07/30/19 | | | | | | | at 0903, multimodal pain control, | | | | | | | mild pain, fever | | | | | | + +-------+ +--------+---+---+ +-------+ +--------+---+---+ | Given | 07/29/19 | 650 mg | | | | | 20 9:19 | | | | | | PM PST | | | | +-------+ +--------+---+---+ +---+---+ | | | +---+---+ + +---------+ +-----+---+---+ | ceFAZolin IV 2 grams in NS | New Bag | 07/30/19 | 2 g | | | | (RTU) 2 g, intravenous, EVERY 8 | | 20 9:17 | | | | | HOURS, 3 doses, First dose (after | | AM PST | | | | | last modification) on Sat07/29/19 | | | | | | | at 1600, Last dose on Sat07/30/19 | | | | | | | at 0800 | | | | | | + +---------+ +-----+---+---+ +---------+ +-----+---+---+ | New Bag | 07/30/19 | 2 g | | | | | 20 12:16 | | | | | | AM PST | | | | +---------+ +-----+---+---+ | New Bag | 07/29/19 | 2 g | | | | | 20 5:52 | | | | | | PM PST | | | | +---------+ +-----+---+---+ +---+---+ | | | +---+---+ + +-------+ [...] | hydrocortisone (CORTEF) tablet | Given | 07/30/19 | 20 mg | | | | 20 mg 20 mg, oral, TWICE DAILY, | | 20 8:50 | | | | | 2 doses, First dose on Sat07/30/19 | | PM PST | | | | | at 0900, Last dose on Sat07/30/19 | | | | | | | at 2100 | | | | | | + +-------+ +-------+---+---+ +-------+ +-------+---+---+ | Given | 07/30/19 | 20 mg | | | | | 20 9:17 | | | | | | AM [...] | | +---+---+ + +-------+ +--------+---+---+ | HYDROmorphone (DILAUDID) | Given | 07/29/19 | 0.5 mg | | | | injection 0.2-0.5 mg 0.2-0.5 mg, | | 20 11:49 | | | | | intravenous, POSTPROCEDURE PRN, | | AM PST | | | | | Starting Sat07/29/19 at 0835, | | | | | | | Until Sat07/29/19 at 1354, | | | | | | | moderate pain while in Phase I | | | | | | | Recovery, if unable to take PO | | | | | | + +-------+ +--------+---+---+ +-------+ +--------+---+---+ | Given | 07/29/19 | 0.3 mg | | | | | 20 11:26 | | | | | | AM PST | | | | +-------+ +--------+---+---+ | Given | 07/29/19 | 0.2 mg | | | | | 20 11:16 | | | | | | AM PST | | | | +-------+ +--------+---+---+ +---+---+ | | | +---+---+ + +-------+ +--------+---+---+ | HYDROmorphone (DILAUDID) | Given | 07/29/19 | 0.5 mg | | | | injection 0.5-1 mg 0.5-1 mg, | | 20 5:19 | | | | | intravenous, EVERY 3 HOURS | | PM PST | | | | | NEEDED, Starting Sat07/29/19 at | | | | | | | 1408, Until Sat07/30/19 at 0639, | | | | | | | Severe post-op pain. | | | | | | + +-------+ +--------+---+---+ +---+---+ | | | +---+---+ [...] | HYDROmorphone (DILAUDID) tablet | Given | 07/30/19 | 2 mg | | | | 2-4 mg 2-4 mg, oral, EVERY 3 | | 20 7:29 | | | | | HOURS NEEDED, Starting Wed | | AM PST | | | | | 07/29/19 at 1225, Until Jimena 07/30/19 | | | | | | | at 0903, moderate pain | | | | | | + +-------+ +------+---+---+ +-------+ +------+---+---+ | Given | 07/29/19 | 2 mg | | | | | 20 9:18 | | | | | | PM PST | | | | +-------+ +------+---+---+ | Given | 07/29/19 | 4 mg | | | | | 20 3:45 | | | | | | PM PST | | | | +-------+ +------+---+---+ + +---+ | | | + +---+ | HYDROmorphone (DILAUDID) tablet | | | 1 dose, Starting Sat07/29/19 at | | | 1231, Until Sat07/29/19 at 1233 | | + +---+ | | | + +---+ + +-------+ +-------+---+---+ | ketorolac (TORADOL) injection | Given | 07/31/19 | 30 mg | | | | 30 mg 30 mg, intravenous, EVERY | | 20 12:20 | | | | | 6 HOURS, 3 doses, First dose on | | AM PST | | | | | Jimena 07/30/19 at 1000, Last dose on | | | | | | | [place] 07/30/19 at 2200 | | | | | | + +-------+ +-------+---+---+ +-------+ +-------+---+---+ | Given | 07/30/19 | 30 mg | | | | | 20 6:18 | | | | | | PM PST | | | | +-------+ +-------+---+---+ | Given | 07/30/19 | 30 mg | | | | | 20 10:25 | | | | | | AM [...] AM PST | | | | | Sat07/29/19 at 1415, Until | | | | [...] +---+---+ +---+---+ | | | +---+---+ + +---------+ + + +---+ | sodium chloride (NS) 0.9 % | New Bag | 07/29/19 | 10 mL/hr | 10 mL/hr | | | infusion 10 mL/hr, intravenous, | | 20 7:05 | | | | | PROCEDURE CONTINUOUS, Starting | | AM PST | | | | | 07/29/19 at 0615, Until Wed | | | | | | | 07/29/19 at 1354 | | | | | | + +---------+ + + +---+ +---+---+ | | | +---+---+ + +-------+ [...] + +---+---+ +---+---+ | | | +---+---+ documented in this encounter
--- OUTSIDE RECORDS SUMMARY | ~2019-12-19 | XMS | Encounter Summary ---
Demographics + + + | Address | [address] | | | [place] [address] | + + + | Home Phone | | + + + | Preferred Language | Unknown | + + + | Marital Status | | + + + | Faith Affiliation | CHR | + + + | Race | White | + + + | Ethnic Group | Not or | + + + Author + + + | Author | [facility] | + + + | Organization | [facility] | + + + | Address | Unknown | + + + | Phone | Unavailable | + + + Support + + +---------+ + | Name | Relationship | Address | Phone | + + +---------+ + | Anushka Mitchell | ECON | Unknown | | + + +---------+ + Care Team Providers + +------+ + | Care President Practicing Urologist Name | Role | Phone | + [...] + + | 07/28/ | Hospital | [facility] [address] | Pawan Mann MD | | | 2020 - | Encounter | [place] | [address] | | | | | [id number] [facility] | [place], [place] | | | 07/31/ | | HOSPITAL [place], | [address] | | | 2019 | | [place] [address] | [phone] | | | | | [phone] | | | +--------+ + + + [...] Mann MD PCP: Lisa Diaz PA-C Service: [facility] Neurosurgery Diagnoses Principal Final Diagnosis: Pituitary [...] was indica rossy. You were admitted to [facility] and underwent endoscopic nasal approach for [...] 8:45 AM Discharging Attending: Pawan Mann MD [facility] [address] [email or web address] [address] documented in this encounter Medications at Time [...] PA-C Admission Date: 07/29/2019 ANUSHKA Downing JOANN, [id number] Hospital Day #3 SUBJECTIVE INTERVAL EVENTS: No [...] Code Status: FULL LAYO JAVED MD Pager #[phone] Surgery Resident R4 [facility] dams, Kaye García PA-C - 08/01/2019 [...] hair growth; facia l pain admitted to [facility] on 07/29/[address] [...] bed Dispo: Home today. KAYE TRINIDAD PA-C [facility] [address] [email or web address] [address] iAttila leon P A-C - 07/31/2019 8:59 AM PST DOS: 07/31/2019 Head and Neck Surgery Inpatient Daily Progress Note: Primary Care Provider: Lisa Diaz PA-C Admission Date: 07/29/2019 ANUSHKA DAVID, [id number] Hospital Day #2 SUBJECTIVE INTERVAL EVENTS: No [...] ATTILA WOODSON PA-C Otolaryngology-Head and Neck Surgery [facility] Pager [phone] Associated attestation - Brandon Rutherford MD - [...] hair growth; facia l pain admitted to [facility] on 07/29/[address] [...] discharge Sat DERIK Krishna Neurological Surgery Pager: [phone] Attila Banuelos PA-C - 07/30/2019 11:02 AM PSTFormatting of this note might be different from the o riginal. DOS: 07/30/2019 Head and Neck Surgery Inpatient Daily Progress Note: Primary Care Provider: Lisa Diaz PA-C Admission Date: 07/29/2019 ANUSHKA DAVID, [id number] Hospital Day #1 SUBJECTIVE INTERVAL EVENTS: No [...] FULL DONALDO PALOMINOC Otolaryngology-Head and Neck Surgery [facility] Pager [phone] Associated attestation - Brandon Rutherford MD - [...] hair growth; f acial pain admitted to [facility] on 07/28 for EEEA. No CSF [...] home in next 2-3 days. YVETTE ROJAS [facility] [address] [email or web address] [place], [place] [id number] Joshua Claudio MD - 07/29/2019 11:36 AM PSTNeurosurgery Post-Op Check 07/29/2019 11:36 AM Examined in PACU Procedure performed: EEA Awakening from anesthesia Minimally interactive PERRL, EOMI, VFF FS BUE/BLE / No drift SILT No drainage from nares Please page [phone] with any questions Joshua Miller M.D. Neurosurgery [...] | Appointment | Clinical | [facility] | | | 2019 | | Neurophysiology | Outpatient [address] | | | [address] | | | | | | [address] [place], [place] | | | | | | [address] | | +--------+ + + + + | 12/30/ | Appointment | Radiology | Thu Fields, | | | 2019 | | | [address] | | | | | | [address] [place], | | | | | | [place] [address] | | | | | | [phone] | | | | | | | | +--------+ + + + + | 12/30/ | Appointment | Radiology | Thu Fields, | | | 2019 | | | MD [address] | | | | | | [address] [place], | | | | | | [place] [address] | | | | | | [phone] | | | | | | | | +--------+ + + + + | 01/21/ | Office | Neurology | Thu Fields, | | | 2019 | Visit | | MD [address] | | | | | | [address] [place], | | | | | | [place] [address] | | | | | | [phone] | | | | | | | [...] | + + + + + | [facility] | [address] | [place] [address] | | | SERVICES, CORE | MAICO [...] [facility] | | | GRAVITY | [facility] [place] | | LABORATORY | | | | [...] | + + + + + | [facility] | [address] | [place] [address] | | | VALERY LEUNG | MAICO [...] [facility] | | | GRAVITY | [facility] [place] | | LABORATORY | | | | [...] [facility] | [address] | [place] [address] | | | SERVICES, CORE | PARK [...] | | | LABORATORY | | | DUTCH | | | SERVICES, | | | [...] [facility] | [address] | [place] [address] | | | SERVICES, CORE | PARK [...] | + + + + + | [facility] | [address] | [place] [address] | | | SERVICES, CORE | MAICO [...] | [facility] | | | GRAVITY | [place] performed by | | LABORATORY | | [...] [facility] | [address] | [place] [address] | | | SERVICES, CORE | PARK [...] | + + + + + | [facility] | [address] | [place] [address] | | | SERVICES, CORE | PARK [...] | [facility] | | | GRAVITY | [place] performed by | | LABORATORY | | [...] | + + + + + | [facility] | [address] | [place] [address] | | | SERVICES, CORE | MAICO [...] [facility] | [address] | [place] [address] | | | SERVICES, CORE | PARK [...] | [facility] | | | GRAVITY | [place] performed by | | LABORATORY | | [...] [facility] | [address] | [place] [address] | | | SERVICES, CORE | PARK [...] | | | LABORATORY | | | DUTCH | | | SERVICES, | | | [...] | + + + + + | [facility] | [address] | [place] [address] | | | SERVICES, CORE | MAICO [...] | [facility] | | | GRAVITY | [place] performed by | | LABORATORY | | [...] | + + + + + | [facility] | [address] | [place] [address] | | | SERVICES, CORE | MAICO [...] [facility] | [address] | [place] [address] | | | SERVICES, CORE | PARK [...] [facility] | [address] | [place] [address] | | | SERVICES, VALERY | MAICO [...] [facility] | | | GRAVITY | Specific [place] | | LABORATORY | | | | [...] | + + + + + | [facility] | [address] | [place] [address] | | | SERVICES, CORE | PARK [...] | [facility] | | | GRAVITY | [place] performed by | | LABORATORY | | [...] [facility] | [address] | [place] [address] | | | SERVICES, CORE | PARK [...] | + + + + + | [facility] | [address] | [place] [address] | | | SERVICES, CORE | MAICO [...] | [facility] | | | GRAVITY | [place] performed by | | LABORATORY | | [...] [facility] | [address] | [place] [address] | | | SERVICES, CORE | MAICO [...] [facility] | [address] | [place] [address] | | | SERVICES, CORE | PARK [...] | + + + + + | [facility] | [address] | [place] [address] | | | SERVICES, CORE | MAICO [...] | + + + + + | [facility] | [address] | [place] [address] | | | MADHU, VALERY | MAICO [...] | | | LABORATORY | | | DUTCH | | | SERVICES, | | | [...] | + + + + + | [facility] | [address] | [place] [address] | | | VALERY LEUNG | PARK [...] | [facility] | | | GRAVITY | [place] performed by | | LABORATORY | | [...] [facility] | [address] | [place] [address] | | | SERVICES, CORE | PARK [...] | + + + + + | [facility] | [address] | [place] [address] | | | SERVICES, CORE | MAICO [...] | [facility] | | | GRAVITY | [place] performed by | | LABORATORY | | [...] [facility] | [address] | [place] [address] | | | SERVICES, CORE | PARK [...] [facility] | [address] | [place] [address] | | | SERVICES, CORE | PARK [...] | [facility] | | | GRAVITY | [place] performed by | | LABORATORY | | [...] | + + + + + | [facility] | [address] | [place] [address] | | | MADHU, VALERY | MAICO [...] [facility] | [address] | [place] [address] | | | SERVICES, CORE | [address] | | | + + + + + PROCEDURE NOTE (07/29/2019 11:24 AM PST) + + + | Narrative | Performed At | + + + | Brandon Rutherford MD 07/29/2019 11:26 AM Date of Service: | | | 07/29/2019 Attending Surgeon: | | | Brandon Rutherford MD | | | Manager Case Management(s): | | | | | | Preoperative [...] + | [facility] | [address] [address] [address] | [place], [place] | | | [facility] | [address] | [address] | | | TESTS | | | [...] | | | | | | the 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 | | | | | | Brain, [...] | | | | | | , [facility] | | | | | | [facility] | | | | + + + [...] | | | | | | [place] [id number]: | | | | | | Positive, [...] | + + + + + | [facility] DEPARTMENT | [address] | [place] [address] | | | PATHOLOGY | [address] [...] | | | | | modification) on [facility] 07/30/19 at | | | | [...]
--- OUTSIDE RECORDS SUMMARY | ~2019-12-19 | XMS | Encounter Summary ---
Demographics + + + | Address | [address] | | | [place] [address] | + + + | Home Phone [...] + + + | Author | [facility] | + + + | Organization | [facility] [place] [facility] | + + + | Address | Unknown | + + + | Phone | Unavailable | + + + Support + + +---------+ + | Name | Relationship | Address | Phone | + + +---------+ + | Anushka Mitchell | ECON | Unknown | | + + +---------+ + Care Team Providers + +------+ + | Care Licensed Veterinary Technician Name | Role | Phone | + +------+ + | Lisa Adorno PA-C PCP | | + +------+ + Encounter Details +--------+ + + + + | Date | Type | Department | Care Team | Description | +--------+ + + + + | 05/21/ | Abstract | Neurology at | Unknown . | | | 2019 | | [facility] | | | | | | Healing [address] | | | | | | [place] [place] | | | | | | [facility] and He[facility], | | | | | | Building | | | | | | Floor [place], [place] | | | | | | [address] | | | | | | [phone] | | | +--------+ + + + + Social History + +-------+ +--------+------+ | Tobacco Use | Types | Packs/Day | Years | Date | | | | | Used | | + +-------+ +--------+------+ | Never Assessed | | | | | + +-------+ +--------+------+ + + + | Sex Assigned at [...] Procedure | Radiology | | | | 2020 | Pass | | | | +--------+ + + + + | 11/19/ | Procedure | Radiology | | | | 2020 | Pass | | | | +--------+ + + + + | 12/30/ | Appointment | Clinical | [facility] | | | 2019 | | Neurophysiology | Outpatient [address] | | | | [address] | | | | | | [facility], [place] | | | | | | [address] | | +--------+ + + + + | 12/30/ | Appointment | Radiology | Thu Fields, | | | 2019 | | | MD [address] | | | | | | [address] [place], | | | | | | [place] [address] | | | | | | [phone] | | | | | | | | +--------+ + + + + | 12/30/ | Appointment | Radiology | Thu Fields, | | | 2019 | | | MD [address] | | | | | | [address] [place], | | | | | | [place] [address] | | | | | | [phone] | | | | | | | | +--------+ + + + + | 01/21/ | Office | Neurology | Thu Fields, | | | 2019 | Visit | | [address] | | | | | | [address], | | | | | | [place] [address] | | | | | | [phone] | | | | | | | | +--------+ + + + + documented as of this encounter Visit Diagnoses Not on filedocumented in this encounter"
--- OUTSIDE RECORDS SUMMARY | ~2019-12-19 | XMS | Encounter Summary ---
Demographics + + + | Address | [address] | | | [place] [address] | + + + | Home Phone | | + + + | Preferred Language | Unknown | + + + | Marital Status | | + + + | Cheondoism Affiliation | CHR | + + + | Race | White | + + + | Ethnic Group | Not or | + + + Author + + + | Organization | Unknown | + + + | Address | Unknown | + + + | Phone | Unavailable | + + + Support + + +---------+ + | Name | Relationship | Address | Phone | + + +---------+ + | Anushka Mitchell | ECON | Unknown | | + + +---------+ + Care Team Providers + +------+ + | Care Tool Builder Name | Role | Phone | + +------+ + | Lisa Adorno PA-C | PCP | | + +------+ + Encounter Details +--------+--------+ + + + | Date | Type | Department | Care Team | Description | +--------+--------+ + + + | // | Travel | | | | | 2020 | | | | | +--------+--------+ + + + Social History + +-------+ [...] [address] | | | | | | [address] | | | | | | Road [place], [place] | | | | | | [address] | | +--------+ + + + + | 12/30/ | Appointment | Radiology | Thu Fields, | | | 2019 | | | MD [address] | | | | | | [address] [place], | | | | | | [place] [address] | | | | | | [phone] | | | | | | | | +--------+ + + + + | 12/30/ | Appointment | Radiology | Thu Fields, | | | 2019 | | | MD [address] | | | | | | [address] [place], | | | | | | [place] [address] | | | | | | [phone] | | | | | | | | +--------+ + + + + | 01/21/ | Office | Neurology | Thu Fields, | | | 2019 | Visit | | MD [address] | | | | | | [address] [place], | | | | | | [place] [address] | | | | | [phone] | | | | | | | | +--------+ + + + + documented as of this encounter Visit Diagnoses Not on filedocumented in this encounter"
--- OUTSIDE RECORDS SUMMARY | ~2019-12-19 | XMS | Encounter Summary ---
Demographics + + + | Address | [address] | | | [place] [address] | + + + | Home Phone | | + + + | Preferred Language | Unknown | + + + | Marital Status | | + + + | Pentecostal Affiliation | CHR | + + + | Race | White | + + + | Ethnic Group | Not or | + + + Author + + + | Author | [facility] | + + + | Organization | [facility] | + + + | Address | Unknown | + + + | Phone | Unavailable | + + + Support + + +---------+ + | Name | Relationship | Address | Phone | + + +---------+ + | Anushka Mitchell | ECON | Unknown | | + + +---------+ + Care Team Providers + +------+ + | Care Counter Hand Name | Role | Phone | + +------+ + | Lisa Adorno PA-C | PCP | | + +------+ + Encounter Details +--------+ + + + + | Date | Type | Department | Care Team | Description | +--------+ + + + + | 07/28/ | Procedure | [address] | | | | 2020 | Pass | [address] | | | | | | [facility] | | | | | | [facility] Admitting | | | | | | Desk Located on the | | | | | | 9th floor | | | | | | [place], [place] | | | | | | [address] | | | +--------+ + + + [...] | | | | | | Road [place], [place] | | | | | | [address] | | +--------+ + + + + | 12/30/ | Appointment | Radiology | Thu Fields, | | | 2019 | | | [address] | | | | | | [address] [place], | | | | | | [place] [address] | | | | | | [phone] | | | | | | | | +--------+ + + + + | 12/30/ | Appointment | Radiology | Thu Fields, | | | 2019 | | | MD [address] | | | | | | [address] [place], | | | | | | [place] [address] | | | | | | [phone] | | | | | | | | +--------+ + + + + | 01/21/ | Office | Neurology | Thu Fields, | | | 2019 | Visit | | MD [address] | | | | | | [address] [place], | | | | | | [place] [address] | | | | | | [phone] | | | | | | | | +--------+ + + + + documented as of this encounter Visit Diagnoses Not on filedocumented in this encounter"
--- OUTSIDE RECORDS SUMMARY | ~2019-12-19 | XMS | Encounter Summary ---
Demographics + + + | Address | [address] | | | [place] [address] | + + + | Home Phone | | + + + | Preferred Language | Unknown | + + + | Marital Status | | + + + | Church Affiliation | CHR | + + + | Race | White | + + + | Ethnic Group | Not or | + + + Author + + + | Author | [facility] | + + + | Organization | [facility] | + + + | Address | Unknown | + + + | Phone | Unavailable | + + + Support + + +---------+ + | Name | Relationship | Address | Phone | + + +---------+ + | Anushka Mitchell | ECON | Unknown | | + + +---------+ + Care Team Providers + +------+ + | Care Composite Worker Name | Role | Phone | + +------+ + | Lisa Adorno PA-C | PCP | | + +------+ + Reason for Referral Diagnostic Testing (Urgent) +--------+--------+ + + + + | Status | Reason | Specialty | Diagnoses / | Referred By | Referred To | | | | | Procedures | Contact | Contact | +--------+--------+ + + + + | Closed | | Radiology | Diagnoses | Fleser[place], | [facility] | | | | | Benign | MD Mery | [address] | | | | | neoplasm of | [address] | [place] | | | | | pituitary | [address] | [place] | | | | | gland and | Rd | Research | | | | | craniopharyn | [place], [place] | [place] | | | | | geal duct | [address] | [facility] [place] | | | | | (HCC) | Phone: | [phone] | | | | | Procedures | [phone] | Phone: | | | | | MRI | Fax: | [phone] | | | | | PITUITARY | [phone] | Fax: | | | | | WWO CONTRAST | | [phone] | | | | | SC MRI | | | | | | | BRAIN COMBO | | | +--------+--------+ + + + + Reason for Visit + + + | Reason | Comments | + + + | New patient | | | consultation | | + + + | MRI Results | | + + + | Ct Scan Result | | + + + Intake Referral (Urgent) + +--------+ + + + + | Status | Reason | Specialty | Diagnoses / | Referred By | Referred To | | | | | Procedures | Contact | Contact | + +--------+ + + + + | Pending | | Endocrinology | Diagnoses | Brown, | Ericka, | | Review | | , Diabetes & | Benign | Lisa | MD Mery | | | | Metabolism / | neoplasm of | E, PA-C | [address] | | | | Neurological | pituitary | [place] | [place] | | | | Surgery | gland | Family | [address] [place], | | | | | Pituitary | Medicine | [place] | | | | | adenoma, | [address] | [address] | | | | | facial pain | [address] | Phone: | | | | | and facial | Analy, | [phone] | | | | | numbness | [place] [address] | Fax: | | | | | Procedures | Phone: | [phone] | | | | | SC NEW | [phone] | | | | | | PATIENT | Fax: | | | | | | LEVEL V SC | [phone] | | | | | | EST PATIENT | | | | | | | LEVEL V SC | | | | | | | THR/PRPH/DX | | | | | | | INJ,IV PSH | | | | | | | SC INJ | | | | | | | COSYNTROPIN | | | | | | | PER 0.25MG | | | + +--------+ + + + + Encounter Details +--------+---------+ + + + | Date | Type | Department | Care Team | Description | +--------+---------+ + + + | 05/29/ | Office | Neurosurgery at | Mery Barnett, | Benign neoplasm of | | 2020 | Visit [facility] | [address] | pituitary gland and | | | | and Healing [address] | craniopharyngeal | | | | [address]ena [address] [facility] | [place], [place] | duct (HCC) (Primary | | | | Health and Healing, | [address] | Dx); Facial pain | | | | [place] [address] | [phone] | | | | | [place], [place] | | | | | | [address] | | | | | | [phone] | | | +--------+---------+ + + + [...] + + + | Blood Pressure | 120/66 | 05/29/2019 12:26 PM | | | | | PST | | + + + + + | Pulse | - | - | | + + + + + | Temperature | - | - | | + + + + + | Respiratory Rate | - | - | | + + + + + | Oxygen Saturation | - | - | | + + + + + | Inhaled Oxygen | - | - | | | Concentration | | | | + + + + + | Weight | 91.5 kg (201 lb 12.8 | 05/29/2019 12:26 PM | | | | oz) | PST | | + + + + + | Height | 172.7 cm (5' 8") | 05/29/2019 12:26 PM | | | | | PST | | + + + + + | Body Mass Index | 30.68 | 05/29/2019 12:26 PM | | | | | PST | | + + + + + documented in this encounter Progress Notes Mery Barnett MD - 05/29/2019 1:30 PM PSTFormatting of this note might be different fro m the original. Reason for Consultation: I was asked by DANIELLE Pan to evaluate this patient for pituitary adenoma. History of Present Illness: Anushka Delcid is a 39 y.o. 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 February 2019 patient began experiencing recurrent sinusitis, which she states is typical fo r her as she has had chronic sinus issues throughout her life. Endorses a pressure pain at t he left upper cheek/periorbital area as well as left sided facial numbness. She took a total of 3 rounds of antibiotics for her sinusitis and dental infection, however reported no impr ovement. She reported her sinus pressure continued to worsen. She had CT sinus done on that showed sinusitis and MRI brain on 05/08/19 that showed a pituitary mass. She reports irregular menses in 2019, in addition to abnormal hair growth at the jaw line, around the nipples and pubic area. Notes her mother had a hysterectomy at age 29 due to unc ontrolled menses. She has 2 children and currently denies any desire to get . Also denies breast discharge. Notes she breast fed for approximately 9-14 months for her 2 children. Endorses fluctuating weight loss and gain over the past 2-3 years. She was 220 lbs in the p ast and lost ~60 lbs in the last 2 years and has gained back some weight in 2019. No recent endocrine laboratory testing, all others were reviewed and scanned in the system. The exact date of onset of Anushka's symptoms is unknown. Old records for this patient we re obtained and reviewed as part of this clinic visit. Review of Systems: Review of systems is negative other than as stated above. Past Surgical History Procedure Laterality Date Fess (functional endoscopic sinus surgery) See HPI for detailed PMH Medications: Current Outpatient Medications Medication Sig ascorbic acid (vitamin C) 250 mg oral tablet Take 250 mg by mouth three times daily. BIOTIN ORAL Take by mouth. calcium carbonate/vitamin D3 (VITAMIN D-3 ORAL) Take by mouth. gabapentin 100 mg oral capsule take 1 capsule by mouth every morning 1 capsule IN THE A FTERNOON and 3 nightly herbal drugs (FIBER DIET ORAL) Take by mouth. L.acid,gas,plan,rhm/B.ani/cran (UP4 PROBIOTICS WOMEN'S ORAL) Take by mouth. metroNIDAZOLE 0.75 % topical gel Apply to affected area two times daily. Apply thin lazaro m to affected area. multivit with calcium,iron,min (MULTIPLE VITAMIN, WOMENS ORAL) Take by mouth. omega-3 fatty acids (FISH OIL ORAL) Take by mouth. omega-3/dha/epa/fish oil (OMEGA-3 ORAL) Take by mouth. No current facility-administered medications for this visit. Allergies: Allergies not on file. Family History: No family history of pituitary disease. Mother with hysterectomy at age 29 due to uncontrol led menses. Social History: Social History Socioeconomic History Marital status: Spouse name: Not on file Number of children: Not on file Years of education: Not on file Highest education level: Not on file Occupational History Not on file Social Needs Financial resource strain: Not on file Food insecurity: Worry: Not on file Inability: Not on file Transportation needs: Medical: Not on file Non-medical: Not on file Tobacco Use Smoking status: Never Smoker Substance and Sexual Activity Alcohol use: Not on file Drug use: Not on file Sexual activity: Not on file Lifestyle Physical activity: Days per week: Not on file Minutes per session: Not on file Stress: Not on file Relationships Social connections: Talks on phone: Not on file Gets together: Not on file Attends pres[employer]beterian service: Not on file Active member of club or organization: Not on file Attends meetings of clubs or organizations: Not on file Relationship status: Not on file Other Topics Concern Not on file Social History Narrative Not on file Patient is employed. Marital status: Physical Exam: Visit Vitals Item Reading BP 120/66 Ht 1.727 m (5' 8") Wt 91.5 kg (201 lb 12.8 oz) BMI 30.68 kg/(m^2) General Appearance: Pleasant female, looks stated age, in no acute distress, well-nourishe d and well-developed. HEENT: Normocephalic and atraumatic. Pupils are equally responsive and reactive to light. Extraocular movements intact. Visual garrett are normal to confrontation. She has normal cr anial nerves in the rest of her exam. Neck: No dorsocervical hump or supraclavicular fat f illing. No lymphadenopathy. No jugular venous distension, or abnormalities in thyroid size and texture. Cardiovascular: Regular rate and rhythm. No rubs, murmurs, or gallops. Lungs: Clear to auscultation and percussion. No rhonchi, rales, or wheezes. Abdomen: Positive bowel sounds. Nontender. Nondistended. No organomegaly. More truncal obesity. No violaceous striae. Breasts: No galactorrhea Genitourinary: Deferred. Skin: No hyperpigmentation, was not dry, sweaty, or oily. No significant skin tags or suman nthosis nigricans. No thinning of the skin or bruising. No stretch martin. Big tattoo on juarez k and leg, no swelling. Extremities: Upper Extremities: No proximal muscle weakness. No hand enlargement. No tr emor or brittle fingernails. Lower Extremities: No marked edema. Neurological: Alert and oriented x3 with 5/5 motor and sensory throughout. No delayed rel axation phase of the brachial reflex. Outside Labs and Imaging Results: Imaging: CT Sinus 05/03/19 MRI Brain 05/08/19 Assessment : Anushka Delcid is a 39 y.o. years old female with a pit adenoma of 12 x 3.5 x 4.5 mm in diameter, history of hyperprolactinemia and possible pituitary damage. Plan: Pituitary function: Pituitary deficiencies In order to evaluate if this pituitary tumor had animpact on pituitary function ( sometimes seen even with extremely small pituitary lesions ) we will order a full pituitary panel including Cortrosyn stimulation test. A. Adrenal gland function There are no obvious signs of adrenal insufficiency at this point, but relative adrenal insufficiency is sometimes harder to detect in incipient phases. In order to address the adrenal insufficiency question we will perform a low dose Cortrosyn stimulation test (preferred over the high dose test in diagnosing secondary adrenal insuffi ciency) . In general we will prefer to see a cortisol over 18 ng/ml at 30 min, but I mention ed caution to the patient as this should be correlated with clinical status as well as other factors that could influence CBG. B. Thyroid function- We will assess the thyroid function test with a free T4 and TSH. In case of secondary hypothyroidism, sometimes TSH could be falsely reassuring. I would like to have both free T4 and TSH for full picture and then re-adjust thyroid replacement therapy i n function of these results. . C. Prolactin We will measure a basal value of prolactin and I avoided strong manipulat ion of the breasts on my examination today to prevent a falsely high values. A minimal elev ation could be due to the tumor or stalk impingement. There is not a perfect correlation bet ween size and prolactin values. I also readdressed with patient possible interference with medication including some over t he counter med's. D. Growth hormone Patient has several symptoms that could be due to GH deficiency, but we discussed that these are not very specific. As just one GH value is not diagnostic for GH de ficiency, we will measure IGF-1 to evaluate for growth hormone deficiency and if this is low , we will do growth hormone stimulation test for final diagnosis. E. FSH/LH axis We will look for evidence of central hypogonadism. We will treat with medications if any of these hormones are deficient MRI was performedrevealing an 12 x 3.5 x 4.5 mm, however thsi was not a pituitary MRI and she will need one Medications: Patient was not started on any medication during this visit, but it is possibl e once results available to recommend initiating medication even before next visit Surgery. At this point we cannot assess if it s any surgical indication for this lesion without having a full picture of hormonal status. If this is a GH secreting tumor or ACTH secreting tumor the patient will need surgery indeed independent of tumor size. If it contin ues to grow this will also be a possible surgical indication, but final decision will be mad e after consulting our dedicated pituitary neurosurgeon. Discussion about pituitary tumors in general per pt request to clarify some of the data malina d on the Internet We discussed that pituitary adenomas may secrete hormones, or they may be clinically inacti ve. Many pituitary lesions are discovered while investigating other neurologic problems; the se are called incidentalomas. Microadenomas may occur at any age, but prevalence appears to increase with advancing age. We also discussed that pituitary tumor development is a monoclonal process with several con tributing factors. Causal contributors include heredity and hormonal influence and genetic m utations. The monoclonal nature of most pituitary tumors suggests that they arise from a mut ated pituitary cell. However, the exact pathophysiological/molecular mechanisms leading to t he development of pituitary adenomas remain unknown. Discussed at length follow-up of pituitary adenoma, potential risk of growing over time, l ow risk of malignancy, timeline of follow-up and work-up for pituitary dysfunction. Reviewed available literature and answered all questions. We also reviewed the possible association between pituitary tumors and headache and that tr eatment is still controversial. Most of the authors recommend though aggressive medical sada gement of headache before considering surgery for small pituitary lesions. I have asked the patient to follow up with her primary care provider at this time for all c hronic issues. A copy of this visit note including tests results will be faxed to referring physician and PCP. Follow up: We will have the patient return depending on results. Orders Placed This Encounter For routine imaging of pituitary gland and sella - MRI PITUITARY WWO CONTRAST ACTH - 0 MIN DRAW clinic collect CORTISOL - 0 MIN DRAW clinic collect CORTISOL - 30 MIN DRAW clinic collect BASIC METABOLIC SET clinic collect FREE T4, SERUM clinic collect FSH SEND OUT, SERUM clinic collect INSULIN GROWTH FACTOR - 1 clinic collect LH SEND OUT, SERUM clinic collect PROLACTIN clinic collect TSH- THYROID STIM HORMONE clinic collect cosyntropin 1 mcg/ml injection 1 mcg I am Lisbet Duarte functioning as a scribe for Mery Barnett MD at 1:29 PM on 05/29/2019 I have reviewed and verified the above scribed note of my visit with this patient as record ed by Lisbet Duarte. Anushka Delcid, [id number] Reason for visit: Chief Complaint Patient presents with New patient consultation MRI Results Ct Scan Result Anushka Delcid is a 39 y.o. female, who presented to Pituitary clinic on 05/29/2019 for a consultation and low dose cortrosyn stimulation test. 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 Procedure note: ( In addition to my consultation ) A one mcg cosyntropin stimulation test to test was performed for adrenal insufficiency in l ight of the patient's pituitary disease and symptoms. Testing procedure was explained to the patient, risks and benefits discussed, and questions were answered. After an IV was placed in the patient's arm, baseline cortisol and ACTH as well as other labs were drawn. A dilutio n of one mcg per cc of cosyntropin was prepared by pharmacy by reconstituting a 250 mcg vial of lyophilized cosyntropin and injecting this into 250 cc of Normal Saline. One mcg (or one cc) of cosyntropin was administered via IV to the patient and a second cortisol was drawn hour later. The IV was then removed and the site dressed. There were no adverse events or effects. The test was performed by a licensed practical nurse and I directly supervised robin dobson parts of the test and was present and available in clinic during the entire procedure. Dr. Mery Barnett M.D, FACE Professor Director [facility] Medicine/Endocrinology & Neurological Surgery Plan depending on results She has MRI scheduled this Saturday, Can see her at 2.45, she j[place]cee far away , maybe she can go [place] and come back to see me documented in this en counter Plan of [...] | | | | | | Road [place], [place] | | | | | | [address] | | +--------+ + + + + | 12/30/ | Appointment | Radiology | Thu Fields, | | | 2019 | | | MD [address] | | | | | | [address] [place], | | | | | | [place] [address] | | | | | | [phone] | | | | | | | | +--------+ + + + + | 12/30/ | Appointment | Radiology | Thu Fields, | | | 2019 | | | MD [address] | | | | | | [address] [place], | | | | | | [place] [address] | | | | | | [phone] | | | | | | | | +--------+ + + + + | 01/21/ | Office | Neurology | [place], | | | 2019 | Visit | | [address] | | | | | | [address] [place], | | | | | | [place] [address] | | | | | | [phone] | | | | | | | | +--------+ + + + + documented as of this encounter Procedures + +--------+ + + + | Procedure Name | Priori | Date/Time | Associated Diagnosis | Comments | | | ty | | | | + +--------+ + + + | CORTISOL, SERUM | Routin | 05/29/2019 | Benign neoplasm of | Results for this | | | e | 2:00 PM | pituitary gland and | procedure are in the | | | | PST | craniopharyngeal | results section. | | | | | duct (HCC) | | + +--------+ + + + | ACTH, PLASMA | Routin | 05/29/2019 | Benign neoplasm of | Results for this | | | e | 1:30 PM | pituitary gland and | procedure are in the | | | | PST | craniopharyngeal | results section. | | | | | duct (HCC) | | + +--------+ + + + | BASIC METABOLIC SET | Routin | 05/29/2019 | Benign neoplasm of | Results for this | | (NA, K, CL, TCO2, | e | 1:30 PM | pituitary gland and | procedure are in the | | BUN, CR, GLU, CA) | | PST | craniopharyngeal | results section. | | | | | duct (HCC) | | + +--------+ + + + | INSULIN GROWTH | Routin | 05/29/2019 | Benign neoplasm of | Results for this | | FACTOR-1, SERUM | e | 1:30 PM | pituitary gland and | procedure are in the | | | | PST | craniopharyngeal | results section. | | | | | duct (HCC) | | + +--------+ + + + | FREE T4 | Routin | 05/29/2019 | Benign neoplasm of | Results for this | | | e | 1:30 PM | pituitary gland and | procedure are in the | | | | PST | craniopharyngeal | results section. | | | | | duct (HCC) | | + +--------+ + + + | PROLACTIN | Routin | 05/29/2019 | Benign neoplasm of | Results for this | | | e | 1:30 PM | pituitary gland and | procedure are in the | | | | PST | craniopharyngeal | results section. | | | | | duct (HCC) | | + +--------+ + + + | TSH | Routin | 05/29/2019 | Benign neoplasm of | Results for this | | | e | 1:30 PM | pituitary gland and | procedure are in the | | | | PST | craniopharyngeal | results section. | | | | | duct (HCC) | | + +--------+ + + + | LUTEINIZING HORMONE, | Routin | 05/29/2019 | Benign neoplasm of | Results for this | | SERUM | e | 1:30 PM | pituitary gland and | procedure are in the | | | | PST | craniopharyngeal | results section. | | | | | duct (HCC) | | + +--------+ + + + | FSH, SERUM | Routin | 05/29/2019 | Benign neoplasm of | Results for this | | | e | 1:30 PM | pituitary gland and | procedure are in the | | | | PST | craniopharyngeal | results section. | | | | | duct (HCC) | | + +--------+ + + + | CORTISOL, SERUM | Routin | 05/29/2019 | Benign neoplasm of | Results for this | | | e | 1:30 PM | pituitary gland and | procedure are in the | | | | PST | craniopharyngeal | results section. | | | | | duct (HCC) | | + +--------+ + + + documented in this encounter Results MRI PITUITARY WWO CONTRAST (06/04/2019 10:08 PM PST) + + | Specimen | + + | | + + + + + | Narrative | Performed At | + + + | EXAM: MRI PITUITARY WITHOUT AND WITH CONTRAST HISTORY: Patient | [facility] | | needs Pituitary MRI per previous MRI read COMPARISON: Outside | RADIOLOGY VOICE | | brain MRI 05/08/2019 TECHNIQUE: Multiplanar multi-sequence MRI | RECOGNITION 2 | | tailored to the pituitary without and with gadolinium based | | | intravenous contrast: GADOTERATE MEGLUMINE 0.5 MMOL/ML (376.9 MG/ML) | | | INTRAVENOUS SOLUTION 18 mL FINDINGS: SELLA AND PARASELLAR: | | | There is a sharply demarcated, T1 hyperintense, T2 hypointense | | | hypo-/nonenhancing lesion in the pituitary gland, between the adeno- | | | and neurohypophysis measuring approximately 6 x 12 x 6 mm (AP X RL X | | | CC). The sellar floor has a domed appearance, pushing the pituitary | | | tissue and the sellar diaphragm into the suprasellar cistern, where it | | | approaches the optic chiasm without displacing it. The | | | infundibulum is midline. Parasellar structures are normal. BRAIN: | | | Visualized portions are unremarkable. SOFT TISSUES AND MARROW: | | | Visualized portions are unremarkable. IMPRESSION: | | | Hypo-/nonenhancing lesion in the pituitary gland, which may correspond | | | to Rathke's cleft cyst or pituitary adenoma. I have | | | personally reviewed the images and, if necessary, edited the report. I | | | agree with the report as now presented. Final signature: Omi | | | MD Kevan 06/05/2019 3:47 PM Preliminary: Marbin Hay MD | | | 06/05/2019 10:58 AM Dictation initiated: Marbin Hay MD | | | 06/05/2019 8:10 AM | | + + + + + | Procedure Note | + + | Service Account, Radiant Res In Interface - 06/05/2019 3:48 PM PST EXAM: MRI | | PITUITARY WITHOUT AND WITH CONTRAST HISTORY: Patient needs Pituitary MRI per previous | | MRI read COMPARISON: Outside brain MRI 05/08/2019 TECHNIQUE: Multiplanar multi-sequence | | MRI tailored to the pituitary without and with gadolinium based intravenous contrast: | | GADOTERATE MEGLUMINE 0.5 MMOL/ML (376.9 MG/ML) INTRAVENOUS SOLUTION 18 mL FINDINGS: | | SELLA AND PARASELLAR: There is a sharply demarcated, T1 hyperintense, T2 hypointense | | hypo-/nonenhancing lesion in the pituitary gland, between the adeno- and neurohypophysis | | measuring approximately 6 x 12 x 6 mm (AP X RL X CC). The sellar floor has a domed | | appearance, pushing the pituitary tissue and the sellar diaphragm into the suprasellar | | cistern, where it approaches the optic chiasm without displacing it. The infundibulum | | is midline. Parasellar structures are normal. BRAIN: Visualized portions are | | unremarkable.SOFT TISSUES AND MARROW: Visualized portions are unremarkable. IMPRESSION: | | Hypo-/nonenhancing lesion in the pituitary gland, which may correspond to Rathke's cleft | | cyst or pituitary adenoma. I have personally reviewed the images and, if necessary, | | edited the report. I agree with the report as now presented. Final signature: Omi | | MD Kevan 06/05/2019 3:47 PM Preliminary: Marbin Hay MD 06/05/2019 10:58 AM | | Dictation initiated: Marbin Hay MD 06/05/2019 8:10 AM | | | |IMPRESSION: | | | |Hypo-/nonenhancing lesion in the pituitary gland, which may correspond to Rathke's cleft cy st or pituitary adenoma. | | | | | | | |I have personally reviewed the images and, if necessary, edited the report. I agree with th e report as now presented. | | | |Final signature: Omi Mathur MD 06/05/2019 3:47 PM | |Preliminary: Marbin Hay MD 06/05/2019 10:58 AM | |Dictation initiated: Marbin Hay MD 06/05/2019 8:10 AM | + + + +---------+ + + | Performing | Address | City/State/Zipcode | Phone Number | | Organization | | | | + +---------+ + + | [facility] | | | | | VOICE RECOGNITION 2 | | | | + +---------+ + + CORTISOL, SERUM (05/29/2019 2:00 PM PST) + +-------+ + + + | Component | Value | Ref Range | Performed | Pathologist | | | | | At | Signature | + +-------+ + + + | CORTISOL, | 16.0 | ug/dL | [facility] | | | TOTAL SERUM | | | LABORATORY | | | | | | SERVICES, | | | | | | CORE | | + +-------+ + + + + + | Specimen | + + | Blood - Blood | | (substance) | + + + + + | Narrative | Performed At | + + + | Reference Ranges: A.M. collect(7-9am) = 5.3-22.5 ug/dL P.M. | [facility] | | collect(3-5 pm) = 3.4-16.8 ug/dL 30 MIN DRAW | LABORATORY | | | SERVICES, CORE | + + + + + + + + | Performing | Address | City/State/Zipcode | Phone Number | | Organization | | | | + + + + + | [place] [facility] | [address] | [place] [address] | | | SERVICES, CORE | [address] | | | + + + + + TSH (05/29/2019 1:30 PM PST) + +-------+ + + + | Component | Value | Ref Range | Performed | Pathologist | | | | | At | Signature | + +-------+ + + + | TSH | 2.03 | 0.44 - 4.75 | [facility] | | | | | mIU/L | LABORATORY | | | | | | SERVICES, | | | | | | CORE | | + +-------+ + + + + + | Specimen | + + | Blood - Blood | | (substance) | + + + + + | Narrative | Performed At | + + + | TSH reference ranges are influenced by a variety of environmental | [facility] | | influences, age, gender and ethnicity. The supplied reference limits | LABORATORY | | are based on published values utilizing a similar TSH assay, and | SERVICES, CORE | | should be interpreted with caution. | | + + + + + + + + | Performing | Address | City/State/Zipcode | Phone Number | | Organization | | | | + + + + + | [facility] | [address] | [place] [address] | | | SERVICES, CORE | [address] | | | + + + + + PROLACTIN (05/29/2019 1:30 PM PST) + +-------+ + + + | Component | Value | Ref Range | Performed | Pathologist | | | | | At | Signature | + +-------+ + + + | PROLACTIN | 7.0 | 2.8 - 26.0 | [facility] | | | | | ng/ml | LABORATORY | | | | | | SERVICES, | | | | | | CORE | | + +-------+ + + + + + | Specimen | + + | Blood - Blood | | (substance) | + + + + + | Narrative | Performed At | + + + | Test performed in [facility] Core lab. New reference range in effect | [facility] | | 2-6-18. BASELINE DRAW | LABORATORY | | | SERVICES, CORE | + + + + + + + + | Performing | Address | City/State/Zipcode | Phone Number | | Organization | | | | + + + + + | [facility] | [address] | [place] [address] | | | SERVICES, CORE | [address] | | | + + + + + LUTEINIZING HORMONE, SERUM (05/29/2019 1:30 PM PST) + + + + + + | Component | Value | Ref Range | Performed | Pathologist | | | | | At | Signature | + + + + + + | LUTEINIZING | 9Comment: LH FEMALE | mIU/mL | [facility] | | | | REFERENCE RANGE: | | [facility] - | | | HORMONE,SER | Follicular: less than 11 | | [place] | | | UM | mIU/mL Midcycle: | | | | | | 19-103 mIU/mL Luteal: | | | | | | less than 13 miU/mL Post | | | | | | Menopausal: 11 - 59 | | | | | | mIU/mL | | | | | | Post Menopausal: 11 - 59 mIU/mL | | | | + + + + + + + + | Specimen | + + | Blood - Blood | | (substance) | + + + + + | Narrative | Performed At | + + + | High doses of biotin (>5 mg/day) can interfere with this | [facility] | | laboratory test. Falsely elevated or decreased lab values may be seen. | [facility] - | | Patients should abstain from high dose biotin for 48 hours before | [place] | | having lab tests drawn. | | + + + + + + + + | Performing | Address | City/State/Zipcode | Phone Number | | Organization | | | | + + + + + | [facility] - | [address] | [place] [address] | | | [place] | | | | + + + + + INSULIN GROWTH FACTOR-1, SERUM (05/29/2019 1:30 PM PST) + + + + + + | Component | Value | Ref Range | Performed | Pathologist | | | | | At | Signature | + + + + + + | IGF-1 | 190 | 78 - 274 ng/mL | [facility] | | | | | | REG UNIV | | | | | | PTH - INT[facility] | | + + + + + + | IGF-1 | 0.7Comment: INTERPRETIVE | | [facility] | | | Z-SCORE | INFORMATION: IGF 1 | | REG UNIV | | | | Z-SCORE CALCULATION A Z | | PTH - [facility] | | | | score is the number of | | | | | | standard deviations a | | | | | | given result is above | | | | | | (positive score) or | | | | | | below (negative score) | | | | | | the age- and | | | | | | sex-adjusted population | | | | | | mean. Results that are | | | | | | within the IGF-1 | | | | | | reference interval will | | | | | | have a Z score between | | | | | | -2.0 and +2.0.Performed | | | | | | by [employer],[address] | | | | | [address], [facility],[place] | | | | | | [address] | | | | | | [phone][employer]. | | | | | | Nura sutherland MD, | | | | | | Lab. Director | | | | + + + + + + + + | Specimen | + + | Blood - Blood | | (substance) | + + + + + + + | Performing | Address | City/State/Zipcode | Phone Number | | Organization | | | | + + + + + | [facility] | [address] | [place], [place] | | | UNIV PTH - INT[facility] | | [phone] | | + + + + + FSH, SERUM (05/29/2019 1:30 PM PST) + + + + + + | Component | Value | Ref Range | Performed | Pathologist | | | | | At | Signature | + + + + + + | FSH,SERUM | 7Comment: FSH FEMALE | mIU/mL | [facility] | | | | REFERENCE RANGES | | [facility] - | | | | Follicular: 4-9 mIU/mL | | [place] | | | | Midcycle: 5-23 mIU/mL | | | | | | Luteal: 2-5 mIU/mL | | | | | | Post Menopausal: | | | | | | 17-114 mIU/mL | | | | | | Luteal: 2-5 mIU/mL | | | | | | Post Menopausal: 17-114 mIU/mL | | | | + + + + + + + + | Specimen | + + | Blood - Blood | | (substance) | + + + + + | Narrative | Performed At | + + + | High doses of biotin (>5 mg/day) can interfere with this | [facility] | | laboratory test. Falsely elevated or decreased lab values may be seen. | [facility] - | | Patients should abstain from high dose biotin for 48 hours before | [place] | | having lab tests drawn. | | + + + + + + + + | Performing | Address | City/State/Zipcode | Phone Number | | Organization | | | | + + + + + | [facility] - | [address] | [place] [address] | | | [place] | | | | + + + + + FREE T4 (05/29/2019 1:30 PM PST) + +-------+ + + + | Component | Value | Ref Range | Performed | Pathologist | | | | | At | Signature | + +-------+ + + + | FREE T4 | 0.8 | 0.6 - 1.2 ng/dL | [facility] | | | | | [...] | + + + + + | [facility] | [address] | [place] [address] | | | SERVICES, CORE | [address] | | | + + + + + BASIC METABOLIC SET (NA, K, CL, TCO2, BUN, CR, GLU, CA) (05/29/2019 1:30 PM PST) + +---------+ + + + | Component | Value | Ref Range | Performed | Pathologist | | | | | At | Signature | + +---------+ + + + | GLUCOSE, | 95 | 70 - 99 mg/dL | [facility] | | | PLASMA | | | LABORATORY | | | (LAB) | | | SERVICES, | | | | | | CORE | | + +---------+ + + + | BUN, PLASMA | 14 | 6 - 20 mg/dL | [facility] | | | (LAB) | | | LABORATORY | | | | | | SERVICES, | | | | | | CORE | | + +---------+ + + + | CREATININE | 0.82 | 0.60 - 1.10 | [facility] | | | PLASMA | | mg/dL | LABORATORY | | | (LAB) | | | SERVICES, | | | | | | CORE | | + +---------+ + + + | EGFR | >60 | >60 mL/min | [facility] | | | - | | | LABORATORY | | | BRAZILIAN | | | SERVICES, | | | | | | CORE | | + +---------+ + + + | EGFR NON | >60 | >60 mL/min | [facility] | | | -JUAQUIN | | | LABORATORY | | | RICAN | | | SERVICES, | | | | | | CORE | | + +---------+ + + + | SODIUM, | 138 | 136 - 145 | [facility] | | | PLASMA | | mmol/L | LABORATORY | | | (LAB) | | | SERVICES, | | | | | | CORE | | + +---------+ + + + | POTASSIUM, | 3.8 | 3.4 - 5.0 | [facility] | | | PLASMA | | mmol/L | LABORATORY | | | (LAB) | | | SERVICES, | | | | | | CORE | | + +---------+ + + + | CHLORIDE, | 109 (H) | 97 - 108 mmol/L | [...] +---------+ + + + | CALCIUM, | 9.1 | 8.6 - 10.2 | [facility] | | | PLASMA | | mg/dL | LABORATORY | | | (LAB) | | | SERVICES, | | | | | | CORE | | + +---------+ + + + | ANION GAP | 5 | 4 - 11 mmol/L | [facility] [...] +---------+ + + + | BUN/CREATIN | 17 | 8 - 25 | [facility] | [...] MDRD equation recommended by the National | [facility] | | Kidney Disease Education Program. Estimated [...] + | [facility] | [address] | [place] [address] | | | SERVICES, CORE | [address] | | | + + + + + CORTISOL, SERUM (05/29/2019 1:30 PM PST) + +-------+ + + + | Component | Value | Ref Range | Performed | Pathologist | | | | | At | Signature | + +-------+ + + + | CORTISOL, | 8.0 | ug/dL | [facility] | | | TOTAL SERUM | | | LABORATORY | | | | | | SERVICES, | | | | | | CORE | | + +-------+ + + + + + | Specimen | + + | Blood - Blood | | (substance) | + + + + + | Narrative | Performed At | + + + | Reference Ranges: A.M. collect(7-9am) = 5.3-22.5 ug/dL P.M. | [facility] | | collect(3-5 pm) = 3.4-16.8 ug/dL BASELINE DRAW | LABORATORY | | | SERVICES, CORE | + + + + + + + + | Performing | Address | City/State/Zipcode | Phone Number | | Organization | | | | + + + + + | [facility] | [address] | [place] [address] | | | MADHU, VALERY | [address] | | | + + + + + ACTH, PLASMA (05/29/2019 1:30 PM PST) + +-------+ + + + | Component | Value | Ref Range | Performed | Pathologist | | | | | At | Signature | + +-------+ + + + | ACTH,PLASMA | 31 | <=45 pg/mL | [facility] | | | | | | [facility] | | | | | | [facility] | | + +-------+ + + + + + | Specimen | + + | Blood - Blood | | (substance) | + + + + + | Narrative | Performed At | + + + | High doses of biotin (>5 mg/day) can interfere with this | [facility] | | laboratory test. Falsely elevated or decreased lab values may be seen. | [facility] - | | Patients should abstain from high dose biotin for 48 hours before | [facility] | | having lab tests drawn. 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
--- OUTSIDE RECORDS SUMMARY | ~2019-12-19 | XMS | Encounter Summary ---
Demographics + + + | Address | [address] | | | [place] [address] | + + + | Home Phone | | + + + | Preferred Language | Unknown | + + + | Marital Status | | + + + | Taoist Affiliation | CHR | + + + | Race | White | + + + | Ethnic Group | Not or | + + + Author + + + | Author | [facility] | + + + | Organization | [facility] | + + + | Address | Unknown | + + + | Phone | Unavailable | + + + Support + + +---------+ + | Name | Relationship | Address | Phone | + + +---------+ + | Anushka Mitchell | ECON | Unknown | | + + +---------+ + Care Team Providers + +------+ + | Care Database Programmer Name | Role | Phone | + +------+ + | Lisa Adorno PA-C | PCP | | + +------+ + Reason for Visit +---------+ + | Reason | Comments | +---------+ + | Post Op | | +---------+ + Benefits Check (Routine) + +--------+ + + + + | Status | Reason | Specialty | Diagnoses / | Referred By | Referred To | | | | | Procedures | Contact | Contact | + +--------+ + + + + | Pending | | Otolaryngolog | Diagnoses | Kyree, | Krish, | | Review | | y | Other | Lisa | MD Brandon | | | | | disorders of | JEROME Sin | [address] | | | | | pituitary | [place] | [address] [place] | | | | | gland | Family | [address] [place], | | | | | Procedures | Medicine | [place] | | | | | ID | [address] | [address] | | | | | OFFICE/OUTPT | [address] | Phone: | | | | | | [place], | [phone] | | | | | VISIT,[place] | [place] [address] | Fax: | | | | | KORINA III | Phone: | [phone] | | | | | | [phone] | | | | | | | Fax: | | | | | | | [phone] | | + +--------+ + + + + Encounter Details +--------+---------+ + + + | Date | Type | Department | Care Team | Description | +--------+---------+ + + + | 09/14/ | Office | Otolaryngology | Brandon Rutherford, | Throat pain (Primary | | 2020 | Visit | Head and Neck | MD [address] | Dx) | | | | Surgery Services at | [facility] [address] | | | | | [facility] [address] | [place], [place] | | | | | [facility] | [address] | | | | | Health and Healing, | [phone] | | | | | [facility] | | | | | | [place], [place] | | | | | | [address] | | | | | | [phone] | | | +--------+---------+ + + + [...] in contact | No / Unsure | 09/15/2019 11:15 AM | | with someone who was confirmed or | | PDT | | suspected to have Coronavirus / COVID-19? | | | + + + + documented as of this encounter Last Filed Vital Signs + + + + + | Vital Sign | Reading | Time Taken | Comments | + + + + + | Blood Pressure | 115/76 | 09/15/2019 11:28 AM | | | | | PDT | | + + + + + | Pulse | 85 | 09/15/2019 11:28 AM | | | | | PDT | | + + + + + | Temperature | 36.8 C (98.2 F) | 09/15/2019 11:28 AM | | | | | PDT [...] + + + + | Weight | - | - | | + + + + + | Height | - | - | | + + + + + | Body Mass Index | - | - | | + [...] documented as of this encounter Progress Notes Brandon Rutherford MD - 09/15/2019 11:45 AM PDTMs. Delcid returns for a f/u visit. She recently had pituitary surgery but she is really here because for the last 3 weeks she had a sore throat. She saw her PCP and was started on a z-pack. This was ineffective, she wa s given diflucan also without much effect. She tells me that she got a call today from her P CP's office stating that she had a throat culture showing sandip. She is still taking 20 mg of hydrocortisone. Physical Examination: BP 115/76 | Pulse 85 | Temp 36.8 C (98.2 F) healthy appearing female Ears: Normal pinnae, external canals and tympanic membranes bilaterally, Hearing grossly in tact Oral cavity: Dentition - Good repair Tongue mobility - normal Palate mobility - normal Mucosa - No mucosal lesions noted on hard palate, upper or lower alveolous, buccal mucosa, floor of mouth, lips or tongue. I sprayed her nose with phenylephrine and lidocaine and examined the nose with the rigid sc ope. The nose appears to be healing well. Procedure: Flexible laryngoscopy Anesthesia - 4% lidocaine, 1% phenylephrine topically in nose Equipment - Flexible laryngoscope Endoscopist - Brandon Rutherford MD Findings - Nasal cavity: No lesions seen Nasopharynx: Normal Oropharynx: Normal, except for some cryptitis in the lingual tonsil. Larynx: No lesions within the supraglottic, glottic or subglottic larynx, normal vocal cord mobility there are bilateral small nodules at the junction of the anterior 1/3rd and tax record clerk ior 2/3rds of the TVC's. Hypopharynx: No lesions seen Impression: 1. Pituitary lesion - She appears to be healing well. 2. Throat pain - She feels this is better than 3 weeks than 3 wks ago but still quite bothe rsome. I reassured her that I don't see anything ominous but it could be that she has some u ntreated lingual tonsillitis. We will try some Augmentin. Brandon Rutherford MD Professor of Otolaryngology, Head & Neck Surgery Yelitza Dale MA - 09/15/2019 11:45 AM PDTCalled patient for Covid-19 screening. Patient reports she does not have any symptoms of cough, fever or trouble breathing. She reports that she has not been ar ound anyone with cough,fever or trouble breathing. She states that she has not traveled outs [facility] the [facility] or [place] recently. Okay to be seen in clinic. documented in this encounter Plan of Treatment +--------+ + [...] [address] | | | | | | [facility], [place] | | | | | | [address] | | +--------+ + + + + | 12/30/ | Appointment | Radiology | Thu Fields, | | 2019 | | | MD [address] | | | | | | [address] [place], | | | | | | [place] [address] | | | | | | [phone] | | | | | | | | +--------+ + + + + | 12/30/ | Appointment | Radiology | Thu Fields, | | | 2019 | | | MD [address] | | | | | | [address] [place], | | | | | | [place] [address] | | | | | | [phone] | | | | | | | | +--------+ + + + + | 01/21/ | Office | Neurology | Thu Fields, | | 2019 | Visit | | MD [address] | | | | | | [address] [place], | | | | | | [place] [address] | | | | | | [phone] | | | | | | | | +--------+ + + + + documented as of this encounter Procedures + +--------+ + + + | Procedure Name | Priori | Date/Time | Associated Diagnosis | Comments | | | ty | | | | + +--------+ + + + | ID | Routin | 09/15/2019 | Throat pain | | | LARYNGOSCOPY,FLEXIBL | e | 1:37 PM | | | | E, DIAGNOSTIC | | PDT | | | + +--------+ + + + documented in this encounter Visit Diagnoses + + | Diagnosis | + + | Throat pain - Primary | + + documented in this encounter"
--- OUTSIDE RECORDS SUMMARY | ~2019-12-19 | XMS | Encounter Summary ---
Demographics + + + | Address | [address] | | | [place] [address] | + + + | Home Phone | | + + + | Preferred Language | Unknown | + + + | Marital Status | | + + + | Voodoo Affiliation | CHR | + + + [...] Team Providers + +------+ + | Care Game Breeding Farm Manager Name | Role | Phone | + +------+ + | Lisa Adorno PA-C | PCP | | + +------+ + Encounter Details +--------+--------+ + + + | Date | Type | Department | Care Team | Description | +--------+--------+ + + + | 04/21/ | Travel | | | | | [...] | | | | | | [address] | | | | | | [facility], [place] | | | | | | [address] | | +--------+ + + + + | 12/30/ | Appointment | Radiology | Thu Fields, | | | 2019 | | | MD [address] | | | | | | [address] [place], | | | | | | [place] [address] | | | | | | [phone] | | | | | | | | +--------+ + + + + | 12/30/ | Appointment | Radiology | Thu Fields, | | | 2019 | | | MD [address] | | | | | | [address] [place], | | | | | | [place] [address] | | | | | | [phone] | | | | | | | | +--------+ + + + + | 01/21/ | Office | Neurology | Thu Fields, | | | 2019 | Visit | | MD [address] | | | | | | [address] [place], | | | | | | [place] [address] | | | | | | [phone] | | | | | | | | +--------+ + + + + documented as of this encounter Visit Diagnoses Not on filedocumented in this encounter"
--- OUTSIDE RECORDS SUMMARY | ~2019-12-19 | XMS | Encounter Summary ---
Demographics + + + | Address | [address] | | | [place] [address] | + + + | Home Phone [...] Team Providers + +------+ + | Care Chisel Worker Name | Role | Phone | + +------+ + | Lisa Adorno PA-C PCP | | + +------+ + Encounter Details +--------+ + + + + | Date | Type | Department | Care Team | Description | +--------+ + + + + | 07/08/ | MyChart | Diagnostic Imaging | | Appointment | | 2020 | Encounter | Services [address] | [address] | | | [address] | | | | | | [place], [place] | | | | | | [address] | | | +--------+ + + + [...] [address] | | | | | | [facility], [place] | | | | | | [address] | | +--------+ + + + + | 12/30/ | Appointment | Radiology | Thu Fields, | | | 2019 | | | MD [address] | | | | | | [address] [place], | | | | | | [place] [address] | | | | | | [phone] | | | | | | | | +--------+ + + + + | 12/30/ | Appointment | Radiology | Thu Fields, | | | 2019 | | | MD [address] | | | | | | [address] [place], | | | | | | [place] [address] | | | | | | [phone] | | | | | | | | +--------+ + + + + | 01/21/ | Office | Neurology | Thu Fields, | | | 2020 | Visit | | [address] | | | | | | [facility] [address] [place], | | | | | | [place] [address] | | | | | | [phone] | | | | | | | | +--------+ + + + + documented as of this encounter Visit Diagnoses Not on filedocumented in this encounter"
--- OUTSIDE RECORDS SUMMARY | ~2019-12-19 | XMS | Encounter Summary ---
Demographics + + + | Address | [address] | | | [place] [address] | + + + | Home Phone | | + + + | Preferred Language | Unknown | + + + | Marital Status | | + + + | Yazidism Affiliation | CHR | + + + | Race | White | + + + | Ethnic Group | Not or | + + + Author + + + | Author | [facility] | + + + | Organization | [facility] | + + + | Address | Unknown | + + + | Phone | Unavailable | + + + Support + + +---------+ + | Name | Relationship | Address | Phone | + + +---------+ + | Anushka Mitchell | ECON | Unknown | | + + +---------+ + Care Team Providers + +------+ + | Care Music Researcher Name | Role | Phone | + +------+ + | Lisa Adorno PA-C | PCP | | + +------+ + Encounter Details +--------+ + + + + | Date | Type | Department | Care Team | Description | +--------+ + + + + | 11/24/ | MyChart | Neurology at | Thu Fields, | RE: Medication | | 2020 | Encounter | [facility] & | [address] | change | | | | Healing [address] | [address] [place], | | | | | [facility] | [place] [address] | | | | | Health and Healing, | [phone] | | | | | [facility] | | | | | | [place], [place] | | | | | | [address] | | | | | | [phone] | | | +--------+ + + + [...] | 12/30/ | Appointment | Clinical | [facility] | | | 2019 | | Neurophysiology | Outpatient [address] | | | [address] | | | | | | [address] [place], [place] | | | | | | [address] | | +--------+ + + + + | 12/30/ | Appointment | Radiology | Thu Fields, | | | 2019 | | | MD [address] | | | | | | [address] [facility] | | | | | | [place] [address] | | | | | | [phone] | | | | | | | | +--------+ + + + + | 12/30/ | Appointment | Radiology | Thu Fields, | | | 2019 | | | MD [address] | | | | | | [address] [place], | | | | | | [place] [address] | | | | | | [phone] | | | | | | | | +--------+ + + + + | 01/21/ | Office | Neurology | Thu Fields, | | | 2019 | Visit | | MD [address] | | | | | | [address] [place], | | | | | | [place] [address] | | | | | | [phone] | | | | | | | | +--------+ + + + + documented as of this encounter Visit Diagnoses Not on filedocumented in this encounter"
--- OUTSIDE RECORDS SUMMARY | ~2019-12-19 | XMS | Encounter Summary ---
Demographics + + + | Address | [address] | | | [place] [address] | + + + | Home Phone | | + + + | Preferred Language | Unknown | + + + | Marital Status | | + + + | Holiness Affiliation | Unknown | + + + | Race | Unknown | + + + | Ethnic Group | Unknown | + + + Author + + + | Author | [facility] | | | and [place] | + + + | Organization | [facility] | | | [...] Team Providers + +------+ + | Care Wood Lather Name | Role | Phone | + +------+ + | Jarocho Tate | PCP | | | MD | | | + +------+ + Encounter Details +--------+ + + + + | Date | Type | Department | Care Team | Description | +--------+ + + + + | 05/08/ | Imaging | [facility] | Provider, | | | 2019 | Exam | [facility] | [address] | | | | | IMAGING [address] | [address] | | | | | [address] | [place] [address] | | | | | [place] [address] | | | | | | [phone] | | | +--------+ + + + [...] | + +--------+ + + + | CT SINUS WO CONTRAST | Routin | 05/03/2019 | | Results for this | | LIMITED | e | 12:00 AM | | procedure are in the | | | | PST | | results section. | + +--------+ + + + documented in this encounter Results CT Sinus wo Contrast Limited (05/03/2019 12:00 AM PST) + + | Specimen [...]
--- OUTSIDE RECORDS SUMMARY | ~2019-12-19 | XMS | Encounter Summary ---
Demographics + + + | Address | [address] | | | [place] [address] | + + + | Home Phone | | + + + | Preferred Language | Unknown | + + + | Marital Status | | + + + | Sikhism Affiliation | CHR | + + + | Race | White | + + + | Ethnic Group | Not or | + + + Author + + + | Author | [facility] | + + + | Organization | [facility] | + + + | Address | Unknown | + + + | Phone | Unavailable | + + + Support + + +---------+ + | Name | Relationship | Address | Phone | + + +---------+ + | Anushka Mitchell | ECON | Unknown | | + + +---------+ + Care Team Providers + +------+ + | Care Carving Machine Operator Name | Role | Phone | + +------+ + | Lisa Adorno PA-C | PCP | | + +------+ + Encounter Details +--------+ + + + + | Date | Type | Department | Care Team | Description | +--------+ + + + + | 09/07/ | MyChart | Neurosurgery at | | RE: return to work | | 2020 | Encounter | [address] | | letter | | | | [address] for | | | | | | [facility] and [facility], | | | | | | Building | | | | | | floor [place], [place] | | | | | | [address] | | | | | | [phone] | | | +--------+ + + + [...] | | | | | | Road [place], [place] | | | | | | [address] | | +--------+ + + + + | 12/30/ | Appointment | Radiology | Thu Fields, | | | 2019 | | | [address] | | | | | | [address] | | | | | | [place] [address] | | | | | | [phone] | | | | | | | | +--------+ + + + + | 12/30/ | Appointment | Radiology | Thu Fields, | | | 2019 | | | MD [address] | | | | | | [address] [place], | | | | | | [place] [address] | | | | | | [phone] | | | | | | | | +--------+ + + + + | 01/21/ | Office | Neurology | Thu Fields, | | | 2019 | Visit | | MD [address] | | | | | | [address] [place], | | | | | | [place] [address] | | | | | | [phone] | | | | | | | | +--------+ + + + + documented as of this encounter Visit Diagnoses Not on filedocumented in this encounter"
--- OUTSIDE RECORDS SUMMARY | ~2019-12-19 | XMS | Encounter Summary ---
Demographics + + + | Address | [address] | | | [place] [address] | + + + | Home Phone | | + + + | Preferred Language | Unknown | + + + | Marital Status | | + + + | Latter Day Affiliation | CHR | + + + | Race | White | + + + | Ethnic Group | Not or | + + + Author + + + | Author | [facility] | + + + | Organization | [facility] | + + + | Address | Unknown | + + + | Phone | Unavailable | + + + Support + + +---------+ + | Name | Relationship | Address | Phone | + + +---------+ + | Anushka Mitchell | ECON | Unknown | | + + +---------+ + Care Team Providers + +------+ + | Care Furnace Checker Name | Role | Phone | + [...] to | | 2019 | Encounter | [facility] | Shayy, | Work Papers | | | | and Healing [address] | [place] [address] | | | | | [address] [facility] | [address] [facility] | | | | | Health and Healing, | [place] [address] | | | | | [place] [address] | [phone] | | | | | [place], [place] | | | | | | [address] | | | | | | [phone] | | | +--------+ + + + [...] | Appointment | Clinical | [facility] | | | 2019 | | Neurophysiology | Outpatient [address] | | | | | [address] | | | | | | Road [place], [place] | | | | | | [address] | | +--------+ + + + + | 12/30/ | Appointment | Radiology | Thu Fields, | | | 2019 | | | [address] | | | | | | [facility] [address] [place], | | | | | | [place] [address] | | | | | | [phone] | | | | | | | | +--------+ + + + + | 12/30/ | Appointment | Radiology | Thu Fields, | | | 2019 | | | MD [address] | | | | | | [address] [place], | | | | | | [place] [address] | | | | | | [phone] | | | | | | | | +--------+ + + + + | 01/21/ | Office | Neurology | Thu Fields, | | | 2019 | Visit | | MD [address] | | | | | | [address] [place], | | | | | | [place] [address] | | | | | | [phone] | | | | | | | | +--------+ + + + + documented as of this encounter Visit Diagnoses Not on filedocumented in this encounter"
--- OUTSIDE RECORDS SUMMARY | ~2019-12-19 | XMS | Encounter Summary ---
Demographics + + + | Address | [address] | | | [place] [address] | + + + | Home Phone | | + + + | Preferred Language | Unknown | + + + | Marital Status | | + + + | Catholic Affiliation | Unknown | + + + | Race | Unknown | + + + | Ethnic Group | Unknown | + + + Author + + + | Author | [facility] | | | and [place] | + + + | Organization | [facility] | | | and [place] | + + + | Address | Unknown | + + + | Phone | Unavailable | + + + Support + + +---------+ + | Name | Relationship | Address | Phone | + + +---------+ + | Rubén Puentes | ECON | Unknown | | + + +---------+ + | Jayda Mitchell | ECON | Unknown | | + + +---------+ + Care Team Providers + +------+ + | Care Phlebotomist Associate Name | Role | Phone | + +------+ + | Edwige Moreira MD | PCP | | + +------+ + Encounter Details +--------+---------+ + + + | Date | Type | Department | Care Team | Description | +--------+---------+ + + + | 01/13/ | Office | [facility] | Kb Bailon | Plantar fasciitis, | | 2019 | Visit | [address] | [address] | bilateral (Primary | | | | [address] | [address] | Dx); Right foot | | | | [place], [place] | [place] [address] | pain; Left foot | | | | [address] | [phone] | pain; Tendonitis of | | | | [phone] | | ankle | +--------+---------+ + + + Social History [...] this encounter Last Filed Vital Signs + +---------+ + + | Vital Sign | Reading | Time Taken | Comments | + +---------+ + + | Blood Pressure | 99/66 | 01/13/2019 8:25 AM | | | | | PDT | | + +---------+ + + | Pulse | 70 | 01/13/2019 8:25 AM | | | | | PDT | | + +---------+ + + | Temperature | - | - | | + +---------+ + + | Respiratory Rate | 16 | 01/13/2019 8:25 AM | | | | | PDT | | + +---------+ + + | Oxygen Saturation | 99% | 01/13/2019 8:25 AM | | | | | PDT | | + +---------+ + + | Inhaled Oxygen | - | - | | | Concentration | | | | + +---------+ + + | Weight | - | - | | + +---------+ + + | Height | - | - | | + +---------+ + + | Body Mass Index | - | - | | + +---------+ + + documented in this encounter Patient Instructions Patient Instructions Florence Alejo, Emergency Medical Technician - 01/13/2019 8:30 AM PDTPlantar Fasciitis Regimen 1. Stretching: The most important aspect of treating plantar fasciitis. Frequent gentle str etches are better than infrequent aggressive stretches. 2. Ice: Use A bag of frozen peas, a frozen water bottle, or a small frozen bag of liquid di sh soap. Apply for up to 15-20 minutes at a time in the evening or after exercise. 3. Medication: If you were prescribed an antiinflammatory medication and you tolerate them, take as directed with food. If you begin to experience nausea, burning of the stomach, or o ther symptoms, discontinue the anti-inflammatory medication and seek treatment. 4. Arch Support: If you have obtained arch supports, remove the insoles that came with your shoes and replace them with these devices. These often require a break in period of wearin g them 1-2 hours the first day, 2-4 the second and so on until they can be worn the entire d ay. These are best in lace up shoes such as a well cushioned running shoe. Avoid barefoot wa lking, even while indoors. Superfeet or Powerstep insoles are a good option for over the co unter arch support (can find on [employer] or other online vendor) 5. Injections: If you have received an injection for a heel problem, it is not unusual to e xperience some discomfort later on the same day and following day. The medication in the inj ection then usually begins to relieve pain in the heel. In more difficult cases, it is not u nusual for the pain to begin to return after 1-2 weeks, when the medication wears off. It is unusual to experience a great deal of swelling, redness and pain after the injection. A sma ll number of people experience a local reaction to the medications. If this happens to you, please call our office and we will give you further instructions. 6. Night Splint: If you are fitted with this device, it is to be worn during sleeping. It i s not for walking. It is most helpful for the morning first step symptoms and compliments th e stretching exercises to prevent tightness of the plantar fascia and achilles tendon. If you run into any problems or have any questions, please feel free to contact our office. Plantar fasciitis Stretches 1. Achilles tendon and plantar fascia stretch First thing in the morning, loop a towel, a piece of elastic or a tubigrip around the ball of your foot and, keeping your knee straight, pull your toes towards your nose, holding for 30 seconds. Repeat 3 times for each foot. 2. Wall push-ups or stretches for Achilles tendon The Achilles tendon comes from the muscles at the back of your thigh and your calf muscles. This is performed with the knee straight. 2-3 times a day do the following wall push-ups or stretches: (a) Face the wall, put both hands on the wall at shoulder height, and stagger th e feet (one foot in front of the other). The front foot should be approximately 30 cm (12 in ches) from the wall. With the front knee bent and the back knee straight, lean into the stre tch (i.e. towards the wall) until a tightening is felt in the calf of the back leg hold for 10-15 seconds. Repeat 4-5 times. 3. Dynamic stretches for plantar fascia This involves rolling the arch of the foot over a drinks can (may freeze bottle with water in it to stretch and ice at the same time) or a tennis ball etc, while either standing (hold ing the back of a chair for support) or sitting. Allow the foot and ankle to move in all dir ections over the object. This can be done for a few minutes until there is some discomfort. Repeat this exercise at least twice a day. The discomfort can be relieved by rolling the micheline t on a cool drinks can from the fridge. documented in this encounter Progress Notes Kb Bailon DPM - 01/20/2019 9:28 AM [facility] OFFICE NOTE KB BAILON DPM Patient: JAYDA DELCID Admitting: MR #: [id number] LOC: PT TYPE: Adm Date: 01/13/2019 : 1980 Three views of the left foot demonstrate a calcaneal inclination angle within normal limits . Infracalcaneal spurring. Bone density within normal limits. Rectus great toe position. IMPRESSION: Normal x-ray left foot with infracalcaneal spurring. KB BAILON DPM Dictated by KB BAILON DPM 01/20/2019 09:28:10 Transcribed on 01/20/2019 10:01:19 by nithin job# [id number] Confirmation #: [id number] signed by Kb Bailon DPM at 01/20/2019 4:02 PM Kb Casiano DPM - 01/20/2019 9:27 AM [facility] OFFICE NOTE KB BAILON DPM Patient: JAYDA DELCID Admitting: MR #: [id number] LOC: PT TYPE: Adm Date: 01/13/2019 : 1980 Three views of the right foot demonstrate a calcaneal inclination angle within normal limit s. Bone density within normal limits. Intermetatarsal angle within normal limits. No agnes ical disruptions or periosteal lesions. No soft tissue gas. IMPRESSION: Normal x-ray, right foot with no fracture or dislocation. KB BAILON DPM Dictated by KB BAILON DPM 01/20/2019 09:27:26 Transcribed on 01/20/2019 10:03:42 by nithin job# [id number] Confirmation #: [id number] signed by Kb Bailon DPM at 01/20/2019 4:03 PM Kb Casiano DPM - 01/13/2019 8:30 AM PDT [facility] Date of visit:01/13/2019 Patient Name:Jayda Delcid AGE: 38 y.o. :1980 CHIEF COMPLAINT: No chief complaint on file. Patient presents today as a new patient for bilateral foot pain. Patient states she has had this foot pain on and off for about five years now. Patient has tried a voltaren gel that h elps tremendously, and wears compression stockings as well. HISTORY OF PRESENT ILLNESS The patient presents to the office with a chief complaint of pain to the bilateral foot. 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 The patient states that she does have a large hike that [place] in [place] in the coming weeks and is preparing for this hike. The patient states she has tried different shoes, custom orthotics, topical Voltaren gel a nd other treatment options with minimal relief. The patient has seen Dr. Larson in [facility] for lower extremity edema and has been using compression stockings. The patient denie s fever, chills, nausea or vomiting. Prior cortisone injections have been of extra pain and she denies any treatment of this nature. No other concerns or complaints. Review of systems noted. REVIEW OF SYSTEMS Review of Systems Constitutional: Negative for chills and fever. Respiratory: Negative for shortness of breath. Cardiovascular: Negative for chest pain. Gastrointestinal: Negative for nausea and vomiting. Skin: Negative for rash. Neurological: Negative for dizziness, light-headedness and headaches. Past Medical History: Diagnosis Date Breast mass, right Dyslipidemia Endometriosis PCOS (polycystic ovarian syndrome) Past Surgical History: Procedure Laterality Date CERVICAL SPINE SURGERY 2010 c2-c5 OTHER SURGICAL HISTORY Bilateral 2010 UNLISTED PROCEDURE ARTHROSCOPY - knee OTHER SURGICAL HISTORY 2010 NASAL RECONSTRUCTION TONSILLECTOMY AND ADENOIDECTOMY 2017 Dr. Mercado TUBAL LIGATION 12/2003 Allergies Allergen Reactions Percocet [Oxycodone-Acetaminophen] Other (See Comments) Other reaction(s): Vomiting, Other reaction(s): Confusion, other Bactrim [Sulfamethoxazole-Trimethoprim] Other (See Comments) Kidney failure Bee Venom Other (See Comments) Other Dicyclomine Other (See Comments) Latex Other (See Comments) Other Sulfa Antibiotics Other (See Comments) Prior to Admission medications Medication Sig Start Date End Date Taking? Authorizing Provider chlorhexidine (PERIDEX) 0.12% solution RINSE AND SWISH AND SPIT WITH 1 CAPFULL TWO TIMES DA KELY 09/22/18 Provider Unknown Conversion Transaction ibuprofen (ADVIL,MOTRIN) 600 MG tablet 08/13/18 Provider Unknown Conversion Transaction Multiple Vitamins-Minerals (MULTIVITAMIN ADULT PO) Take 1 tablet by mouth daily. 07/21/18 Provider Unknown Conversion Transaction oxybutynin (DITROPAN XL) 5 mg 24 hr tablet Take 5 mg by mouth daily. 07/21/18 Provider Robyn vegas Conversion Transaction Family History Problem Relation Age of Onset Cancer Mother uvula Drug abuse Mother Parkinsonism Father High cholesterol Father Dementia Father Cancer Paternal Grandmother colon Diabetes, IDDM Paternal Grandmother Other (see comment) Paternal Grandmother Hypothyroidism Heart attack Paternal Grandfather Social History Socioeconomic History Marital status: Spouse name: Not on file Number of children: Not on file Years of education: Not on file Highest education level: Not on file Social Needs Financial resource strain: Not on file Food insecurity - worry: Not on file Food insecurity - inability: Not on file Transportation needs - medical: Not on file Transportation needs - non-medical: Not on file Occupational History Not on file Tobacco Use Smoking status: Never Smoker Substance and Sexual Activity Alcohol use: Not on file Drug use: Not on file Comment: Drug use: No Sexual activity: Not on file Other Topics Concern Not on file Social History Narrative Not on file PHYSICAL EXAM Vital Signs: BP 99/66 | Pulse 70 | Resp 16 | SpO2 99% Physical Exam Palpable pedal pulses. Capillary refill time intact. Light touch grossly intact. Rectus foot position. Ankle dorsiflexion within normal limits. Infracalcaneal tenderness to the l eft greater than right foot with tenderness over the right posterior tibial tendon. Positiv e single heel raise bilateral with no pain. No open lesions or drainage or malodor. No str eaking. Muscle strength 5/5. PROBLEM LIST Encounter Diagnoses Name Primary? Right foot pain Yes Left foot pain Assessment ASSESSMENT & PLAN Plantar fasciitis bilateral heel with posterior tibial tendinitis right greater than left. Short and long-term goals given. Risks and benefits discussed. The patient to continue wi th stretching, ice and orthotics. Consideration for physical therapy; however, this will no t be of benefit for her prior to her leaving in approximately 2 weeks' time for her hike. M edrol Dosepak dispensed and to be used 1 week prior to her hike. The patient to stretch an d do other exercises prior to her hiking and exercise. Consideration for plantar fascia rel ease or physical therapy. The patient to follow up as needed. Primary Care Physician: MD Kb Powell DPM 01/13/2019 documented in this encounter Plan of Treatment Not on filedocumented as of this encounter Results ILANA Lopez Left 3 + Vw (01/13/2019 8:39 AM PDT) + + | Specimen | + + | | + + + + + | Narrative | Performed At | + + + | Refer to | [facility] | | office note. | | | | | | | | + + + + +---------+ + + | Performing | Address | City/State/Zipcode | Phone Number | | Organization | | | | + +---------+ + + | [facility] | | | | + +---------+ + + XR Foot Right 3 + Vw (01/13/2019 8:39 AM PDT) + + | Specimen | + + | | + + + + + | Narrative | Performed At | + + + | Refer to | [facility] | | office note. | | | | | | | | + + + + +---------+ + + | Performing | Address | City/State/Zipcode | Phone Number | | Organization | | | | + +---------+ + + | [facility] | | | | + +---------+ + + documented in this encounter Visit Diagnoses + + | Diagnosis | + + | Plantar fasciitis, bilateral - Primary Plantar fascial fibromatosis | + + | Right foot pain Pain in limb | + + | Left foot pain Pain in limb | + + | Tendonitis of ankle Tenosynovitis of foot and ankle | + + documented in this encounter"
--- OUTSIDE RECORDS SUMMARY | ~2019-12-19 | XMS | Clinical Summary ---
Demographics + + + | Address | [address] | | | [place] [address] | + + + | Home Phone | | + + + | Preferred Language | Unknown | + + + | Marital Status | | + + + | Hoahaoism Affiliation | CHR | + + + | Race | White | + + + | Ethnic Group | Not or | + + + Author + + + | Author | [facility] | + + + | Organization | [facility] | + + + | Address | Unknown | + + + | Phone | Unavailable | + + + Support + + +---------+ + | Name | Relationship | Address | Phone | + + +---------+ + | Anushka Mitchell | ECON | Unknown | | + + +---------+ + Care Team Providers + +------+ + | Care Development Technician Name | Role | Phone | + +------+ + | Lisa Adorno PA-C | PCP | | + +------+ + Source Comments [facility] is fully live on both [facility] and [facility] Allergies + + + + + + | Active Allergy | Reactions | Severity | Noted | Comments | | | | | Date | | + + + + + + | Dicyclomine | Palpitations | Medium | 05/29/19 | | | | | | 20 | | + + + + + + | Latex | Nausea | Medium | 07/21/19 | Other Other | | | | | 19 | | + + + + + + | Meloxicam | Dyspnea | | 05/06/20 | Sores in mouth | | | | | 19 | | + + + + + + | Oxycodone-Acetaminop | Confusion, Nausea, | High | 07/21/19 | Other reaction(s): | | hen | Unknown | | 19 | Vomiting Other | | | | | | reaction(s): | | | | | | Confusion other | | | | | | Other reaction(s): | | | | | | Vomiting, Other | | | | | | reaction(s): | | | | | | Confusion, other | + + + + + + | Sulfa (Sulfonamide | Unknown | Medium | 05/29/19 | | | Antibiotics) | | | 20 | | + + + + + + | Venom-Honey Bee | Anaphylaxis | High | 07/21/19 | Other Other | | | | | 19 | | + + + + + + Medications + + + +---------+------+------+-------+ | Medication | Sig | Dispensed | Refills | Star | End | Statu | | | | | | t | Date | s | | | | | | Date | | | + + + +---------+------+------+-------+ | multivit with | Take by mouth. | | 0 | | | Activ | | calcium,iron,min | | | | | | e | | (MULTIPLE VITAMIN, | | | | | | | | WOMENS ORAL) | | | | | | | + + + +---------+------+------+-------+ | ascorbic acid | Take 250 mg by mouth | | 0 | | | Activ | | (vitamin C) 250 mg | three times daily. | | | | | e | | oral tablet | | | | | | | + + + +---------+------+------+-------+ | calcium | Take by mouth. | | 0 | | | Activ | | carbonate/vitamin D3 | | | | | | e | | (VITAMIN D-3 ORAL) | | | | | | | + + + +---------+------+------+-------+ | | Take by mouth. | | 0 | | | Activ | | L.acid,gas,plan,rhm/ | | | | | | e | | B.dirk/pat (UP4 | | | | | | | | PROBIOTICS WOMEN'S | | | | | | | | ORAL) | | | | | | | + + + +---------+------+------+-------+ | BIOTIN ORAL | Take by mouth. | | 0 | | | Activ | | | | | | | | e | + + + +---------+------+------+-------+ | herbal drugs | Take by mouth. | | 0 | | | Activ | | (FIBER DIET ORAL) | | | | | | e | + + + +---------+------+------+-------+ | ondansetron ODT 4 | Dissolve 1 tablet on | 30 | 2 | 02/ | | Activ | | mg oral | tongue and swallow | tablet | | 09/13 | | e | | tablet,disintegratin | every eight hours as | | | 20 | | | | gIndications: | needed for | | | | | | | Atypical facial | nausea/vomiting. | | | | | | | pain, [...] type | | | | | | | + + + +---------+------+------+-------+ +---+ + | | Additional | | | InformationPatient | | | not taking. Reported | | | on 10/09/2019 10:10 | | | AM | +---+ + + + +---+---+------+---+-------+ | acetaminophen 500 | Take 2 tablets by | | 0 | 03/0 | | Activ | | mg oral | mouth every six | | | 7/20 | | e | | tabletIndications: | hours. | | | 20 | | | | Pituitary mass (HCC) | | | | | | | + + +---+---+------+---+-------+ | guaiFENesin LA 600 | Take 1 tablet by | | 0 | 03/0 | | Activ | | mg oral tablet | mouth two times | | | 7/20 | | e | | extended release | daily. | | | 20 | | | | 12hr | | | | | | | + + +---+---+------+---+-------+ +---+ + | | Additional | | | InformationPatient | | | not taking. Reported | | | on 10/09/2019 10:10 | | | AM | +---+ + + + +--------+---+------+---+-------+ | hydrocortisone 20 | Take 1 tablet by | 30 | 1 | 03/0 | | Activ | | mg oral | mouth once daily in | tablet | | 7/20 | | e | | tabletIndications: | the morning. | | | 20 | | | | Pituitary mass (HCC) | | | | | | | + + +--------+---+------+---+-------+ | polyethylene | Mix 1 packet and | 30 | 0 | 03/0 | | Activ | | glycol 17 gram oral | take orally three | packet | | 7/20 | | e | | powder in | times daily as | | | 20 | | | | packetIndications: | needed (1st line - | | | | | | | constipation | for no BM for 2 | | | | | | | | days). Indications: | | | | | | | | constipation | | | | | | + + +--------+---+------+---+-------+ | senna-docusate | Take 1 tablet by | 60 | 0 | 03/0 | | Activ | | 8.6-50 mg oral | mouth two times | tablet | | 7/20 | | e | | tabletIndications: | daily. Indications: | | | 20 | | | | constipation | constipation | | | | | | + + +--------+---+------+---+-------+ +---+ + | | Additional | | | InformationPatient | | | not taking. Reported | | | on 10/09/2019 10:10 | | | AM | +---+ + + + +---+---+------+---+-------+ | sodium chloride | Instill 2 sprays | | 0 | 03/0 | | Activ | | 0.65 % nasal | into each nostril as | | | 7/20 | | e | | aerosol,sprayIndicat | needed. | | | 20 | | | | ions: dry nose | Indications: dryness | | | | | | | | of the nose | | | | | | + + +---+---+------+---+-------+ +---+ + | | Additional | | | InformationPatient | | | not taking. Reported | | | on 10/09/2019 10:10 | | | AM | +---+ + + + +--------+---+------+---+-------+ | HYDROmorphone 2 mg | Take 1 tablet by | 80 | 0 | 03/0 | | Activ | | oral | mouth every three | tablet | | 12/13 | | e | | tabletIndications: | hours as needed for | | | 20 | | | | Pituitary mass (HCC) | moderate pain or | | | | | | | | severe pain. | | | | | | + + +--------+---+------+---+-------+ +---+ + | | Additional | | | InformationPatient | | | not taking. Reported | | | on 10/09/2019 10:10 | | | AM | +---+ + + + +--------+---+------+---+-------+ | hydrocortisone 10 | Take 1-2 tabs daily, | 60 | 3 | 04/2 | | Activ | | mg oral | as instructed. | tablet | | /20 | | e | | tabletIndications: | Indications: | | | 20 | | | | adrenal cortical | decreased function | | | | | | | insufficiency | of the adrenal gland | | | | | | + + +--------+---+------+---+-------+ | | Take 1 tablet by | 20 | 0 | 04/2 | | Activ | | amoxicillin-clavulan | mouth every twelve | tablet | | 06/15 | | e | | ate (AUGMENTIN) | hours. | | | 20 | | | | 875-125 mg oral | | | | | | | | tablet | | | | | | | + + +--------+---+------+---+-------+ +---+ + | | Additional | | | InformationPatient | | | not taking. Reported | | | on 10/09/2019 10:10 | | | AM | +---+ + + + +---------+---+------+---+-------+ | pregabalin 75 mg | Take 2 capsules by | 150 | 2 | 06/0 | | Activ | | oral | mouth once daily in | capsule | | 02/13 | | e | | capsuleIndications: | the morning AND 1 | | | 20 | | | | Atypical facial | capsule once daily | | | | | | | pain, Pituitary | at noon AND 2 | | | | | | | adenoma (HCC) | capsules once daily | | | | | | | | in the evening. | | | | | | + + +---------+---+------+---+-------+ | OXcarbazepine 300 | Take 1 tablet by | 60 | 2 | 10/26 | | Activ | | mg oral | mouth two times | tablet | | 11/13 | | e | | tabletIndications: | daily. Start once a | | | 20 | | | | Left-sided | day, increase in 1 | | | | | | | trigeminal neuralgia | week to twice a day | | | | | | + + +---------+---+------+---+-------+ Active Problems + + + | Problem | Noted Date | + + + | Left facial pain | 08/20/2019 | + + + | Pituitary mass | 07/29/2019 | + + + Encounters +--------+ + + + + | Date | Type | Specialty | Care Team | Description | +--------+ + + + + | 12/17/ | MyChart | Radiology | | MRI Screening Form | | 2019 | Encounter | | | | +--------+ + + + + | 11/29/ | MyChart | Neurology | Thu Fields, | RE: MRI's | 2019 | Encounter | | MD | | +--------+ + + + + | 11/24/ | MyChart | Neurology | Thu Fields, | RE: Medication | 2019 | Encounter | | MD | change | +--------+ + + + + | 11/19/ | Office | Neurology | Thu Fields, | Left-sided | | 2019 | Visit | | MD | trigeminal neuralgia | | | | | | (Primary Dx); | | | | | | Dizziness; Word | | | | | | finding difficulty; | | | | | | Hx of brain surgery; | | | | | | Pituitary mass | | | | | | (HCC); Loss of | | | | | | consciousness (HCC) | +--------+ + + + + | 11/19/ | Travel | | | | | 2019 | | | | | +--------+ + + + + | 11/02/ | MyChart | Neurological Surgery | | Return to work Form | | 2019 | Encounter | | | | +--------+ + + + + | 11/02/ | Documentati | Neurological Surgery | Pawan Mann MD | | | 2020 | on | | | | +--------+ + + + + | 11/01/ | [facility] | Neurological Surgery | Pawan Mann MD | RE: Back to work | | 2019 | Encounter | | | [place] | +--------+ + + + + | 11/01/ | MyChart | Neurology | Thu Fields, | RE: Medication refil | 2019 | Encounter | | MD | | +--------+ + + + + | 10/09/ | [facility] | Neurological Surgery | Mery Barnett, | RE: Question | 2019 | Encounter | | MD | regarding | | | | | | TSH-THYROID STIM | | | | | | HORMONE | +--------+ + + + + | 10/09/ | [facility] | Otolaryngology | Brandon Rutherford, | Sore throat | | 2019 | Encounter | | MD | | +--------+ + + + + | 10/08/ | Office | Neurological Surgery | Mery Barnett, | Pituitary mass (HCC) | | 2019 | Visit | | MD | (Primary Dx); | | | | | | 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); | | | | | | History of pituitary | | | | | | surgery | +--------+ + + + + | 10/08/ | Office | Neurological Surgery | Pawan Mann MD | 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) (Primary | | | | | | Dx) | +--------+ + + + + | 10/08/ | Hospital | Radiology | Pawan Mann MD | | | 2019 | Encounter | | | | +--------+ + + + + | 10/08/ | Travel | | | | | 2019 | | | | | +--------+ + + + + | 09/30/ | MyChart | Otolaryngology | Brandon Rutherford, | Sore throat | | 2019 | Encounter | | MD | | +--------+ + + + + | 09/29/ | MyChart | Radiology | | MRI Screening Form | | 2019 | Encounter | | | | +--------+ + + + + | 09/20/ | MyChart | Otolaryngology | Brandon Rutherford, | Throat issues | | 2019 | Encounter | | MD | | +--------+ + + + + | 07/09/ | Procedure | Radiology | | | | 2020 | Pass | | | | +--------+ + + + + from Last 3 Months Social History + +-------+ +--------+------+ | Tobacco [...] | | | + + + + Last Filed Vital Signs + + + + + | Vital Sign | Reading | Time Taken | Comments | + + + + + | Blood Pressure | 103/79 | 10/09/2019 10:12 AM | | | | | PDT | | + + + + + | Pulse | 75 | 10/09/2019 10:12 AM | | | | | PDT [...] + + + + | Weight | 96.3 kg (212 lb 4.8 | 10/09/2019 10:12 AM | | | | oz) | PDT | | + + + + + | Height | 172.7 cm (5' 8") | 10/09/2019 10:12 AM | | | | | PDT | | + + + + + | Body Mass Index | 32.28 | 10/09/2019 10:12 AM | | | | | PDT | | + + + + + Plan of Treatment +--------+ + + + [...] | 12/30/ | Appointment | Clinical | [facility] | | | 2019 | | Neurophysiology | [address] | | | | | [address] | | | | | | [place], [place] | | | | | | [address] | | +--------+ + + + + | 12/30/ | Appointment | Radiology | Thu Fields, | | | 2019 | | | [address] | | | | | | [address] | | | | | | [place] [address] | | | | | | [phone] | | | | | | | | +--------+ + + + + | 12/30/ | Appointment | Radiology | Thu Fields, | | | 2019 | | | MD [address] | | | | | | [address] [place], | | | | | | [place] [address] | | | | | | [phone] | | | | | | | | +--------+ + + + + | 01/21/ | Office | Neurology | Thu Fields, | | | 2019 | Visit | | MD [address] | | | | | | [address] [place], | | | | | | [place] [address] | | | | | | [phone] | | | | | | | | +--------+ + + + + + + + + + | Health Maintenance | Due Date | Last Done | Comments | + + + + + | Influenza (Flu) | | 03/19/2019, 04/12/2014, | | | vaccination (#1) | 0 | 02/25/2013, Additional history | | | | | exists | | + + + + + | Pneumococcal | Aged Out | | No longer eligible | | vaccination | | | based on patient's | | | | | age to complete this | | | | | topic | + + + + + Implants + +------+--------+ +--------+--------+--------+ | Implanted | Type | Area | Manufacture | Device | Shelf | Model | | | | | r | | Expira | / | | | | | | Identi | tion | Serial | | | | | | fier | Date | / Lot | + +------+--------+ +--------+--------+--------+ | Graft Soft Tissue 3x1in | | Midlin | [employer] | | 04/25/ | [id number] | | Duragen Cranial Dura Bovine | | e: | LIFESCIENCE | | 2020 | 91 / | | Collagen Matrix Patch | | Head | S | | | [id number] | | Resorbable Suturable - | | | | | | 61 | | [id number]: Qty: 1 on | | | | | | | | 07/29/2019 by Pawan Mann, | | | | | | | | at [facility] REV LOC | | | | | | | + +------+--------+ +--------+--------+--------+ Procedures + +--------+ + + + | Procedure Name | Priori | Date/Time | Associated Diagnosis | Comments | | | ty | | | | + +--------+ + + + | CORTISOL, SERUM | Routin | 10/09/2019 | Pituitary mass | Results for this | | | e | 11:15 AM | (HCC) | procedure are in the | | | | PDT | | results section. | + +--------+ + + + | TSH | Routin | 10/09/2019 | Pituitary mass | Results for this | | | e | 10:45 AM | (HCC) | procedure are in the | | | | PDT | | results section. | + +--------+ + + + | PROLACTIN | Routin | 10/09/2019 | Pituitary mass | Results for this | | | e | 10:45 AM | (HCC) | procedure are in the | | | | PDT | | results section. | + +--------+ + + + | INSULIN GROWTH | Routin | 10/09/2019 | Pituitary mass | Results for this | | FACTOR-1, SERUM | e | 10:45 AM | (HCC) | procedure are in the | | | | PDT | | results section. | + +--------+ + + + | FREE T4 | Routin | 10/09/2019 | Pituitary mass | Results for this | | | e | 10:45 AM | (HCC) | procedure are in the | | | | PDT | | results section. | + +--------+ + + + | BASIC METABOLIC SET | Routin | 10/09/2019 | Pituitary mass | Results for this | | (NA, K, CL, TCO2, | e | 10:45 AM | (HCC) | procedure are in the | | BUN, CR, GLU, CA) | | PDT | | results section. | + +--------+ + + + | CORTISOL, SERUM | Routin | 10/09/2019 | Pituitary mass | Results for this | | | e | 10:45 AM | (HCC) | procedure are in the | | | | PDT | | results section. | + +--------+ + + + | ACTH, PLASMA | Routin | 10/09/2019 | Pituitary mass | Results for this | | | e | 10:45 AM | (HCC) | procedure are in the | | | | PDT | | results section. | + +--------+ + + + | MRI PITUITARY WWO | Routin | 10/09/2019 | Benign neoplasm of | Results for this | | CONTRAST | e | 9:27 AM | pituitary gland and | procedure are in the | | | | PDT | craniopharyngeal | results section. | | | | | duct (HCC) | | | | | | Pituitary adenoma | | | | | | (HCC) | | + +--------+ + + + from Last 3 Months Results CORTISOL, SERUM (10/09/2019 11:15 AM PDT)Only the most recent of 2 results within the time period is included. + +-------+ + + + | Component | Value | Ref Range | Performed | Pathologist | | | | | At | Signature | + +-------+ + + + | CORTISOL, | 14.5 | ug/dL | [facility] | | | [...] | + + + + + | [facility] | [address] | [place] [address] | | | SERVICES, CORE | [address] | | | + + + + + ACTH, PLASMA (10/09/2019 10:45 AM PDT) + +-------+ + + + | Component | Value | Ref Range | Performed | Pathologist | | | | | At | Signature | + +-------+ + + + | ACTH,PLASMA | 30 | <=45 pg/mL | [facility] | | | | | [facility] | | | | | | [place] | | + +-------+ + + + [...] + | [facility] | [address] | [place] [address] | | | [place] | | | | + + + + + BASIC METABOLIC SET (NA, K, CL, TCO2, BUN, CR, GLU, CA) (10/09/2019 10:45 AM PDT) + +---------+ + + + | Component | Value | Ref Range | Performed | Pathologist | | | | | At | Signature | + +---------+ + + + | GLUCOSE, | 66 (L) | 70 - 99 mg/dL | [facility] [...] +---------+ + + + | CREATININE | 0.86 | 0.60 - 1.10 | [facility] | | | PLASMA | | mg/dL | LABORATORY | | | (LAB) | | | SERVICES, | | | | | | CORE | | + +---------+ + + + | EGFR | >60 | >60 mL/min | [facility] | | | - | | | LABORATORY | | | [facility] | | | SERVICES, | | | [...] +---------+ + + + | POTASSIUM, | 3.9 | 3.4 - 5.0 | [facility] | [...] + + + | ANION GAP | 8 | 4 - 11 mmol/L | [facility] [...] +---------+ + + + | BUN/CREATIN | 14 | 8 - 25 | [facility] | [...] MDRD equation recommended by the National | [facility] | | Kidney Disease Education Program. [...] | + + + + + | [facility] | [address] | [place] [address] | | | SERVICES, CORE | [address] | | | + + + + + INSULIN GROWTH FACTOR-1, SERUM (10/09/2019 10:45 AM PDT) + + + + + + | Component | Value | Ref Range | Performed | Pathologist | | | | | At | Signature | + + + + + + | IGF-1 | 206 | 78 - 274 ng/mL | [facility] | | | | | | REG UNIV | | | | | | PTH - [facility] | | + + + + + + | IGF-1 | 1.0Comment: INTERPRETIVE | | [facility] | | | [...] | | | | | | by [employer] | | | | | | [address] [facility],[place] | | | | | | [id number] | | | | | | [phone] | | | | | | Nura [...] [facility] | [address] | [place], [place] | | | UNIV PTH - [facility] | | [address] | | + + + + + FREE T4 (10/09/2019 10:45 AM PDT) + +-------+ + + + | Component [...] [facility] | [address] | [place] [address] | | | MADHU, VALERY | [address] | | | + + + + + PROLACTIN (10/09/2019 10:45 AM PDT) + +-------+ + + + | Component | Value | Ref Range | Performed | Pathologist | | | | | At | Signature | + +-------+ + + + | PROLACTIN | 5.2 | 2.8 - 26.0 | [facility] | | | | | ng/ml | LABORATORY | | | | | | SERVICES, | | | | | | CORE | | + +-------+ + + + + + | Specimen | + + | Blood - Blood | | (substance) | + + + + + | Narrative | Performed At | + + + | [place] performed [place] [facility] [place]. New reference range in effect | [facility] | | 2-6-18. | LABORATORY | | | [place] | + + + + + + + + | Performing | Address | City/State/Zipcode | Phone Number | | Organization | | | | + + + + + | [facility] | [address] | [place] [address] | | | [place] | [address] | | | + + + + + TSH (10/09/2019 10:45 AM PDT) + +-------+ + + + | Component | Value | Ref Range | Performed | Pathologist | | | | | At | Signature | + +-------+ + + + | TSH | 1.36 | 0.44 - 4.75 | [facility] | [...] | + + + + + | [facility] | [address] [facility] | [place] [address] | | | SERVICES, VALERY | [address] | | | + + + + + MRI PITUITARY WWO CONTRAST (10/09/2019 9:27 AM [...] + + from Last 3 Months Insurance +-------+--------+ +--------+ + +--------+ | Payer | Benefi | Subscriber | Effect | Phone | Address | Type | | | t Plan | ID | branden | | | | | | / | | Dates | | | | | | Group | | | | | | +-------+--------+ +--------+ + +--------+ | [employer] | [employer] | [phone] | 10/03/19 | [phone] | [address] | Indemn | | | | | 20-Pre | 2 | [phone] | ity | | | | | sent | | [place] | | | | | | | | , [place] [address] | | +-------+--------+ +--------+ + +--------+ + +--------+ +--------+ + + | Guarantor Name | Accoun | Relation to | Date | Phone | Billing Address | | | t Type | Patient | of | | | | | | | | | | + +--------+ +--------+ + + | Anushka Delcid | Person | Self [birth year] | [address] | | | al/Fam | | 1980 | [phone] | [place] [address] | | | albaro | | | 5 (Home) | | + +--------+ +--------+ + + Advance Directives + + + + + | Code Status | Date | Date | Comments | | | Activated | Inactivated | | + + + + + | Full Code | 07/29/2019 | 08/01/2019 | | | | 6:01 AM | 7:44 PM | | + + + + +
--- OUTSIDE RECORDS SUMMARY | ~2019-12-19 | XMS | Encounter Summary ---
Demographics + + + | Address | [address] | | | [place] [address] | + + + | Home Phone | | + + + | Preferred Language | Unknown | + + + | Marital Status | | + + + | Hindu Affiliation | CHR | + + + | Race | White | + + + | Ethnic Group | Not or | + + + Author + + + | Author | [facility] | + + + | Organization | [facility] | + + + | Address | Unknown | + + + | Phone | Unavailable | + + + Support + + +---------+ + | Name | Relationship | Address | Phone | + + +---------+ + | Anushka Mitchell | ECON | Unknown | | + + +---------+ + Care Team Providers + +------+ + | Care Fire Ranger Name | Role | Phone | + +------+ + | Lisa Adorno PA-C | PCP | | + +------+ + Reason for Visit + + + | Reason | Comments | + + + | Follow-up visit | | + + + Intake Referral (Urgent) + +--------+ + + + + | Status | Reason | Specialty | Diagnoses / | Referred By | Referred To | | | | | Procedures | Contact | Contact | + +--------+ + + + + | Pending | | Endocrinology | Diagnoses | Kyree, | Ericka, | | Review | | , Diabetes & | Benign | Lisa | MD Mery | | | | Metabolism / | neoplasm of | E, PA-C | [address] | | | | Neurological | pituitary | Analy | [address] | | | | Surgery | gland | Family | [address], | | | | | Pituitary | Medicine | [place] | | | | | adenoma, | [address] | [address] | | | | | facial pain | [address] | Phone: | | | | | and facial | Analy, | [phone] | | | | | numbness | [place] [address] | Fax: | | | | | Procedures | Phone: | [phone] | | | | | IA NEW | [phone] | | | | | | PATIENT | Fax: | | | | | | LEVEL V [place] | [phone] | | | | | | EST PATIENT | | | | | | | LEVEL V IA | | | | | | | THR/PRPH/DX | | | | | | | INJ,IV PSH | | | | | | | IA INJ | | | | | | | COSYNTROPIN | | | | | | | PER 0.25MG | | | + +--------+ + + + + Encounter Details +--------+---------+ + + + | Date | Type | Department | Care Team | Description | +--------+---------+ + + + | 08/10/ | Office | Neurosurgery at | Renetta Luciano V, | Pituitary mass (HCC) | | 2020 | Visit | [place] [facility] | MD [address] | (Primary Dx) | | | | and Healing [address] | | | | | [facility] | [place], [place] | | | | | Health and Healing, | [address] | | | | | Building [address] | [phone] | | | | | [place], [place] | | | | | | [address] | | | | | | [phone] | | | +--------+---------+ + + + [...] + + + | Blood Pressure | 122/77 | 08/11/2019 10:38 AM | | | | | PDT | | + + + + + | Pulse | 61 | 08/11/2019 10:38 AM | | | | | PDT | | + + + + + | Temperature | 36.4 C (97.6 F) | 08/11/2019 10:38 AM | | | | | PDT [...] + + + + | Weight | 93 kg (205 lb 1.6 | 08/11/2019 10:38 AM | | | | oz) | PDT | | + + + + + | Height | 172.7 cm (5' 8") | 08/11/2019 10:38 AM | | | | | PDT | | + + + + + | Body Mass Index | 31.19 | 08/11/2019 10:38 AM | | | | | PDT [...] documented as of this encounter Progress Notes Renetta Luciano MD - 08/11/2019 10:30 AM PDTFormatting of this note might be different f rom the original. Pituitary clinica follow up Reason for visit: 2 weeks postop for pituitary adenoma History of Present Illness: Anushka Delcid is a 39 y.o. female with 12 x 3.5 x 4.5 mm pituitary mass contacting the o ptic chiasm found on MRI Brain on 05/08/19 incidentally during workup for sinus pressure. Sh e reported irregular menses in 2019, in addition to abnormal hair growth at the jaw line, a round the nipples and pubic area, fluctuating weight loss and gain over the past 2-3 years ( lost ~60 lbs in the last 2 years and has gained back some weight in 2019). Preop testing forest wed borderline LDCST and normal rest of the pituitary function. She underwent an uncomplicat ed TSS on 07/29/[address] Mann. Path showed pituitary tissue. Interval Hx: Left sided facial pain continues Taking Lyrica, tylenol extra strength every 6 hours; this controls pain to level 2-3 She feels like she has a sinus infection on the left Seeing ENT today; had bloody mucous discharge from left nostril Lost sense of taste Light sensitive on the left; she can see better though; but some blurry vision close up No n/v Lightheaded when bending over Thirsty at night but can make throgh the night w/o getting up Drinks 4-5 16 oz bottles plus fluid with meals Review of Systems: Review of systems is negative other than as stated above. Past Surgical History Procedure Laterality Date Fess (functional endoscopic sinus surgery) 2010 Tubal ligation 2004 Knee arthroscopy Right 2008 Knee surgery Right 2009 cartilage transplant Radiofrequency ablation 2009 ablation of nerves in the neck, s/p wiplash injury Tonsillectomy 2017 06/28 frequent sore throats Lumpectomy, breast Right 2018 See HPI for detailed PMH Medications: Current Outpatient Medications Medication Sig acetaminophen 500 mg oral tablet Take 2 tablets by mouth every six hours. ascorbic acid (vitamin C) 250 mg oral tablet Take 250 mg by mouth three times daily. BIOTIN ORAL Take by mouth. calcium carbonate/vitamin D3 (VITAMIN D-3 ORAL) Take by mouth. guaiFENesin LA 600 mg oral tablet extended release 12hr Take 1 tablet by mouth two time s daily. herbal drugs (FIBER DIET ORAL) Take by mouth. hydrocortisone 20 mg oral tablet Take 1 tablet by mouth once daily in the morning. HYDROmorphone 2 mg oral tablet Take 1 tablet by mouth every three hours as needed for m oderate pain or severe pain. HYDROmorphone 2 mg oral tablet Take 1 tablet every three hours as needed for moderate p ain or severe pain L.acid,gas,plan,rhm/B.ani/cran (UP4 PROBIOTICS WOMEN'S ORAL) Take by mouth. multivit with calcium,iron,min (MULTIPLE VITAMIN, WOMENS ORAL) Take by mouth. ondansetron ODT 4 mg oral tablet,disintegrating Dissolve 1 tablet on tongue and swallow every eight hours as needed for nausea/vomiting. polyethylene glycol 17 gram oral powder in packet Mix 1 packet and take orally three ti mes daily as needed (1st line - for no BM for 2 days). Indications: constipation pregabalin 75 mg oral capsule Take 1 capsule by mouth two times daily. senna-docusate 8.6-50 mg oral tablet Take 1 tablet by mouth two times daily. Indication s: constipation sodium chloride 0.65 % nasal aerosol,spray Instill 2 sprays into each nostril as needed . Indications: dryness of the nose No current facility-administered medications for this visit. [...] file Tobacco Use Smoking status: Never Smoker Smokeless tobacco: Never Used Substance and Sexual Activity Alcohol use: Not Currently Drug use: Never Sexual activity: Not on file Lifestyle Physical activity: Days per week: Not on file Minutes per session: Not on file Stress: Not on file Relationships Social connections: Talks on phone: Not on file Gets together: Not on file Attends buddhism service: Not on file Active member of club or organization: Not on file Attends meetings of clubs or organizations: Not on file Relationship status: Not on file Other Topics Concern Not on file Social History Narrative Not on file Patient is employed. Marital status: Physical Exam: Visit Vitals Item Reading BP 122/77 Pulse 61 Temp (Src) 36.4 C (97.6 F) (Oral) Ht 1.727 m (5' 8") Wt 93 kg (205 lb 1.6 oz) LMP 08/11/2019 BMI 31.19 kg/(m^2) General Appearance: NAD HEENT: EOMI, MMM, no proptosis, no lid lag Respiratory: breathing comfortably on room air, no audible wheezes MSK: ambulatory without assistance Skin: no rashes on exposed skin Neurologic: A/O x 3, no tremor Psychiatric: affect appropriate Outside Labs and Imaging Results: Ref. Range 05/29/2019 13:30 05/29/2019 14:00 ACTH,PLASMA Latest Ref Range: <=45 pg/mL 31 CORTISOL, TOTAL SERUM Latest Units: ug/dL 8.0 16.0 IGF-1 Latest Ref Range: 78 - 274 ng/mL 190 IGF-1 Z-SCORE Unknown 0.7 FSH,SERUM Latest Units: mIU/mL 7 LUTEINIZING HORMONE,SERUM Latest Units: mIU/mL 9 TSH Latest Ref Range: 0.44 - 4.75 mIU/L 2.03 PROLACTIN Latest Ref Range: 2.8 - 26.0 ng/ml 7.0 FREE T4, SERUM Latest Ref Range: 0.6 - 1.2 ng/dL 0.8 SURGICAL PATHOLOGY: [id number] Order: [id number] Collected: 07/29/2019 09:41 Status: Final result Visible to patient: No (Not Released) Component Clinical History Per the requisition: pituitary adenoma. Per review of the electronic medical record, the annabel austin is a 39-year-old woman with history ofheadaches and sinusitis, found to have a >1 cm sellar orion imaging. She presents for surgical resection. Final Pathologic Diagnosis A. Brain, sellar mass, resection: Anterior pituitary tissue, no adenoma identified. See comment. Comment: Sections show anterior pituitary with retained acinar architecture on H&E and high lighted by collagen IV immunhistochemisty. The tissue is composed of a mixture of anterior p ituitary cell types that show positivity for the micrographics services supervisor factors Pit-1, T-pit, and SF- 1, as well as for anterior pituitary hormones. The Ki-67 labeling index is low. There is no significant inflammation. Additional level sections are examined on block A2 and support the final diagnosis. Case seen by: Deborah Hagen DO - Neuropathology Fellow Jerome Yoo MD, PhD Neuropathologist Pathology, [facility] My electronic signature indicates that I have personally reviewed all diagnostic slides, th e gross and/or microscopic portion of this report and formulated the final diagnosis Imaging: CT Sinus 05/03/19 MRI Brain 05/08/19 MRI PIT 06/04/19 FINDINGS: SELLA AND PARASELLAR: There is a sharply demarcated, T1 hyperintense, T2 hypointense hypo-/ nonenhancing lesion in the pituitary gland, between the adeno- and neurohypophysis measuring approximately 6 x 12 x 6 mm (AP X RL X CC). The sellar floor has a domed appearance, pushin g the pituitary tissue and the sellar diaphragm into the suprasellar cistern, where it appro aches the optic chiasm without displacing it. The infundibulum is midline. Parasellar stru ctures are normal. BRAIN: Visualized portions are unremarkable. SOFT TISSUES AND MARROW: Visualized portions are unremarkable. IMPRESSION: 39 y.o. female with 12 x 3.5 x 4.5 mm pituitary mass s/p uncomplicated TSS on 07/29/[address] Mann. Normal pit fx preop. Path showed pituitary tissue. Discussed pathology report; p ossibly pituitary cyst or liquified tumor with cystic degeneration. Discussed that MRI foll ow up is still necessary to look for recurrence; next MRI at 3 mo postop; then once every 12 mo during the first 3-5 yrs and less frequently thereafter if no recurrence. She is recovering appropriately and will nee ENT today. No sxs of AI. Increased thirst is likely driven by dry mouth. Will check her AM cortisol, BMP and urine osms. Plan: Pituitary function: A. Adrenal gland function on HC postop. AM cortisol; if normal, will taper off HC and check SUPPLY CLERK at next visit. B. Thyroid function- F4 and TSH normal preop. Will recheck at 6 weeks postop. C. Prolactin normal; will recheck at 6 weeks postop D. Growth hormone - IGF-1 normal: will recheck at 6 weeks postop E. FSH/LH axis - normal D. ADH. Increased thirst; there was no evidence of DI in the hospital. Check BMP and urine osm in the morning. I spent 25 minutes with the patient [id number]. Greater than 50% of the time was spent c ounseling the patient regarding expected recovery after the pituitary surgery, surgical path ology, pituitary function in the postop period and monitoring for pituitary mass recurrence postop. Renetta Luciano MD Vp Client Services Endocrinology and Metabolism documented in this encounter Plan of Treatment [...] [address] | | | | | | [place], [place] | | | | | | [address] | | +--------+ + + + + | 12/30/ | Appointment | Radiology | Thu Fields, | | | 2019 | | | MD [address] | | | | | | [address] | | | | | | [place] [address] | | | | | | [phone] | | | | | | | | +--------+ + + + + | 12/30/ | Appointment | Radiology | Thu Fields, | | | 2019 | | | MD [address] | | | | | | [address] [place], | | | | | | [place] [address] | | | | | | [phone] | | | | | | | | +--------+ + + + + | 01/21/ | Office | Neurology | Thu Fields, | | | 2019 | Visit | | MD [address] | | | | | | [address] [place], | | | | | | [place] [address] | | | | | | [phone] | | | | | | | | +--------+ + + + + + +------+--------+ + + | Name | Type | Priori | Associated Diagnoses | Order Schedule | | | | ty | | | + +------+--------+ + + | CORTISOL, SERUM | Lab | Routin | Pituitary mass | Expected: 08/11/2019 | | | | e | (HCC) | (Approximate), | | | | | | Expires: 09/09/2020 | + +------+--------+ + + | ACTH, PLASMA | Lab | Routin | Pituitary mass | Expected: 08/11/2019 | | | | e | (HCC) | (Approximate), | | | | | | Expires: 09/09/2020 | + +------+--------+ + + | BASIC METABOLIC SET | Lab | Routin | Pituitary mass | Expected: 08/11/2019 | | (NA, K, CL, TCO2, | | e | (HCC) | (Approximate), | | BUN, CR, GLU, CA) | | | | Expires: 09/09/2020 | + +------+--------+ + + | OSMOLALITY, URINE | Lab | Routin | Pituitary mass | Expected: 08/11/2019 | | SPOT | | e | (HCC) | (Approximate) | + +------+--------+ + + documented as of this encounter Visit Diagnoses + + | Diagnosis | + + | Pituitary mass (HCC) - Primary Unspecified disorder of the pituitary gland and its | | hypothalamic control | + + documented in this encounter
--- OUTSIDE RECORDS SUMMARY | ~2019-12-19 | XMS | Encounter Summary ---
Demographics + + + | Address | [address] | | | [place] [address] | + + + | Home Phone | | + + + | Preferred Language | Unknown | + + + | Marital Status | | + + + | Uatsdin Affiliation | CHR | + + + [...] Team Providers + +------+ + | Care Protective Services Officer Name | Role | Phone | + +------+ + | Lisa Adorno PA-C | PCP | | + +------+ + Encounter Details +--------+ + + + + | Date | Type | Department | Care Team | Description | +--------+ + + + + | 06/05/ | Procedure | Radiology/Imaging | | | | 2019 | Pass | Lab at [facility] [address] | | | | | [address] [facility] | | | | | | Health and Healing, | | | | | | [address] | | | | | | Floor [place], [place] | | | | | | [address] | | | | | | [phone] | | | +--------+ + + + [...] | | | | | | Road [place], [place] | | | | | | [address] | | +--------+ + + + + | 12/30/ | Appointment | Radiology | Thu Fields, | | | 2019 | | | MD [address] | | | | | | [address] [place], | | | | | | [place] [address] | | | | | | [phone] | | | | | | | | +--------+ + + + + | 12/30/ | Appointment | Radiology | Thu Fields, | | | 2019 | | | MD [address] | | | | | | [address] [facility], | | | | | | [place] [address] | | | | | | [phone] | | | | | | | | +--------+ + + + + | 01/21/ | Office | Neurology | Thu Fields, | | | 2019 | Visit | | MD [address] | | | | | | [address], | | | | | | [place] [address] | | | | | | [phone] | | | | | | | | +--------+ + + + + documented as of this encounter Visit Diagnoses Not on filedocumented in this encounter"
--- OUTSIDE RECORDS SUMMARY | ~2019-12-19 | XMS | Clinical Summary ---
Demographics + + + | Address | [address] | | | [place] [address] | + + + | Home Phone | | + + + | Preferred Language | Unknown | + + + | Marital Status | | + + + | Episcopal Affiliation | CHR | + + + | Race | White | + + + | Ethnic Group | Not or | + + + Author + + + | Author | [facility] | + + + | Organization | [facility] | + + + | Address | Unknown | + + + | Phone | Unavailable | + + + Support + + +---------+ + | Name | Relationship | Address | Phone | + + +---------+ + | Anushka Mitchell | ECON | Unknown | | + + +---------+ + Care Team Providers + +------+ + | Care Technical Support Consultant Name | Role | Phone | + +------+ + | Lisa Adorno PA-C | PCP | | + +------+ + Source Comments WON is fully live on both [facility] Allergies + + + + + + [...] [address] | | | | | | [place], [place] | | | | | | [address] | | +--------+ + + + + | 12/30/ | Appointment | Radiology | Thu Fields, | | | 2019 | | | [address] | | | | | | [address] | | | | | | [place] [address] | | | | | | [phone] | | | | | | | | +--------+ + + + + | 12/30/ | Appointment | Radiology | Thu Fields, | | | 2019 | | | MD [address] | | | | | | [address] [place], | | | | | | [place] [address] | | | | | | [phone] | | | | | | | | +--------+ + + + + | 01/21/ | Office | Neurology | Thu Fields, | | | 2019 | Visit | | MD [address] | | | | | | [address] [place], | | | | | | [place] [address] | | | | | | [phone] | | | | | | | [...] | Head | S | | | /[id number] | | Resorbable Suturable - | | | | | | 61 | | [id number]: Qty: 1 on | | | | | | | | 07/29/2019 by Pawan Mann, | | | | | | | | at [facility] REV LOC | | | | [...] | + + + + + | [facility] | [address] | [place] [address] | | | SERVICES, CORE | MAICO [...] - | | | | | | [place] | | + +-------+ + + + [...] + | [facility] - | [address] | [place] [address] | | | [place] | | | [...] | | | LABORATORY | | | IVORIAN | | | SERVICES, | | | [...] MDRD equation recommended by the National | [facility] | | Kidney Disease Education Program. Estimated [...] | + + + + + | [facility] | [address] | [place] [address] | | | SERVICES, CORE | PARK [...] | | | | | | by [employer] | | | | | | [address] [facility] | | | | | | [address] | | | | | | [phone].[employer]. | | | | | | Nura [...] [facility] | [address] | [place], [place] | | | [facility] | | [address] | | + + + + + [...] [facility] | [address] | [place] [address] | | | MADHU, VALERY | MAICO [...] + + + | Test performed in [facility] lab. New reference range in effect | [facility] | | 2-6-18. | LABORATORY | | | VALERY LE[place]G | + + + + + + + + | Performing | Address | City/State/Zipcode | Phone Number | | Organization | | | | + + + + + | [facility] | [address] | [place] [address] | | | VALERY LEUNG | MAICO [...] | + + + + + | [facility] | [address] [facility] | [place] [address] | | | SERVICES, VALERY | MAICO [...] | Danae Downs MD Dictation initiated: Danae Dowsn MD | | | 10/09/2019 9:35 AM [...] | | | 20-Pre | 2 | [id number] | ity | | | | | sent | | [place] | | | | | | | | , [place] [address] | | +-------+--------+ +--------+ + +--------+ + [...] | 1980 | [phone] | [place] [address] | | | albaro | | | [...]
--- OUTSIDE RECORDS SUMMARY | ~2019-12-19 | XMS | Encounter Summary ---
Demographics + + + | Address | [address] | | | [place] [address] | + + + | Home Phone | | + + + | Preferred Language | Unknown | + + + | Marital Status | | + + + | Mormonism Affiliation | CHR | + + + [...] Team Providers + +------+ + | Care Director School Of Nursing Name | Role | Phone | + +------+ + | Lisa Adorno PA-C | PCP | | + +------+ + Encounter Details +--------+ + + + + | Date | Type | Department | Care Team | Description | +--------+ + + + + | 11/01/ | MyChart | Neurology at | Thu Fields, | RE: Medication refil | | 2020 | Encounter | [facility] & | [address] | | | | | Healing [address] | [address] [place], | | | | | [facility] | [place] [address] | | | | | Health and Healing, | [phone] | | | | | [place] [address] | | | | | | [place], [place] | | | | | | [address] | | | | | | [phone] | | | +--------+ + + + [...] in contact | No / Unsure | 10/09/2019 8:33 AM | | with someone who was [...] | Appointment | Clinical | Celestino Henriquez [facility] | | | 2019 | | Neurophysiology | Outpatient [address] | | | | | | Road [place], [place] | | | | | | [address] | | +--------+ + + + + | 12/30/ | Appointment | Radiology | Thu Fields, | | | 2019 | | | [address] | | | | | | [address] [place], | | | | | | [place] [address] | | | | | | [phone] | | | | | | | | +--------+ + + + + | 12/30/ | Appointment | Radiology | Thu Fields, | | | 2019 | | | MD [address] | | | | | | [address] [place], | | | | | | [place] [address] | | | | | | [phone] | | | | | | | | +--------+ + + + + | 01/21/ | Office | Neurology | Thu Fields, | | | 2019 | Visit | | MD [address] | | | | | | [address] [place], | | | | | | [place] [address] | | | | | | [phone] | | | | | | | | +--------+ + + + + documented as of this encounter Visit Diagnoses + + | Diagnosis | + + | Atypical facial pain Atypical face pain | + + | Pituitary adenoma (HCC) Benign neoplasm of pituitary gland and craniopharyngeal duct | | (pouch) | + + documented in this encounter"
--- OUTSIDE RECORDS SUMMARY | ~2019-12-19 | XMS | Encounter Summary ---
Demographics + + + | Address | [address] | | | [place] [address] | + + + | Home Phone | | + + + | Preferred Language | Unknown | + + + | Marital Status | | + + + | Alevism Affiliation | CHR | + + + [...] Team Providers + +------+ + | Care Athletic Events Scorer Name | Role | Phone | + [...] | | | | | pituitary | Ritchie | [address] | | | | | gland | Family | Rd [place], | | | | | Procedures | Medicine | [place] | | | | | [place] | [address] | [address] | | | | | OFFICE/OUTPT | [address] | Phone: | | | | | | [place], | [phone] | | | | | VISIT,[place] | [place] [address] | Fax: | | | | | KORINA III | Phone: | [phone] | | | | | | [phone] | | | | | | | Fax: | | | | | | | [phone] | | + +--------+ + + + [...] | | | Surgery Services at | [facility] [address] | | | | | [facility] [address] | [place], [place] | | | | | [facility] | [address] | | | | | Health and Healing, | [phone] | | | | | [facility] [address] | | | | | | [place], [place] | | | | | | [address] | | | | | | [phone] | | | +--------+---------+ + + + [...] the junction of the anterior 1/3rd and security assistant ior 2/3rds of the TVC's. Hypopharynx: No [...] she has not traveled outs nima the counts include 234 beds at the [facility] or [place] recently. Okay to be seen [...] [address] | | | | | | [facility], [place] | | | | | | [address] | | +--------+ + + + + | 12/30/ | Appointment | Radiology | Thu Fields, | | 2019 | | | MD [address] | | | | | | [address] [place], | | | | | | [place] [address] | | | | | | [phone] | | | | | | | | +--------+ + + + + | 12/30/ | Appointment | Radiology | Thu Fields, | | | 2019 | | | MD [address] | | | | | | [address] [place], | | | | | | [place] [address] | | | | | | [phone] | | | | | | | | +--------+ + + + + | 01/21/ | Office | Neurology | Thu Fields, | | 2019 | Visit | | MD [address] | | | | | | [address] [place], | | | | | | [place] [address] | | | | | | [phone] | | | | | | | | +--------+ + + + + documented as of this encounter Procedures + +--------+ + + + | Procedure Name | Priori | Date/Time | Associated Diagnosis | Comments | | | ty | | | | + +--------+ + + + | [place] | Routin | 09/15/2019 | Throat pain [...]
--- OUTSIDE RECORDS SUMMARY | ~2019-12-19 | XMS | Encounter Summary ---
Demographics + + + | Address | [address] | | | [place] [address] | + + + | Home Phone | | + + + | Preferred Language | Unknown | + + + | Marital Status | | + + + | Anabaptist Affiliation | CHR | + + + [...] Team Providers + +------+ + | Care Virtualization Consultant Name | Role | Phone | + +------+ + | Lisa Adorno PA-C | PCP | | + +------+ + Encounter Details +--------+--------+ + + + | Date | Type | Department | Care Team | Description | +--------+--------+ + + + | 03/04/ | Travel | | | | | [...] [place] | | | | | | [address] | | +--------+ + + + + | 12/30/ | Appointment | Radiology | Thu Fields, | | | 2019 | | | MD [address] | | | | | | [address] [place], | | | | | | [place] [address] | | | | | | [phone] | | | | | | | | +--------+ + + + + | 12/30/ | Appointment | Radiology | Thu Fields, | | | 2019 | | | MD [address] | | | | | | [address] [facility], | | | | | | [place] [address] | | | | | | [phone] | | | | | | | | +--------+ + + + + | 01/21/ | Office | Neurology | Thu Fields, | | | 2019 | Visit | | [address] | | | | | | [address], | | | | | | [place] [address] | | | | | | [phone] | | | | | | | | +--------+ + + + + documented as of this encounter Visit Diagnoses Not on filedocumented in this encounter"
--- OUTSIDE RECORDS SUMMARY | ~2019-12-19 | XMS | Encounter Summary ---
Demographics + + + | Address | [address] | | | [place] [address] | + + + | Home Phone | | + + + | Preferred Language | Unknown | + + + | Marital Status | | + + + | Holiness Affiliation | CHR | + + + | Race | White | + + + | Ethnic Group | Not or | + + + Author + + + | Author | [facility] | + + + | Organization | [facility] | + + + | Address | Unknown | + + + | Phone | Unavailable | + + + Support + + +---------+ + | Name | Relationship | Address | Phone | + + +---------+ + | Anushka Mitchell | ECON | Unknown | | + + +---------+ + Care Team Providers + +------+ + | Care Creative Consultant Name | Role | Phone | + +------+ + | Lisa Adorno PA-C | PCP | | + +------+ + Encounter Details +--------+ + + + + | Date | Type | Department | Care Team | Description | +--------+ + + + + | 08/27/ | MyChart | Neurology at | Thu Fields, | RE: Medication | | 2020 | Encounter | [facility] & | [address] | change | | | | Healing [address] | [address] [place], | | | | | [facility] | [place] [address] | | | | | Health and Healing, | [phone] | | | | | [facility] 1 | | | | | | [place], [place] | | | | | | [address] | | | | | | [phone] | | | +--------+ + + + [...] | | | | | | Road [place], [place] | | | | | | [address] | | +--------+ + + + + | 12/30/ | Appointment | Radiology | Thu Fields, | | | 2019 | | | MD [address] | | | | | | [address] [facility] | | | | | | [place] [address] | | | | | | [phone] | | | | | | | | +--------+ + + + + | 12/30/ | Appointment | Radiology | Thu Fields, | | | 2019 | | | MD [address] | | | | | | [address] [place], | | | | | | [place] [address] | | | | | | [phone] | | | | | | | | +--------+ + + + + | 01/21/ | Office | Neurology | Thu Fields, | | | 2019 | Visit | | MD [address] | | | | | | [address] [place], | | | | | | [place] [address] | | | | | | [phone] | | | | | | | [...]
--- OUTSIDE RECORDS SUMMARY | ~2019-12-19 | XMS | Encounter Summary ---
Demographics + + + | Address | [address] | | | [place] [address] | + + + | Home Phone | | + + + | Preferred Language | Unknown | + + + | Marital Status | | + + + | Restorationism Affiliation | CHR | + + + | Race | White | + + + | Ethnic Group | Not or | + + + Author + + + | Author | [facility] | + + + | Organization | [facility] | + + + | Address | Unknown | + + + | Phone | Unavailable | + + + Support + + +---------+ + | Name | Relationship | Address | Phone | + + +---------+ + | Anushka Mitchell | ECON | Unknown | | + + +---------+ + Care Team Providers + +------+ + | Care Supervisory Clerk Name | Role | Phone | + +------+ + | Lisa Adorno PA-C | PCP | | + +------+ + Encounter Details +--------+ + + + + | Date | Type | Department | Care Team | Description | +--------+ + + + + | 09/01/ | Telephone | Neurosurgery at | Renetta Luciano V, | | | 2019 | | [facility] | [address] | | | | | and Healing [address] | | | | | [address] [place] for | [place], [place] | | | | | Health and Healing, | [address] | | | | | [facility] 1 | [phone] | | | | | [place], [place] | | | | | | [address] | | | | | | [phone] | | | +--------+ + + + [...] | | | | | | Road [place], [place] | | | | | | [address] | | +--------+ + + + + | 12/30/ | Appointment | Radiology | Thu Fields, | | | 2019 | | | MD [address] | | | | | | [address] [facility] | | | | | | [place] [address] | | | | | | [phone] | | | | | | | | +--------+ + + + + | 12/30/ | Appointment | Radiology | Thu Fields, | | | 2019 | | | MD [address] | | | | | | [address] [place], | | | | | | [place] [address] | | | | | | [phone] | | | | | | | | +--------+ + + + + | 01/21/ | Office | Neurology | Thu Fields, | | | 2019 | Visit | | MD [address] | | | | | | [address] [place], | | | | | | [place] [address] | | | | | | [phone] | | | | | | | | +--------+ + + + + + +------+--------+ + + | Name | Type | Priori | Associated Diagnoses | Order Schedule | | | | ty | | | + +------+--------+ + + | ACTH, PLASMA | Lab | Routin | Pituitary mass | Ordered: 09/04/2019 | | | | e | (HCC) Benign | | | | | | neoplasm of | | | | | | pituitary gland and | | | | | | craniopharyngeal | | | | | | duct (HCC) | | + +------+--------+ + + | BASIC METABOLIC SET | Lab | Routin | Pituitary mass | Ordered: 09/04/2019 | | (NA, K, CL, TCO2, | | e | (HCC) Benign | | | BUN, CR, GLU, CA) | | | neoplasm of | | | | | | pituitary gland and | | | | | | craniopharyngeal | | | | | | duct (HCC) | | + +------+--------+ + + | TSH | Lab | Routin | Pituitary mass | Ordered: 09/04/2019 | | | | e | (HCC) Benign | | | | | | neoplasm of | | | | | | pituitary gland and | | | | | | craniopharyngeal | | | | | | duct (HCC) | | + +------+--------+ + + | FREE T4 | Lab | Routin | Pituitary mass | Ordered: 09/04/2019 | | | | e | (HCC) Benign | | | | | | neoplasm of | | | | | | pituitary gland and | | | | | | craniopharyngeal | | | | | | duct (HCC) | | + +------+--------+ + + | INSULIN GROWTH | Lab | Routin | Pituitary mass | Ordered: 09/04/2019 | | FACTOR-1, SERUM | | e | (HCC) Benign | | | | | | neoplasm of | | | | | | pituitary gland and | | | | | | craniopharyngeal | | | | | | duct (HCC) | | + +------+--------+ + + | PROLACTIN | Lab | Routin | Pituitary mass | Ordered: 09/04/2019 | | | | e | (HCC) Benign | | | | | | neoplasm of | | | | | | pituitary gland and | | | | | | craniopharyngeal | | | | | | duct (HCC) | | + +------+--------+ + + | CORTISOL, SERUM | Lab | Routin | Pituitary mass | Ordered: 09/04/2019 | | | | e | (HCC) Benign | | | | | | neoplasm of | | | | | | pituitary gland and | | | | | | craniopharyngeal | | | | | | duct (HCC) | | + +------+--------+ + + documented as of this encounter Visit Diagnoses + + | Diagnosis | + + | 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
--- OUTSIDE RECORDS SUMMARY | ~2019-12-19 | XMS | Encounter Summary ---
Demographics + + + | Address | [address] | | | [place] [address] | + + + | Home Phone | | + + + | Preferred Language | Unknown | + + + | Marital Status | | + + + | Roman Catholic Affiliation | CHR | + + + [...] Team Providers + +------+ + | Care Logistics Assistant Name | Role | Phone | + [...] | | adenoma, | [address] | [address] | | | | | facial pain | [address] | Phone: | | | | | and facial | Analy, | [phone] | | | | | numbness | [place] [address] | Fax: | | | | | Procedures | Phone: | [phone] | | | | | MI NEW | [phone] | | | | | | PATIENT | Fax: | | | | | | LEVEL V MI | [phone] | | | | | | EST PATIENT | | | | | | | LEVEL V MI | | | | | | | THR/PRPH/DX | | | | | | | INJ,IV PSH | | | | | | | MI INJ | | | | | | [...] (HCC) | | 2020 | Visit | [place] [facility] | MD [address] | (Primary Dx) | | | | and Healing [address] | | | | | [address] [facility] | [place], [place] | | | | | Health and Healing, | [address] | | | | | Building [address] | [phone] | | | | | [place], [place] | | | | | | [address] | | | | | | [phone] | | | +--------+---------+ + + + [...] file Gets together: Not on file Attends mandaen service: Not on file Active member of [...] 0.6 - 1.2 ng/dL 0.8 SURGICAL PATHOLOGY: [id number] Order: [id number] Collected: 07/29/2019 09:41 Status: Final result Visible [...] cell types that show positivity for the mechanical assembler factors Pit-1, T-pit, and SF- 1, as well as for anterior pituitary hormones. The Ki-67 labeling index is low. There is no significant inflammation. Additional level sections are examined on block A2 and support the final diagnosis. Case seen by: Deborah Hagen DO - Neuropathology Fellow Jerome Yoo MD, PhD Neuropathologist Pathology, [facility] My electronic signature indicates [...] normal, will taper off HC and check TRACTOR DRIVER TEAMSTER at next visit. B. Thyroid function- F4 [...] I spent 25 minutes with the patient [id number]. Greater than 50% of the time was spent c ounseling the patient regarding expected recovery after the pituitary surgery, surgical path ology, pituitary function in the postop period and monitoring for pituitary mass recurrence postop. Renetta Luciano MD [facility] documented in this encounter [...] [address] | | | | | | [place], [place] | | | | | | [address] | | +--------+ + + + + | 12/30/ | Appointment | Radiology | Thu Fields, | | | 2019 | | | MD [address] | | | | | | [address] | | | | | | [place] [address] | | | | | | [phone] | | | | | | | | +--------+ + + + + | 12/30/ | Appointment | Radiology | Thu Fields, | | | 2019 | | | MD [address] | | | | | | [address] [place], | | | | | | [place] [address] | | | | | | [phone] | | | | | | | | +--------+ + + + + | 01/21/ | Office | Neurology | Thu Fields, | | | 2019 | Visit | | MD [address] | | | | | | [address] [place], | | | | | | [place] [address] | | | | | | [phone] | | | | | | | [...]
--- OUTSIDE RECORDS SUMMARY | ~2019-12-19 | XMS | Encounter Summary ---
Demographics + + + | Address | [address] | | | [place] [address] | + + + | Home Phone | | + + + | Preferred Language | Unknown | + + + | Marital Status | | + + + | Samaritan Affiliation | CHR | + + + | Race | White | + + + | Ethnic Group | Not or | + + + Author + + + | Author | [facility] | + + + | Organization | [facility] | + + + | Address | Unknown | + + + | Phone | Unavailable | + + + Support + + +---------+ + | Name | Relationship | Address | Phone | + + +---------+ + | Anushka Mitchell | ECON | Unknown | | + + +---------+ + Care Team Providers + +------+ + | Care Day Care Supervisor Name | Role | Phone | + [...] Rd | | | | | | [place], [place] | | | | | | [address] | | | +--------+ + + + [...] | | | | | | Road [place], [place] | | | | | | [address] | | +--------+ + + + + | 12/30/ | Appointment | Radiology | Thu Fields, | | | 2019 | | | [address] | | | | | | [address] | | | | | | [place] [address] | | | | | | [phone] | | | | | | | | +--------+ + + + + | 12/30/ | Appointment | Radiology | Thu Fields, | | | 2019 | | | MD [address] | | | | | | [address] [place], | | | | | | [place] [address] | | | | | | [phone] | | | | | | | | +--------+ + + + + | 01/21/ | Office | Neurology | Thu Fields, | | 2019 | Visit | | MD [address] | | | | | | [address] [place], | | | | | | [place] [address] | | | | | | [phone] | | | | | | | | +--------+ + + + + documented as of this encounter Visit Diagnoses Not on filedocumented in this encounter"
--- OUTSIDE RECORDS SUMMARY | ~2019-12-19 | XMS | Encounter Summary ---
Demographics + + + | Address | [address] | | | [place] [address] | + + + | Home Phone | | + + + | Preferred Language | Unknown | + + + | Marital Status | | + + + | Mormonism Affiliation | Unknown | + + + | Race | Unknown | + + + | Ethnic Group | Unknown | + + + Author + + + | Author | [facility] | | | and [place] | + + + | Organization | [facility] | | | and [...] Team Providers + +------+ + | Care Nca Certified Concierge Name | Role | Phone | + +------+ + | Jarocho Tate | PCP | | | MD | | | + +------+ + Encounter Details +--------+ + + + + | Date | Type | Department | Care Team | Description | +--------+ + + + + | 04/03/ | Hospital | [facility] | Forest Castillo, | Acute pain of right | | 2019 | Encounter | [facility] | MD [address] | shoulder | | | | [address] | [place] [address] | | | | | [place], [place] | [phone] | | | | | [address] | | | | | | [phone] | | | +--------+ + + + [...] + + documented as of this encounter Medications at Time of Discharge + + + +---------+ + + | Medication | Sig | Dispensed | Refills | Start | End Date | | | | | | Date | | + + + +---------+ + + | meloxicam (MOBIC) | Take 1 tablet by | 30 | 0 | 04/06/20 | | | 15 mg | mouth Daily. | tablet | | 19 | | | tabletIndications: | | | | | | | Impingement syndrome | | | | | | | of right shoulder | | | | | | + + + +---------+ + + | metroNIDAZOLE | Apply bid to face | 45 g | 11 | 03/03/20 | | | (METROGEL) 0.75 % | | | | 19 | | | gelIndications: | | | | | | | Perioral dermatitis | | | | | | + + + +---------+ + + | VOLTAREN 1 % GEL | | | 0 | 01/07/20 | | | | | | | 19 | | + + + +---------+ + [...] + + documented in this encounter Results XR Shoulder Right 2 + Vw [...] Castillo MD has created this entry using [employer] | | | Voice Recognition software and Tiggly. The entry has been | | | reviewed and there may still exist sound alike word errors. | | | | | | | | |Forest Castillo MD has created this entry using [employer] | | |Recognition software and Tiggly. The entry has been reviewed and | [...] + | Diagnosis | + + | Acute pain of right shoulder | + + documented in this encounter"
--- OUTSIDE RECORDS SUMMARY | ~2019-12-19 | XMS | Encounter Summary ---
Demographics + + + | Address | [address] | | | [place] [address] | + + + | Home Phone | | + + + | Preferred Language | Unknown | + + + | Marital Status | | + + + | Caodaism Affiliation | CHR | + + + | Race | White | + + + | Ethnic Group | Not or | + + + Author + + + | Author | [facility] | + + + | Organization | [facility] | + + + | Address | Unknown | + + + | Phone | Unavailable | + + + Support + + +---------+ + | Name | Relationship | Address | Phone | + + +---------+ + | Anushka Mitchell | ECON | Unknown | | + + +---------+ + Care Team Providers + +------+ + | Care Sheet Cutter Name | Role | Phone | + +------+ + | Lisa Adorno PA-C | PCP | | + +------+ + Encounter Details +--------+ + + + + | Date | Type | Department | Care Team | Description | +--------+ + + + + | 08/27/ | MyChart | Neurology at | Thu Fields, | RE: Medication | | 2020 | Encounter | [facility] & | [address] | change | | | | Healing [address] | [address] [place], | | | | | [facility] | [place] [address] | | | | | Health and Healing, | [phone] | | | | | [facility] 1 | | | | | | [place], [place] | | | | | | [address] | | | | | | [phone] | | | +--------+ + + + [...] | | | | | | Road [place], [place] | | | | | | [address] | | +--------+ + + + + | 12/30/ | Appointment | Radiology | Thu Fields, | | | 2019 | | | MD [address] | | | | | | [address] [facility] | | | | | | [place] [address] | | | | | | [phone] | | | | | | | | +--------+ + + + + | 12/30/ | Appointment | Radiology | Thu Fileds, | | | 2019 | | | MD [address] | | | | | | [address] [place], | | | | | | [place] [address] | | | | | | [phone] | | | | | | | | +--------+ + + + + | 01/21/ | Office | Neurology | Thu Fields, | | | 2019 | Visit | | MD [address] | | | | | | [address] [place], | | | | | | [place] [address] | | | | | | [phone] | | | | | | | [...]
--- OUTSIDE RECORDS SUMMARY | ~2019-12-19 | XMS | Encounter Summary ---
Demographics + + + | Address | [address] | | | [place] [address] | + + + | Home Phone | | + + + | Preferred Language | Unknown | + + + | Marital Status | | + + + | Presybeterian Affiliation | CHR | + + + [...] Team Providers + +------+ + | Care Ball Thread Machine Tender Name | Role | Phone | + [...] floor | | | | | | [place], [place] | | | | | | [address] | | | +--------+ + + + [...] | | | | | | Road [place], [place] | | | | | | [address] | | +--------+ + + + + | 12/30/ | Appointment | Radiology | Thu Fields, | | | 2019 | | | [address] | | | | | | [address] [place], | | | | | | [place] [address] | | | | | | [phone] | | | | | | | | +--------+ + + + + | 12/30/ | Appointment | Radiology | Thu Fields, | | | 2019 | | | MD [address] | | | | | | [address] [place], | | | | | | [place] [address] | | | | | | [phone] | | | | | | | | +--------+ + + + + | 01/21/ | Office | Neurology | Thu Fields, | | | 2019 | Visit | | MD [address] | | | | | | [address] [place], | | | | | | [place] [address] | | | | | | [phone] | | | | | | | | +--------+ + + + + documented as of this encounter Visit Diagnoses Not on filedocumented in this encounter"
--- OUTSIDE RECORDS SUMMARY | ~2019-12-19 | XMS | Encounter Summary ---
Demographics + + + | Address | [address] | | | [place] [address] | + + + | Home Phone | | + + + | Preferred Language | Unknown | + + + | Marital Status | | + + + | Baptist Affiliation | CHR | + + + | Race | White | + + + | Ethnic Group | Not or | + + + Author + + + | Author | [facility] | + + + | Organization | [facility] | + + + | Address | Unknown | + + + | Phone | Unavailable | + + + Support + + +---------+ + | Name | Relationship | Address | Phone | + + +---------+ + | Anushka Mitchell | ECON | Unknown | | + + +---------+ + Care Team Providers + +------+ + | Care Cd Manufacturing Supervisor Name | Role | Phone | + +------+ + | Lisa Adorno PA-C | PCP | | + +------+ + Reason for Visit + + + | Reason | Comments | + + + | Follow-up visit | Meds Rec'd and pt confirmed VV set up | + + + | Return Patient | | + + + | Postoperative visit | | + + + Intake [...] Neurological | pituitary | Analy | [place] [place] | | | | Surgery | gland | Family | [address], | | | | | Pituitary | Medicine | [place] | | | | | adenoma, | [address] | [address] | | | | | facial pain | [address] | Phone: | | | | | and facial | Analy, | [phone] | | | | | numbness | [place] [address] | Fax: | | | | | Procedures | Phone: | [phone] | | | | | ID NEW | [phone] | | | | | | PATIENT | Fax: | | | | | | LEVEL V ID | [phone] | | | | | | EST PATIENT | | | | | | | LEVEL V ID | | | | | | | THR/PRPH/DX | | | | | | | INJ,IV PSH | | | | | | | ID INJ | | | | | | | COSYNTROPIN | | | | | | | PER 0.25MG | | | + +--------+ + + + + Encounter Details +--------+ + + + + | Date | Type | Department | Care Team | Description | +--------+ + + + + | 09/07/ | Video/TeleH | Neurosurgery at | [place], | Follow-up visit | | 2020 | ealth-Sched | [place] [facility] | Shayy, | (Meds Rec'd and pt | | | uled | and Healing [address] | DNP,TEXTILE COATING MACHINE OPERATOR,[place] [address] | confirmed VV set | | | | [facility] | [facility], | up); Return Patient; | | | | Health and Healing, | [place] [address] | Postoperative visit | | | | [facility] 1 | [phone] | | | | | [place], [place] | | | | | | [address] | | | | | | [phone] | | | +--------+ + + + [...] documented as of this encounter Progress Notes Shayy Peralta, DENISSE,TEXTILE COATING MACHINE OPERATOR,[place] - 09/08/2019 1:00 PM PDTFormatting of this note might be di fferent from the original. The visit took place via Telemedicine. Patient location is the home. Patient was located in the state of [place] at the time of the visit. Telepresenter (relative and/or energy broker) was not used during the visit. Pituitary clinica follow up Reason for visit: 6 weeks postop for pituitary adenoma History of [...] by Dr. Mann. Path showed pituitary tissue. At this visit; Trigeminal neuralgia pending follow up with neurology Sore throat with difficulty swallowing - tx with zpac. Was swabbed for strep neg and neg mo no. Now tx with antifungal- swish and swallow and Fluconazole 100mg daily Some nasal drainage with activity also prior to surgery Left sided facial pain continues Increased Lyrica, tylenol extra strength every 6 hours; still helps to control pain 2-3 Seeing ENT today Did feel better 2 weeks ago.but worse with increase activity Poor sense of taste or smell Does have a 'weird taste in her mouth Light sensitive on the left; she can see better though; but some blurry vision close up No n/v Lightheaded at time not constant Thirsty most of the time. Usually x 1 nocturia Drinks 4-5 16 oz bottles plus fluid with meals Exact date of onset of symptoms is unknown Review of systems negative other than as stated above. 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 L.acid,gas,plan,rhm/B.ani/cran ([employer] WOMEN'S ORAL) Take by [...] file Gets together: Not on file Attends mosque service: Not on file Active member of club or organization: Not on file Attends meetings of clubs or organizations: Not on file Relationship status: Not on file Other Topics Concern Not on file Social History Narrative Not on file Patient is employed. Marital status: Physical Exam: Virtual visit. Outside Labs and Imaging Results: Ref. Range [...] Ref Range: 0.6 - 1.2 ng/dL 0.8 - SURGICAL PATHOLOGY: [id number] Order: [id number] Collected: 07/29/2019 09:41 Status: Final result Visible [...] cell types that show positivity for the dental assisting instructor factors Pit-1, T-pit, and SF- 1, as well as for anterior pituitary hormones. The Ki-67 labeling index is low. There is no significant inflammation. Additional level sections are examined on block A2 and support the final diagnosis. Case seen by: Deborah Hagen DO - Neuropathology Fellow Jerome Yoo MD, PhD Neuropathologist Pathology, [facility] My electronic signature indicates that I have personally reviewed all diagnostic slides, th e gross and/or microscopic portion of this report and formulated the final diagnosis Imaging: CT Sinus 05/03/19 - MRI Brain 05/08/19 - MRI PIT 06/04/19 - - FINDINGS: SELLA AND PARASELLAR: There is a [...] TISSUES AND MARROW: Visualized portions are unremarkable. Assessment and discussion: Anushka Delcid is a 39 y.o. female with 12 x 3.5 x 4.5 mm pituitary mass s/p uncomplicat ed TSS on 07/29/[address] Mann. Normal pit fx preop. Path showed pituitary tissue. Pt reports ongoing left facial pain, pain behind her left eye which is sensitive to light. She reports this is unchanged from pre op. She continues tx with abx and antifungals for per sistent sore throat and will follow up with ENT today. She is also scheduled for further ron luation of trigeminal neuralgia. No indication of AI or DI or other pituitary dysfunction at this time. She will follow up f or review with MRI 10/09/19 I answered pt questions to her satisfaction Plan: 1. Adrenal gland function on 20mg HC postop. AM cortisol; if normal, will taper off H C and check COMMERCIAL PLUMBER at next in office visit. 2. Thyroid function- F4 and TSH normal preop. Will recheck at next visit 3. Prolactin has been normal; will recheck postop level at 3 mths follow up 4. Growth hormone - IGF-1 normal pr op. Will recheck at 3 mth follow up 5. Gonadal FSH/LH axis - normal menses reg. Follow with MARKET ASSET PROTECTION MANAGER prn 6. ADH. No nocturia, usually thirsty BMP pending. No indication of DI 7. Follow up for review with COMMERCIAL PLUMBER. RF labs MRI 10/09/19 SHAYY PERALTA DNP, TEXTILE COATING MACHINE OPERATOR, [place] Administrative Receptionist [facility] [place] [address] [facility] [address] I spent 25 minutes face to face with this patient via virtual visit Of which 100% was spen t in medically indicated counseling and education pertaining to the issues discussed above. I spent 15 mins in chart and medication review, review of outside labs and follow up orders . Bailee Lowry DNP, FNP, [place] - 09/08/2019 1:00 PM PDTError documented in this encounter Plan of Treatment [...] | Appointment | Clinical | Tech, Cnl Hr | | | 2019 | | Neurophysiology | Outpatient [address] | | | | | | [address] | | | | | | Road [place], [place] | | | | | | [address] | | +--------+ + + + + | 12/30/ | Appointment | Radiology | Thu Fields, | | 2019 | | | MD [address] | | | | | | [address] [place], | | | | | | [place] [address] | | | | | | [phone] | | | | | | | | +--------+ + + + + | 12/30/ | Appointment | Radiology | Thu Fields, | | | 2019 | | | MD [address] | | | | | | [address] [place], | | | | | | [place] [address] | | | | | | [phone] | | | | | | | | +--------+ + + + + | 01/21/ | Office | Neurology | Thu Fields, | | 2019 | Visit | | MD [address] | | | | | | [address] [place], | | | | | | [place] [address] | | | | | | [phone] | | | | | | | | +--------+ + + + + documented as of this encounter Visit Diagnoses + + | Diagnosis | + + | Pituitary mass (HCC) - Primary Unspecified disorder of the pituitary gland and its | | hypothalamic control | + + | Other headache syndrome | + + | Facial pain Headache | + + documented in this encounter"
--- OUTSIDE RECORDS SUMMARY | ~2019-12-19 | XMS | Encounter Summary ---
Demographics + + + | Address | [address] | | | [place] [address] | + + + | Home Phone | | + + + | Preferred Language | Unknown | + + + | Marital Status | | + + + | Evangelical Affiliation | CHR | + + + [...] Team Providers + +------+ + | Care Ground Nuclear Weapons Assembly Officer Name | Role | Phone | + +------+ + | Lisa Adorno PA-C | PCP | | + +------+ + Encounter Details +--------+--------+ + + + | Date | Type | Department | Care Team | Description | +--------+--------+ + + + | 01/03/ | Travel | | | | | [...] | | | | | | Road [place], [place] | | | | | | [address] | | +--------+ + + + + | 12/30/ | Appointment | Radiology | Thu Fields, | | | 2019 | | | MD [address] | | | | | | [address] [facility] | | | | | | [place] [address] | | | | | | [phone] | | | | | | | | +--------+ + + + + | 12/30/ | Appointment | Radiology | Thu Fields, | | | 2019 | | | MD [address] | | | | | | [address] [place], | | | | | | [place] [address] | | | | | | [phone] | | | | | | | | +--------+ + + + + | 01/21/ | Office | Neurology | Thu Fields, | | | 2019 | Visit | | MD [address] | | | | | | [address] [place], | | | | | | [place] [address] | | | | | | [phone] | | | | | | | | +--------+ + + + + documented as of this encounter Visit Diagnoses Not on filedocumented in this encounter"
--- OUTSIDE RECORDS SUMMARY | ~2019-12-19 | XMS | Encounter Summary ---
Demographics + + + | Address | [address] | | | [place] [address] | + + + | Home Phone [...] Team Providers + +------+ + | Care Machine Dyer Name | Role | Phone | + +------+ + | Lisa Adorno PA-C | PCP | | + +------+ + Encounter Details +--------+ + + + + | Date | Type | Department | Care Team | Description | +--------+ + + + + | 09/30/ | MyChart | Otolaryngology | Brandon Rutherford, | Sore throat | | 2020 | Encounter | Head and Neck | [address] | | | | | Surgery Services at | [facility] [address] | | | | | [facility] [address] | [place], [place] | | | | | [facility] for | [address] | | | | | Health and Healing, | [phone] | | | | | [facility] 2 | | | | | | [place], [place] | | | | | | [address] | | | | | | [phone] | | | +--------+ + + + [...] | Appointment | Clinical | Tech, [facility] | | | 2019 | | Neurophysiology | Outpatient [address] | | | | [address] | | | | | | Road [place], [place] | | | | | | [address] | | +--------+ + + + + | 12/30/ | Appointment | Radiology | Thu Fields, | | | 2019 | | | MD [address] | | | | | | [facility] 8 [facility] | | | | | | [place] [address] | | | | | | [phone] | | | | | | | | +--------+ + + + + | 12/30/ | Appointment | Radiology | Thu Fields, | | | 2019 | | | MD [address] | | | | | | [address] [place], | | | | | | [place] [address] | | | | | | [phone] | | | | | | | | +--------+ + + + + | 01/21/ | Office | Neurology | Thu Fields, | | | 2019 | Visit | | MD [address] | | | | | | [address] [place], | | | | | | [place] [address] | | | | | | [phone] | | | | | | | | +--------+ + + + + documented as of this encounter Visit Diagnoses Not on filedocumented in this encounter"
--- OUTSIDE RECORDS SUMMARY | ~2019-12-19 | XMS | Encounter Summary ---
Demographics + + + | Address | [address] | | | [place] [address] | + + + | Home Phone | | + + + | Preferred Language | Unknown | + + + | Marital Status | | + + + | Pentecostalism Affiliation | CHR | + + + | Race | White | + + + | Ethnic Group | Not or | + + + Author + + + | Author | [facility] | + + + | Organization | [facility] | + + + | Address | Unknown | + + + | Phone | Unavailable | + + + Support + + +---------+ + | Name | Relationship | Address | Phone | + + +---------+ + | Anushka Mitchell | ECON | Unknown | | + + +---------+ + Care Team Providers + +------+ + | Care Auto Damage Estimator Name | Role | Phone | + +------+ + | Lisa Adorno PA-C | PCP | | + +------+ + Encounter Details +--------+ + + + + | Date | Type | Department | Care Team | Description | +--------+ + + + + | 10/09/ | MyChart | Otolaryngology | Brandon Rutherford, | Sore throat | | 2020 | Encounter | Head and Neck | [address] | | | | | Surgery Services at | [facility] [address] | | | | | [facility] [address] | [place], [place] | | | | | [facility] for | [address] | | | | | Health and Healing, | [phone] | | | | | [facility] 2 | | | | | | [place], [place] | | | | | | [address] | | | | | | [phone] | | | +--------+ + + + [...] | Appointment | Clinical | Tech, Jobl [facility] | | | 2019 | | Neurophysiology | Outpatient [address] | | | | | [address] | | | | | | Road [place], [place] | | | | | | [address] | | +--------+ + + + + | 12/30/ | Appointment | Radiology | Thu Fields, | | | 2019 | | | MD [address] | | | | | | [facility] 8 [facility] | | | | | | [place] [address] | | | | | | [phone] | | | | | | | | +--------+ + + + + | 12/30/ | Appointment | Radiology | Thu Fields, | | | 2019 | | | MD [address] | | | | | | [address] [place], | | | | | | [place] [address] | | | | | | [phone] | | | | | | | | +--------+ + + + + | 01/21/ | Office | Neurology | Thu Fields, | | | 2019 | Visit | | MD [address] | | | | | | [address] [place], | | | | | | [place] [address] | | | | | | [phone] | | | | | | | | +--------+ + + + + documented as of this encounter Visit Diagnoses Not on filedocumented in this encounter"
--- OUTSIDE RECORDS SUMMARY | ~2019-12-19 | XMS | Encounter Summary ---
Demographics + + + | Address | [address] | | | [place] [address] | + + + | Home Phone | | + + + | Preferred Language | Unknown | + + + | Marital Status | | + + + | Synagogue Affiliation | CHR | + + + [...] Team Providers + +------+ + | Care Shop Coordinator Name | Role | Phone | + +------+ + | Lisa Adorno PA-C | PCP | | + +------+ + Encounter Details +--------+ + + + + | Date | Type | Department | Care Team | Description | +--------+ + + + + | 11/02/ | Documentati | Neurosurgery at | Pawan Mann MD | | | 2020 | on | [facility] [address] | [address] | | | | | [facility] for | [place], [place] | | | | | Health and Healing, | [address] | | | | | | [phone] | | | | | floor [place], [place] | | | | | | [address] | | | | | | [phone] | | | +--------+ + + + [...] | | | | | | Road [place], [place] | | | | | | [address] | | +--------+ + + + + | 12/30/ | Appointment | Radiology | Thu Fields, | | | 2019 | | | MD [address] | | | | | | [facility] 8 [facility] | | | | | | [place] [address] | | | | | | [phone] | | | | | | | | +--------+ + + + + | 12/30/ | Appointment | Radiology | Thu Fields, | | | 2019 | | | MD [address] | | | | | | [address] [place], | | | | | | [place] [address] | | | | | | [phone] | | | | | | | | +--------+ + + + + | 01/21/ | Office | Neurology | Thu Fields, | | | 2019 | Visit | | MD [address] | | | | | | [address] [place], | | | | | | [place] [address] | | | | | | [phone] | | | | | | | | +--------+ + + + + documented as of this encounter Visit Diagnoses Not on filedocumented in this encounter"
--- OUTSIDE RECORDS SUMMARY | ~2019-12-19 | XMS | Encounter Summary ---
Demographics + + + | Address | [address] | | | [place] [address] | + + + | Home Phone | | + + + | Preferred Language | Unknown | + + + | Marital Status | | + + + | Tenriism Affiliation | CHR | + + + | Race | White | + + + | Ethnic Group | Not or | + + + Author + + + | Author | [facility] | + + + | Organization | [facility] | + + + | Address | Unknown | + + + | Phone | Unavailable | + + + Support + + +---------+ + | Name | Relationship | Address | Phone | + + +---------+ + | Anushka Mitchell | ECON | Unknown | | + + +---------+ + Care Team Providers + +------+ + | Care Top Taper Machine Name | Role | Phone | + +------+ + | Lisa Adorno PA-C | PCP | | + +------+ + Encounter Details +--------+ + + + + | Date | Type | Department | Care Team | Description | +--------+ + + + + | 06/12/ | Abstract | Neurology at | Unknown . | | | 2020 | | [facility] Health & | | | | | | Healing [address] | | | | | | [place] [facility] | | | | | | Health and Healing, | | | | | | [address] | | | | | | [place], [place] | | | | | | [address] | | | | | | [phone] | | | +--------+ + + + [...] | | | | | | Road [place], [place] | | | | | | [address] | | +--------+ + + + + | 12/30/ | Appointment | Radiology | Thu Fields, | | | 2019 | | | MD [address] | | | | | | [address] [place], | | | | | | [place] [address] | | | | | | [phone] | | | | | | | | +--------+ + + + + | 12/30/ | Appointment | Radiology | Thu Fields, | | | 2019 | | | MD [address] | | | | | | [address] [place], | | | | | | [place] [address] | | | | | | [phone] | | | | | | | | +--------+ + + + + | 01/21/ | Office | Neurology | Thu Fields, | | | 2020 | Visit | | [address] | | | | | | [address], | | | | | | [place] [address] | | | | | | [phone] | | | | | | | | +--------+ + + + + documented as of this encounter Visit Diagnoses Not on filedocumented in this encounter"
--- OUTSIDE RECORDS SUMMARY | ~2019-12-19 | XMS | Encounter Summary ---
Demographics + + + | Address | [address] | | | [place] [address] | + + + | Home Phone [...] + + + | Author | [facility] | + + + | Organization | [facility] | + + + | Address | Unknown | + + + | Phone | Unavailable | + + + Support + + +---------+ + | Name | Relationship | Address | Phone | + + +---------+ + | Anushka Mitchell | ECON | Unknown | | + + +---------+ + Care Team Providers + +------+ + | Care Millinery Designer Name | Role | Phone | + +------+ + | Lisa Adorno PA-C | PCP | | + +------+ + Encounter Details +--------+ + + + + | Date | Type | Department | Care Team | Description | +--------+ + + + + | 07/09/ | Procedure | Diagnostic Imaging | | | | 2019 | Pass | Services at [facility] | | | | | | [address] | | | | | | [address] | | | | | | [facility] | | | | | | [place], [place] | | | | | | [address] | | | | | | [phone] | | | +--------+ + + + [...] | | | | | | Road [place], [place] | | | | | | [address] | | +--------+ + + + + | 12/30/ | Appointment | Radiology | Thu Fields, | | | 2019 | | | [address] | | | | | | [address] [place], | | | | | | [place] [address] | | | | | | [phone] | | | | | | | | +--------+ + + + + | 12/30/ | Appointment | Radiology | Thu Fields, | | | 2019 | | | MD [address] | | | | | | [address] [place], | | | | | | [place] [address] | | | | | | [phone] | | | | | | | | +--------+ + + + + | 01/21/ | Office | Neurology | Thu Fields, | | | 2019 | Visit | | MD [address] | | | | | | [address] [place], | | | | | | [place] [address] | | | | | | [phone] | | | | | | | | +--------+ + + + + documented as of this encounter Visit Diagnoses Not on filedocumented in this encounter"
--- OUTSIDE RECORDS SUMMARY | ~2019-12-19 | XMS | Encounter Summary ---
Demographics + + + | Address | [address] | | | [place] [address] | + + + | Home Phone | | + + + | Preferred Language | Unknown | + + + | Marital Status | | + + + | Sabianism Affiliation | CHR | + + + | Race | White | + + + | Ethnic Group | Not or | + + + Author + + + | Author | [facility] | + + + | Organization | [facility] | + + + | Address | Unknown | + + + | Phone | Unavailable | + + + Support + + +---------+ + | Name | Relationship | Address | Phone | + + +---------+ + | Anushka Mitchell | ECON | Unknown | | + + +---------+ + Care Team Providers + +------+ + | Care Grain Farmer Name | Role | Phone | + [...] | | | | | [address] [place] for | [place], [place] | | | | | Health and Healing, | [address] | | | | | [facility] 1 | [phone] | | | | | [place], [place] | | | | | | [address] | | | | | | [phone] | | | +--------+ + + + [...] | | | | | | Road [place], [place] | | | | | | [address] | | +--------+ + + + + | 12/30/ | Appointment | Radiology | Thu Fields, | | | 2019 | | | MD [address] | | | | | | [address] [facility] | | | | | | [place] [address] | | | | | | [phone] | | | | | | | | +--------+ + + + + | 12/30/ | Appointment | Radiology | Thu Fields, | | | 2019 | | | MD [address] | | | | | | [address] [place], | | | | | | [place] [address] | | | | | | [phone] | | | | | | | | +--------+ + + + + | 01/21/ | Office | Neurology | Thu Fields, | | | 2019 | Visit | | MD [address] | | | | | | [address] [place], | | | | | | [place] [address] | | | | | | [phone] | | | | | | | [...]
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
--- OUTSIDE RECORDS SUMMARY | ~2019-12-19 | XMS | Encounter Summary ---
Demographics + + + | Address | [address] | | | [place] [address] | + + + | Home Phone | | + + + | Preferred Language | Unknown | + + + | Marital Status | | + + + | Shinto Affiliation | CHR | + + + [...] Team Providers + +------+ + | Care Fur Repair Inspector Name | Role | Phone | + [...] | | | Surgery Services at | [facility] [address] | | | | | [facility] [address] | [place], [place] | | | | | [facility] for | [address] | | | | | Health and Healing, | [phone] | | | | | [facility] [address] | | | | | | [place], [place] | | | | | | [address] | | | | | | [phone] | | | +--------+ + + + [...] | Appointment | Clinical | [facility], [facility] | | | 2019 | | Neurophysiology | Outpatient [address] | | | | | [address] | | | | | | [address] [place], [place] | | | | | | [phone] | | +--------+ + + + + | 12/30/ | Appointment | Radiology | Thu Fields, | | | 2019 | | | MD [address] | | | | | | [facility] [address] [facility] | | | | | | [place] [address] | | | | | | [phone] | | | | | | | | +--------+ + + + + | 12/30/ | Appointment | Radiology | Thu Fields, | | | 2019 | | | MD [address] | | | | | | [address] [place], | | | | | | [place] [address] | | | | | | [phone] | | | | | | | | +--------+ + + + + | 01/21/ | Office | Neurology | Thu Fields, | | | 2019 | Visit | | MD [address] | | | | | | [address] [place], | | | | | | [place] [address] | | | | | | [phone] | | | | | | | | +--------+ + + + + documented as of this encounter Visit Diagnoses Not on filedocumented in this encounter"
--- OUTSIDE RECORDS SUMMARY | ~2019-12-19 | XMS | Encounter Summary ---
Demographics + + + | Address | [address] | | | [place] [address] | + + + | Home Phone | | + + + | Preferred Language | Unknown | + + + | Marital Status | | + + + | Scientology Affiliation | CHR | + + + | Race | White | + + + | Ethnic Group | Not or | + + + Author + + + | Author | [facility] | + + + | Organization | [facility] | + + + | Address | Unknown | + + + | Phone | Unavailable | + + + Support + + +---------+ + | Name | Relationship | Address | Phone | + + +---------+ + | Anushka Mitchell | ECON | Unknown | | + + +---------+ + Care Team Providers + +------+ + | Care Molder Vacuum Name | Role | Phone | + +------+ + | Lisa Adorno PA-C | PCP | | + +------+ + Encounter Details +--------+ + + + + | Date | Type | Department | Care Team | Description | +--------+ + + + + | 07/27/ | Telephone | Neurosurgery at | Pawan Mann MD | | | 2020 | | [facility] [address] | [address] | | | | | [facility] for | [place], [place] | | | | | Health and Healing, | [address] | | | | | | [phone] | | | | | floor [place], [place] | | | | | | [address] | | | | | | [phone] | | | +--------+ + + + [...] [place] | | | | | | [place], [place] | | | | | | [address] | | +--------+ + + + + | 12/30/ | Appointment | Radiology | Thu Fields, | | | 2019 | | | [address] | | | | | | [address] | | | | | | [place] [address] | | | | | | [phone] | | | | | | | | +--------+ + + + + | 12/30/ | Appointment | Radiology | Thu Fields, | | | 2019 | | | MD [address] | | | | | | [address] [place], | | | | | | [place] [address] | | | | | | [phone] | | | | | | | | +--------+ + + + + | 01/21/ | Office | Neurology | Thu Fields, | | 2019 | Visit | | MD [address] | | | | | | [address] [place], | | | | | | [place] [address] | | | | | | [phone] | | | | | | | | +--------+ + + + + documented as of this encounter Visit Diagnoses Not on filedocumented in this encounter"
--- OUTSIDE RECORDS SUMMARY | ~2019-12-19 | XMS | Encounter Summary ---
Demographics + + + | Address | [address] | | | [place] [address] | + + + | Home Phone [...] Team Providers + +------+ + | Care Binding Stitcher Name | Role | Phone | + +------+ + | Lisa Adorno PA-C | PCP | | + +------+ + Encounter Details +--------+ + + + + | Date | Type | Department | Care Team | Description | +--------+ + + + + | 09/20/ | MyChart | Otolaryngology | Brandon Rutherford, | Throat issues | | 2020 | Encounter | Head and Neck | [address] | | | | | Surgery Services at | [address] | | | | | [facility] [address] | [place], [place] | | | | | [facility] for | [address] | | | | | Health and Healing, | [phone] | | | | | [address] | | | | | | [place], [place] | | | | | | [address] | | | | | | [phone] | | | +--------+ + + + [...] | | | | | | Road [place], [place] | | | | | | [address] | | +--------+ + + + + | 12/30/ | Appointment | Radiology | Thu Fields, | | | 2019 | | | MD [address] | | | | | | [address] [facility] | | | | | | [place] [address] | | | | | | [phone] | | | | | | | | +--------+ + + + + | 12/30/ | Appointment | Radiology | Thu Fields, | | | 2019 | | | MD [address] | | | | | | [address] [place], | | | | | | [place] [address] | | | | | | [phone] | | | | | | | | +--------+ + + + + | 01/21/ | Office | Neurology | Thu Fields, | | | 2019 | Visit | | MD [address] | | | | | | [address] [place], | | | | | | [place] [address] | | | | | | [phone] | | | | | | | | +--------+ + + + + documented as of this encounter Visit Diagnoses Not on filedocumented in this encounter"
--- OUTSIDE RECORDS SUMMARY | ~2019-12-19 | XMS | Encounter Summary ---
Demographics + + + | Address | [address] | | | [place] [address] | + + + | Home Phone | | + + + | Preferred Language | Unknown | + + + | Marital Status | | + + + | Taoism Affiliation | CHR | + + + [...] Team Providers + +------+ + | Care Production Floater Name | Role | Phone | + +------+ + | Lisa Adorno PA-C | PCP | | + +------+ + Encounter Details +--------+--------+ + + + | Date | Type | Department | Care Team | Description | +--------+--------+ + + + | /10/ | Travel | | | | | [...] | | | | | | Road [place], [place] | | | | | | [address] | | +--------+ + + + + | 12/30/ | Appointment | Radiology | Thu Fields, | | | 2019 | | | MD [address] | | | | | | [address] [place], | | | | | | [place] [address] | | | | | | [phone] | | | | | | | | +--------+ + + + + | 12/30/ | Appointment | Radiology | Thu Fields, | | | 2019 | | | MD [address] | | | | | | [address] [place], | | | | | | [place] [address] | | | | | | [phone] | | | | | | | | +--------+ + + + + | 01/21/ | Office | Neurology | Thu Fields, | | | 2019 | Visit | | MD [address] | | | | | | [address] [place], | | | | | | [place] [address] | | | | | | [phone] | | | | | | | | +--------+ + + + + documented as of this encounter Visit Diagnoses Not on filedocumented in this encounter"
--- OUTSIDE RECORDS SUMMARY | ~2019-12-19 | XMS | Encounter Summary ---
Demographics + + + | Address | [address] | | | [place] [address] | + + + | Home Phone | | + + + | Preferred Language | Unknown | + + + | Marital Status | | + + + | Baptism Affiliation | CHR | + + + [...] Team Providers + +------+ + | Care Gold Nib Grinder Name | Role | Phone | + +------+ + | Lisa Adorno PA-C | PCP | | + +------+ + Encounter Details +--------+--------+ + + + | Date | Type | Department | Care Team | Description | +--------+--------+ + + + | 05/15/ | Travel | | | | | [...] [place] | | | | | | [facility], [place] | | | | | | [address] | | +--------+ + + + + | 12/30/ | Appointment | Radiology | Thu Fields, | | | 2019 | | | MD [address] | | | | | | [address] [place], | | | | | | [place] [address] | | | | | | [phone] | | | | | | | | +--------+ + + + + | 12/30/ | Appointment | Radiology | Thu Fields, | | | 2019 | | | MD [address] | | | | | | [address] [place], | | | | | | [place] [address] | | | | | | [phone] | | | | | | | | +--------+ + + + + | 01/21/ | Office | Neurology | Thu Fields, | | | 2019 | Visit | | MD [address] | | | | | | [address] [place], | | | | | | [place] [address] | | | | | | [phone] | | | | | | | | +--------+ + + + + documented as of this encounter Visit Diagnoses Not on filedocumented in this encounter"
--- OUTSIDE RECORDS SUMMARY | ~2019-12-19 | XMS | Encounter Summary ---
Demographics + + + | Address | [address] | | | [place] [address] | + + + | Home Phone | | + + + | Preferred Language | Unknown | + + + | Marital Status | | + + + | Oriental Orthodox Affiliation | CHR | + + + | Race | White | + + + | Ethnic Group | Not or | + + + Author + + + | Author | [facility] | + + + | Organization | [facility] | + + + | Address | Unknown | + + + | Phone | Unavailable | + + + Support + + +---------+ + | Name | Relationship | Address | Phone | + + +---------+ + | Anushka Mitchell | ECON | Unknown | | + + +---------+ + Care Team Providers + +------+ + | Care Equipment Associate Name | Role | Phone | + +------+ + | Lisa Adorno PA-C | PCP | | + +------+ + Reason for Visit +--------+ + | Reason | Comments | +--------+ + | FMLA | | +--------+ + Encounter Details +--------+ + + + + | Date | Type | Department | Care Team | Description | +--------+ + + + + | 07/14/ | Documentati | Neurosurgery at | Pawan Mann MD | FMLA | | 2020 | on | [facility] [address] | [address] | | | | | [facility] | [place], [place] | | | | | Health and Healing, | [address] | | | | | Building [address]th | [phone] | | | | | floor [place], [place] | | | | | | [address] | | | | | | [phone] | | | +--------+ + + + [...] | | | | | | Road [place], [place] | | | | | | [address] | | +--------+ + + + + | 12/30/ | Appointment | Radiology | Thu Fields, | | | 2019 | | | MD [address] | | | | | | [address] | | | | | | [place] [address] | | | | | | [phone] | | | | | | | | +--------+ + + + + | 12/30/ | Appointment | Radiology | Thu Fields, | | | 2019 | | | MD [address] | | | | | | [address] [place], | | | | | | [place] [address] | | | | | | [phone] | | | | | | | | +--------+ + + + + | 01/21/ | Office | Neurology | Thu Fields, | | | 2019 | Visit | | MD [address] | | | | | | [address] [place], | | | | | | [place] [address] | | | | | | [phone] | | | | | | | | +--------+ + + + + documented as of this encounter Visit Diagnoses Not on filedocumented in this encounter"
--- OUTSIDE RECORDS SUMMARY | ~2019-12-19 | XMS | Encounter Summary ---
Demographics + + + | Address | [address] | | | [place] [address] | + + + | Home Phone | | + + + | Preferred Language | Unknown | + + + | Marital Status | | + + + | Mandaen Affiliation | CHR | + + + [...] Team Providers + +------+ + | Care Maintenance Shop Laborer Name | Role | Phone | + +------+ + | Lisa Adorno PA-C | PCP | | + +------+ + Encounter Details +--------+---------+ + + + | Date | Type | Department | Care Team | Description | +--------+---------+ + + + | 08/10/ | Office | Otolaryngology | Brandon Rutherford, | Pituitary mass (HCC) | | 2020 | Visit | Head and Neck | [address] | (Primary Dx) | | | | Surgery Services at | [address] | | | | | [facility] [address] | [facility] [place] | | | | | [facility] for | [address] | | | | | Health and Healing, | [phone] | | | | | [address] | | | | | | [place], [place] | | | | | | [address] | | | | | | [phone] | | | +--------+---------+ + + + [...] + + + | Blood Pressure | 120/80 | 08/11/2019 11:39 AM | | | | | PDT | | + + + + + | Pulse | 65 | 08/11/2019 11:39 AM | | | | | PDT | | + + + + + | Temperature | 36.4 C (97.5 F) | 08/11/2019 11:39 AM | | | | | PDT [...] + | Weight | 93 kg (205 lb) | 08/11/2019 11:39 AM | | | | | PDT | | + + + + + | Height | - | - | | + + + + + | Body Mass Index | 31.17 | 08/11/2019 10:38 AM | | | [...] encounter Progress Notes Brandon Rutherford MD - 08/11/2019 1:45 PM PDTI saw Ms. Delcid and I agree with Dr. Huynh's assessment and plan. Brandon Rutherford MD Professor of Otolaryngology, Head & Neck Surgery rane, Obie Meredith MD - 08/11/2019 1:45 PM PDTOtolaryngology Postoperative Visit S: Doing well overall. Reports some drainage with activity. Reports left maxillary pressure . Not using saline irrigations. Saw Endocrinology today. O: Last Vitals: BP 120/80 | Pulse 65 | Temp 36.4 C (97.5 F) | Wt 93 kg (205 lb) | BMI 31.17 kg/m | BSA 2.11 m GEN: NAD, nontoxic, appears well HEENT: symmetric face. Nasal examination below. CV: RR PULM: No increased work of breathing. No stridor. No stertor. Nasal Endoscopy Nasal cavities topicalized with 1:1 lidocaine with phenylephrine Debris suctioned from bilateral nasal cavities and removed with bayonets. A/P: Criselda Ovalle is a 65 y.o. 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 Doing well postoperatively without concern for CSF rhinorrhea. Saline irrigations two to three times daily Return in conjunction with future NSG appointment OBIE HUYNH MD Addendum 09/10/2019 I discovered an error in this note. The note was regarding a visit with Anushka Farhana no t Crieslda Ovalle Brandon Rutherford MD Professor of Otolaryngology, Head [...] [place] | | | | | | [address] | | +--------+ + + + + | 12/30/ | Appointment | Radiology | Thu Fields, | | | 2019 | | | [address] | | | | | | [facility] | | | | | | [place] [address] | | | | | | [phone] | | | | | | | | +--------+ + + + + | 12/30/ | Appointment | Radiology | Thu Fields, | | | 2019 | | | MD [address] | | | | | | [address] [place], | | | | | | [place] [address] | | | | | | [phone] | | | | | | | | +--------+ + + + + | 01/21/ | Office | Neurology | Thu Fields, | | | 2019 | Visit | | MD [address] | | | | | | [address] [place], | | | | | | [place] [address] | | | | | | [phone] | | | | | | | | +--------+ + + + + documented as of this encounter Visit Diagnoses + + | Diagnosis | + + | 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
--- OUTSIDE RECORDS SUMMARY | ~2019-12-19 | XMS | Encounter Summary ---
Demographics + + + | Address | [address] | | | [place] [address] | + + + | Home Phone [...] + + + | Author | [facility] | + + + | Organization | [facility] | + + + | Address | Unknown | + + + | Phone | Unavailable | + + + Support + + +---------+ + | Name | Relationship | Address | Phone | + + +---------+ + | Anushka Mitchell | ECON | Unknown | | + + +---------+ + Care Team Providers + +------+ + | Care Chief Warden Name | Role | Phone | + [...] | | adenoma, | [address] | [address] | | | | | facial pain | [address] | Phone: | | | | | and facial | Analy, | [phone] | | | | | numbness | [place] [address] | Fax: | | | | | Procedures | Phone: | [phone] | | | | | ID NEW | [phone] | | | | | | PATIENT | Fax: | | | | | | LEVEL V ID | [phone] | | | | | | EST [...] visit | | 2020 | ealth-Sched | [place] [facility] | Shayy, | (Meds Rec'd and pt | | | uled | and Healing [address] | DNP,FIRST AID NURSE,[place] [address] | confirmed VV set | | | | [address] [facility] for | [address] [facility], | up); Return Patient; | | | | Health and Healing, | [place] [address] | Postoperative visit | | | | [facility] | [phone] | | | | | [place], [place] | | | | | | [address] | | | | | | [phone] | | | +--------+ + + + [...] of this encounter Progress Notes Shayy Peralta, DENISSE,FIRST AID NURSE,[place] - 09/08/2019 1:00 PM PDTFormatting of this note might be di fferent from the original. The visit took place via Telemedicine. Patient location is the home. Patient was located in the state of [place] at the time of the visit. Telepresenter (relative and/or dietetic aide) was not used during the visit. Pituitary [...] file Gets together: Not on file Attends congregation service: Not on file Active member of [...] - 1.2 ng/dL 0.8 - SURGICAL PATHOLOGY: [id number] Order: [id number] Collected: 07/29/2019 09:41 Status: Final result Visible [...] cell types that show positivity for the principal planner factors Pit-1, T-pit, and SF- 1, as well as for anterior pituitary hormones. The Ki-67 labeling index is low. There is no significant inflammation. Additional level sections are examined on block A2 and support the final diagnosis. Case seen by: Deborah Hagen DO - Neuropathology Fellow Jerome Yoo MD, PhD Neuropathologist Pathology, [facility] My [...] will taper off H C and check INTENSIVE CARE UNIT REGISTERED NURSE at next in office visit. 2. Thyroid function- F4 and TSH normal preop. Will recheck at next visit 3. Prolactin has been normal; will recheck postop level at 3 mths follow up 4. Growth hormone - IGF-1 normal pr op. Will recheck at 3 mth follow up 5. Gonadal FSH/LH axis - normal menses reg. Follow with HEALTH PLAN ADVISOR prn 6. ADH. No nocturia, usually thirsty BMP pending. No indication of DI 7. Follow up for review with INTENSIVE CARE UNIT REGISTERED NURSE. RF labs MRI 10/09/19 SHAYY PERALTA DNP, FIRST AID NURSE, [place] Fountain Pen Nibs Inspector [facility] [place] [address] [facility] [place] [address] I spent 25 minutes face to face [...] | | | | | | Road [place], [place] | | | | | | [address] | | +--------+ + + + + | 12/30/ | Appointment | Radiology | Thu Fields, | | 2019 | | | MD [address] | | | | | | [address] [place], | | | | | | [place] [address] | | | | | | [phone] | | | | | | | | +--------+ + + + + | 12/30/ | Appointment | Radiology | Thu Fields, | | | 2019 | | | MD [address] | | | | | | [address] [place], | | | | | | [place] [address] | | | | | | [phone] | | | | | | | | +--------+ + + + + | 01/21/ | Office | Neurology | Thu Fields, | | 2019 | Visit | | MD [address] | | | | | | [address] [place], | | | | | | [place] [address] | | | | | | [phone] | | | | | | | [...]
--- OUTSIDE RECORDS SUMMARY | ~2019-12-19 | XMS | Encounter Summary ---
Demographics + + + | Address | [address] | | | [place] [address] | + + + | Home Phone [...] Team Providers + +------+ + | Care Retail Selling Floor Leader Name | Role | Phone | [...] [address] | | | | | | [facility], [place] | | | | | | [address] | | +--------+ + + + + | 12/30/ | Appointment | Radiology | Thu Fields, | | | 2019 | | | MD [address] | | | | | | [address] [place], | | | | | | [place] [address] | | | | | | [phone] | | | | | | | | +--------+ + + + + | 12/30/ | Appointment | Radiology | Thu Fields, | | | 2019 | | | MD [address] | | | | | | [address] [place], | | | | | | [place] [address] | | | | | | [phone] | | | | | | | | +--------+ + + + + | 01/21/ | Office | Neurology | Thu Fields, | | | 2019 | Visit | | MD [address] | | | | | | [address] [place], | | | | | | [place] [address] | | | | | | [phone] | | | | | | | | +--------+ + + + + documented as of this encounter Visit Diagnoses Not on filedocumented in this encounter"
--- OUTSIDE RECORDS SUMMARY | ~2019-12-19 | XMS | Encounter Summary ---
Demographics + + + | Address | [address] | | | [place] [address] | + + + | Home Phone [...] + + + | Author | [facility] | + + + | Organization | [facility] | + + + | Address | Unknown | + + + | Phone | Unavailable | + + + Support + + +---------+ + | Name | Relationship | Address | Phone | + + +---------+ + | Anushka Mitchell | ECON | Unknown | | + + +---------+ + Care Team Providers + +------+ + | Care Event Producer Name | Role | Phone | + +------+ + | Lisa Adonro PA-C | PCP | | + +------+ + Encounter Details +--------+ + + + + | Date | Type | Department | Care Team | Description | +--------+ + + + + | 09/07/ | MyChart | Neurology at | Thu Fields, | RE: Facial pain | | 2020 | Encounter | [facility] & | MD [address] | | | | | Healing [address] | [address] [place], | | | | | Ave [facility] | [place] [address] | | | | | Health and Healing, | [phone] | | | | | [facility] | | | | | | [place], [place] | | | | | | [address] | | | | | | [phone] | | | +--------+ + + + [...] | | | | | | Road [place], [place] | | | | | | [address] | | +--------+ + + + + | 12/30/ | Appointment | Radiology | Thu Fields, | | | 2019 | | | MD [address] | | | | | | [address] [facility] | | | | | | [place] [address] | | | | | | [phone] | | | | | | | | +--------+ + + + + | 12/30/ | Appointment | Radiology | Thu Fields, | | | 2019 | | | MD [address] | | | | | | [address] [place], | | | | | | [place] [address] | | | | | | [phone] | | | | | | | | +--------+ + + + + | 01/21/ | Office | Neurology | Thu Fields, | | | 2019 | Visit | | MD [address] | | | | | | [address] [place], | | | | | | [place] [address] | | | | | | [phone] | | | | | | | | +--------+ + + + + documented as of this encounter Visit Diagnoses Not on filedocumented in this encounter"
--- OUTSIDE RECORDS SUMMARY | ~2019-12-19 | XMS | Encounter Summary ---
Demographics + + + | Address | [address] | | | [place] [address] | + + + | Home Phone | | + + + | Preferred Language | Unknown | + + + | Marital Status | | + + + | Quaker Affiliation | CHR | + + + [...] Team Providers + +------+ + | Care Physician Coder Name | Role | Phone | + +------+ + | Lisa Adorno PA-C | PCP | | + +------+ + Encounter Details +--------+ + + + + | Date | Type | Department | Care Team | Description | +--------+ + + + + | 11/01/ | MyChart | Neurosurgery at | Pawan Mann MD | RE: Back to work | | 2020 | Encounter | [facility] [address] | [address] | Anushka Delcid | | | | [facility] [place] [facility] for | [place], [place] | | | | | Health and Healing, | [address] | | | | | | [phone] | | | | | floor [place], [place] | | | | | | [address] | | | | | | [phone] | | | +--------+ + + + [...] | | | | | | Road [place], [place] | | | | | | [address] | | +--------+ + + + + | 12/30/ | Appointment | Radiology | Thu Fields, | | | 2019 | | | [address] | | | | | | [address] [facility] | | | | | | [place] [address] | | | | | | [phone] | | | | | | | | +--------+ + + + + | 12/30/ | Appointment | Radiology | Thu Fields, | | | 2019 | | | MD [address] | | | | | | [address] [place], | | | | | | [place] [address] | | | | | | [phone] | | | | | | | | +--------+ + + + + | 01/21/ | Office | Neurology | Thu Fields, | | | 2019 | Visit | | MD [address] | | | | | | [address] [place], | | | | | | [place] [address] | | | | | | [phone] | | | | | | | | +--------+ + + + + documented as of this encounter Visit Diagnoses Not on filedocumented in this encounter"
--- OUTSIDE RECORDS SUMMARY | ~2019-12-19 | XMS | Encounter Summary ---
Demographics + + + | Address | [address] | | | [place] [address] | + + + | Home Phone | | + + + | Preferred Language | Unknown | + + + | Marital Status | | + + + | Episcopalian Affiliation | CHR | + + + | Race | White | + + + | Ethnic Group | Not or | + + + Author + + + | Author | [facility] | + + + | Organization | [facility] | + + + | Address | Unknown | + + + | Phone | Unavailable | + + + Support + + +---------+ + | Name | Relationship | Address | Phone | + + +---------+ + | Anushka Mitchell | ECON | Unknown | | + + +---------+ + Care Team Providers + +------+ + | Care Player Piano Technician Name | Role | Phone | + +------+ + | iLsa Adorno PA-C | PCP | | + +------+ + Encounter Details +--------+ + + + + | Date | Type | Department | Care Team | Description | +--------+ + + + + | 09/10/ | MyChart | Neurosurgery at | Kathryn, | RE: Changing my | | 2020 | Encounter | [facility] | Shayy, | medication | | | | and Healing [address] | DENISSE,MODERN LANGUAGES PROFESSOR,[place] [address] | | | | | [address] [facility] for | [address] [place], | | | | | Health and Healing, | [place] [address] | | | | | [facility] | [phone] | | | | | [place], [place] | | | | | | [address] | | | | | | [phone] | | | +--------+ + + + [...] | | | | | | [address] | | | | | | Road [place], [place] | | | | | | [address] | | +--------+ + + + + | 12/30/ | Appointment | Radiology | Thu Fields, | | | 2019 | | | [address] | | | | | | [address] [facility] | | | | | | [place] [address] | | | | | | [phone] | | | | | | | | +--------+ + + + + | 12/30/ | Appointment | Radiology | Thu Fields, | | | 2019 | | | MD [address] | | | | | | [address] [place], | | | | | | [place] [address] | | | | | | [phone] | | | | | | | | +--------+ + + + + | 01/21/ | Office | Neurology | Thu Fields, | | | 2019 | Visit | | MD [address] | | | | | | [address] [place], | | | | | | [place] [address] | | | | | | [phone] | | | | | | | | +--------+ + + + + documented as of this encounter Visit Diagnoses + + | Diagnosis | + + | Pituitary mass (HCC) - Primary Unspecified disorder of the pituitary gland and its | | hypothalamic control | + + | 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
--- OUTSIDE RECORDS SUMMARY | ~2019-12-19 | XMS | Encounter Summary ---
Demographics + + + | Address | [address] | | | [place] [address] | + + + | Home Phone | | + + + | Preferred Language | Unknown | + + + | Marital Status | | + + + | Religion Affiliation | CHR | + + + [...] Team Providers + +------+ + | Care Automatic Lathe Operator Name | Role | Phone | + +------+ + | Lisa Adorno PA-C | PCP | | + +------+ + Encounter Details +--------+--------+ + + + | Date | Type | Department | Care Team | Description | +--------+--------+ + + + | 02/18/ | Travel | | | | | [...] | | | | | | Road [place], [place] | | | | | | [address] | | +--------+ + + + + | 12/30/ | Appointment | Radiology | Thu Fields, | | | 2019 | | | MD [address] | | | | | | [address] [place], | | | | | | [place] [address] | | | | | | [phone] | | | | | | | | +--------+ + + + + | 12/30/ | Appointment | Radiology | Thu Fields, | | | 2019 | | | MD [address] | | | | | | [address] [place], | | | | | | [place] [address] | | | | | | [phone] | | | | | | | | +--------+ + + + + | 01/21/ | Office | Neurology | Thu Fields, | | | 2019 | Visit | | MD [address] | | | | | | [address] [place], | | | | | | [place] [address] | | | | | | [phone] | | | | | | | | +--------+ + + + + documented as of this encounter Visit Diagnoses Not on filedocumented in this encounter"
--- OUTSIDE RECORDS SUMMARY | ~2019-12-19 | XMS | Encounter Summary ---
Demographics + + + | Address | [address] | | | [place] [address] | + + + | Home Phone | | + + + | Preferred Language | Unknown | + + + | Marital Status | | + + + | Latter-Day Affiliation | CHR | + + + | Race | White | + + + | Ethnic Group | Not or | + + + Author + + + | Author | [facility] | + + + | Organization | [facility] | + + + | Address | Unknown | + + + | Phone | Unavailable | + + + Support + + +---------+ + | Name | Relationship | Address | Phone | + + +---------+ + | Anushka Mitchell | ECON | Unknown | | + + +---------+ + Care Team Providers + +------+ + | Care Cooler Conveyor Loader Name | Role | Phone | + +------+ + | Lisa Adorno PA-C | PCP | | + +------+ + Encounter Details +--------+ + + + + | Date | Type | Department | Care Team | Description | +--------+ + + + + | 09/02/ | MyChart | Neurosurgery at | Kathryn, | RE: Next weeks visit | | 2020 | Encounter | [place] [facility] | [facility], | | | | | and Healing [address] | [place] [place] [address] | | [address] [place] [facility] | [address] [facility] | | | | | Health and Healing, | [place] [address] | | | | | [place] [address] | [phone] | | | | | [place], [place] | | | | | | [address] | | | | | | [phone] | | | +--------+ + + + [...] | | | | | | Road [place], [place] | | | | | | [address] | | +--------+ + + + + | 12/30/ | Appointment | Radiology | Thu Fields, | | | 2019 | | | [address] | | | | | | [address] [place], | | | | | | [place] [address] | | | | | | [phone] | | | | | | | | +--------+ + + + + | 12/30/ | Appointment | Radiology | Thu Fields, | | | 2019 | | | MD [address] | | | | | | [address] [facility], | | | | | | [place] [address] | | | | | | [phone] | | | | | | | | +--------+ + + + + | 01/21/ | Office | Neurology | Thu Fields, | | | 2019 | Visit | | MD [address] | | | | | | [address] [facility], | | | | | | [place] [address] | | | | | | [phone] | | | | | | | | +--------+ + + + + documented as of this encounter Visit Diagnoses Not on filedocumented in this encounter"
--- OUTSIDE RECORDS SUMMARY | ~2019-12-19 | XMS | Encounter Summary ---
Demographics + + + | Address | [address] | | | [place] [address] | + + + | Home Phone | | + + + | Preferred Language | Unknown | + + + | Marital Status | | + + + | Caodaism Affiliation | CHR | + + + | Race | White | + + + | Ethnic Group | Not or | + + + Author + + + | Author | [facility] | + + + | Organization | [facility] | + + + | Address | Unknown | + + + | Phone | Unavailable | + + + Support + + +---------+ + | Name | Relationship | Address | Phone | + + +---------+ + | Anushka Mitchell | ECON | Unknown | | + + +---------+ + Care Team Providers + +------+ + | Care Pnp Name | Role | Phone | + [...] | | | | [facility] for | [place], [place] | | | | | Health and Healing, | [address] | | | | | | [phone] | | | | | floor [place], [place] | | | | | | [address] | | | | | | [phone] | | | +--------+ + + + [...] | | | | | | Road [place], [place] | | | | | | [address] | | +--------+ + + + + | 12/30/ | Appointment | Radiology | Thu Fields, | | | 2019 | | | MD [address] | | | | | | [facility] [address] [facility] | | | | | | [place] [address] | | | | | | [phone] | | | | | | | | +--------+ + + + + | 12/30/ | Appointment | Radiology | Thu Fields, | | | 2019 | | | MD [address] | | | | | | [address] [place], | | | | | | [place] [address] | | | | | | [phone] | | | | | | | | +--------+ + + + + | 01/21/ | Office | Neurology | Thu Fields, | | | 2019 | Visit | | MD [address] | | | | | | [address] [place], | | | | | | [place] [address] | | | | | | [phone] | | | | | | | | +--------+ + + + + documented as of this encounter Visit Diagnoses Not on filedocumented in this encounter"
--- OUTSIDE RECORDS SUMMARY | ~2019-12-19 | XMS | Encounter Summary ---
Demographics + + + | Address | [address] | | | [place] [address] | + + + | Home Phone | | + + + | Preferred Language | Unknown | + + + | Marital Status | | + + + | Moravian Affiliation | CHR | + + + | Race | White | + + + | Ethnic Group | Not or | + + + Author + + + | Author | [facility] | + + + | Organization | [facility] | + + + | Address | Unknown | + + + | Phone | Unavailable | + + + Support + + +---------+ + | Name | Relationship | Address | Phone | + + +---------+ + | Anushka Mitchell | ECON | Unknown | | + + +---------+ + Care Team Providers + +------+ + | Care Credit Portfolio Manager Name | Role | Phone | + +------+ + | Lisa Adorno PA-C | PCP | | + +------+ + Encounter Details +--------+ + + + + | Date | Type | Department | Care Team | Description | +--------+ + + + + | 11/29/ | MyChart | Neurology at | Thu Fields, | RE: MRI's | | 2020 | Encounter | [facility] & | MD [address] | | | | | Healing [address] | [address] [place], | | | | | [facility] | [place] [address] | | | | | Health and Healing, | [phone] | | | | | [facility] [address] | | | | | | [place], [place] | | | | | | [address] | | | | | | [phone] | | | +--------+ + + + [...] | Appointment | Clinical | Celestino Henri[facility] | | | 2019 | | Neurophysiology | Outpatient [address] | | | | | [address] | | | | | | Road [place], [place] | | | | | | [address] | | +--------+ + + + + | 12/30/ | Appointment | Radiology | Thu Fields, | | | 2019 | | | MD [address] | | | | | | [address] [place], | | | | | | [place] [address] | | | | | | [phone] | | | | | | | | +--------+ + + + + | 12/30/ | Appointment | Radiology | Thu Fields, | | | 2019 | | | MD [address] | | | | | | [address] [place], | | | | | | [place] [address] | | | | | | [phone] | | | | | | | | +--------+ + + + + | 01/21/ | Office | Neurology | Thu Fields, | | | 2019 | Visit | | MD [address] | | | | | | [address] [place], | | | | | | [place] [address] | | | | | | [phone] | | | | | | | | +--------+ + + + + documented as of this encounter Visit Diagnoses Not on filedocumented in this encounter"
--- OUTSIDE RECORDS SUMMARY | ~2019-12-19 | XMS | Encounter Summary ---
Demographics + + + | Address | [address] | | | [place] [address] | + + + | Home Phone | | + + + | Preferred Language | Unknown | + + + | Marital Status | | + + + | Judaism Affiliation | CHR | + + + | Race | White | + + + | Ethnic Group | Not or | + + + Author + + + | Author | [facility] | + + + | Organization | [facility] | + + + | Address | Unknown | + + + | Phone | Unavailable | + + + Support + + +---------+ + | Name | Relationship | Address | Phone | + + +---------+ + | Anushka Mitchell | ECON | Unknown | | + + +---------+ + Care Team Providers + +------+ + | Care Overlock Sleeve Setter Name | Role | Phone | + [...] [address] | | | | | [facility] | [place], [place] | | | | | Health and Healing, | [address] | | | | | [address] | [phone] | | | | | floor [place], [place] | | | | | | [address] | | | | | | [phone] | | | +--------+ + + + [...] | | | | | | Road [place], [place] | | | | | | [address] | | +--------+ + + + + | 12/30/ | Appointment | Radiology | Thu Fields, | | | 2019 | | | MD [address] | | | | | | [address] | | | | | | [place] [address] | | | | | | [phone] | | | | | | | | +--------+ + + + + | 12/30/ | Appointment | Radiology | Thu Fields, | | | 2019 | | | MD [address] | | | | | | [address] [place], | | | | | | [place] [address] | | | | | | [phone] | | | | | | | | +--------+ + + + + | 01/21/ | Office | Neurology | Thu Fields, | | | 2019 | Visit | | MD [address] | | | | | | [address] [place], | | | | | | [place] [address] | | | | | | [phone] | | | | | | | | +--------+ + + + + documented as of this encounter Visit Diagnoses Not on filedocumented in this encounter"
--- OUTSIDE RECORDS SUMMARY | ~2019-12-19 | XMS | Encounter Summary ---
Demographics + + + | Address | [address] | | | [place] [address] | + + + | Home Phone | | + + + | Preferred Language | Unknown | + + + | Marital Status | | + + + | Sabianist Affiliation | CHR | + + + | Race | White | + + + | Ethnic Group | Not or | + + + Author + + + | Author | [facility] | + + + | Organization | [facility] | + + + | Address | Unknown | + + + | Phone | Unavailable | + + + Support + + +---------+ + | Name | Relationship | Address | Phone | + + +---------+ + | Anushka Mitchell | ECON | Unknown | | + + +---------+ + Care Team Providers + +------+ + | Care Mud Analysis Well Logging Operator Name | Role | Phone | + +------+ + | Lisa Adorno PA-C | PCP | | + +------+ + Reason for Referral Diagnostic Testing (Routine) + +--------+ + + + + | Status | Reason | Specialty | Diagnoses / | Referred By | Referred To | | | | | Procedures | Contact | Contact | + +--------+ + + + + | New Request | | Clinical | Diagnoses | [place], | [place] | | | | Neurophysiolo | Loss of | Thu White MD | Health & | | | | gy | consciousnes | [address] | [employer] | | | | | s ([facility]) | Ave [address] | [address] | | | | | Procedures | [address], | [facility] | | | | | EEG ROUTINE | [place] | ROAD | | | | | | [address] | [place], [place] | | | | | | Phone: | [address] | | | | | | [phone] | Phone: | | | | | | Fax: | [phone] | | | | | | [phone] | | + +--------+ + + + + Diagnostic Testing (Routine) + +--------+ + + + + | Status | Reason | Specialty | Diagnoses / | Referred By | Referred To | | | | | Procedures | Contact | Contact | + +--------+ + + + + | New Request | | Radiology | Diagnoses | [place], | [place] | | | | | Left-sided | Thu White MD | Health & | | | | | trigeminal | [address] | [employer] | | | | | neuralgia | [address] | [address] | | | | | Dizziness | [address], | [facility] | | | | | Word finding | [place] | ROAD | | | | | difficulty | [address] | [place], [place] | | | | | Hx of brain | Phone: | [phone] | | | | | surgery | [phone] | Phone: | | | | | Pituitary | Fax: | [phone] | | | | | mass (HCC) | [phone] | | | | | | Procedures | | | | | | | MRI BRAIN WO | | | | | | | CONTRAST | | | + +--------+ + + + + Diagnostic Testing (Routine) + +--------+ + + + + | Status | Reason | Specialty | Diagnoses / | Referred By | Referred To | | | | | Procedures | Contact | Contact | + +--------+ + + + + | New Request | | Radiology | Diagnoses | [place], | [place] | | | | | Left-sided | Thu White MD | Health & | | | | | trigeminal | [address] | [employer] | | | | | neuralgia | [address] | [address] [facility] | | | | | Dizziness | [address], | [facility] | | | | | Word finding | [place] | ROAD | | | | | difficulty | [address] | [place], [place] | | | | | Hx of brain | Phone: | [address] | | | | | surgery | [phone] | Phone: | | | | | Pituitary | Fax: | [phone] | | | | | mass ([facility]) | [phone] | | | | | | Procedures | | | | | | | MRI | | | | | | | TRIGEMINAL | | | | | | | NEURALGIA | | | | | | | WWO CONTRAST | | | + +--------+ + + + + Reason for Visit Office Visit - E/M Services (Routine) + +--------+ + + + + | Status | Reason | Specialty | Diagnoses / | Referred By | Referred To | | | | | Procedures | Contact | Contact | + +--------+ + + + + | Authorized | | Neurology | Diagnoses | Non-[facility] | Max | | | | | Trigeminal | Epic Dept | Headache [facility] | | | | | neuralgia | | [address] | | | | | Procedures | | [address] | | | | | [place] EST | | for Health | | | | | PATIENT | | and Healing, | | | | | LEVEL [address] | | [address] | | | | | | | [place], [place] | | | | | | | [address] | | | | | | | Phone: | | | | | | | [phone] | | | | | | | Fax: | | | | | | | [phone] | + +--------+ + + + + Encounter Details +--------+---------+ + + + | Date | Type | Department | Care Team | Description | +--------+---------+ + + + | 11/19/ | Office | Neurology at | Thu Fields, | Left-sided | | 2020 | Visit | [facility] & | MD [address] | trigeminal neuralgia | | | | Healing [address] | [address] [facility], | (Primary Dx); | | | | [facility] | [place] [address] | Dizziness; Word | | | | Health and Healing, | [phone] | finding difficulty; | | | | [address] | | Hx of brain surgery; | | | | [facility] [place] | | Pituitary mass | | | | [address] | | (HCC); Loss of | | | | [phone] | | consciousness (HCC) | +--------+---------+ + + + Social History [...] + + documented as of this encounter Patient Instructions Patient Instructions Thu Fields MD - 11/20/2019 10:00 AM PDTPlan: - Decrease pregabalin: Week 1: take 150 mg twice a day (stop middle dose) Week 2: take 75 mg in the morning, 150 mg at night Week 3: take 75 mg twice a day - Start oxcarbazepine 300 mg once a day, in 1 week increase to 300 mg twice a day. 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 You are welcome to call or send a message vi a [facility] chart if questions or concerns arise prior to that visit. documented in this encounter Progress Notes Thu Fields MD - 11/20/2019 10:00 AM PDTFormatting of this note might be different fro m the original. NEUROLOGY PROGRESS NOTE DATE OF SERVICE 11/20/2019 PATIENT IDENTIFICATION Anushka Delcid is a 39 y.o. 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 INTERVAL HISTORY - Last visit: 08/20/2019 - Having more left ear pain, still has throat pain, hurting in multiple places, burning lik e swallowing fire. ENT looked and thought tonsils were infected, gave medicine which calmed throat down but did not fix it, waiting on some referrals for an ENT back home to look down throat Right ear has sounds like trying to depressurize Pharmacist told her her sore throat could be from the pregabalin Some days just lies in bed all day does not want to be alive Face swollen in the morning mostly on the left side Pressure in head when super bad feels like going to blow up, neck gets stiff when pressure gets in head, feels like swelling at base of skull Smell and taste almost nonexistant Super fatigued Gets dizzy even when standing still Always thirsty Trouble finishing sentences Has fallen a couple of times, but has not hurt self bad Jaw is really bad, sometimes has trouble getting fingers into mouth because jaw is so tang d down, cannot chew dinner. Has not lost much weight. Talking/chewing can flare things Got implant from dentist in jaw in july, went to dentist on Saturday and had broken 4 tiffanie , now sleeping with a nightguard Has episodes where gets really extreme pain and then starts seeing tunnel vision, cannot fo cus on anything, cannot talk when it's happening, feels like fading out then wakes up, This occurred last Saturday at work while sitting at desk, blacked out and hit face on desk which instantly woke her up. This occurred at dinner as well, had been out for 1.5 hours at [employer] en table woke up when phone. At night is sleeping okay, goes to bed between 9 and 10, wakes up between 445 and 7 dependi ng on work schedule Super thirsty, drinking 120+ ounces per day, does not get up at night to pee, only pees a c ouple of times a day Went to eye doctor the other day got new glasses, which is helping with the eye pain on asiya t side. Said there was depressurizing from surgery. Right pinky end digit has electrical pain since last Saturday when left face hurts Had episode in May 2016 when had dizziness followed by syncope with convulsions. Had not wu d any in between. No family history of seizures No personal history of febrile seizures or prior seizures Not premature No history of major head trauma with LOC HEADACHE TREATMENTS (CURRENT/PAST) Abortive: Current:Tylenol Past:Imitrex for migraines in past Tylenol, ibuprofen, Aleve, did not help Preventive: Current: Pregabalin 150/75/150 - side effects Past: Gabapentin -- side effects at higher doses MEDICATIONS Current Outpatient Medications on File Prior to Visit Medication Sig Dispense Refill acetaminophen 500 mg oral tablet Take 2 tablets by mouth every six hours. amoxicillin-clavulanate (AUGMENTIN) 875-125 mg oral tablet Take 1 tablet by mouth every twelve hours. (Patient not taking: Reported on 10/09/2019) 20 tablet 0 ascorbic acid (vitamin C) 250 mg oral tablet Take 250 mg by mouth three times daily. BIOTIN ORAL Take by mouth. calcium carbonate/vitamin D3 (VITAMIN D-3 ORAL) Take by mouth. guaiFENesin LA 600 mg oral tablet extended release 12hr Take 1 tablet by mouth two time s daily. (Patient not taking: Reported on 10/09/2019) herbal drugs (FIBER DIET ORAL) Take by mouth. hydrocortisone 10 mg oral tablet Take 1-2 tabs daily, as instructed. Indications: decre ased function of the adrenal gland 60 tablet 3 hydrocortisone 20 mg oral tablet Take 1 tablet by mouth once daily in the morning. 30 t ablet 1 HYDROmorphone 2 mg oral tablet Take 1 tablet by mouth every three hours as needed for m oderate pain or severe pain. (Patient not taking: Reported on 10/09/2019) 80 tablet 0 L.acid,gas,plan,rhm/B.ani/cran (UP4 PROBIOTICS WOMEN'S ORAL) Take by mouth. multivit with calcium,iron,min (MULTIPLE VITAMIN, WOMENS ORAL) Take by mouth. ondansetron ODT 4 mg oral tablet,disintegrating Dissolve 1 tablet on tongue and swallow every eight hours as needed for nausea/vomiting. (Patient not taking: Reported on 10/09/2019 ) 30 tablet 2 polyethylene glycol 17 gram oral powder in packet Mix 1 packet and take orally three ti mes daily as needed (1st line - for no BM for 2 days). Indications: constipation 30 packet 0 pregabalin 75 mg oral capsule Take 2 capsules by mouth once daily in the morning AND 1 capsule once daily at noon AND 2 capsules once daily in the evening. 150 capsule 2 senna-docusate 8.6-50 mg oral tablet Take 1 tablet by mouth two times daily. Indication s: constipation (Patient not taking: Reported on 10/09/2019) 60 tablet 0 sodium chloride 0.65 % nasal aerosol,spray Instill 2 sprays into each nostril as needed . Indications: dryness of the nose (Patient not taking: Reported on 10/09/2019) No current facility-administered medications on file prior to visit. PHYSICAL EXAM There were no vitals taken for this visit. GENERAL: The patient is well groomed, with a normal attention, concentration, and a good f und of knowledge. Intermittently tearful during visit. Has hypersensitivity left side of face to touch CN: Normal eye movements, conjugate gaze. No appreciated facial asymmetry. Motor: Moves all four extremities equally with grossly normal strength. No pronator drift Gait: Posture is normal. Gait is steady with normal steps, base, arm swing, and turning. ASSESSEMENT AND PLAN Anushka Delcid is a 39 y.o. 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 She initially had significant improvement in pain with pregabalin, but pain is now worsening. S he is additionally having a number of new symptoms including syncopal episodes, fatigue, spe ech issues, and dizziness. Given her recent surgery and multiple symptoms, I would like to get a brain MRI to evaluate for secondary cause. I would also like to get trigeminal nerve MRI protocol, since her nerv e pain does not seem related to the pituitary lesion and I would like to rule out correctabl e cause such as vessel loop pushing on the nerve. Some of her symptoms such as fatigue could be caused by the increased Lyrica dose, which has not helped the pain, so I have given a pl an to go back down on the dose. I have prescribed oxcarbazepine to help with the trigeminal nerve pain. She had recent labs including sodium on high end of normal. I discussed potentia l side effects of oxcarbazepine at length, and she will contact me with any issues. Given new onset of unexplained loss of consciousness episodes, I will also obtain a routine EEG to evaluate for signs of propensity toward seizures. Spells precautions were discussed including recommendation against driving. I have a relatively low suspicion for seizure -- t hey sound more like syncopal episodes -- but discussed that these could also be dangerous wh ile driving if she had an unexpected episode. If the episodes do not improve with reducing L yrica dose, and no seizure identified, I encourage her to ask her PCP about additional julito p including cardiac workup for other syncopal causes. I encouraged her to follow up with ENT regarding her persistent throat symptoms. I also encouraged her to alert her neurosurgeon to her neurological symptoms. Encounter Diagnoses Name Primary? Left-sided trigeminal neuralgia Yes Dizziness Word finding difficulty Hx of brain surgery Pituitary mass (HCC) Loss of consciousness (HCC) Plan: - Decrease pregabalin: Week 1: take 150 mg twice a day (stop middle dose) Week 2: take 75 mg in the morning, 150 mg at night Week 3: take 75 mg twice a day - Start oxcarbazepine 300 mg once a day, in 1 week increase to 300 mg twice a day. 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 You are welcome to call or send a message vi a my [facility] chart if questions or concerns arise prior to that visit. I spent 45 minutes with the patient. Greater than 50% of the time was spent counseling the patient regarding diagnosis, risks, benefits, and alternatives to current management. All questions were answered to patient s satisfaction. Thu Fields M.D. Process Mold Technician of Neurology Headache Medicine Adult and Pediatric Neurology [facility] documented in this en counter Plan of [...] [address] | | | | | | [place], [place] | | | | | | [address] | | +--------+ + + + + | 12/30/ | Appointment | Radiology | Thu Fields, | | | 2019 | | | MD [address] | | | | | | [address] [place], | | | | | | [place] [address] | | | | | | [phone] | | | | | | | | +--------+ + + + + | 12/30/ | Appointment | Radiology | Thu Fields, | | | 2019 | | | MD [address] | | | | | | [address] [place], | | | | | | [place] [address] | | | | | | [phone] | | | | | | | | +--------+ + + + + | 01/21/ | Office | Neurology | Thu Fields, | | | 2019 | Visit | | MD [address] | | | | | | [address] [place], | | | | | | [place] [address] | | | | | | [phone] | | | | | | | | +--------+ + + + + + + +--------+ + + | Name | Type | Priori | Associated Diagnoses | Order Schedule | | | | ty | | | + + +--------+ + + | MRI TRIGEMINAL | Imaging | Routin | Left-sided | Expected: | | NEURALGIA WWO | | e | trigeminal neuralgia | 11/20/2019, Expires: | | CONTRAST | | | Dizziness Word | 12/19/2020 | | | | | finding difficulty | | | | | | Hx of brain surgery | | | | | | Pituitary mass | | | | | | (HCC) | | + + +--------+ + + | MRI BRAIN WO | Imaging | Routin | Left-sided | Expected: | | CONTRAST | | e | trigeminal neuralgia | 11/20/2019, Expires: | | | | | Dizziness Word | 12/19/2020 | | | | | finding difficulty | | | | | | Hx of brain surgery | | | | | | Pituitary mass | | | | | | (HCC) | | + + +--------+ + + | EEG ROUTINE | Procedures | Routin | Loss of | Expected: 11/20/2019 | | | | e | consciousness (HCC) | (Approximate), | | | | | | Expires: 12/19/2020 | + + +--------+ + + documented as of this encounter Visit Diagnoses + + | Diagnosis | + + | Left-sided trigeminal neuralgia - Primary | + + | Dizziness Dizziness and giddiness | + + | Word finding difficulty Other speech disturbance | + + | Hx of brain surgery Personal history of surgery to other organs | + + | Pituitary mass (HCC) Unspecified disorder of the pituitary gland and its hypothalamic | | control | + + | Loss of consciousness (HCC) Other alteration of consciousness | + + documented in this encounter"
--- OUTSIDE RECORDS SUMMARY | ~2019-12-19 | XMS | Encounter Summary ---
Demographics + + + | Address | [address] | | | [place] [address] | + + + | Home Phone | | + + + | Preferred Language | Unknown | + + + | Marital Status | | + + + | Buddhism Affiliation | CHR | + + + [...] Team Providers + +------+ + | Care Polygraph Operator Name | Role | Phone | + +------+ + | Lisa Adorno PA-C | PCP | | + +------+ + Encounter Details +--------+ + + + + | Date | Type | Department | Care Team | Description | +--------+ + + + + | 11/02/ | MyChart | Neurosurgery at | | Return to work Form | | 2020 | Encounter | [address] | | | | | | e [place] for | | | | | | Health and Healing, | | | | | | Building | | | | | | floor [facility] [place] | | | | | | [address] | | | | | | [phone] | | | +--------+ + + + [...] | Appointment | Clinical | Tech, [facility] | | | 2019 | | Neurophysiology | Outpatient [address] | | | | | [address] | | | | | | Road [place], [place] | | | | | | [address] | | +--------+ + + + + | 12/30/ | Appointment | Radiology | Thu Fields, | | | 2019 | | | [address] | | | | | | [address] | | | | | | [place] [address] | | | | | | [phone] | | | | | | | | +--------+ + + + + | 12/30/ | Appointment | Radiology | Thu Fields, | | | 2019 | | | MD [address] | | | | | | [address] [place], | | | | | | [place] [address] | | | | | | [phone] | | | | | | | | +--------+ + + + + | 01/21/ | Office | Neurology | Thu Fields, | | | 2019 | Visit | | MD [address] | | | | | | [address] [place], | | | | | | [place] [address] | | | | | | [phone] | | | | | | | | +--------+ + + + + documented as of this encounter Visit Diagnoses Not on filedocumented in this encounter"
--- OUTSIDE RECORDS SUMMARY | ~2019-12-19 | XMS | Encounter Summary ---
Demographics + + + | Address | [address] | | | [place] [address] | + + + | Home Phone [...] Team Providers + +------+ + | Care Hod Carrier Name | Role | Phone | + [...] | | | | | craniopharyn | [place], [place] | [place] | | | | | geal duct | [address] | [facility] [place] | | | | | (HCC) | Phone: | [phone] | | | | | Procedures | [phone] | Phone: | | | | | MRI | Fax: | [phone] | | | | | PITUITARY | [phone] | Fax: | | | | | WWO CONTRAST | | [phone] | | | | | [place] MRI | | | | | | [...] | | | Neurological | pituitary | [place] | [place] | | | | Surgery | gland | Family | [address] [place], | | | | | Pituitary | Medicine | [place] | | | | | adenoma, | [address] | [address] | | | | | facial pain | [address] | Phone: | | | | | and facial | Analy, | [phone] | | | | | numbness | [place] [address] | Fax: | | | | | Procedures | Phone: | [phone] | | | | | IA NEW | [phone] | | | | | | PATIENT | Fax: | | | | | | LEVEL V [place] | [phone] | | | | | | EST [...] | [address] [facility] | [place], [place] | duct (HCC) (Primary | | | | Health and Healing, | [address] | Dx); Facial pain | | | | [place] [address] | [phone] | | | | | [place], [place] | | | | | | [address] | | | | | | [phone] | | | +--------+---------+ + + + [...] file Gets together: Not on file Attends moravian service: Not on file Active member of [...] record ed by Lisbet Duarte. Anushka Delcid, [id number] Reason for visit: Chief Complaint Patient presents [...] | | | | | | Road [place], [place] | | | | | | [address] | | +--------+ + + + + | 12/30/ | Appointment | Radiology | Thu Fields, | | | 2019 | | | MD [address] | | | | | | [address] [place], | | | | | | [place] [address] | | | | | | [phone] | | | | | | | | +--------+ + + + + | 12/30/ | Appointment | Radiology | Thu Fields, | | | 2019 | | | MD [address] | | | | | | [address] [place], | | | | | | [place] [address] | | | | | | [phone] | | | | | | | | +--------+ + + + + | 01/21/ | Office | Neurology | [place], | | | 2019 | Visit | | [address] | | | | | | [address] [place], | | | | | | [place] [address] | | | | | | [phone] | | | | | | | [...] | + + + + + | [facility] | [address] | [place] [address] | | | SERVICES, CORE | PARK [...] | + + + + + | [facility] | [address] | [place] [address] | | | SERVICES, CORE | [address] | | | + + + + + PROLACTIN (05/29/2019 1:30 PM PST) + +-------+ + + + | Component | Value | Ref Range | Performed | Pathologist | | | | | At | Signature | + +-------+ + + + | PROLACTIN | 7.0 | 2.8 - 26.0 | [facility] | | | | | ng/ml | LABORATORY | | | | | | SERVICES, | | | | | | CORE | | + +-------+ + + + + + | Specimen | + + | Blood - Blood | | (substance) | + + + + + | Narrative | Performed At | + + + | Test performed in [facility] Core lab. New reference range in effect | [facility] | | 2-6-18. BASELINE DRAW | LABORATORY | | | SERVICES, CORE | + + + + + + + + | Performing | Address | City/State/Zipcode | Phone Number | | Organization | | | | + + + + + | [facility] | [address] | [place] [address] | | | SERVICES, CORE | PARK [...] | + + + + + | [facility] - | [address] | [place] [address] | | | [place] | | | | + + + [...] | | | | | | by [employer],[address] | | | | | | [address], [facility] [place] | | | | | | [address] | | | | | | [phone]. | | | | | | Nura [...] [facility] | [address] | [place], [place] | | | [facility] | | [address] | | + + + + + [...] + | [facility] - | [address] | [place] [address] | | | [place] | | | [...] | + + + + + | [facility] | [address] | [place] [address] | | | SERVICES, CORE | MAICO [...] | | | LABORATORY | | | BELARUSIAN | | | SERVICES, | | | [...] MDRD equation recommended by the National | [facility] | | Kidney Disease Education Program. [...] + | [facility] | [address] | [place] [address] | | | SERVICES, CORE | PARK [...] | + + + + + | [facility] | [address] | [place] [address] | | | MADHU, VALERY | MAICO [...] - | | | | | | [facility] | | + +-------+ + + + [...] dose biotin for 48 hours before | [facility] | | having lab tests drawn. | | + + + + + + + + | Performing | Address | City/State/Zipcode | Phone Number | | Organization | | | | + + + + + | [employer] [facility] - | [address] | [place] [address] | | | [place] | | | [...]
--- OUTSIDE RECORDS SUMMARY | ~2019-12-19 | XMS | Encounter Summary ---
Demographics + + + | Address | [address] | | | [place] [address] | + + + | Home Phone [...] + + + | Author | [facility] | + + + | Organization | [facility] | + + + | Address | Unknown | + + + | Phone | Unavailable | + + + Support + + +---------+ + | Name | Relationship | Address | Phone | + + +---------+ + | Anushka Mitchell | ECON | Unknown | | + + +---------+ + Care Team Providers + +------+ + | Care Director Speech And Hearing Name | Role | Phone | + [...] | | | Surgery Services at | [facility] [address] | | | | | [facility] [address] | [place], [place] | | | | | [facility] for | [address] | | | | | Health and Healing, | [phone] | | | | | Building [address] | | | | | | [place], [place] | | | | | | [address] | | | | | | [phone] | | | +--------+ + + + [...] | | | | | | Road [place], [place] | | | | | | [address] | | +--------+ + + + + | 12/30/ | Appointment | Radiology | Thu Fields, | | | 2019 | | | MD [address] | | | | | | [address] [facility] | | | | | | [place] [address] | | | | | | [phone] | | | | | | | | +--------+ + + + + | 12/30/ | Appointment | Radiology | Thu Fields, | | | 2019 | | | MD [address] | | | | | | [address] [place], | | | | | | [place] [address] | | | | | | [phone] | | | | | | | | +--------+ + + + + | 01/21/ | Office | Neurology | Thu Fields, | | | 2019 | Visit | | MD [address] | | | | | | [address] [place], | | | | | | [place] [address] | | | | | | [phone] | | | | | | | | +--------+ + + + + documented as of this encounter Visit Diagnoses Not on filedocumented in this encounter"
--- OUTSIDE RECORDS SUMMARY | ~2019-12-19 | XMS | Encounter Summary ---
Demographics + + + | Address | [address] | | | [place] [address] | + + + | Home Phone [...] + + | Author | [facility] | + + + | Organization | [facility] | + + + | Address | Unknown | + + + | Phone | Unavailable | + + + Support + + +---------+ + | Name | Relationship | Address | Phone | + + +---------+ + | Anushka Mitchell | ECON | Unknown | | + + +---------+ + Care Team Providers + +------+ + | Care Color Blender Name | Role | Phone | + +------+ + | Lisa Adorno PA-C | PCP | | + +------+ + Encounter Details +--------+ + + + + | Date | Type | Department | Care Team | Description | +--------+ + + + + | 11/24/ | MyChart | Neurology at | Thu Fields, | RE: Medication | | 2020 | Encounter | [facility] & | [address] | change | | | | Healing [address] | [address] [place], | | | | | [facility] | [place] [address] | | | | | Health and Healing, | [phone] | | | | | [facility] | | | | | | [place], [place] | | | | | | [address] | | | | | | [phone] | | | +--------+ + + + [...] | | | | | | Road [place], [place] | | | | | | [address] | | +--------+ + + + + | 12/30/ | Appointment | Radiology | Thu Fields, | | | 2019 | | | MD [address] | | | | | | [address] [facility] | | | | | | [place] [address] | | | | | | [phone] | | | | | | | | +--------+ + + + + | 12/30/ | Appointment | Radiology | Thu Fields, | | | 2019 | | | MD [address] | | | | | | [address] [place], | | | | | | [place] [address] | | | | | | [phone] | | | | | | | | +--------+ + + + + | 01/21/ | Office | Neurology | Thu Fields, | | | 2019 | Visit | | MD [address] | | | | | | [address] [place], | | | | | | [place] [address] | | | | | | [phone] | | | | | | | | +--------+ + + + + documented as of this encounter Visit Diagnoses Not on filedocumented in this encounter"
--- OUTSIDE RECORDS SUMMARY | ~2019-12-19 | XMS | Encounter Summary ---
Demographics + + + | Address | [address] | | | [place] [address] | + + + | Home Phone | | + + + | Preferred Language | Unknown | + + + | Marital Status | | + + + | Amish Affiliation | CHR | + + + [...] Team Providers + +------+ + | Care Solar Resource Assessor Name | Role | Phone | + +------+ + | Lisa Adorno PA-C | PCP | | + +------+ + Reason for Visit Intake Referral (Urgent) + +--------+ + + + + | Status | Reason | Specialty | Diagnoses / | Referred By | Referred To | | | | | Procedures | Contact | Contact | + +--------+ + + + + | Pending | | Endocrinology | Diagnoses | Kyree | Ericka, | | Review | | , Diabetes & | Benign | Lisa | MD Mery | | | | Metabolism / | neoplasm of | JEROME Sin | [address] | | | | Neurological | pituitary | [place] | [address] | | | | Surgery | gland | Family | Andrew Bolanos, | | | | | Pituitary | Medicine | [place] | | | | | adenoma, | [address] | [address] | | | | | facial pain | [address] | Phone: | | | | | and facial | [place], | [phone] | | | | | numbness | [place] [address] | Fax: | | | | | Procedures | Phone: | [phone] | | | | | [place] NEW | [phone] | | | | | | PATIENT | Fax: | | | | | | LEVEL V [place] | [phone] | | | | | | EST PATIENT | | | | | | | LEVEL V FL | | | | | | | THR/PRPH/DX | | | | | | | INJ,IV PSH | | | | | | | FL INJ | | | | | | | COSYNTROPIN | | | | | | | PER 0.25MG | | | + +--------+ + + + + Encounter Details +--------+---------+ + + + | Date | Type | Department | Care Team | Description | +--------+---------+ + + + | 06/05/ | Office | Neurosurgery at | Mery Barnett, | Pituitary adenoma | | 2019 | Visit | [facility] | [address] | ([facility]) (Primary Dx); | | | | and Healing [address] | Other headache | | | | [address] [facility] for | [place], [place] | syndrome | | | | Health and Healing, | [address] | | | | | [facility] | [phone] | | | | | [place], [place] | | | | | | [address] | | | | | | [phone] | | | +--------+---------+ + + + [...] + + + | Blood Pressure | 110/68 | 06/05/2019 2:41 PM | | | | | PST | | + + + + + | Pulse | 72 | 06/05/2019 2:41 PM | | | | | PST | | + + + + + | Temperature | - | - | | + + + + + | Respiratory Rate | - | - | | + + + + + | Oxygen Saturation | 97% | 06/05/2019 2:41 PM | | | | | PST | | + + + + + | Inhaled Oxygen | - | - | | | Concentration | | | | + + + + + | Weight | 93.8 kg (206 lb 12.8 | 06/05/2019 2:41 PM | | | | oz) | PST | | + + + + + | Height | 172.7 cm (5' 8") | 06/05/2019 2:41 PM | | | | | PST | | + + + + + | Body Mass Index | 31.44 | 06/05/2019 2:41 PM | | | | | PST | | + + + + + documented in this encounter Patient Instructions Patient Instructions Mery Barnett MD - 06/05/2019 2:45 PM PST documented in this encounter Progress Notes Mery Barnett MD - 06/05/2019 2:45 PM PSTFormatting of this note might be different fro m the original. Reason for Consultation: I was asked by DANIELLE Pan to evaluate this patient for pituitary adenoma. Follow-up for review images History of Present Illness: Anushka Delcid is a 39 y.o. female who presents to [facility] on 05/29/2019 for evaluation of a 12 x 3.5 x 4.5 mm pituitary adenoma found on initial MRI Brain on . 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 February 2019 patient began experiencing recurrent sinusitis, [...] has gained back some weight in 2019. All recent testing on 05/29/19 were normal including cortisol, ACTH, FT4, FSH, IGF1, LH, prol actin and TSH, all others were reviewed and scanned in the system. The exact date of onset of Anushka's symptoms is unknown. Old records for this patient we re obtained and reviewed as part of this clinic visit. Interval Hx: Ongoing left eye pressure pain. Ongoing headaches. Discussed the size of her tumor and treatment course and patient would like to have surgery soon. Review of Systems: Review of systems is [...] Physical Exam: Visit Vitals Item Reading BP 110/68 Pulse 72 Ht 1.727 m (5' 8") Wt 93.8 kg (206 lb 12.8 oz) SpO2 97% BMI 31.44 kg/(m^2) General Appearance: Pleasant female, looks stated [...] or abnormalities in thyroid size and texture. Outside Labs and Imaging Results: Imaging: CT [...] Rathke's cleft cy st or pituitary adenoma. MRI images reviewed in detail with patient and neurosurgery team. I answered all questions to apparent satisfaction and patient verbalized understanding. Assessment : Anushka Delcid is a 39 y.o. 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 Plan: Pituitary function: A. Adrenal gland function There are no obvious signs of adrenal insufficiency at this point, but relative adrenal insufficiency is sometimes harder to detect in incipient phases. CONVERTER SUPERVISOR normal. In general we will prefer to see a cortisol over 18 ng/ml at 30 min, but I ment ioned caution to the patient as this should be correlated with clinical status as well as ot her factors that could influence CBG. CONVERTER SUPERVISOR was normal B. Thyroid function- F4 and TSH normal. C. Prolactin normal, thus no role for dopamine agonists to decrease tumor D. Growth hormone - IGF-1 normal E. FSH/LH axis - normal We will treat with medications if any of these hormones are deficient MRI pituitary was performed revealing a 6 x 12 x 6 mm macroadenoma approaching the optic ch iasm. Medications: Patient was not started on any medication during this visit, but it is possibl e once results available to recommend initiating medication even before next visit Surgery. Patient will have surgery with Dr. Mann. Case discussed with Dr Mann who evalua rossy the patient today. Discussion about pituitary tumors in general per pt request to clarify some of the data malina hill on the Internet We discussed that pituitary [...] before considering surgery for small pituitary lesions. We discussed the risk of post surgical infection, clotting, electrolyte imbalance, spinal h eadache, spinal leak, meningitis and pituitary damage I have asked the patient to follow up with her primary care provider at this time for all c hronic issues. A copy of this visit note including tests results will be faxed to referring physician and PCP. Follow up: We will have the patient return depending on results. No orders of the defined types were placed in this encounter. I am Lisbet Duarte functioning as a scribe for Mery Barnett MD at 2:54 PM on 06/05/2019 I have reviewed and verified the above scribed note of my visit with this patient as record ed by Lisbet Duarte. We also spent some time discussing risks and benefits of treatment options, instructions f or treatment and follow up, importance of compliance with chosen treatment. We discussed diagnosis, treatment, imaging studies and follow up. I spent 26 minutes [id number] time with this patient of which over 50% was spent in medic ally indicated counseling and education pertaining to the issues discussed above. documented in this en counter Plan of [...] | 12/30/ | Appointment | Clinical | [facility] | | | 2019 | | Neurophysiology | Outpatient [address] | | | | | | [address] | | | | | | Road [place], [place] | | | | | | [address] | | +--------+ + + + + | 12/30/ | Appointment | Radiology | Thu Fields, | | | 2019 | | | MD [address] | | | | | | [address] [place], | | | | | | [place] [address] | | | | | | [phone] | | | | | | | | +--------+ + + + + | 12/30/ | Appointment | Radiology | Thu Fields, | | | 2019 | | | MD [address] | | | | | | [address] [place], | | | | | | [place] [address] | | | | | | [phone] | | | | | | | | +--------+ + + + + | 08/28/ | Office | Neurology | Thu Fields, | | | 2019 | Visit | | [address] | | | | | | [address] [place], | | | | | | [place] [address] | | | | | | [phone] | | | | | | | | +--------+ + + + + documented as of this encounter Visit Diagnoses + + | Diagnosis | + + | Pituitary adenoma (HCC) - Primary Benign neoplasm of pituitary gland and | | craniopharyngeal duct (pouch) | + + | Other headache syndrome | + + documented in this encounter
--- OUTSIDE RECORDS SUMMARY | ~2019-12-19 | XMS | Encounter Summary ---
Demographics + + + | Address | [address] | | | [place] [address] | + + + | Home Phone [...] Team Providers + +------+ + | Care Account Engineer Name | Role | Phone | + [...] Request | | Radiology | Diagnoses | | [place] | | | | | Benign | [place], | Health & | | | | | neoplasm of | Sharonda Cabrera, | [employer] | | | | | pituitary | AGACNP | [address] | | | | | gland and | [address] | [facility] | | | | | craniopharyn | [facility] | ROAD | | | | | geal duct | Rd | [place], [place] | | | | | (HCC) | [facility] [place] | [address] | | | | | Procedures | [address] | Phone: | | | | | MRI | Phone: | [phone] | | | | | PITUITARY | [phone] | | | | | | WWO CONTRAST | Fax: | | | | | | | [phone] | | + +--------+ + + + + Reason for Visit + + + | Reason | Comments | + + + | Follow-up in | | | outpatient clinic | | + + + | MRI Results | | + + + Other (Routine) +--------+--------+ + + + + | Status | Reason | Specialty | Diagnoses / | Referred By | Referred To | | | | | Procedures | Contact | Contact | +--------+--------+ + + + + | Closed | | Neurological | Diagnoses | | [place], | | | | Surgery | Benign | [place], | Pawan, MD | | | | | neoplasm of | Sharonda M, | [address] | | | | | pituitary | AGACNP | Avenue | | | | | gland and | [address] | [place], [place] | | | | | craniopharyn | [address] | [address] | | | | | geal duct | Rd | Phone: | | | | | (HCC) | [place], [place] | [phone] | | | | | Procedures | [address] | Fax: | | | | | POSTOP VISIT | Phone: | [phone] | | | | | [place] | [phone] | | | | | | NEUROENDOSCO | Fax: | | | | | | P,EXC,PIT | [phone] | | | | | | JENNIFER,TRANSNAS | | | | | | | /SPHEN AK | | | | | | | SCAN PROC | | | | | | | CRANIAL | | | | | | | INTRA AK | | | | | | | SPINAL | | | | | | | PUNCTURE, | | | | | | | THERAPEUTIC, | | | | | | | FOR | | | | | | | DRAINAGE OF | | | | | | | CEREBROSPINA | | | | | | | L FLUID AK | | | | | | | GRAFTING OF | | | | | | | AUTOLOGOUS | | | | | | | SOFT TISS BY | | | | | | | DIRECT EXC | | | | | | | AK | | | | | | | NEUROVASCULA | | | | | | | R PEDICLE | | | | | | | GRAFT AK | | | | | | | FORM SKIN | | | | | | | PEDICLE FLAP | | | | | | | | | | | | | | LID,EAR,NOSE | | | | | | | AK ADJ | | | | | | | TISS XFER | | | | | | | LID,NOS,EAR | | | | | | | <[id number] | | | +--------+--------+ + + + + Encounter Details +--------+---------+ + + + | Date | Type | Department | Care Team | Description | +--------+---------+ + + + | 10/08/ | Office | Neurosurgery at | Pawan Mann MD | Benign neoplasm of | | 2020 | Visit | [facility] [address] | [address] | pituitary gland and | | | | e Center for | [place], [place] | craniopharyngeal | | | | Health and Healing, | [address] | duct (HCC) (Primary | | | | Building | [phone] | Dx) | | | | [place], [place] | | | | | | [address] | | | | | | [phone] | | | +--------+---------+ + + + [...] | Blood Pressure | 103/79 | 10/09/2019 10:07 AM | | | | | PDT | | + + + + + | Pulse | 75 | 10/09/2019 10:07 AM | | | | | PDT [...] 96.3 kg (212 lb 4.8 | 10/09/2019 10:07 AM | | | | oz) | PDT | | + + + + + | Height | 172.7 cm (5' 8") | 10/09/2019 10:07 AM | | | | | PDT | | + + + + + | Body Mass Index | 32.28 | 10/09/2019 10:07 AM | | | | | PDT [...] documented as of this encounter Progress Notes Sharonda Sommers AGACNP - 10/09/2019 10:15 AM PDTFormatting of this note might be d ifferent from the original. NEUROSURGERY FOLLOW UP CLINIC VISIT Attending: Pawan Mann MD Date of appointment: 10/09/2019 Procedure: with Dr Rutherford Endoscopic endonasal transsphenoidal approach for resection of sellar mass, 07/29/19 Pathology: Anterior pituitary tissue, no adenoma identified HPI / INTERVAL HISTORY: Anushka Delcid is a 39 y.o. 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 She is here in clinic for foll ow-up 2 months post-op with new MRI for review. Since discharge, she reports that she has extreme fatigue that has persisted since surgery, left eye pain that worsens the more fatigued she is, and sore/painful throat that she says has been there since she woke up post-op. She did see Dr Rutherford a few weeks ago, and he wa s able to do a laryngoscopy as well as nasal endoscopy, and did not note any obvious finding s to explain her throat pain. She reports that her PCP got an US of the neck that revealed l ymphadenopathy, but despite several different courses of abx has not improved. MEDS: Current Outpatient Medications on File Prior to [...] 0 pregabalin 75 mg oral capsule Take 1 capsule by mouth two times daily. 180 capsule 1 senna-docusate 8.6-50 mg oral tablet Take 1 tablet by mouth two times daily. Indication s: constipation (Patient not taking: Reported on 10/09/2019) 60 tablet 0 sodium chloride 0.65 % nasal aerosol,spray Instill 2 sprays into each nostril as needed . Indications: dryness of the nose (Patient not taking: Reported on 10/09/2019) No current facility-administered medications on file prior to visit. PHYSICAL EXAM: BP 103/79 (BP Location: Left upper arm, Patient Position: Sitting) | Pulse 75 | Ht 1.727 m (5' 8") | Wt 96.3 kg (212 lb 4.8 oz) | BMI 32.28 kg/m | BSA 2.15 m Alert and oriented x4, appropriately conversational PERRL, EOMI, gaze conjugate, VFF Face symmetric, TML Strong, symmetric shoulder shrug Full strength and SILT throughout BUE/BLE IMAGING: MRI PITUITARY WWO CONTRAST, 10/09/19: Report not yet finalized ASSESSMENT AND PLAN: Anushka Delcid is a 39 y.o. female s/p EEEA on 07/29/19 for resection of pituitary mass, no adenoma found on pathology, who presents for follow-up. Imaging shows good resection, wit h what appears to be residual inflammation, and should continue to evolve with time. I recom mended she follow back up with her automotive parts coordinator regarding the eye pain, to evaluate for a ny intraocular or retro-ocular cause of the pain, which we would anticipate to improve over the next few months. The fatigue and sore throat are unfortunately outside of our purview, a nd so we would defer further workup to her PCP. - RTC 6mo with new pituitary MRI for surveillance - Follow back up with her ophtho in the next few weeks for eye pain Pt seen, examined, and discussed w/ Dr Mann, who agrees w/ the above assessment and plan. DERIK Krishna Neurological Surgery 10/09/2019 documented in this encounter Plan of Treatment [...] [address] | | | | | | [facility] | | | | | | Road [place], [place] | | | | | | [address] | | +--------+ + + + + | 12/30/ | Appointment | Radiology | Thu Fields, | | | 2019 | | | MD [address] | | | | | | [address] [place], | | | | | | [place] [address] | | | | | | [phone] | | | | | | | | +--------+ + + + + | 12/30/ | Appointment | Radiology | Thu Fields, | | | 2019 | | | MD [address] | | | | | | [address] [place], | | | | | | [place] [address] | | | | | | [phone] | | | | | | | | +--------+ + + + + | 01/21/ | Office | Neurology | Thu Fields, | | | 2019 | Visit | | MD [address] | | | | | | [address] [place], | | | | | | [place] [address] | | | | | | [phone] | | | | | | | | +--------+ + + + + + +---------+--------+ + + | Name | Type | Priori | Associated Diagnoses | Order Schedule | | | | ty | | | + +---------+--------+ + + | MRI PITUITARY WWO | Imaging | Routin | Benign neoplasm of | Expected: 04/10/2020 | | CONTRAST | | e | pituitary gland and | (Approximate), | | | | | craniopharyngeal | Expires: 11/08/2020 | | | | | duct (HCC) | | + +---------+--------+ + + documented as of this encounter Visit Diagnoses + + | Diagnosis | + + | 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
--- OUTSIDE RECORDS SUMMARY | ~2019-12-19 | XMS | Encounter Summary ---
Demographics + + + | Address | [address] | | | [place] [address] | + + + | Home Phone | | + + + | Preferred Language | Unknown | + + + | Marital Status | | + + + | Restoration Affiliation | CHR | + + + [...] Team Providers + +------+ + | Care Transport Truck Driver Name | Role | Phone | + [...] | | | | | | Road [place], [place] | | | | | | [address] | | +--------+ + + + + | 12/30/ | Appointment | Radiology | Thu Fields, | | | 2019 | | | MD [address] | | | | | | [address] [place], | | | | | | [place] [address] | | | | | | [phone] | | | | | | | | +--------+ + + + + | 12/30/ | Appointment | Radiology | Thu Fields, | | | 2019 | | | MD [address] | | | | | | [address] [place], | | | | | | [place] [address] | | | | | | [phone] | | | | | | | | +--------+ + + + + | 01/21/ | Office | Neurology | Thu Fields, | | | 2019 | Visit | | MD [address] | | | | | | [address] [place], | | | | | | [place] [address] | | | | | | [phone] | | | | | | | | +--------+ + + + + documented as of this encounter Visit Diagnoses Not on filedocumented in this encounter"
--- OUTSIDE RECORDS SUMMARY | ~2019-12-19 | XMS | Encounter Summary ---
Demographics + + + | Address | [address] | | | [place] [address] | + + + | Home Phone | | + + + | Preferred Language | Unknown | + + + | Marital Status | | + + + | Latter-Day Affiliation | CHR | + + + | Race | White | + + + | Ethnic Group | Not or | + + + Author + + + | Author | [facility] | + + + | Organization | [facility] | + + + | Address | Unknown | + + + | Phone | Unavailable | + + + Support + + +---------+ + | Name | Relationship | Address | Phone | + + +---------+ + | Anushka Mitchell | ECON | Unknown | | + + +---------+ + Care Team Providers + +------+ + | Care Dining Room Helper Name | Role | Phone | + +------+ + | Lisa Adorno PA-C | PCP | | + +------+ + Reason for Visit + + + | Reason | Comments | + + + | Pre-op evaluation | | + + + Encounter Details +--------+---------+ + + + | Date | Type | Department | Care Team | Description | +--------+---------+ + + + | 07/14/ | Office | Preoperative | Rios, | Preop examination | | 2020 | Visit | Medicine Clinic at | 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, 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 [id number] | (Primary Dx) | | | | [facility] | | | | | [address] [place], [place] | | | | | [facility] | [address] | | | | | and [place], | [phone] | | | | | [address] | | | | | | [place], [place] | | | | | | [address] | | | | | | [phone] | | | +--------+---------+ + + + Anesthesia Record + + [...] + + + | Blood Pressure | 100/64 | 07/14/2019 8:18 AM | | | | | PST | | + + + + + | Pulse | 72 | 07/14/2019 8:18 AM | | | | | PST | | + + + + + | Temperature | 36.9 C (98.5 F) | 07/14/2019 8:18 AM | | | | | PST | | + + + + + | Respiratory Rate | 16 | 07/14/2019 8:18 AM | | | | | PST | | + + + + + | Oxygen Saturation | 97% | 07/14/2019 8:18 AM | | | | | PST | | + + + + + | Inhaled Oxygen | - | - | | | Concentration | | | | + + + + + | Weight | 92.7 kg (204 lb 6.4 | 07/14/2019 8:18 AM | | | | oz) | PST | | + + + + + | Height | 172.7 cm (5' 8") | 07/14/2019 8:18 AM | | | | | PST | | + + + + + | Body Mass Index | 31.08 | 07/14/2019 8:18 AM | | | | | PST | | + + + + + documented in this encounter Patient Instructions Patient Instructions Jamie Nation NP - 07/14/2019 8:20 AM PST PREOPERATIVE INSTRUCTIONS Pre-surgery "homework" * If you have not already done so, please consider getting your flu vaccine before surgery. This is safe and effective before a surgery and recovery. [facility], [facility] Surgery Check in Time: you will receive a call 1-3 business days before your surgery confi rming your exact arrival/check-in time for your surgery day. We know that planning for surg elieser can be stressful and involve a lot of family/friend/transportation coordination as well as hotel arrangements. The [facility] does not have access to [facility], and we encourage you to contact your surgeon's office for any assistance planning aroun d a tentative arrival time. Empty stomach before surgery On the day BEFORE your surgery, drink plenty of fluids and stay well hydrated NOTHING to eat or drink after midnight the night before surgery. This includes water, coffee, candy, mints, gum. Medications Instructions On the evening before your surgery, take ALL your usual evening medications On the morning of surgery TAKE the following medications with a sip of water: Lyrica On the morning of surgery DO NOT TAKE the following medications: Vitamins and minerals Other medications not specifically mentioned are at your discretion as to taking or not taking on the morning of surgery. Unless otherwise directed by your surgeon, do not take any Aspirin, fish oil supplements , vitamin E or non-steroidal anti-inflammatory (NSAIDs i.e. Advil, Aleve, Ibuprofen) or herb al supplements 7 days prior to your surgery. These drugs may interfere with normal blood sincere tting and may cause excessive bleeding and bruising during or after the surgery. If you need a pain medication for general purposes, use Tylenol as directed. OK to take it even on the morning of surgery, if needed. If you are in doubt about any medications that you are taking, please contact our office . Skin preparation to help avoid surgical site infections HIBICLENS GUIDE TO GENERAL SKIN CLEANSING AT HOME BEFORE SURGERY Before you bathe or shower: ? Read the instructions given to you by your healthcare practitioner, and begin your genera l skin cleansing protocol as directed. ? Carefully read all directions on the product label. ? Hibiclens is not to be used on the head or face, keep out of the eyes, ears and mouth. ? Hibiclens is not to be used in the genital area. ? Hibiclens should not be used if you are allergic to chlorhexidine gluconate or any other ingredients in this preparation. *See Hibiclens label for full product information and precautions. When you bathe or shower the night before your surgery: ? If you plan to wash your hair, do so with your regular shampoo. Then rinse hair and body thoroughly to remove any shampoo residue. ? Wash your face with your regular soap or water only. ? Thoroughly rinse your body with warm water from neck down. ? Use Hibiclens as you would any other liquid soap. Please do not put the Hibiclens on a wa sh cloth, apply directly to the skin and wash gently. Apply the minimum amount of Hibiclens necessary to cover the skin. Leave the Hibiclens on your skin for 1 minute, then rinse off. ? Rinse thoroughly with warm water. ? Do not use your regular soap after applying and rinsing Hibiclens. When using Hibiclens for a second day in a row (morning of surgery, as soon as you wake up) : ? Shower/bathe again using Hibiclens in the same method as described above. ? Do not apply any lotions, deodorants, powders or perfumes to the body areas that have been cleaned with Hibiclens. Other Important Guidelines ? Do not shave the surgical area ? Do not smoke, drink alcohol or use recreational drugs for 24 hours before your surgery Watch for any change in your health condition. Let your surgeon know right away if you do not feel well--this includes calling if you think you are developing a "cold" in the days before your surgery. ? Do not wear makeup, perfume, lotions, deodorant, powder or hairspray. Do not wear any jewelry to the hospital. Wear loose, comfortable clothing. Leave all your valuables at home. Allow enough travel time so you re not late for your check in for surgery. ? Please remember to brush your teeth the night before and the morning of your procedure. Preventing post op complications while you are in the hospital Use an incentive spirometer or peep breathe to keep your lungs working properly an d to help prevent respiratory complications. It helps you take long, deep breaths. Use it at least once every hour while you are awake. Leg and feet exercises will maintain good circulation and help prevent blood clots in yo ur legs. Sometimes your doctor will order sequential air compression stockings. Compressed air helps the circulation in your legs. Walking and moving will help stimulate normal circulation and deep breathing. Going Home Your surgical team will decide when you are medically ready to go home. If you stayed in the hospital after surgery, please discuss anticipated discharge time a nd plans with your inpatient team so that transportation plans and other going home arrangem ents can be coordinated If you have questions or concerns after you go home, call your doctor s office. If it is after office hours, call the [facility] lime kiln and recausticizing operator at [phone] and ask them to page him or h er. documented in this encounter Progress Notes Jamie Nation NP - 07/14/2019 8:20 AM PSTFormatting of this note might be differe nt from the original. PRE-OPERATIVE MEDICINE CLINIC ([facility]) CONSULT NOTE Author: Jamie Nation NP Referring Physician: Pawan Mann MD Primary Care Provider: Lisa Diaz PA-C Reason for Consult: Preoperative evaluation and risk assessment Proposed Procedure/Date: FRAMELESS STEREOTACTIC EXPANDED ENDOSCOPIC ENDONASAL APPROACH FOR RESECTION OF PITUITARY MASS, POSSIBLE LUMBAR DRAIN PLACEMENT POSSIBLE ABDOMINAL FAT GRAFT/ Proposed Procedure Location: [facility] HISTORY OF PRESENT ILLNESS: Anushka Delcid is a 39 y.o. female here for preoperative ev aluation of medical comorbid conditions and risk assessment in anticipation of the above pro cedure. The patient's history is significant for pituitary adenoma. Associated symptoms in clude Chronic pain in left side of the face x since February-2019, was misdiagnosed with acut e sinusitis, treated with abx, then had head MRI and was diagnosed with pituitary adenoma, u ses Lyrica 75 mg BID for pain. Pertinent medical conditions and/or prior cardiopulmonary testing reviewed during this visi t: Body mass index is 31.08 kg/m. 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 female seen in [facility] clinic today for pre-op evaluat ion prior to FRAMELESS STEREOTACTIC EXPANDED ENDOSCOPIC ENDONASAL APPROACH FOR RESECTION OF PITUITARY MASS, POSSIBLE LUMBAR DRAIN PLACEMENT POSSIBLE ABDOMINAL FAT GRAFT Pulmonary: Within Defined Limits except as noted below no shortness of breath no cough no stridor no wheezing no rhinorrhea no sputum no pneumothorax no Recent Respiratory Infection Pt . 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, denies SOB, CHILD, CP, angina Functional Ca pacity: Moderate - cyanosis, palpitations and syncope negative for pulmonary HTN no PAD no chest pain n o CHF no hypertension no CAD Sx no valvular problems/murmurs -congenital heart disease no arrhythmia no Cardiac assist devices no pacemaker/ICD GI/Hepatic: no GI Bleed no OTHER GI no GERD no liver disease no hepatitis Renal: Within Defined Limits except as noted below no renal failure no electrolyte abnormalities no dialysis 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 Within Defined Limits except as noted below no Diabetes: no Endocrine Other no Hx Corticosteroid Use Neuro/Psych: Head Conditions: tumor No Neurologic Development conditions No Spine Conditions No Neuromu scular Conditions No Other symptoms no Psych Disorder pain Current pain score: Chronic pain related to scheduled surgery Chronic Pain Current treatments: Nerve medications Musculoskeletal: Within Defined Limits except as noted below no arthritis No Muscular Disorders no skeleta l disorders Heme/Onc: Within Defined Limits except as noted below Pt. has: no active bleeding no bleeding disord er Clotting Disorders DVT, 2002 No hemoglobin disorders no malignancy Infectious Disease: Within Defined Limits except as noted below no MRSA no VRE no clostridium difficile no HIV /AIDS no tuberculosis No Other Conditions Skin: Integumentary system within defined limits no open wounds No active skin infections no ski n conditions AutoImmune Disorders: autoimmune disorders within defined limits No autoimmune disorders Current medications reviewed / updated Current Outpatient Medications Medication Sig ascorbic acid (vitamin C) 250 mg oral tablet Take 250 mg by mouth three times daily. BIOTIN ORAL Take by mouth. calcium carbonate/vitamin D3 (VITAMIN D-3 ORAL) Take by mouth. herbal drugs (FIBER DIET ORAL) Take by mouth. L.acid,gas,plan,rhm/B.ani/cran (UP4 PROBIOTICS WOMEN'S ORAL) Take by mouth. multivit with calcium,iron,min (MULTIPLE VITAMIN, WOMENS ORAL) Take by mouth. ondansetron ODT 4 mg oral tablet,disintegrating Dissolve 1 tablet on tongue and swallow every eight hours as needed for nausea/vomiting. pregabalin 75 mg oral capsule Take 1 capsule by mouth two times daily. Level of confidence in medication reconciliation accuracy: High Allergies reviewed / updated Allergies Allergen Reactions Oxycodone-Acetaminophen Confusion, Nausea and Unknown Other reaction(s): Vomiting Other reaction(s): Confusion other Other reaction(s): Vomiting, Other reaction(s): Confusion, other Venom-Honey Bee Anaphylaxis Other Other Dicyclomine Palpitations Latex Nausea Other Other Sulfa (Sulfonamide Antibiotics) Unknown Meloxicam Dyspnea Sores in mouth Past medical history reviewed / updated No past medical history on file. Past surgery reviewed / updated Past Surgical History Procedure Laterality Date Fess (functional endoscopic sinus surgery) 2010 Tubal ligation 2004 Knee arthroscopy Right 2008 Knee surgery Right 2009 cartilage transplant Radiofrequency ablation 2009 ablation of nerves in the neck, s/p wiplash injury Tonsillectomy 2017 2/2 frequent sore throats Lumpectomy, breast Right 2019 Social history reviewed / updated Social History Tobacco Use Smoking status: Never Smoker Smokeless tobacco: Never Used Substance Use Topics Alcohol use: Not on file Drug use: Not on file PHYSICAL EXAM: Last Vitals: BP 100/64 | Pulse 72 | Temp 36.9 C (98.5 F) (Oral) | Resp 16 | Ht 1.72 7 m (5' 8") | Wt 92.7 kg (204 lb 6.4 oz) | SpO2 97% | BMI 31.08 kg/m | BSA 2.11 m B james mass index is 31.08 kg/m. General: Appearance: Healthy, Age appropriate, No distress and Smiling LOC: Alert HEENT: Normocephalic/Atraumatic, Ext inspection of ears/nose normal, Normal sclerae/conjunctivae and Oropharyngeal mucosa pink/moist Airway: Dentition: dental implants, bridges or caps present missing teeth Dentition Comments: some crowns, 2 retainers, left lower molar is missing Mallampati: 1 Mouth Opening: > 3 cm TM Dist ance:> 6 cm Soares: No C-Spine ROM: Limited flexion & extension Neck Anatomy: Normal Jaw Protrusion: Normal (lower incisors go above upper incisors) Pulmonary: Respiratory: pulmonary exam normal Breath Sounds: breath sounds normal Cardiovascular: Rhythm: Regular Rate: Normal Abdomen: General: Normal Body Habitus: normal Musculoskeletal: Range of Motion: Normal range of motion Neuro/Psych: Affect: Normal Cognitive Status: Normal Speech: Normal speech Skin: Color: skin color normal Other Implanted Devices: Implanted devices: None LABS & DATA REVIEWED/ORDERED No results found for: WBC, HB, HCT, PLT, MCV, RDW Lab Results Component Value Date NA 138 05/29/2019 K 3.8 05/29/2019 CL 109 05/29/2019 BICARB 24 05/29/2019 BUN 14 05/29/2019 CR 0.82 05/29/2019 GLU 95 05/29/2019 CA 9.1 05/29/2019 No results found for: ABO, RH No results found for: A1C EKG: Not needed Perioperative risk evaluation: 2014 ACC/AHA Perioperative Cardiac Risk Stratification for non-emergent, non-cardiac surger y Are active cardiac conditions present? No Calculate the combined surgical and patient-specific risk: using the Chavez perioperative ca rdiac risk calculator, the risk of major adverse cardiac event (MACE) is: less than 1%. No further risk stratification for coronary disease is indicated. Estimated ASA class 3 Other perioperative risk calculators: Not Applicable ASSESSMENT and RECOMMENDATIONS: Perioperative risk assessment: Anushka Delcid is a 39 y.o. female referred for pre- operative evaluation and risk assessment before the above surgery for the above surgical ind ications. Based on the clinical information obtained and reviewed during this visit, the ov erall assessment is that the patient is having Intermediate risk surgery with no identified risk factors. The patient is stable / optimized for surgery: Additional testing needed: no Additional optimization needed: no Venue: [facility] is appropriate based on this patients comorbid conditions and izc-cr-frqkahy care coordination needs Medication management recommendations: The patient was advised to continue all usual med ications except as noted in Patient Instructions (After Visit Summary given to pt) Body mass index is 31.08 kg/m. Chronic pain in left side of the face x since February-2019, was misdiagnosed with acute sinusitis, treated with abx, then had head MRI and was diagnosed with pituitary adenoma, use s Lyrica 75 mg BID for pain H/o DVT during third trimester of in 2001 Prior Anesthetic Problems: Yes PONV I counseled Anushka Delcid regarding perioperative risk (cardiac/bleeding/ DVT/ respir atory failure/ infection, etc.) and methods to mitigate risk. I advised the patient regardi ng NPO requirements, hydration before surgery, showering, general body hygiene. All pre-pro cedure instructions given to the patient (after-visit summary). All of patient's questions were addressed. The patient verbalized understanding of the instructions given. Thank you f or the opportunity to contribute to this patient's care. Jamie Nation NP PRE-[place]ATIVE [place] [address] [phone] (fax) Bob Finney MA - 07/14/2019 8:20 AM PST Two patient identifiers performed. Nasal swab specimen obtained from both the left and righ t nares per nasal swab collection instructions. Swab placed in culture tube; tube labeled an d sent to the lab. Venipuncture performed in clinic, blood sample obtained from Right antecubital site Electro nically signed by Bob Maria MA at 07/14/2019 9:07 AM PSTdocumented in this encounter Plan of Treatment +--------+ [...] | | | | | | Road [place], [place] | | | | | | [address] | | +--------+ + + + + | 12/30/ | Appointment | Radiology | Thu Fields, | | | 2019 | | | MD [address] | | | | | | [address] [place], | | | | | | [place] [address] | | | | | | [phone] | | | | | | | | +--------+ + + + + | 12/30/ | Appointment | Radiology | Thu Fields, | | | 2019 | | | MD [address] | | | | | | [address] [place], | | | | | | [place] [address] | | | | | | [phone] | | | | | | | | +--------+ + + + + | 01/21/ | Office | Neurology | Thu Fields, | | | 2019 | Visit | | MD [address] | | | | | | [address] [place], | | | | | | [place] [address] | | | | | | [phone] | | | | | | | | +--------+ + + + + + + +--------+ + + | Name | Type | Priori | Associated Diagnoses | Order Schedule | | | | ty | | | + + +--------+ + + | COMMUNICATION TO [facility] | Procedures | Routin | Preop examination | Ordered: 07/14/2019 | | LAB DRAW | | e | | | + + +--------+ + + documented as of this encounter Procedures + +--------+ + + + | Procedure Name | Priori | Date/Time | Associated Diagnosis | Comments | | | ty | | | | + +--------+ + + + | NC COLLECTION VENOUS | Routin | 07/14/2019 | Preop examination | | | BLOOD,VENIPUNCTURE | e | 9:05 AM | | | | | | PST | | | + +--------+ + + + | STAPH SCREEN, MRSA | Routin | 07/14/2019 | Preop examination | Results for this | | BY PCR, NASAL ONLY | e | 9:04 AM | | procedure are in the | | | | PST | | results section. | + +--------+ + + + | CONFIRMATORY ABO/RH | Routin | 07/14/2019 | Preop examination | Results for this | | | e | 9:04 AM | | procedure are in the | | | | PST | | results section. | + +--------+ + + + | [facility] - CBC ONLY | Routin | 07/14/2019 | Preop examination | Results for this | | | e | 9:04 AM | | procedure are in the | | | | PST | | results section. | + +--------+ + + + | [facility] - BASIC | Routin | 07/14/2019 | Preop examination | Results for this | | METABOLIC SET | e | 9:04 AM | | procedure are in the | | | | PST | | results section. | + +--------+ + + + | INR | Routin | 07/14/2019 | Preop examination | Results for this | | | e | 9:04 AM | | procedure are in the | | | | PST | | results section. | + +--------+ + + + | ANTIBODY SCREEN | Routin | 07/14/2019 | Preop examination | Results for this | | | e | 9:04 AM | | procedure are in the | | | | PST | | results section. | + +--------+ + + + | TYPE AND SCREEN | Routin | 07/14/2019 | Preop examination | Results for this | | | e | 9:04 AM | | procedure are in the | | | | PST | | results section. | + +--------+ + + + | ABO & RH TYPE | Routin | 07/14/2019 | Preop examination | Results for this | | | e | 9:04 AM | | procedure are in the | | | | PST | | results section. | + +--------+ + + + documented in this encounter Results CONFIRMATORY ABO/RH (07/14/2019 9:04 AM PST) + + + + + + | Component | Value | Ref Range | Performed | Pathologist | | | | | At | Signature | + + + + + + | ABO Group | O | | [facility] | | | | | | [facility]AT[facility] | | | | | | SERVICES, | | | | | | TRANSFUSION | | | | | | MEDICINE | | + + + + + + | Rh Type | Positive | | [facility] | | | | | | LABORATORY | | | | | | SERVICES, | | | | | | TRANSFUSION | | | | | | MEDICINE | | + + + + + + + + | Specimen | + + | Blood - Blood | | (substance) | + + + + + + + | Performing | Address | City/State/Zipcode | Phone Number | | Organization | | | | + + + + + | [facility] | [phone] | [place] [address] | | | SERVICES, | [address] | | | | TRANSFUSION MEDICINE | | | | + + + + + STAPH SCREEN, MRSA BY PCR, NASAL ONLY (07/14/2019 9:04 AM PST) + + + + + + | Component | Value | Ref Range | Performed | Pathologist | | | | | At | Signature | + + + + + + | MRSA/MSSA | Not Detected | Not Detected | [facility] | | | | | | LABORATORY | | | | | | SERVICES, | | | | | | CORE | | + + + + + + + + | Specimen | + + | Swab - Nasal | | (qualifier value) | + + + + + + + | Performing | Address | City/State/Zipcode | Phone Number | | Organization | | | | + + + + + | [facility] | [address] | [place] [address] | | | SERVICES, CORE | [address] | | | + + + + + ANTIBODY SCREEN (07/14/2019 9:04 AM PST) + + + + + + | Component | Value | Ref Range | Performed | Pathologist | | | | | At | Signature | + + + + + + | Antibody | Negative | | [facility] | | | Screen | | | LABORATORY | | | | | | SERVICES, | | | | | | TRANSFUSION | | | | | | MEDICINE | | + + + + + + + + | Specimen | + + | Blood - Blood | | (substance) | + + + + + + + | Performing | Address | City/State/Zipcode | Phone Number | | Organization | | | | + + + + + | [facility] | [address] | [place] [address] | | | SERVICES, | [address] | | | | TRANSFUSION MEDICINE | | | | + + + + + ABO & RH TYPE (07/14/2019 9:04 AM PST) + + + + + + | Component | Value | Ref Range | Performed | Pathologist | | | | | At | Signature | + + + + + + | ABO Group | O | | [facility] | | | | | | LABORATORY | | | | | | SERVICES, | | | | | | TRANSFUSION | | | | | | MEDICINE | | + + + + + + | Rh Type | Positive | | [facility] | | | | | | LABORATORY | | | | | | SERVICES, | | | | | | TRANSFUSION | | | | | | MEDICINE | | + + + + + + + + | Specimen | + + | Blood - Blood | | (substance) | + + + + + + + | Performing | Address | City/State/Zipcode | Phone Number | | Organization | | | | + + + + + | [facility] | [address] | [place] [address] | | | SERVICES, | [address] | | | | TRANSFUSION MEDICINE | | | | + + + + + INR (07/14/2019 9:04 AM PST) + +-------+ + + + | Component | Value | Ref Range | Performed | Pathologist | | | | | At | Signature | + +-------+ + + + | INR | 0.98 | 0.90 - 1.20 INR | [facility] | | | | | | LABORATORY | | | | | | SERVICES, | | | | | | CORE | | + +-------+ + + + + + | Specimen | + + | Blood - Blood | | (substance) | + + + + + | Narrative | Performed At | + + + | INR Therapeutic ranges for full anticoagulation: INR for Venous | [facility] | | Thromboembolism (2.0 - 3.0) INR INR for most | LABORATORY | | patients with mech. valves (2.5 - 3.5) INR | SERVICES, CORE | + + + + + + + + | Performing | Address | City/State/Zipcode | Phone Number | | Organization | | | | + + + + + | [facility] | [address] | [place] [address] | | | SERVICES, CORE | [address] | | | + + + + + [facility] - CBC ONLY (07/14/2019 9:04 AM PST) + + + + + + | Component | Value | Ref Range | Performed | Pathologist | | | | | At | Signature | + + + + + + | WHITE CELL | 4.66 | 3.50 - 10.80 | [facility] | | | COUNT | | K/cu mm | LABORATORY | | | | | | SERVICES, | | | | | | [facility] | | | [facility] + | | | | | | [facility]AL[facility] | | + + + + + + | RED CELL | 4.83 | 4.00 - 5.20 | [facility] | | | COUNT | | M/cu mm | LABORATORY | | | | | | SERVICES, | | | | | | [facility] | | [facility] | | | | | | [facility] | | + + + + + + | HEMOGLOBIN | 12.9 | 12.0 - 16.0 | [facility] | | | | | g/dL | LABORATORY | | | | | | SERVICES, | | | | | | [facility] + | | | | | | [facility]ALING | | + + + + + + | HEMATOCRIT | 40.7 | 36.0 - 46.0 % | [facility] | | | | | | LABORATORY | | | | | | SERVICES, | | | | | | [facility] + | | | | | | [facility]ALING | | + + + + + + | MCV | 84.3 | 80.0 - 100.0 fL | [facility] | | | | | | LABORATORY | | | | | | SERVICES, | | | | | | [facility] + | | | | | | [facility]ALING | | + + + + + + | MCHC | 31.7 (L) | 32.0 - 36.0 | [facility] | | | | | g/dL | LABORATORY | | | | | | SERVICES, | | | | | | [facility] + | | | | | | [facility]ALING | | + + + + + + | RDW SD | 43.7 | 35.1 - 46.3 fL | [facility] | | | | | | LABORATORY | | | | | | SERVICES, | | | | | | [facility] + | | | | | | [facility]ALING | | + + + + + + | PLATELET | 175 | 150 - 400 K/cu | [facility] | | | COUNT | | mm | LABORATORY | | | | | | SERVICES, | | | | | | [facility] + | | | | | | [facility]ALING | | + + + + + + | MPV | 10.8 | 9.7 - 12.3 fL | [facility] | | | | | | LABORATORY | | | | | | SERVICES, | | | | | | [facility] + | | | | | | [facility]AL[facility] | | + + + + + + | NRBC% | 0.0 | 0.0 - 0.3 % | [facility] | | | | | | LABORATORY | | | | | | SERVICES, | | | | | | [facility] | [facility] + | | | | | | [facility]ALING | | + + + + + + | NRBC# | 0.00 | 0.00 - 0.02 | [facility] | | | | | K/cu mm | LABORATORY | | | | | | SERVICES, | | | | | | [facility] | [facility] + | | | | | | [facility]ALING | | + + + + + + + + | Specimen | + + | Blood - Blood | | (substance) | + + + + + + + | Performing | Address | City/State/Zipcode | Phone Number | | Organization | | | | + + + + + | [facility] | [address] | [place] [address] | | | SERVICES, [facility] | | | | | [facility] + [facility]ALING | | | | + + + + + CH - BASIC METABOLIC SET (07/14/2019 9:04 AM PST) + +---------+ + + + | Component | Value | Ref Range | Performed | Pathologist | | | | | At | Signature | + +---------+ + + + | GLUCOSE, | 97 | 70 - 99 mg/dL | [facility] | | | PLASMA | | | LABORATORY | | | (LAB) | | | SERVICES, | | | | | | [facility] | [facility] + | | | | | | [facility]ALING | | + +---------+ + + + | BUN, PLASMA | 19 | 6 - 20 mg/dL | [facility] | | | (LAB) | | | LABORATORY | | | | | | SERVICES, | | | | | | [facility] + | | | | | | [facility]ALING | | + +---------+ + + + | CREATININE | 0.71 | 0.60 - 1.10 | [facility] | | | PLASMA | | mg/dL | LABORATORY | | | (LAB) | | | SERVICES, | | | | | | [facility] | [facility] + | | | | | | HEALING | | + +---------+ + + + | EGFR | >60 | >60 mL/min | [facility] | | | - | | | LABORATORY | | | NIGERIAN | | | SERVICES, | | | | | | [facility] | [facility] + | | | | | | [facility]ALING | | + +---------+ + + + | EGFR NON | >60 | >60 mL/min | [facility] | | | -JUAQUIN | | | LABORATORY | | | RICAN | | | SERVICES, | | | | | | [facility] | [facility] + | | | | | | HEALING | | + +---------+ + + + | SODIUM, | 139 | 136 - 145 | [facility] | | | PLASMA | | mmol/L | LABORATORY | | | (LAB) | | | SERVICES, | | | | | | [facility] | [facility] + | | | | | | HEALING | | + +---------+ + + + | POTASSIUM, | 4.3 | 3.4 - 5.0 | [facility] | | | PLASMA | | mmol/L | LABORATORY | | | (LAB) | | | SERVICES, | | | | | | [facility] + | | | | | | [facility]ALING | | + +---------+ + + + | CHLORIDE, | 107 | 97 - 108 mmol/L | [facility] | | | PLASMA | | | LABORATORY | | | (LAB) | | | SERVICES, | | | | | | [facility] | [facility] + | | | | | | [facility]ALING | | + +---------+ + + + | TOTAL CO2, | 24 | 21 - 32 mmol/L | [facility] | | | PLASMA | | | LABORATORY | | | (LAB) | | | SERVICES, | | | | | | [facility] | [facility] + | | | | | | HEALING | | + +---------+ + + + | CALCIUM, | 8.3 (L) | 8.6 - 10.2 | [facility] | | | PLASMA | | mg/dL | LABORATORY | | | (LAB) | | | SERVICES, | | | | | | [facility] | [facility] + | | | | | | HEALING | | + +---------+ + + + | ANION GAP | 8 | 4 - 11 mmol/L | [facility] | | | | | | LABORATORY | | | | | | SERVICES, | | | | | | [facility] | | | [facility] + | | | | | | HEALING | | + +---------+ + + + | POTASSIUM | No Hemo | | [facility] | | | CMNT | | | LABORATORY | | | | | | SERVICES, | | | | | | [facility] | [facility] + | | | | | | HEALING | | + +---------+ + + + | BUN/CREATIN | 27 (H) | 8 - 25 | [facility] | | | INE RATIO | | | LABORATORY | | | | | | SERVICES, | | | | | | [facility] | [facility] + | | | | | | HEALING | | + +---------+ + + + + + | Specimen | + + | Blood - Blood | | (substance) | + + + + + | Narrative | Performed At | + + + | GFR is estimated using the MDRD equation recommended by the National | [facility] | | Kidney Disease Education Program. Estimated GFR Interpretive | LABORATORY | | Information: <60 mL/min/1.73 sq m Chronic Kidney | SERVICES, | | Disease <15 mL/min/1.73 sq m Kidney Failure | [facility]ENTER FOR | | Estimated GFR greater than 60 mL/min/1.73 sq m is of limited clinical | HEALTH + | | value. The MDRD equation is not valid in the following situations: | HEALING | | - Patients under 18 years [...] + + + | [facility] | [address] | [place] [address] | | | SERVICES, [facility] | | | | | [facility] + HEALING | | | | + + + + + documented in this encounter Visit Diagnoses + + | Diagnosis | + + | Preop examination - Primary Preoperative examination, unspecified | + + documented in this encounter
--- OUTSIDE RECORDS SUMMARY | ~2019-12-19 | XMS | Encounter Summary ---
Demographics + + + | Address | [address] | | | [place] [address] | + + + | Home Phone [...] Team Providers + +------+ + | Care Pharmaceutical Plant Operator Name | Role | Phone | [...] | | | | | | Road [place], [place] | | | | | | [address] | | +--------+ + + + + | 12/30/ | Appointment | Radiology | Thu Fields, | | | 2019 | | | MD [address] | | | | | | [address] [facility] | | | | | | [place] [address] | | | | | | [phone] | | | | | | | | +--------+ + + + + | 12/30/ | Appointment | Radiology | Thu Fields, | | | 2019 | | | MD [address] | | | | | | [address] [place], | | | | | | [place] [address] | | | | | | [phone] | | | | | | | | +--------+ + + + + | 01/21/ | Office | Neurology | Thu Fields, | | | 2019 | Visit | | MD [address] | | | | | | [address] [place], | | | | | | [place] [address] | | | | | | [phone] | | | | | | | | +--------+ + + + + documented as of this encounter Visit Diagnoses Not on filedocumented in this encounter"
--- OUTSIDE RECORDS SUMMARY | ~2019-12-19 | XMS | Encounter Summary ---
Demographics + + + | Address | [address] | | | [place] [address] | + + + | Home Phone | | + + + | Preferred Language | Unknown | + + + | Marital Status | | + + + | Jain Affiliation | CHR | + + + | Race | White | + + + | Ethnic Group | Not or | + + + Author + + + | Author | [facility] | + + + | Organization | [facility] | + + + | Address | Unknown | + + + | Phone | Unavailable | + + + Support + + +---------+ + | Name | Relationship | Address | Phone | + + +---------+ + | Anushka Mitchell | ECON | Unknown | | + + +---------+ + Care Team Providers + +------+ + | Care Director Drug Name | Role | Phone | + [...] | | neuralgia | [facility] Sin | [address] | | | | | | [address] [facility] | | | | | | Family | for Health | | | | | | Medicine | and Healing, | | | | | | [address] | [address] | | | | | | [address] | [place], [place] | | | | | | Analy, | [address] | | | | | | [place] [address] | Phone: | | | | | | Phone: | [phone] | | | | | | [phone] | Fax: | | | | | | Fax: | [phone] | | | | | | [phone] | | +--------+--------+ + + + + Encounter Details +--------+---------+ + + + | Date | Type | Department | Care Team | Description | +--------+---------+ + + + | 07/10/ | Office | Neurology at | Thu Fields, | Atypical facial pain | | 2020 | Visit | [facility] & | [address] | (Primary Dx); | | | | Healing [address] | [address] [place], | Pituitary adenoma | | | | [facility] | [place] [address] | ([facility]); Nausea and | | | | Health and Healing, | [phone] | vomiting, | | | | [address] | | intractability of | | | | [place], [place] | | vomiting not | | | | [address] | | specified, | | | | [phone] | | unspecified vomiting | | | [...] nurse coordinator, or myself), please activate your [employer] account and use the e-mail function to [...] may use free available paxton such as [email or web address] or migraine brennan or keep track on [...] available over the counter or online (e.g. [facility]) ? Magnesium 400-600 mg daily (magnesium glycinate [...] In meantime thought had lupus, went to x ray tech, who homer mmended head MRI and neurologist. 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 [facility]) ? Magnesium 400-600 mg daily (magnesium glycinate [...] on how to sign up for my [facility] chart were given, patient can contact us through her medical chart. I spent 73 minutes with the patient. Greater than 50% of the time was spent counseling the patient regarding diagnosis, risks, benefits, and alternatives to current management. All questions were answered to patient s satisfaction. Thu Fields M.D. Flux Core Welder of Neurology [facility] Brain [employer] documented in this en counter Plan of [...] | | | | | | Road [place], [place] | | | | | | [address] | | +--------+ + + + + | 12/30/ | Appointment | Radiology | Thu Fields, | | | 2019 | | | MD [address] | | | | | | [facility] [place], | | | | | | [place] [address] | | | | | | [phone] | | | | | | | | +--------+ + + + + | 12/30/ | Appointment | Radiology | Thu Fields, | | | 2019 | | | MD [address] | | | | | | [address] [place], | | | | | | [place] [address] | | | | | | [phone] | | | | | | | | +--------+ + + + + | 01/21/ | Office | Neurology | Thu Fields, | | | 2019 | Visit | | MD [address] | | | | | | [address] [place], | | | | | | [place] [address] | | | | | | [phone] | | | | | | | [...]
--- OUTSIDE RECORDS SUMMARY | ~2019-12-19 | XMS | Encounter Summary ---
Demographics + + + | Address | [address] | | | [place] [address] | + + + | Home Phone | | + + + | Preferred Language | Unknown | + + + | Marital Status | | + + + | Christian Affiliation | CHR | + + + [...] Team Providers + +------+ + | Care Photographic Enlarger Operator Name | Role | Phone | [...] [place] | | | | | | [facility], [place] | | | | | | [address] | | +--------+ + + + + | 12/30/ | Appointment | Radiology | Thu Fields, | | | 2019 | | | MD [address] | | | | | | [address] [place], | | | | | | [place] [address] | | | | | | [phone] | | | | | | | | +--------+ + + + + | 12/30/ | Appointment | Radiology | Thu Fields, | | | 2019 | | | MD [address] | | | | | | [address] [place], | | | | | | [place] [address] | | | | | | [phone] | | | | | | | | +--------+ + + + + | 01/21/ | Office | Neurology | Thu Fields, | | | 2019 | Visit | | MD [address] | | | | | | [address] [place], | | | | | | [place] [address] | | | | | | [phone] | | | | | | | | +--------+ + + + + documented as of this encounter Visit Diagnoses Not on filedocumented in this encounter"
--- OUTSIDE RECORDS SUMMARY | ~2019-12-19 | XMS | Encounter Summary ---
Demographics + + + | Address | [address] | | | [place] [address] | + + + | Home Phone | | + + + | Preferred Language | Unknown | + + + | Marital Status | | + + + | Jainism Affiliation | CHR | + + + | Race | White | + + + | Ethnic Group | Not or | + + + Author + + + | Author | [facility] | + + + | Organization | [facility] | + + + | Address | Unknown | + + + | Phone | Unavailable | + + + Support + + +---------+ + | Name | Relationship | Address | Phone | + + +---------+ + | Anushka Mitchell | ECON | Unknown | | + + +---------+ + Care Team Providers + +------+ + | Care Wildlife Ecologist Name | Role | Phone | + +------+ + | Lisa Adorno PA-C | PCP | | + +------+ + Encounter Details +--------+ + + + + | Date | Type | Department | Care Team | Description | +--------+ + + + + | 10/09/ | MyChart | Neurosurgery at | Mery Barnett, | RE: Question | | 2020 | Encounter | [facility] | [address] | regarding | | | | and Healing [address] | TSH-THYROID STIM | | | | [address] [facility] | [place], [place] | HORMONE | | | | Health and Healing, | [address] | | | | | [address] | [phone] | | | | | [place], [place] | | | | | | [address] | | | | | | [phone] | | | +--------+ + + + [...] | | | | | | Road [place], [place] | | | | | | [address] | | +--------+ + + + + | 12/30/ | Appointment | Radiology | Thu Fields, | | | 2019 | | | [address] | | | | | | [address] [facility] | | | | | | [place] [address] | | | | | | [phone] | | | | | | | | +--------+ + + + + | 12/30/ | Appointment | Radiology | Thu Fields, | | | 2019 | | | MD [address] | | | | | | [address] [place], | | | | | | [place] [address] | | | | | | [phone] | | | | | | | | +--------+ + + + + | 01/21/ | Office | Neurology | Thu Fields, | | | 2019 | Visit | | MD [address] | | | | | | [address] [place], | | | | | | [place] [address] | | | | | | [phone] | | | | | | | | +--------+ + + + + documented as of this encounter Visit Diagnoses Not on filedocumented in this encounter"
--- OUTSIDE RECORDS SUMMARY | ~2019-12-19 | XMS | Encounter Summary ---
Demographics + + + | Address | [address] | | | [place] [address] | + + + | Home Phone [...] + + + | Author | [facility] | + + + | Organization | [facility] | + + + | Address | Unknown | + + + | Phone | Unavailable | + + + Support + + +---------+ + | Name | Relationship | Address | Phone | + + +---------+ + | Anushka Mitchell | ECON | Unknown | | + + +---------+ + Care Team Providers + +------+ + | Care Emergency Medical Technician Basic Name | Role | Phone | + [...] | | | | gland and | [place], [place] | Research | | | | | craniopharyn | [address] | Center | | | | | geal duct | Phone: | [facility] [place] | | | | | ([facility]) | [phone] | [address] | | | | | Pituitary | Fax: | Phone: | | | | | adenoma | [phone] | [phone] | | | | | (HCC) | | Fax: | | | | | Procedures | | [phone] | | | | | MRI | | | | | | | PITUITARY | | | | | | | WWO CONTRAST | | | | | | | CA MRI | | | | | | | BRAIN COMBO | | | +--------+--------+ + + + + Encounter Details +--------+ + + + + | Date | Type | Department | Care Team | Description | +--------+ + + + + | 07/09/ | Patrol Lady | Neurosurgery at | Pawan Mann MD | Pituitary adenoma | | 2020 | | [facility] [address] | [address] | (HCC) (Primary Dx); | | | | e Center for | [place], [place] | Benign neoplasm of | | | | Health and Healing, | [address] | pituitary gland and | | | | Building | [phone] | craniopharyngeal | | | | floor [place], [place] | | duct (HCC) | | | | [address] | | | | | | [phone] | | | +--------+ + + + [...] | | | | | | Road [place], [place] | | | | | | [address] | | +--------+ + + + + | 12/30/ | Appointment | Radiology | Thu Fields, | | | 2019 | | | [address] | | | | | | [address] | | | | | | [place] [address] | | | | | | [phone] | | | | | | | | +--------+ + + + + | 12/30/ | Appointment | Radiology | Thu Fields, | | | 2019 | | | MD [address] | | | | | | [address] [place], | | | | | | [place] [address] | | | | | | [phone] | | | | | | | | +--------+ + + + + | 01/21/ | Office | Neurology | Thu Fields, | | | 2019 | Visit | | MD [address] | | | | | | [address] [place], | | | | | | [place] [address] | | | | | | [phone] | | | | | | | [...]
--- OUTSIDE RECORDS SUMMARY | ~2019-12-19 | XMS | Encounter Summary ---
Demographics + + + | Address | [address] | | | [place] [address] | + + + | Home Phone | | + + + | Preferred Language | Unknown | + + + | Marital Status | | + + + | Religion Affiliation | CHR | + + + | Race | White | + + + | Ethnic Group | Not or | + + + Author + + + | Author | [facility] | + + + | Organization | [facility] | + + + | Address | Unknown | + + + | Phone | Unavailable | + + + Support + + +---------+ + | Name | Relationship | Address | Phone | + + +---------+ + | Anushka Mitchell | ECON | Unknown | | + + +---------+ + Care Team Providers + +------+ + | Care Vehicle And Equipment Cleaner Name | Role | Phone | + +------+ + | Lisa Adorno PA-C | PCP | | + +------+ + Encounter Details +--------+ + + + + | Date | Type | Department | Care Team | Description | +--------+ + + + + | 11/29/ | MyChart | Neurology at | Thu Fields, | RE: MRI's | | 2020 | Encounter | [facility] & | MD [address] | | | | | Healing [address] | [address] [place], | | | | | [facility] | [place] [address] | | | | | Health and Healing, | [phone] | | | | | [facility] | | | | | | [place], [place] | | | | | | [address] | | | | | | [phone] | | | +--------+ + + + [...] | Appointment | Clinical | Celestino Henriquez [facility] | | | 2019 | | Neurophysiology | Outpatient [address] | | | [address] | | | | | | Road [place], [place] | | | | | | [address] | | +--------+ + + + + | 12/30/ | Appointment | Radiology | Thu Fields, | | | 2019 | | | MD [address] | | | | | | [address] [place], | | | | | | [place] [address] | | | | | | [phone] | | | | | | | | +--------+ + + + + | 12/30/ | Appointment | Radiology | Thu Fields, | | | 2019 | | | MD [address] | | | | | | [address] [place], | | | | | | [place] [address] | | | | | | [phone] | | | | | | | | +--------+ + + + + | 01/21/ | Office | Neurology | Thu Fields, | | | 2019 | Visit | | MD [address] | | | | | | [address] [place], | | | | | | [place] [address] | | | | | | [phone] | | | | | | | | +--------+ + + + + documented as of this encounter Visit Diagnoses Not on filedocumented in this encounter"
--- OUTSIDE RECORDS SUMMARY | ~2019-12-19 | XMS | Encounter Summary ---
Demographics + + + | Address | [address] | | | [place] [address] | + + + | Home Phone | | + + + | Preferred Language | Unknown | + + + | Marital Status | | + + + | Spiritism Affiliation | CHR | + + + [...] Team Providers + +------+ + | Care Survey Crew Chief Name | Role | Phone | + [...] | [facility] | [place], [place] | | | | | Health and Healing, | [address] | | | | | | [phone] | | | | | floor [place], [place] | | | | | | [address] | | | | | | [phone] | | | +--------+ + + + [...] [address] | | | | | | [place], [place] | | | | | | [address] | | +--------+ + + + + | 12/30/ | Appointment | Radiology | hTu Fields, | | | 2019 | | | [address] | | | | | | [address] | | | | | | [place] [address] | | | | | | [phone] | | | | | | | | +--------+ + + + + | 12/30/ | Appointment | Radiology | Thu Fields, | | | 2019 | | | MD [address] | | | | | | [address] [place], | | | | | | [place] [address] | | | | | | [phone] | | | | | | | | +--------+ + + + + | 01/21/ | Office | Neurology | Thu Fields, | | 2019 | Visit | | MD [address] | | | | | | [address] [place], | | | | | | [place] [address] | | | | | | [phone] | | | | | | | | +--------+ + + + + documented as of this encounter Visit Diagnoses Not on filedocumented in this encounter"
--- OUTSIDE RECORDS SUMMARY | ~2019-12-19 | XMS | Encounter Summary ---
Demographics + + + | Address | [address] | | | [place] [address] | + + + | Home Phone | | + + + | Preferred Language | Unknown | + + + | Marital Status | | + + + | Yazidi Affiliation | CHR | + + + [...] Providers + +------+ + | Care Wildlife Conservation Officer Name | Role | Phone | + +------+ + | Lisa Adorno PA-C | PCP | | + +------+ + Encounter Details +--------+ + + + + | Date | Type | Department | Care Team | Description | +--------+ + + + + | 05/29/ | Procedure | Diagnostic Imaging | | | | 2019 | Pass | Services at [facility] | | | | | | [address] | | | | | | [address] | | | | | | [facility] | | | | | | [place], [place] | | | | | | [address] | | | | | | [phone] | | | +--------+ + + + [...] | | | | | | [address] | | | | | | [facility], [place] | | | | | | [address] | | +--------+ + + + + | 12/30/ | Appointment | Radiology | Thu Fields, | | | 2019 | | | MD [address] | | | | | | [address] [place], | | | | | | [place] [address] | | | | | | [phone] | | | | | | | | +--------+ + + + + | 12/30/ | Appointment | Radiology | Thu Fields, | | | 2019 | | | MD [address] | | | | | | [address] [place], | | | | | | [place] [address] | | | | | | [phone] | | | | | | | | +--------+ + + + + | 01/21/ | Office | Neurology | Thu Fields, | | | 2020 | Visit | | MD [address] | | | | | | [facility] [address] [place], | | | | | | [place] [address] | | | | | | [phone] | | | | | | | | +--------+ + + + + documented as of this encounter Visit Diagnoses Not on filedocumented in this encounter"
--- OUTSIDE RECORDS SUMMARY | ~2019-12-19 | XMS | Encounter Summary ---
Demographics + + + | Address | [address] | | | [place] [address] | + + + | Home Phone | | + + + | Preferred Language | Unknown | + + + | Marital Status | | + + + | Congregational Affiliation | Unknown | + + + | Race | Unknown | + + + | Ethnic Group | Unknown | + + + Author + + + | Author | [facility] | | | and [place] | + + + | Organization | [facility] | | [...] Team Providers + +------+ + | Care Suit Attendant Name | Role | Phone | [...] + + | 03/03/ | Office | [facility] | Melia Marcial | Perioral dermatitis | | 2019 | Visit | PLASTIC SURGERY AND | [address] | (Primary Dx); | | | | DERMAT[address]Y [address] | Seborrheic | | | | [place] | [place], [place] | dermatitis; [address] | | | | [place], [place] | [address] | cyst; Multiple | | | | [address] | | benign nevi | | | | [phone] | | | +--------+---------+ + + + [...] encounter Patient Instructions Patient Instructions Anjali Villeda, [employer] Wirer - 03/03/2019 9:20 AM PDTFormattin g of [...] a.m. to 4 p.m. Date Last Reviewed: 05/27/[id number] [employer]. [address] [place] [address], [place] [address]. All righ ts reserved. This information is [...] Not on filedocumented as of this encounter Visit Diagnoses + + | Diagnosis | + + | Perioral dermatitis - Primary Rosacea | + + | Seborrheic dermatitis Seborrheic dermatitis, unspecified | + + | Pilar cyst | + + | Multiple benign nevi Benign neoplasm of skin, site unspecified | + + documented in this encounter
--- OUTSIDE RECORDS SUMMARY | ~2019-12-19 | XMS | Encounter Summary ---
Demographics + + + | Address | [address] | | | [place] [address] | + + + | Home Phone [...] + + + | Author | [facility] | + + + | Organization | [facility] | + + + | Address | Unknown | + + + | Phone | Unavailable | + + + Support + + +---------+ + | Name | Relationship | Address | Phone | + + +---------+ + | Anushka Mitchell | ECON | Unknown | | + + +---------+ + Care Team Providers + +------+ + | Care Unit Coordinator Name | Role | Phone | [...] visit | | 2020 | Encounter | [facility] | [place], | | | | | and Healing [address] | [place] [place] [address] | | | | [address] [facility] | [address] [facility] | | | | | Health and Healing, | [place] [address] | | | | | [place] [address] | [phone] | | | | | [place], [place] | | | | | | [address] | | | | | | [phone] | | | +--------+ + + + [...] | | | | | | Road [place], [place] | | | | | | [address] | | +--------+ + + + + | 12/30/ | Appointment | Radiology | Thu Fields, | | | 2019 | | | [address] | | | | | | [address] [place], | | | | | | [place] [address] | | | | | | [phone] | | | | | | | | +--------+ + + + + | 12/30/ | Appointment | Radiology | Thu Fields, | | | 2019 | | | MD [address] | | | | | | [address] [facility], | | | | | | [place] [address] | | | | | | [phone] | | | | | | | | +--------+ + + + + | 01/21/ | Office | Neurology | Thu Fields, | | | 2019 | Visit | | MD [address] | | | | | | [address] [facility], | | | | | | [place] [address] | | | | | | [phone] | | | | | | | | +--------+ + + + + documented as of this encounter Visit Diagnoses Not on filedocumented in this encounter"
--- OUTSIDE RECORDS SUMMARY | ~2019-12-19 | XMS | Encounter Summary ---
Demographics + + + | Address | [address] | | | [place] [address] | + + + | Home Phone | | + + + | Preferred Language | Unknown | + + + | Marital Status | | + + + | Yarsani Affiliation | CHR | + + + [...] Providers + +------+ + | Care Director Medicare Sales Name | Role | Phone | + +------+ + | Lisa Adorno PA-C | PCP | | + +------+ + Reason for Visit + + + | Reason | Comments | + + + | Return Patient | face pain | + + + Intake Referral (Routine) [...] | | neuralgia | [facility] | [address] | | | | | Analy | [address] [facility] | | | | | | [facility] | [facility] | | | | | | Medicine | and Healing, | | | | | | [address] | [address] | | | | | | [address] | [place], [place] | | | | | | [place], | [address] | | | | | | [place] [address] | Phone: | | | | | | Phone: | [phone] | | | | | | [phone] | Fax: | | | | | | Fax: | [phone] | | | | | | [phone] | | +--------+--------+ + + + + Encounter Details +--------+ + + + + | Date | Type | Department | Care Team | Description | +--------+ + + + + | 08/19/ | Video/TeleH | Neurology at | Thu Fields, | Return Patient (face | | 2019 | ealth-Sched | [facility] | [address] | pain) | | | uled | Healing [address] | [address] [place], | | | | | [facility] | [place] [address] | | | | | Health and Healing, | [phone] | | | | | [facility] [address] | | | | | | [place], [place] | | | | | | [address] | | | | | | [phone] | | | +--------+ + + + [...] Instructions Patient Instructions Thu Fields MD - 08/20/2019 4:00 PM PDTPlan: - Increase pregabalin to 75 mg in the morning and 150 mg at night for 1 week, then increase as needed/tolerated to 150 mg twice a day. Let me know if you get any side effects and what dose ends up working for you, and I will w rite a new prescription. It also comes as 50 mg capsules and 100 mg capsules, so if you need an in-between dose we should be able to achieve that. - RTC in 3 months. You are welcome to e-mail via my [facility] chart if questions or concerns alba se prior to that visit. T documented in this encounter Progress Notes Thu Fields MD - 08/20/2019 4:00 PM PDTNEUROLOGY VIRTUAL VISIT PROGRESS NOTE DATE OF SERVICE 08/20/2019 PATIENT IDENTIFICATION Anushka Delcid is a 39 y.o. 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 The visit took place via Telemedicine. Patient location is the home. Patient was located in the [facility] at the time of the visit. Telepresenter (relative and/or sales and production manager) was not used during the visit. INTERVAL HISTORY - Last visit: 07/10/2019 - Had a transphenoidal resection of the pituitary mass on 07/29/[address] Mann. - Still tired, but otherwise good, if oversleeps can still feel the pain on the left side o f face Headaches better now post-surgery When blood pumping (eg exercise) head still hurts Already off pain killers except Lyrica Hydrocortisone daily Gets some wearing off when getting ready for next dose of Lyrica Increased thirst and urination after surgery. She says she reported this in pituitary clini c. No side effects from lyrica When oversleeps can feel it, worse pain Left side still light sensitive Pressure underneath left eye --Blood clogging sinus cleaned by ENT that helped relieve MEDICATIONS Current Outpatient Medications: acetaminophen 500 mg oral tablet, Take 2 tablets by mouth e very six hours., Disp: , Rfl: ascorbic acid (vitamin C) 250 mg oral tablet, Take 250 mg by mouth three times daily., Disp : , Rfl: BIOTIN ORAL, Take by mouth., Disp: , Rfl: calcium carbonate/vitamin D3 (VITAMIN D-3 ORAL), Take by mouth., Disp: , Rfl: guaiFENesin LA 600 mg oral tablet extended release 12hr, Take 1 tablet by mouth two times d aily., Disp: , Rfl: herbal drugs (FIBER DIET ORAL), Take by mouth., Disp: , Rfl: hydrocortisone 20 mg oral tablet, Take 1 tablet by mouth once daily in the morning., Disp: 30 tablet, Rfl: 1 HYDROmorphone 2 mg oral tablet, Take 1 tablet by mouth every three hours as needed for mode rate pain or severe pain., Disp: 80 tablet, Rfl: 0 L.acid,gas,plan,rhm/B.ani/cran (UP4 PROBIOTICS WOMEN'S ORAL), Take by mouth., Disp: , Rfl: multivit with calcium,iron,min (MULTIPLE VITAMIN, WOMENS ORAL), Take by mouth., Disp: , Rfl : ondansetron ODT 4 mg oral tablet,disintegrating, Dissolve 1 tablet on tongue and swallow ev elieser eight hours as needed for nausea/vomiting., Disp: 30 tablet, Rfl: 2 polyethylene glycol 17 gram oral powder in packet, Mix 1 packet and take orally three times daily as needed (1st line - for no BM for 2 days). Indications: constipation, Disp: 30 pack et, Rfl: 0 pregabalin 75 mg oral capsule, Take 1 capsule by mouth two times daily., Disp: 180 capsule, Rfl: 1 senna-docusate 8.6-50 mg oral tablet, Take 1 tablet by mouth two times daily. Indications: constipation, Disp: 60 tablet, Rfl: 0 sodium chloride 0.65 % nasal aerosol,spray, Instill 2 sprays into each nostril as needed. I ndications: dryness of the nose, Disp: , Rfl: PAST & CURRENT HEADACHE TREATMENTS Abortive: Current: Tylenol Past: Imitrex for migraines in past Tylenol, ibuprofen, Aleve, did not help Preventive: Current: Pregabalin 75 mg bid Past: Gabapentin -- side effects at higher doses PHYSICAL EXAM Encounter performed via video Patient was alert, conversant and appropriate during visit Face appeared symmetric via video ASSESSEMENT AND PLAN Anushka Delcid is a 39 y.o. 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 She has had significant improvement in pain with pregabalin, but still having some pain. Will i ncrease dose of pregabalin to try to get better control. She is recovering well from surgery and is off most pain killers. Will be continuing to follow up with ENT and neurosurgery. Plan: - Increase pregabalin to 75 mg in the morning and 150 mg at night for 1 week, then increase as needed/tolerated to 150 mg twice a day. Let me know if you get any side effects and what dose ends up working for you, and I will w rite a new prescription. It also comes as 50 mg capsules and 100 mg capsules, so if you need an in-between dose we should be able to achieve that. - RTC in 3 months. You are welcome to e-mail via my [facility] chart if questions or concerns alba se prior to that visit. I spent 18 minutes with the patient via video visit. Greater than 50% of the time was spen t counseling the patient regarding diagnosis, risks, benefits, and alternatives to current management. All questions were answered to patient s satisfaction. Thu Fields M.D. Implementation Project Manager of Neurology Headache Medicine Adult and Pediatric Neurology [facility] documented in this en counter Plan of [...] [address] | | | | | | [place], [place] | | | | | | [address] | | +--------+ + + + + | 12/30/ | Appointment | Radiology | Thu Fields, | | | 2019 | | | [address] | | | | | | [address] | | | | | | [place] [address] | | | | | | [phone] | | | | | | | | +--------+ + + + + | 12/30/ | Appointment | Radiology | Thu Fields, | | | 2019 | | | MD [address] | | | | | | [address] [place], | | | | | | [place] [address] | | | | | | [phone] | | | | | | | | +--------+ + + + + | 01/21/ | Office | Neurology | Thu Fields, | | | 2019 | Visit | | MD [address] | | | | | | [address] [place], | | | | | | [place] [address] | | | | | | [phone] | | | | | | | | +--------+ + + + + documented as of this encounter Visit Diagnoses + + | Diagnosis | + + | Left facial pain - Primary Headache | + + documented in this encounter"
--- OUTSIDE RECORDS SUMMARY | ~2019-12-19 | XMS | Encounter Summary ---
Demographics + + + | Address | [address] | | | [place] [address] | + + + | Home Phone | | + + + | Preferred Language | Unknown | + + + | Marital Status | | + + + | Orthodox Affiliation | CHR | + + [...] Team Providers + +------+ + | Care Sales Agent Casualty Insurance Name | Role | Phone | + +------+ + | Lisa Adorno PA-C | PCP | | + +------+ + Reason for Referral PROC - Inpatient Surgery (Routine) +--------+--------+ + + + + | Status | Reason | Specialty | Diagnoses / | Referred By | Referred To | | | | | Procedures | Contact | Contact | +--------+--------+ + + + + | Closed | | Neurological | Diagnoses | | Cetas, | | | | Surgery | Benign | Matthieu, | MD Pawan | | | | | neoplasm of | Sharonda Cabrera, | [address] | | | | | pituitary | AGACNP | Avenue | | | | | gland and | [address] | [place], [place] | | | | | craniopharyn | [facility] | [address] | | | | | geal duct | Rd | Phone: | | | | | (HCC) | [place], [place] | [phone] | | | | | Procedures | [address] | Fax: | | | | | REQUEST TO | Phone: | [phone] | | | | | SURGERY | [phone] | | | | | | PROTEOMICS SCIENTIST | Fax: | | | | | | [place] | [phone] | | | | | | NEUROENDOSCO | | | | | | | P,EXC,PIT | | | | | | | JENNIFER,TRANSNAS | | | | | | | /SPHEN [place] | | | | | | | SCAN PROC | | | | | | | CRANIAL | | | | | | | INTRA VT | | | | | | | SPINAL | | | | | | | PUNCTURE, | | | | | | | THERAPEUTIC, | | | | | | | FOR | | | | | | | DRAINAGE OF | | | | | | | CEREBROSPINA | | | | | | | L FLUID VT | | | | | | | GRAFTING OF | | | | | | | AUTOLOGOUS | | | | | | | SOFT TISS BY | | | | | | | DIRECT EXC | | | | | | | VT | | | | | | | NEUROVASCULA | | | | | | | R PEDICLE | | | | | | | GRAFT VT | | | | | | | FORM SKIN | | | | | | | PEDICLE FLAP | | | | | | | | | | | | | | LID,EAR,NOSE | | | | | | | VT ADJ | | | | | | | TISS XFER | | | | | | | LID,NOS,EAR | | | | | | | <10SQCM | | | +--------+--------+ + + + + Diagnostic Testing (Routine) +--------+--------+ + + + + | Status | Reason | Specialty | Diagnoses / | Referred By | Referred To | | | | | Procedures | Contact | Contact | +--------+--------+ + + + + | Closed | | Radiology | Diagnoses | | Rad Ct Scan | | | | | Benign | [place], | [facility] [address] | | | | | neoplasm of | Sharonda M, | [address] | | | | | pituitary | AGACNP | [facility] for | | | | | gland and | [address] | Health and | | | | | craniopharyn | [facility] | Healing, | | | | | geal duct | Rd | Building [address], | | | | | (HCC) | [place], [place] | 3rd Floor | | | | | Procedures | [address] | [place], [place] | | | | | CTA | Phone: | [phone] | | | | | STEREOTACTIC | [phone] | Phone: | | | | | HEAD W | Fax: | [phone] | | | | | CONTRAST [place] | [phone] | Fax: | | | | | CT | | [phone] | | | | | ANGIO,HEAD | | | | | | | COMBO,INCL | | | | | | | IMAGE | | | | | | | PROCESS | | | +--------+--------+ + + + + Encounter Details +--------+---------+ + + + | Date | Type | Department | Care Team | Description | +--------+---------+ + + + | 06/05/ | Office | Neurosurgery at | Pawan Mann MD | Benign neoplasm of | | 2020 | Visit | [facility] [address] | [address] | pituitary gland and | | | | [facility] for | [place], [place] | craniopharyngeal | | | | Health and Healing, | [address] | duct (HCC) (Primary | | | | | [phone] | Dx) | | | | floor [place], [place] | | | | | | [address] | | | | | | [phone] | | | +--------+---------+ + + + [...] documented as of this encounter Progress Notes Pawan Mann MD - 06/05/2019 3:00 PM PST NEUROLOGICAL SURGERY HISTORY AND PHYSICAL-PITUITARY CLINIC: Attending: Pawan Mann MD Date of appointment: 06/05/2019 HPI: Anushka Delcid is a 39 y.o. female seen in the Pit[facility] for a new patient consultation due to history of sinusitis with imaging that revealed a likely macroadenoma. This sellar tumor was found incidentally. She does endorse frequent headaches. Patient rep orts no loss of vision. She also denies numbness or weakness of face, fatigue, weight de la cruz e, enlargement of hands or feet; difficulty with swallowing, history of seizures, numbness o r weakness of extremities, or difficulty with gait. Current Outpatient Medications Medication Sig ascorbic acid [...] No current facility-administered medications for this visit. Allergies Allergen Reactions Oxycodone-Acetaminophen Confusion, Nausea and Unknown Other reaction(s): Vomiting Other reaction(s): Confusion other Other reaction(s): Vomiting, Other reaction(s): Confusion, other Venom-Honey Bee Anaphylaxis Other Other Dicyclomine Palpitations Latex Nausea Other Other Sulfa (Sulfonamide Antibiotics) Unknown Meloxicam Dyspnea Sores in mouth Past Surgical History Procedure Laterality Date Fess (functional endoscopic sinus surgery) No past medical history on file. Social History Tobacco Use Smoking Status Never Smoker Smokeless Tobacco Never Used Social History Substance and Sexual Activity Alcohol Use Not on file Review of Systems: Negative except as noted above in the HPI. (Medications, allergies, past surgical history, past medical history, social history, and r eview of systems were reviewed by me and if not recorded in [employer] will be scanned into the [employer] stem using intake patient forms during this encounter.) Physical Exam: There were no vitals taken for this visit. Neurological exam: - Alert, oriented X 3, fluent speech, and good historian. - PERRL, EOMI. VFI to confrontational testing. Sensation to touch in face is present and sy mmetrical. Faces symmetrical. Hearing grossly intact. - Full motor strength and SILT throughout BUE/BLE. No pronator drift. - Cerebellar exam: No dysmetria on finger to nose on right or left. - Gait is normal. Imaginx6x12 hypoenhancing sellar mass abutting the optic chiasm. Assessment: Anushka Delcid is a 39 y.o. female with history of headaches and sinusitis and findings of a > 1cm sellar mass on imaging. We discussed surgical intervention versus s urveillance. Given the size and encroachment on the optic chiasm it is reasonable to remove the tumor now but as it is slow growing continued surveillance is an option at this point. She prefers surgical management. I discussed the risks and benefits of an endoscopic assist ed transnasal transsphenoidal sellar tumor resection. Risks include but are not limited to bleeding, infection, CSF leak requiring additional surgery, stroke, blindness, loss of the s ense of smell and loss of pituitary function. Plan: - Stereotactic CTA head - Consult to [place] for endoscopic assisted transnasal transsphenoidal sellar tumor resection I spent 15 minutes with the patient. Greater than 50% of the time was spent counseling the patient regarding her pituitary tumor. documented in this enco unter Plan of Treatment +--------+ + + + [...] | Appointment | Clinical | [facility] | | | 2019 | | Neurophysiology | Outpatient [address] | | | | | | [place], [place] | | | | | | [address] | | +--------+ + + + + | 12/30/ | Appointment | Radiology | Thu Fields, | | | 2019 | | | MD [address] | | | | | | [address] [place], | | | | | | [place] [address] | | | | | | [phone] | | | | | | | | +--------+ + + + + | 12/30/ | Appointment | Radiology | Thu Fields, | | | 2019 | | | MD [address] | | | | | | [address] [place], | | | | | | [place] [address] | | | | | | [phone] | | | | | | | | +--------+ + + + + | 01/21/ | Office | Neurology | Thu Fields, | | | 2019 | Visit | | MD [address] | | | | | | [address] [place], | | | | | | [place] [address] | | | | | | [phone] | | | | | | | | +--------+ + + + + documented as of this encounter Results CTA STEREOTACTIC HEAD W CONTRAST (07/14/2019 10:17 AM PST) + + | Specimen | + + | | + + + + + | Narrative | Performed At | + + + | EXAM: STEREOTACTIC CTA HEAD HISTORY: surgical planning for | [facility] | | RESECTION OF PITUITARY MASS on 07/29/2019 COMPARISON: MR 06/04/2019, | RADIOLOGY VOICE | | outside MR 05/08/2019,, outside CT 05/03/2019 TECHNIQUE: CT | RECOGNITION 2 | | angiogram of the head with iodine based intravenous contrast. | | | Multiplanar MIP 3D reconstructions. Stenoses are reported relative | | | to the distal normal vessel. FINDINGS: CTA: ANTERIOR | | | CIRCULATION: No aneurysm or hemodynamically significant stenoses. | | | POSTERIOR CIRCULATION: No aneurysm or hemodynamically significant | | | stenoses. Incidentally noted origin of the left PULP GRINDER AND BLENDER. Limited | | | evaluation of known pituitary lesion. Mild lateral ventricle | | | asymmetry is unchanged from priors. Incidental mucous retention cyst | | | in the inferior left maxillary sinus. No acute intracranial | | | abnormality. IMPRESSION: No aneurysm or hemodynamically | | | significant stenoses. I have personally reviewed the images and, | | | if necessary, edited the report. I agree with the report as now | | | presented. Final signature: Omi Mathur MD 07/14/2019 10:52 PM | | | Preliminary: Aracelis Faustin MD Dictation initiated: | | | Aracelis Faustin MD 07/14/2019 10:18 AM | | + + + + + | Procedure Note | + + | Service Account, Radiant Res In Interface - 07/14/2019 10:53 PM PST EXAM: | | STEREOTACTIC CTA HEAD HISTORY: surgical planning for RESECTION OF PITUITARY MASS on | | 07/29/2019 COMPARISON: MR 06/04/2019, outside MR 05/08/2019,, outside CT 05/03/2019 | | TECHNIQUE: CT angiogram of the head with iodine based intravenous contrast. Multiplanar | | MIP 3D reconstructions. Stenoses are reported relative to the distal normal vessel. | | FINDINGS: CTA: ANTERIOR CIRCULATION: No aneurysm or hemodynamically significant | | stenoses. POSTERIOR CIRCULATION: No aneurysm or hemodynamically significant stenoses. | | Incidentally noted origin of the left PULP GRINDER AND BLENDER. Limited evaluation of known pituitary | | lesion. Mild lateral ventricle asymmetry is unchanged from priors. Incidental mucous | | retention cyst in the inferior left maxillary sinus. No acute intracranial abnormality. | | IMPRESSION: No aneurysm or hemodynamically significant stenoses. I have personally | | reviewed the images and, if necessary, edited the report. I agree with the report as now | | presented. Final signature: Omi Mathur MD 07/14/2019 10:52 PM Preliminary: Aracelis | | MD Ramin Dictation initiated: Aracelis Faustin MD 07/14/2019 10:18 AM | |POSTERIOR CIRCULATION: No aneurysm or hemodynamically significant stenoses. Incidentally no rossy origin of the left PULP GRINDER AND BLENDER. | | | |Limited evaluation of known pituitary lesion. Mild lateral ventricle asymmetry is unchanged from priors. Incidental mucous retention cyst in the inferior left maxillary sinus. No acut e intracranial abnormality. | | | |IMPRESSION: | | | |No aneurysm or hemodynamically significant stenoses. | | | |I have personally reviewed the images and, if necessary, edited the report. I agree with e report as now presented. | | | |Final signature: Omi Mathur MD 07/14/2019 10:52 PM | |Preliminary: Aracelis Faustin MD | |Dictation initiated: Aracelis Faustin MD 07/14/2019 10:18 AM | + + + +---------+ + [...]
--- OUTSIDE RECORDS SUMMARY | ~2019-12-19 | XMS | Encounter Summary ---
Demographics + + + | Address | [address] | | | [place] [address] | + + + | Home Phone | | + + + | Preferred Language | Unknown | + + + | Marital Status | | + + + | Scientologist Affiliation | CHR | + + + | Race | White | + + + | Ethnic Group | Not or | + + + Author + + + | Author | [facility] | + + + | Organization | [facility] | + + + | Address | Unknown | + + + | Phone | Unavailable | + + + Support + + +---------+ + | Name | Relationship | Address | Phone | + + +---------+ + | Anushka Mitchell | ECON | Unknown | | + + +---------+ + Care Team Providers + +------+ + | Care Poleyard Supervisor Name | Role | Phone | [...] | | | | | | e [place] for | | | | | | Health and Healing, | | | | | | Building | | | | | | floor [facility] [place] | | | | | | [address] | | | | | | [phone] | | | +--------+ + + + [...] | | | | | | Road [place], [place] | | | | | | [address] | | +--------+ + + + + | 12/30/ | Appointment | Radiology | Thu Fields, | | | 2019 | | | [address] | | | | | | [address] | | | | | | [place] [address] | | | | | | [phone] | | | | | | | | +--------+ + + + + | 12/30/ | Appointment | Radiology | Thu Fields, | | | 2019 | | | MD [address] | | | | | | [address] [place], | | | | | | [place] [address] | | | | | | [phone] | | | | | | | | +--------+ + + + + | 01/21/ | Office | Neurology | Thu Fields, | | | 2019 | Visit | | MD [address] | | | | | | [address] [place], | | | | | | [place] [address] | | | | | | [phone] | | | | | | | | +--------+ + + + + documented as of this encounter Visit Diagnoses Not on filedocumented in this encounter"
--- OUTSIDE RECORDS SUMMARY | ~2019-12-19 | XMS | Encounter Summary ---
Demographics + + + | Address | [address] | | | [place] [address] | + + + | Home Phone | | + + + | Preferred Language | Unknown | + + + | Marital Status | | + + + | Cheondoism Affiliation | Unknown | + + + | Race | Unknown | + + + | Ethnic Group | Unknown | + + + Author + + + | Author | [facility] | | | and [place] | + + + | Organization | [facility] | | | [...] Team Providers + +------+ + | Care Sander And Buffer Name | Role | Phone | + [...] Provider Unknown | | | | | [place], [place] | [phone] | | | | | [address] | | | | | | [phone] | | | +--------+ + + + [...] filedocumented as of this encounter Visit Diagnoses Not on filedocumented in this encounter"
--- OUTSIDE RECORDS SUMMARY | ~2019-12-19 | XMS | Encounter Summary ---
Demographics + + + | Address | [address] | | | [place] [address] | + + + | Home Phone | | + + + | Preferred Language | Unknown | + + + | Marital Status | | + + + | Sabianist Affiliation | Unknown | + + + | Race | Unknown | + + + | Ethnic Group | Unknown | + + + Author + + + | Author | [facility] | | | and [place] | + + + | Organization | [facility] | | | [...] Team Providers + +------+ + | Care Clinical Trials Specialist Name | Role | Phone | + +------+ + | Jarocho Tate | PCP | | | MD | | | + +------+ + Reason for Referral Evaluate & Treat (Routine) +--------+ + + + + + | Status | Reason | Specialty | Diagnoses / | Referred By | Referred To | | | | | Procedures | Contact | Contact | +--------+ + + + + + | Closed | Specialty | Physical | Diagnoses | Fernanda Castillo | | | Services | Therapy | Impingement | Forest White MD | [place] | | | Required | | syndrome of | [address] | PHYSICAL | | | | | right | ST | THERAPY - | | | | | shoulder | [address] | [place] | | | | | | [address] | [address] | | | | | | Phone: | ANMOL GINA | | | | | | [phone] | 15 | | | | | | Fax: | [place] | | | | | | [phone] | [address] | | | | | | | Phone: | | | | | | | [phone] | | | | | | | Fax: | | | | | | | [phone] | +--------+ + + + + + Reason for [...] | | | right | | [address] | | | | | shoulder | | [facility], | | | | | pain/crane | | [place] [address] | | | | | conf | | Phone: | | | | | Procedures | | [phone] | | | | | NEW PATIENT | | Fax: | | | | | | | [phone] | + +--------+ + + + + Encounter Details +--------+---------+ + + + | Date | Type | Department | Care Team | Description | +--------+---------+ + + + | 04/03/ | Office | [facility] | Forest Castillo, | Acute pain of right | | 2019 | Visit | [facility] | MD [address] | shoulder (Primary | | | | MEDIC[facility] [place] | [place] [address] | Dx); Impingement | | | | [address] | [phone] | syndrome of right | | | | [place], [place] | | shoulder | | | | [address] | | | | | | [phone] | | | +--------+---------+ + + + [...] might be different fro m the original. [facility]: Orthopedic [...] some numbness in her fingers. She had nataliiau kalie tried physical therapy years ago which did [...] Castillo MD has created this entry using Bitstrips Recognition software and mapp2link. The entry has been reviewed and there [...] Castillo MD has created this entry using Bitstrips Recognition software a Buru Buru. The entry has been reviewed and there may still exist sound alike word err ors. documented in this encounter Plan of Treatment + + +--------+ + + | Name [...] | + +--------+ + + + | IMAGING REPORT - | | 03/20/2019 | | Results for this | | EXTERNAL SCAN | | 12:00 AM | | procedure [...] Castillo MD has created this entry using Loan[employer]ek | | | Voice Recognition software and mapp2link. The entry has been | | | reviewed and there may still exist sound alike word errors. | | | | | | | | |Forest Castillo MD has created this entry using [employer] Voice | | |Recognition software and mapp2link. The entry has been reviewed and | | |there may still exist sound alike word errors. | | | | | + + + + +---------+ + + | Performing | Address | City/State/Zipcode | Phone Number | | Organization | | | | + +---------+ + + | [facility] | | | | + +---------+ + + IMAGING REPORT - EXTERNAL SCAN (03/20/2019 12:00 AM PDT) + + + | Narrative | Performed At | + + + | Ordered by an | | | unspecified provider. | | + + + documented in this encounter Visit Diagnoses + + | Diagnosis | + + | Acute pain of right shoulder - Primary | + + | Impingement syndrome of right shoulder Other affections of shoulder region, not | | elsewhere classified | + + documented in this encounter
--- OUTSIDE RECORDS SUMMARY | ~2019-12-19 | XMS | Encounter Summary ---
Demographics + + + | Address | [address] | | | [place] [address] | + + + | Home Phone [...] Team Providers + +------+ + | Care Mechanical Engineering Director Name | Role | Phone | + +------+ + | Edwige Moreira MD | PCP | | + +------+ + Encounter Details +--------+ + + + + | Date | Type | Department | Care Team | Description | +--------+ + + + + | 01/13/ | Hospital | [facility] | Shaheed Bailon | Right foot pain; | | 2018 | Encounter | AND ANKLE XRAY [address] | Dusty, DPM [address] | Left foot pain | | | | [address] | [address] | | | | | [place], [place] | [place] [address] | | | | | [address] | [phone] | | | | | [phone] | | | +--------+ + + + [...] | 0 | 08/14/19 | | | (ADVIL,MOTRIN) 600 | | | | 19 | [...]
--- OUTSIDE RECORDS SUMMARY | ~2019-12-19 | XMS | Encounter Summary ---
Demographics + + + | Address | [address] | | | [place] [address] | + + + | Home Phone | | + + + | Preferred Language | Unknown | + + + | Marital Status | | + + + | Yarsanism Affiliation | CHR | + + + [...] Team Providers + +------+ + | Care Elementary School Teacher Name | Role | Phone | [...] | | [facility] [address] | [facility] [place] | | | | | [facility] for | [address] | | | | | Health and Healing, | [phone] | | | | | [address] | | | | | | [place], [place] | | | | | | [address] | | | | | | [phone] | | | +--------+---------+ + + + [...] a visit with Anushka Farhana no t Criselda Ovalle Brandon Rutherford MD Professor of Otolaryngology, [...] | | | | | Road [place], [place] | | | | | | [address] | | +--------+ + + + + | 12/30/ | Appointment | Radiology | Thu Fields, | | | 2019 | | | [address] | | | | | | [facility] [address] [facility] | | | | | | [place] [address] | | | | | | [phone] | | | | | | | | +--------+ + + + + | 12/30/ | Appointment | Radiology | Thu Fields, | | | 2019 | | | MD [address] | | | | | | [address] [place], | | | | | | [place] [address] | | | | | | [phone] | | | | | | | | +--------+ + + + + | 01/21/ | Office | Neurology | Thu Fields, | | | 2019 | Visit | | MD [address] | | | | | | [address] [place], | | | | | | [place] [address] | | | | | | [phone] | | | | | | | | +--------+ + + + + documented as of this encounter Visit Diagnoses + + | Diagnosis | + + | 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
--- OUTSIDE RECORDS SUMMARY | ~2019-12-19 | XMS | Encounter Summary ---
Demographics + + + | Address | [address] | | | [place] [address] | + + + | Home Phone [...] Team Providers + +------+ + | Care Deputy Chief Executive Name | Role | Phone | + +------+ + | Lisa Adorno PA-C | PCP | | + +------+ + Reason for Visit + + + | Reason | Comments | + + + | Post-discharge | | | follow-up | | + + + Encounter Details +--------+ + + + + | Date | Type | Department | Care Team | Description | +--------+ + + + + | 08/02/ | Telephone | Neurosurgery at | Pawan Mann MD | Post-discharge | | 2020 | | [facility] [address] | [address] | follow-up | | | | [facility] for | [place], [place] | | | | | Health and Healing, | [address] | | | | | Building | [phone] | | | | | floor [place], [place] | | | | | | [address] | | | | | | [phone] | | | +--------+ + + + [...] | +--------+ + + + + | 06/26/ | Procedure | Radiology | | | | 2019 | Pass | | | | +--------+ + + + + | 12/30/ | Appointment | Clinical | [facility] | | | 2019 | | Neurophysiology | Outpatient [address] | | | | | | [address] | | | | | | Road [place], [place] | | | | | | [address] | | +--------+ + + + + | 12/30/ | Appointment | Radiology | Thu Fields, | | | 2019 | | | MD [address] | | | | | | [address] [place], | | | | | | [place] [address] | | | | | | [phone] | | | | | | | | +--------+ + + + + | 12/30/ | Appointment | Radiology | Thu Fields, | | | 2019 | | | MD [address] | | | | | | [address] [place], | | | | | | [place] [address] | | | | | | [phone] | | | | | | | | +--------+ + + + + | 01/21/ | Office | Neurology | Thu Fields, | | | 2020 | Visit | | [address] | | | | | | [address], | | | | | | [place] [address] | | | | | | [phone] | | | | | | | | +--------+ + + + + documented as of this encounter Visit Diagnoses Not on filedocumented in this encounter"
--- OUTSIDE RECORDS SUMMARY | ~2019-12-19 | XMS | Encounter Summary ---
Demographics + + + | Address | [address] | | | [place] [address] | + + + | Home Phone | | + + + | Preferred Language | Unknown | + + + | Marital Status | | + + + | Restorationist Affiliation | Unknown | + + + | Race | Unknown | + + + | Ethnic Group | Unknown | + + + Author + + + | Author | [facility] | | | and [place] | + + + | Organization | [facility] | | | [...] Team Providers + +------+ + | Care Bender Helper Name | Role | Phone | + +------+ + | Jarocho Tate | PCP | | | MD | | | + +------+ + Reason for Visit + +--------+ + | Reason | Onset | Comments | | | Date | | + +--------+ + | Referral | 05/06/ | | | | 2019 | | + +--------+ + Encounter Details +--------+ + + + + | Date | Type | Department | Care Team | Description | +--------+ + + + + | 05/06/ | Telephone | [facility] | Forest Castillo, | Referral | | 2019 | | [place] [address] | [address] | | | | | [place], [place] | [place] [address] | | | | | [address] | [phone] | | | | | [phone] | | | +--------+ + + + [...] + + documented as of this encounter Miscellaneous Notes Telephone Encounter - Neetu Moore, Flower Machine Operator - 05/06/2019 11:22 AM PSTSpoke t o patient, refaxed PT referral to [facility] in [place]. elephone Encounter - Haley Wheatley - 05/06/2019 10:55 AM PSTPt is needing a referral for physical therapy. She is wanting a call from the ut. docuroyce blair in this encounter Plan of Treatment Not on filedocumented as of this encounter Visit Diagnoses Not on filedocumented in this encounter"
--- OUTSIDE RECORDS SUMMARY | ~2019-12-19 | XMS | Encounter Summary ---
Demographics + + + | Address | [address] | | | [place] [address] | + + + | Home Phone | | + + + | Preferred Language | Unknown | + + + | Marital Status | | + + + | Buddhism Affiliation | CHR | + + + | Race | White | + + + | Ethnic Group | Not or | + + + Author + + + | Author | [facility] | + + + | Organization | [facility] | + + + | Address | Unknown | + + + | Phone | Unavailable | + + + Support + + +---------+ + | Name | Relationship | Address | Phone | + + +---------+ + | Anushka Mitchell | ECON | Unknown | | + + +---------+ + Care Team Providers + +------+ + | Care Hvac Tech Name | Role | Phone | + +------+ + | Lisa Adorno PA-C | PCP | | + +------+ + Encounter Details +--------+ + + + + | Date | Type | Department | Care Team | Description | +--------+ + + + + | 09/29/ | MyChart | Diagnostic Imaging | | MRI Screening Form | | 2019 | Encounter | Services [address] | | | | | [address] | | | | | | [place], [place] | | | | | | [address] | | | +--------+ + + + [...] | | | | | | Road [place], [place] | | | | | | [address] | | +--------+ + + + + | 12/30/ | Appointment | Radiology | Thu Fields, | | | 2019 | | | [address] | | | | | | [address] | | | | | | [place] [address] | | | | | | [phone] | | | | | | | | +--------+ + + + + | 12/30/ | Appointment | Radiology | Thu Fields, | | | 2019 | | | MD [address] | | | | | | [address] [place], | | | | | | [place] [address] | | | | | | [phone] | | | | | | | | +--------+ + + + + | 01/21/ | Office | Neurology | hTu Fields, | | 2019 | Visit | | MD [address] | | | | | | [address] [place], | | | | | | [place] [address] | | | | | | [phone] | | | | | | | | +--------+ + + + + documented as of this encounter Visit Diagnoses Not on filedocumented in this encounter"
--- OUTSIDE RECORDS SUMMARY | ~2019-12-19 | XMS | Encounter Summary ---
Demographics + + + | Address | [address] | | | [place] [address] | + + + | Home Phone | | + + + | Preferred Language | Unknown | + + + | Marital Status | | + + + | Confucianism Affiliation | CHR | + + + | Race | White | + + + | Ethnic Group | Not or | + + + Author + + + | Author | [facility] | + + + | Organization | [facility] | + + + | Address | Unknown | + + + | Phone | Unavailable | + + + Support + + +---------+ + | Name | Relationship | Address | Phone | + + +---------+ + | Anushka Mitchell | ECON | Unknown | | + + +---------+ + Care Team Providers + +------+ + | Care Psychologist Name | Role | Phone | + [...] Rd | | | | | | [place], [place] | | | | | | [address] | | | +--------+ + + + [...] [address] | | | | | | [facility], [place] | | | | | | [address] | | +--------+ + + + + | 12/30/ | Appointment | Radiology | Thu Fields, | | | 2019 | | | MD [address] | | | | | | [address] [place], | | | | | | [place] [address] | | | | | | [phone] | | | | | | | | +--------+ + + + + | 12/30/ | Appointment | Radiology | Thu Fields, | | | 2019 | | | MD [address] | | | | | | [address] [place], | | | | | | [place] [address] | | | | | | [phone] | | | | | | | | +--------+ + + + + | 01/21/ | Office | Neurology | Thu Fields, | | | 2020 | Visit | | [address] | | | | | | [facility] [place], | | | | | | [place] [address] | | | | | | [phone] | | | | | | | | +--------+ + + + + documented as of this encounter Visit Diagnoses Not on filedocumented in this encounter"
--- OUTSIDE RECORDS SUMMARY | ~2019-12-19 | XMS | Encounter Summary ---
Demographics + + + | Address | [address] | | | [place] [address] | + + + | Home Phone [...] + + + | Author | [facility] | + + + | Organization | [facility] | + + + | Address | Unknown | + + + | Phone | Unavailable | + + + Support + + +---------+ + | Name | Relationship | Address | Phone | + + +---------+ + | Anushka Mitchell | ECON | Unknown | | + + +---------+ + Care Team Providers + +------+ + | Care Feather Cutting Machine Feeder Name | Role | Phone | + +------+ + | Lisa Adorno PA-C | PCP | | + +------+ + Encounter Details +--------+ + + + + | Date | Type | Department | Care Team | Description | +--------+ + + + + | 05/29/ | Procedure | Diagnostic Imaging | | | | 2019 | Pass | Services at [facility] | | | | | | [address] | | | | | | Shamika Ford | | | | | | [facility] | | | | | | [place], [place] | | | | | | [address] | | | | | | [phone] | | | +--------+ + + + [...] | | | | | | [facility], [place] | | | | | | [address] | | +--------+ + + + + | 12/30/ | Appointment | Radiology | Thu Fields, | | | 2019 | | | MD [address] | | | | | | [address] [place], | | | | | | [place] [address] | | | | | | [phone] | | | | | | | | +--------+ + + + + | 12/30/ | Appointment | Radiology | Thu Fields, | | | 2019 | | | MD [address] | | | | | | [address] [place], | | | | | | [place] [address] | | | | | | [phone] | | | | | | | | +--------+ + + + + | 01/21/ | Office | Neurology | Thu Fields, | | | 2020 | Visit | | MD [address] | | | | | | [facility] [address] [place], | | | | | | [place] [address] | | | | | | [phone] | | | | | | | | +--------+ + + + + documented as of this encounter Visit Diagnoses Not on filedocumented in this encounter"
--- OUTSIDE RECORDS SUMMARY | ~2019-12-19 | XMS | Encounter Summary ---
Demographics + + + | Address | [address] | | | [place] [address] | + + + | Home Phone [...] Team Providers + +------+ + | Care Marine Equipment Engineer Name | Role | Phone | [...] refil | | 2020 | Encounter | [facility] & | [address] | | | | | Healing [address] | [address] [place], | | | | | [facility] | [place] [address] | | | | | Health and Healing, | [phone] | | | | | [place] [address] | | | | | | [place], [place] | | | | | | [address] | | | | | | [phone] | | | +--------+ + + + [...] | Appointment | Clinical | Celestino Henriquez [facility] | | | 2019 | | Neurophysiology | Outpatient [address] | | | | | | [address] | | | | | | Road [place], [place] | | | | | | [address] | | +--------+ + + + + | 12/30/ | Appointment | Radiology | Thu Fields, | | | 2019 | | | [address] | | | | | | [address] [place], | | | | | | [place] [address] | | | | | | [phone] | | | | | | | | +--------+ + + + + | 12/30/ | Appointment | Radiology | Thu Fields, | | | 2019 | | | MD [address] | | | | | | [address] [place], | | | | | | [place] [address] | | | | | | [phone] | | | | | | | | +--------+ + + + + | 01/21/ | Office | Neurology | Thu Fields, | | | 2019 | Visit | | MD [address] | | | | | | [address] [place], | | | | | | [place] [address] | | | | | | [phone] | | | | | | | [...]
--- OUTSIDE RECORDS SUMMARY | ~2019-12-19 | XMS | Encounter Summary ---
Demographics + + + | Address | [address] | | | [place] [address] | + + + | Home Phone | | + + + | Preferred Language | Unknown | + + + | Marital Status | | + + + | Bahai Affiliation | CHR | + + + [...] Team Providers + +------+ + | Care Property Site Manager Name | Role | Phone | [...] | neoplasm of | Sharonda Cabrera, | [address] | | | | | pituitary | AGACNP | Center for | | | | | gland and | [address] [facility] | Health and | | | | | craniopharyn | [facility] | Healing, | | | | | geal duct | Rd | Building 1, | | | | | ([facility]) | [facility] [place] | 3rd Floor | | | | | Procedures | [address] | [place], [place] | | | | | CTA | Phone: | [address] | | | | | STEREOTACTIC | [phone] | Phone: | | | | | HEAD W | Fax: | [phone] | | | | | CONTRAST [place] | [phone] | Fax: | | | | | [place] | | [phone] | | | | | ANGIO,HEAD | | | | | | | COMBO,INCL | | | | | | | IMAGE | | | | | | | PROCESS | | | +--------+--------+ + + + + Reason for Visit Diagnostic Testing (Routine) +--------+--------+ + + + [...] | neoplasm of | Sharonda Cabrera, | [address] | | | | | pituitary | AGACNP | Center for | | | | | gland and | [address] [facility] | Health and | | | | | craniopharyn | [facility] | Healing, | | | | | geal duct | Rd | Building 1, | | | | | (HCC) | [place], [place] | 3rd Floor | | | | | Procedures | [address] | [place], [place] | | | | | CTA | Phone: | [address] | | | | | STEREOTACTIC | [phone] | Phone: | | | | | HEAD W | Fax: | [phone] | | | | | [place]AST [place] | [phone] | Fax: | | | | | [place] | | [phone] | | | | | ANGIO,HEAD | [...] + + + + | 07/14/ | Hospital | Radiology/Imaging | Matthieu, | | | 2019 | Encounter | Lab at [facility] [address] | DERIK Yadav | | | | | [facility] | [address] | | | | | Health and Healing, | Shamika Morales [place], | | | | | [address], 3rd | [place] [address] | | | | | Floor [place], [place] | [phone] | | | | | [address] | | | | | | [phone] | | | +--------+ + + + [...] 12/30/ | Appointment | Clinical | Tech, Cn Hrc | | | 2019 | | Neurophysiology | Outpatient [address] | | | | | | [address] | | | | | | Road [place], [place] | | | | | | [address] | | +--------+ + + + + | 12/30/ | Appointment | Radiology | Thu Fields, | | | 2019 | | | MD [address] | | | | | | [address] [place], | | | | | | [place] [address] | | | | | | [phone] | | | | | | | | +--------+ + + + + | 12/30/ | Appointment | Radiology | Thu Fields, | | | 2019 | | | MD [address] | | | | | | [address] [place], | | | | | | [place] [address] | | | | | | [phone] | | | | | | | | +--------+ + + + + | 01/21/ | Office | Neurology | Thu Fields, | | 2019 | Visit | | [address] | | | | | | [address] [place], | | | | | | [place] [address] | | | | | | [phone] | | | | | | | | +--------+ + + + + documented as of this encounter Procedures + +--------+ + + + | Procedure Name | Priori | Date/Time | Associated Diagnosis | Comments | | | ty | | | | + +--------+ + + + | [facility] STEREOTACTIC | Routin | 07/14/2019 | 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 | | | | | duct (HCC) | | + +--------+ + + + documented in this encounter Results [facility] STEREOTACTIC HEAD W [...] stenoses. 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 Limited evaluation of known pituitary | | [...] Incidentally no rossy origin of the left REACTOR SERVICE OPERATOR. | | | |Limited evaluation of known [...] documented in this encounter Administered Medications + +---------+ +-------+------+------+ | Medication Order | MAR | Action | Dose | Rate | Site | | | Action | Date | | | | + +---------+ +-------+------+------+ | iohexol (OMNIPAQUE) 350 mg | IV Push | 07/14/19 | 50 mL | | | | iodine/mL injection 50 mL 50 mL, | | 20 11:00 | | | | | intravenous, ONCE, 1 dose, Tue | | AM PST | | | | | 07/14/19 at 1100 | | | | | | + +---------+ +-------+------+------+ +---+---+ | | | +---+---+ documented in this encounter"
--- OUTSIDE RECORDS SUMMARY | ~2019-12-19 | XMS | Encounter Summary ---
Demographics + + + | Address | [address] | | | [place] [address] | + + + | Home Phone [...] + + + | Author | [facility] | + + + | Organization | [facility] | + + + | Address | Unknown | + + + | Phone | Unavailable | + + + Support + + +---------+ + | Name | Relationship | Address | Phone | + + +---------+ + | Anushka Mitchell | ECON | Unknown | | + + +---------+ + Care Team Providers + +------+ + | Care Group Fitness Assistant Department Head Name | Role | Phone | + +------+ + | Lisa Adorno PA-C | PCP | | + +------+ + Encounter Details +--------+ + + + + | Date | Type | Department | Care Team | Description | +--------+ + + + + | 07/01/ | Abstract | Otolaryngology | Micah Paige | | | 2019 | | Laryngology Services | MD Rehan [address] | | | | | at [facility] [address] | | | | | [facility] for | [place], [place] | | | | | Health and Healing, | [address] | | | | | [facility] 1 | [phone] | | | | | [place], [place] | | | | | | [address] | | | | | | [phone] | | | +--------+ + + + [...] 12/30/ | Appointment | Clinical | Martinez, [facility] | | | 2019 | | Neurophysiology | Outpatient [address] | | | | | | [address] | | | | | | [place], [place] | | | | | | [address] | | +--------+ + + + + | 12/30/ | Appointment | Radiology | Thu Fields, | | | 2019 | | | [address] | | | | | | [address] | | | | | | [place] [address] | | | | | | [phone] | | | | | | | | +--------+ + + + + | 12/30/ | Appointment | Radiology | Thu Fields, | | | 2019 | | | MD [address] | | | | | | [address] [place], | | | | | | [place] [address] | | | | | | [phone] | | | | | | | | +--------+ + + + + | 01/21/ | Office | Neurology | Thu Fields, | | | 2019 | Visit | | MD [address] | | | | | | [address] [place], | | | | | | [place] [address] | | | | | | [phone] | | | | | | | | +--------+ + + + + documented as of this encounter Visit Diagnoses Not on filedocumented in this encounter"
--- OUTSIDE RECORDS SUMMARY | ~2019-12-19 | XMS | Encounter Summary ---
Demographics + + + | Address | [address] | | | [place] [address] | + + + | Home Phone [...] Team Providers + +------+ + | Care Manager Engine Name | Role | Phone | + [...] | | | | | | [facility], [place] | | | | | | [address] | | +--------+ + + + + | 12/30/ | Appointment | Radiology | Thu Fields, | | | 2019 | | | MD [address] | | | | | | [address] [place], | | | | | | [place] [address] | | | | | | [phone] | | | | | | | | +--------+ + + + + | 12/30/ | Appointment | Radiology | Thu Fields, | | | 2019 | | | MD [address] | | | | | | [address] [place], | | | | | | [place] [address] | | | | | | [phone] | | | | | | | | +--------+ + + + + | 01/21/ | Office | Neurology | Thu Fields, | | | 2019 | Visit | | [address] | | | | | | [address], | | | | | | [place] [address] | | | | | | [phone] | | | | | | | | +--------+ + + + + documented as of this encounter Visit Diagnoses Not on filedocumented in this encounter"
--- OUTSIDE RECORDS SUMMARY | ~2019-12-19 | XMS | Encounter Summary ---
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 | ROAD | | | | | geal duct | Rd | [place], [place] | | | | | (HCC) | [facility] [place] | [address] | | | | | Procedures | [address] | Phone: | | | | | MRI | Phone: | [phone] | | | | | PITUITARY | [phone] | | | | | | WWO CONTRAST | Fax: | | | | | | | [phone] | | + +--------+ + + + [...] gland and | [address] | [place], [place] | | | | | craniopharyn | [address] | [address] | | | | | geal duct | Rd | Phone: | | | | | (HCC) | [place], [place] | [phone] | | | | | Procedures | [address] | Fax: | | | | | POSTOP VISIT | Phone: | [phone] | | | | | [place] | [phone] | | | | | | NEUROENDOSCO | Fax: | | | | | | P,EXC,PIT | [phone] | | | | | | JENNIFER,TRANSNAS | | | | | | | /SPHEN LA | | | | | | | SCAN PROC | | | | | | | CRANIAL | | | | | | | INTRA LA | | | | | | | SPINAL | | | | | | | PUNCTURE, | | | | | | | THERAPEUTIC, | | | | | | | FOR | | | | | | | DRAINAGE OF | | | | | | | CEREBROSPINA | | | | | | | L FLUID LA | | | | | | | GRAFTING OF | | | | | | | AUTOLOGOUS | | | | | | | SOFT TISS BY | | | | | | | DIRECT EXC | | | | | | | LA | | | | | | | NEUROVASCULA | | | | | | | R PEDICLE | | | | | | | GRAFT LA | | | | | | | FORM SKIN | | | | | | | PEDICLE FLAP | | | | | | | | | | | | | | LID,EAR,NOSE | | | | | | | LA ADJ | | | | | | [...] | | | e Center for | [place], [place] | craniopharyngeal | | | | Health and Healing, | [address] | duct (HCC) (Primary | | | | Building | [phone] | Dx) | | | | [place], [place] | | | | | | [address] | | | | | | [phone] | | | +--------+---------+ + + + [...] mended she follow back up with her percolator operator regarding the eye pain, to evaluate for [...] [address] | | | | | | [facility] | | | | | | Road [place], [place] | | | | | | [address] | | +--------+ + + + + | 12/30/ | Appointment | Radiology | Thu Fields, | | | 2019 | | | MD [address] | | | | | | [address] [place], | | | | | | [place] [address] | | | | | | [phone] | | | | | | | | +--------+ + + + + | 12/30/ | Appointment | Radiology | Thu Fields, | | | 2019 | | | MD [address] | | | | | | [address] [place], | | | | | | [place] [address] | | | | | | [phone] | | | | | | | | +--------+ + + + + | 01/21/ | Office | Neurology | Thu Fields, | | | 2019 | Visit | | MD [address] | | | | | | [address] [place], | | | | | | [place] [address] | | | | | | [phone] | | | | | | | [...]
--- OUTSIDE RECORDS SUMMARY | ~2019-12-19 | XMS | Encounter Summary ---
Demographics + + + | Address | [address] | | | [place] [address] | + + + | Home Phone | | + + + | Preferred Language | Unknown | + + + | Marital Status | | + + + | Protestant Affiliation | CHR | + + + | Race | White | + + + | Ethnic Group | Not or | + + + Author + + + | Author | [facility] | + + + | Organization | [facility] | + + + | Address | Unknown | + + + | Phone | Unavailable | + + + Support + + +---------+ + | Name | Relationship | Address | Phone | + + +---------+ + | Anushka Mitchell | ECON | Unknown | | + + +---------+ + Care Team Providers + +------+ + | Care Continuous Miner Name | Role | Phone | + +------+ + | Lisa Adorno PA-C | PCP | | + +------+ + Reason for Visit + + + | Reason | Comments | + + + | Refill Request | | + + + Encounter Details +--------+--------+ + + + | Date | Type | Department | Care Team | Description | +--------+--------+ + + + | 08/11/ | Refill | Neurology at | Thu Fields, | Refill Request | | 2020 | | [facility] & | [address] | | | | | Healing [address] | [address] [place], | | | | | [facility] | [place] [address] | | | | | Health and Healing, | [phone] | | | | | [facility] 1 | | | | | | [place], [place] | | | | | | [address] | | | | | | [phone] | | | +--------+--------+ + + + [...] | | | | | | Road [place], [place] | | | | | | [address] | | +--------+ + + + + | 12/30/ | Appointment | Radiology | Thu Fields, | | | 2019 | | | MD [address] | | | | | | [address] [facility], | | | | | | [place] [address] | | | | | | [phone] | | | | | | | | +--------+ + + + + | 12/30/ | Appointment | Radiology | Thu Fields, | | | 2019 | | | MD [address] | | | | | | [address] [facility], | | | | | | [place] [address] | | | | | | [phone] | | | | | | | | +--------+ + + + + | 01/21/ | Office | Neurology | Thu Fields, | | | 2019 | Visit | | MD [address] | | | | | | [address] [place], | | | | | | [place] [address] | | | | | | [phone] | | | | | | | [...]
--- OUTSIDE RECORDS SUMMARY | ~2019-12-19 | XMS | Encounter Summary ---
Demographics + + + | Address | [address] | | | [place] [address] | + + + | Home Phone | | + + + | Preferred Language | Unknown | + + + | Marital Status | | + + + | Mandaen Affiliation | CHR | + + + | Race | White | + + + | Ethnic Group | Not or | + + + Author + + + | Author | [facility] | + + + | Organization | [facility] | + + + | Address | Unknown | + + + | Phone | Unavailable | + + + Support + + +---------+ + | Name | Relationship | Address | Phone | + + +---------+ + | Anushka Mitchell | ECON | Unknown | | + + +---------+ + Care Team Providers + +------+ + | Care Apprenticeship Training Representative Name | Role | Phone | + [...] pain | | 2020 | Encounter | [facility] & | MD [address] | | | | | Healing [address] | [address] [place], | | | | | Ave | [place] [address] | | | | | Health and Healing, | [phone] | | | | | [facility] | | | | | | [place], [place] | | | | | | [address] | | | | | | [phone] | | | +--------+ + + + [...] | | | | | | Road [place], [place] | | | | | | [address] | | +--------+ + + + + | 12/30/ | Appointment | Radiology | Thu Fields, | | | 2019 | | | MD [address] | | | | | | [address] [facility] | | | | | | [place] [address] | | | | | | [phone] | | | | | | | | +--------+ + + + + | 12/30/ | Appointment | Radiology | Thu Fields, | | | 2019 | | | MD [address] | | | | | | [address] [place], | | | | | | [place] [address] | | | | | | [phone] | | | | | | | | +--------+ + + + + | 01/21/ | Office | Neurology | Thu Fields, | | | 2019 | Visit | | MD [address] | | | | | | [address] [place], | | | | | | [place] [address] | | | | | | [phone] | | | | | | | | +--------+ + + + + documented as of this encounter Visit Diagnoses Not on filedocumented in this encounter"
--- OUTSIDE RECORDS SUMMARY | ~2019-12-19 | XMS | Encounter Summary ---
Demographics + + + | Address | [address] | | | [place] [address] | + + + | Home Phone | | + + + | Preferred Language | Unknown | + + + | Marital Status | | + + + | Jainism Affiliation | CHR | + + + | Race | White | + + + | Ethnic Group | Not or | + + + Author + + + | Author | [facility] | + + + | Organization | [facility] | + + + | Address | Unknown | + + + | Phone | Unavailable | + + + Support + + +---------+ + | Name | Relationship | Address | Phone | + + +---------+ + | Anushka Mitchell | ECON | Unknown | | + + +---------+ + Care Team Providers + +------+ + | Care Dietetic Aide Name | Role | Phone | + +------+ + | Lisa Adorno PA-C | PCP | | + +------+ + Encounter Details +--------+ + + + + | Date | Type | Department | Care Team | Description | +--------+ + + + + | 06/12/ | Abstract | Neurology at | Unknown . | | | 2020 | | [facility] | | | | | | Healing [address] | | | | | | [place] [facility] | | | | | | Health and Healing, | | | | | | Building [address] | | | | | | [place], [place] | | | | | | [address] | | | | | | [phone] | | | +--------+ + + + [...] | | | | | | Road [place], [place] | | | | | | [address] | | +--------+ + + + + | 12/30/ | Appointment | Radiology | Thu Fields, | | | 2019 | | | MD [address] | | | | | | [address] [place], | | | | | | [place] [address] | | | | | | [phone] | | | | | | | | +--------+ + + + + | 12/30/ | Appointment | Radiology | Thu Fields, | | | 2019 | | | MD [address] | | | | | | [address] [place], | | | | | | [place] [address] | | | | | | [phone] | | | | | | | | +--------+ + + + + | 01/21/ | Office | Neurology | Thu Fields, | | | 2020 | Visit | | [address] | | | | | | [address], | | | | | | [place] [address] | | | | | | [phone] | | | | | | | | +--------+ + + + + documented as of this encounter Visit Diagnoses Not on filedocumented in this encounter"
--- OUTSIDE RECORDS SUMMARY | ~2019-12-19 | XMS | Encounter Summary ---
Demographics + + + | Address | [address] | | | [place] [address] | + + + | Home Phone | | + + + | Preferred Language | Unknown | + + + | Marital Status | | + + + | Rastafarian Affiliation | CHR | + + + | Race | White | + + + | Ethnic Group | Not or | + + + Author + + + | Author | [facility] | + + + | Organization | [facility] | + + + | Address | Unknown | + + + | Phone | Unavailable | + + + Support + + +---------+ + | Name | Relationship | Address | Phone | + + +---------+ + | Anushka Mitchell | ECON | Unknown | | + + +---------+ + Care Team Providers + +------+ + | Care Security Intern Name | Role | Phone | + [...] | Neurology | Diagnoses | Kyree | Mxa | | | | | Trigeminal | [...] | | | | [address] | [place], [place] | | | | | | [place], | [address] | | | | | | [place] [address] | Phone: | | | | | | Phone: | [phone] | | | | | | [phone] | Fax: | | | | | | Fax: | [phone] | | | | | | [phone] | | +--------+--------+ + + + + Encounter Details +--------+ + + + + | Date | Type | Department | Care Team | Description | +--------+ + + + + | 08/19/ | Video/TeleH | Neurology at | Thu Fields, | Return Patient (face | | 2019 | ealth-Sched | [facility] & | [address] | pain) | | | uled | Healing [address] | [address] [place], | | | | | [facility] | [place] [address] | | | | | Health and Healing, | [phone] | | | | | [facility] 1 | | | | | | [place], [place] | | | | | | [address] | | | | | | [phone] | | | +--------+ + + + [...] You are welcome to e-mail via my [facility] chart if questions or concerns alba se [...] the home. Patient was located in the [facility] at the time of the visit. Telepresenter (relative and/or solder cream maker) was not used during the visit. INTERVAL [...] You are welcome to e-mail via my [facility] chart if questions or concerns alba se prior to that visit. I spent 18 minutes with the patient via video visit. Greater than 50% of the time was spen t counseling the patient regarding diagnosis, risks, benefits, and alternatives to current management. All questions were answered to patient s satisfaction. Thu Fields M.D. Agency Manager of Neurology Headache Medicine Adult and Pediatric Neurology [facility] documented in this en counter Plan of [...] [address] | | | | | | [place], [place] | | | | | | [address] | | +--------+ + + + + | 12/30/ | Appointment | Radiology | Thu Fields, | | | 2019 | | | [address] | | | | | | [address] | | | | | | [place] [address] | | | | | | [phone] | | | | | | | | +--------+ + + + + | 12/30/ | Appointment | Radiology | Thu Fields, | | | 2019 | | | MD [address] | | | | | | [address] [place], | | | | | | [place] [address] | | | | | | [phone] | | | | | | | | +--------+ + + + + | 01/21/ | Office | Neurology | Thu Fields, | | | 2019 | Visit | | MD [address] | | | | | | [address] [place], | | | | | | [place] [address] | | | | | | [phone] | | | | | | | | +--------+ + + + + documented as of this encounter Visit Diagnoses + + | Diagnosis | + + | Left facial pain - Primary Headache | + + documented in this encounter"
--- OUTSIDE RECORDS SUMMARY | ~2019-12-19 | XMS | Encounter Summary ---
Demographics + + + | Address | [address] | | | [place] [address] | + + + | Home Phone [...] Providers + +------+ + | Care Gold Blower Name | Role | Phone | + +------+ + | Lisa Adorno PA-C | PCP | | + +------+ + Encounter Details +--------+--------+ + + + | Date | Type | Department | Care Team | Description | +--------+--------+ + + + | 03/17/ | Travel | | | | | [...] | | | | | [facility], [place] | | | | | | [address] | | +--------+ + + + + | 12/30/ | Appointment | Radiology | Thu Fields, | | | 2019 | | | MD [address] | | | | | | [address] [place], | | | | | | [place] [address] | | | | | | [phone] | | | | | | | | +--------+ + + + + | 12/30/ | Appointment | Radiology | Thu Fields, | | | 2019 | | | MD [address] | | | | | | [address] [place], | | | | | | [place] [address] | | | | | | [phone] | | | | | | | | +--------+ + + + + | 01/21/ | Office | Neurology | Thu Fields, | | | 2019 | Visit | | MD [address] | | | | | | [address] [place], | | | | | | [place] [address] | | | | | | [phone] | | | | | | | | +--------+ + + + + documented as of this encounter Visit Diagnoses Not on filedocumented in this encounter"
--- OUTSIDE RECORDS SUMMARY | ~2019-12-19 | XMS | Encounter Summary ---
Demographics + + + | Address | [address] | | | [place] [address] | + + + | Home Phone [...] Providers + +------+ + | Care Manager Data Warehousing Name | Role | Phone | + +------+ + | Lisa Adorno PA-C | PCP | | + +------+ + Encounter Details +--------+ + + + + | Date | Type | Department | Care Team | Description | +--------+ + + + + | 09/15/ | Documentati | Otolaryngology | Brandon Rutherford, | | | 2020 | on | Head and Neck | [address] | | | | | Surgery Services at | [facility] [address] | | | | | [facility] [address] | [place], [place] | | | | | [facility] for | [address] | | | | | Health and Healing, | [phone] | | | | | [facility] 2 | | | | | | [place], [place] | | | | | | [address] | | | | | | [phone] | | | +--------+ + + + [...] | | | | | | Road [place], [place] | | | | | | [address] | | +--------+ + + + + | 12/30/ | Appointment | Radiology | Thu Fields, | | | 2019 | | | MD [address] | | | | | | [address] [facility] | | | | | | [place] [address] | | | | | | [phone] | | | | | | | | +--------+ + + + + | 12/30/ | Appointment | Radiology | Thu Fields, | | | 2019 | | | MD [address] | | | | | | [address] [place], | | | | | | [place] [address] | | | | | | [phone] | | | | | | | | +--------+ + + + + | 01/21/ | Office | Neurology | Thu Fields, | | | 2019 | Visit | | MD [address] | | | | | | [address] [place], | | | | | | [place] [address] | | | | | | [phone] | | | | | | | | +--------+ + + + + documented as of this encounter Visit Diagnoses Not on filedocumented in this encounter"
--- OUTSIDE RECORDS SUMMARY | ~2019-12-19 | XMS | Encounter Summary ---
Demographics + + + | Address | [address] | | | [place] [address] | + + + | Home Phone | | + + + | Preferred Language | Unknown | + + + | Marital Status | | + + + | Pentecostalism Affiliation | Unknown | + + + | Race | Unknown | + + + | Ethnic Group | Unknown | + + + Author + + + | Author | [facility] | | | and [place] | + + + | Organization | [facility] | | | and [...] Team Providers + +------+ + | Care Robotics Technologist Name | Role | Phone | + [...] + + | 03/19/ | Office | [facility] | Selvin Larson MD | Chronic venous | | 2019 | Visit | VASCULAR SURGERY | [address] | insufficiency | | | | [address] | [place], [place] | (Primary Dx); | | | | [place], [place] | [address] | Varicose veins of | | | | [address] | [phone] | bilateral lower | | | | [phone] | | extremities with | | | [...] The patient was prescribed compression stockings. Pat ient indicates that she has been tolerating compression [...] CV: No peripheral edema, rate regular SKIN: [place], warm, dry without rash/lesion MS: ROM not [...] Note: Documentation assistance provided by Hailey Sevilla (Scribe). Information homer rded by the scribe has been reviewed and validated by me. I agree with its contents. Signed by: Hailey Sevilla, Hilaria 03/19/19, 15:44 Selvin Larson MD documente d in this encounter Plan of Treatment Not on filedocumented as of this encounter Visit Diagnoses + + | Diagnosis | + + | Chronic venous insufficiency - Primary Unspecified venous (peripheral) insufficiency | + + | Varicose veins of bilateral lower extremities with pain | + + documented in this encounter"
--- OUTSIDE RECORDS SUMMARY | ~2019-12-19 | XMS | Encounter Summary ---
Demographics + + + | Address | [address] | | | [place] [address] | + + + | Home Phone | | + + + | Preferred Language | Unknown | + + + | Marital Status | | + + + | Islam Affiliation | CHR | + + + [...] Team Providers + +------+ + | Care Measurement Coordinator Name | Role | Phone | [...] [place] | | | | | at [facility] [address] | [address] | | | | | [facility] for | [place], [place] | | | | | Health and Healing, | [address] | | | | | [facility] 1 | [phone] | | | | | [place], [place] | | | | | | [address] | | | | | | [phone] | | | +--------+ + + + [...] [address] | | | | | | [place], [place] | | | | | | [address] | | +--------+ + + + + | 12/30/ | Appointment | Radiology | Thu Fields, | | | 2019 | | | [address] | | | | | | [address] | | | | | | [place] [address] | | | | | | [phone] | | | | | | | | +--------+ + + + + | 12/30/ | Appointment | Radiology | Thu Fields, | | | 2019 | | | MD [address] | | | | | | [address] [place], | | | | | | [place] [address] | | | | | | [phone] | | | | | | | | +--------+ + + + + | 01/21/ | Office | Neurology | Thu Fields, | | | 2019 | Visit | | MD [address] | | | | | | [address] [place], | | | | | | [place] [address] | | | | | | [phone] | | | | | | | | +--------+ + + + + documented as of this encounter Visit Diagnoses Not on filedocumented in this encounter"
--- OUTSIDE RECORDS SUMMARY | ~2019-12-19 | XMS | Encounter Summary ---
Demographics + + + | Address | [address] | | | [place] [address] | + + + | Home Phone | | + + + | Preferred Language | Unknown | + + + | Marital Status | | + + + | Adventist Affiliation | CHR | + + + [...] Team Providers + +------+ + | Care Central Office Installer Name | Role | Phone | + +------+ + | Lisa Adorno PA-C | PCP | | + +------+ + Encounter Details +--------+ + + + + | Date | Type | Department | Care Team | Description | +--------+ + + + + | 07/09/ | Procedure | Diagnostic Imaging | | | | 2019 | Pass | Services at [facility] | | | | | | [address] | | | | | | [address] | | | | | | [facility] | | | | | | [place], [place] | | | | | | [address] | | | | | | [phone] | | | +--------+ + + + [...] | | | | | | Road [place], [place] | | | | | | [address] | | +--------+ + + + + | 12/30/ | Appointment | Radiology | Thu Fields, | | | 2019 | | | [address] | | | | | | [address] [place], | | | | | | [place] [address] | | | | | | [phone] | | | | | | | | +--------+ + + + + | 12/30/ | Appointment | Radiology | Thu Fields, | | | 2019 | | | MD [address] | | | | | | [address] [place], | | | | | | [place] [address] | | | | | | [phone] | | | | | | | | +--------+ + + + + | 01/21/ | Office | Neurology | Thu Fields, | | | 2019 | Visit | | MD [address] | | | | | | [address] [place], | | | | | | [place] [address] | | | | | | [phone] | | | | | | | | +--------+ + + + + documented as of this encounter Visit Diagnoses Not on filedocumented in this encounter"
--- OUTSIDE RECORDS SUMMARY | ~2019-12-19 | XMS | Encounter Summary ---
Demographics + + + | Address | [address] | | | [place] [address] | + + + | Home Phone | | + + + | Preferred Language | Unknown | + + + | Marital Status | | + + + | Pentecostal Affiliation | CHR | + + + | Race | White | + + + | Ethnic Group | Not or | + + + Author + + + | Author | [facility] | + + + | Organization | [facility] | + + + | Address | Unknown | + + + | Phone | Unavailable | + + + Support + + +---------+ + | Name | Relationship | Address | Phone | + + +---------+ + | Anushka Mitchell | ECON | Unknown | | + + +---------+ + Care Team Providers + +------+ + | Care Early Morning Babysitter Name | Role | Phone | + [...] NP [address] | | | | | [facility] | [facility] | | | | | [address] | [place], [place] | | | | | [place] [facility] | [address] | | | | | and Healing, | [phone] | | | | | Building [address] | | | | | | [facility] [place] | | | | | | [address] | | | | | | [phone] | | | +--------+ + + + [...] | | | | | | Road [place], [place] | | | | | | [address] | | +--------+ + + + + | 12/30/ | Appointment | Radiology | Thu Fields, | | | 2019 | | | MD [address] | | | | | | [address] [place], | | | | | | [place] [address] | | | | | | [phone] | | | | | | | | +--------+ + + + + | 12/30/ | Appointment | Radiology | Thu Fields, | | | 2019 | | | MD [address] | | | | | | [address] [place], | | | | | | [place] [address] | | | | | | [phone] | | | | | | | | +--------+ + + + + | 01/21/ | Office | Neurology | Thu Fields, | | | 2020 | Visit | | [address] | | | | | | [address], | | | | | | [place] [address] | | | | | | [phone] | | | | | | | | +--------+ + + + + documented as of this encounter Visit Diagnoses Not on filedocumented in this encounter"
--- OUTSIDE RECORDS SUMMARY | ~2019-12-19 | XMS | Encounter Summary ---
Demographics + + + | Address | [address] | | | [place] [address] | + + + | Home Phone [...] + + + | Author | [facility] | + + + | Organization | [facility] | + + + | Address | Unknown | + + + | Phone | Unavailable | + + + Support + + +---------+ + | Name | Relationship | Address | Phone | + + +---------+ + | Anushka Mitchell | ECON | Unknown | | + + +---------+ + Care Team Providers + +------+ + | Care Crate Icer Name | Role | Phone | + +------+ + | Lisa Adorno PA-C | PCP | | + +------+ + Reason for Visit + + + | Reason | Comments | + + + | Return Patient | | + + + | MRI Results | | + + + Intake Referral [...] of | E, PA-C | [address] | | | | Neurological | pituitary | Analy | [place] | | | | Surgery | gland | Family | Rd [place], | | | | | Pituitary | Medicine | [place] | | | | | adenoma, | [address] | [address] | | | | | facial pain | [address] | Phone: | | | | | and facial | [place], | [phone] | | | | | numbness | [place] [address] | Fax: | | | | | Procedures | Phone: | [phone] | | | | | [place] NEW | [phone] | | | | | | PATIENT | Fax: | | | | | | LEVEL [place] | [phone] | | | | | | EST [...] 10/08/ | Office | Neurosurgery at | Mery Barnett, | Pituitary mass (HCC) | | 2020 | Visit | [facility] | [address] | (Primary Dx); | | | | and Healing [address] | Adrenal cortex | | | | [place] [place] [place] [facility] | [place], [place] | hypofunction (HCC); | | | | Health and [place], | [address] | History of pituitary | | | | [facility] | [phone] | surgery | | | | [place], [place] | | | | | | [address] | | | | | | [phone] | | | +--------+---------+ + + + [...] documented as of this encounter Progress Notes Mery Barnett MD - 10/09/2019 10:45 AM PDTFormatting of this note might be different fro m the original. Pituitary clinic - follow up Reason for visit: 2 month follow up postop for pituitary adenoma History of Present [...] by Dr. Mann. Path showed pituitary tissue. Trigeminal neuralgia following up with neurology Sore throat with difficulty swallowing - tx with zpac. Was swabbed for strep neg and neg mo no. Now tx with antifungal- swish and swallow and Fluconazole 100mg daily Some nasal drainage with activity also prior to surgery Left sided facial pain continues Increased Lyrica, tylenol extra strength every 6 hours; still helps to control pain 2-3 Did feel better but worse with increase activity Poor sense of taste or smell Does have a 'weird taste in her mouth Light sensitive on the left; she can see better though; but some blurry vision close up No n/v Lightheaded at time not constant Thirsty most of the time. Usually x 1 nocturia Drinks 4-5 16 oz bottles plus fluid with meals Lab from [facility] on 09/06 - cortisol was good enough to start tapering HC. Patient was ins tructed to halve by 5mg for 2 days and then down again to 10mg. Not feeling any new symptoms since she went down to 10 mg Since last visit, patient reported ongoing sore throat. She has pain all day with associate d ear pressure. She saw ENT in August and was prescribed Augmentin. She finished the antibiot ics but sore throat did not improve. She discussed a lingual tonsillectomy but was advised that it was too soon for such an inva sive procedure following her pituitary surgery. MRI today reviewed with Dr Mann Past Surgical History Procedure Laterality Date Fess (functional endoscopic sinus surgery) 2009 Tubal ligation 2004 Knee arthroscopy Right 2008 Knee surgery Right 2009 cartilage transplant Radiofrequency ablation 2009 ablation of nerves in the neck, s/p wiplash injury Tonsillectomy 2017 2/2 frequent sore throats Lumpectomy, breast Right 2019 Pituitary surgery See HPI for detailed PMH Medications: Current Outpatient Medications Medication Sig acetaminophen 500 mg oral tablet Take 2 tablets by mouth every six hours. amoxicillin-clavulanate (AUGMENTIN) 875-125 mg oral tablet Take 1 tablet by mouth every twelve hours. ascorbic acid (vitamin C) 250 mg [...] decre ased function of the adrenal gland hydrocortisone 20 mg oral tablet Take 1 [...] Patient is employed. Marital status: Physical Exam: General Appearance: NAD HEENT: EOMI, MMM, no [...] Ref Range: 0.6 - 1.2 ng/dL 0.8 09/07/2019 SURGICAL PATHOLOGY: [id number] Order: [id number] Collected: 07/29/2019 09:41 Status: Final result Visible [...] cell types that show positivity for the product designer factors Pit-1, T-pit, and SF- 1, as well as for anterior pituitary hormones. The Ki-67 labeling index is low. There is no significant inflammation. Additional level sections are examined on block A2 and support the final diagnosis. Case seen by: Deborah Hagen DO - Neuropathology Fellow Jerome Yoo MD, PhD Neuropathologist Pathology, [facility] My electronic signature indicates [...] abx and antifungals for per sistent sore throat. She follows up with ENT. She is also scheduled for further evaluation o f trigeminal neuralgia. No indication of AI or DI or other pituitary dysfunction at this time. She will follow up f or review. MRI today showed FINDINGS: SELLA AND PARASELLAR: Postsurgical changes of transsphenoidal surgery with marked T1 shorte mihai in the floor of the sella that resolves with fat saturation imaging most likely reflect ing fat packing. Previously noted T1 hyperintense, T2 hypointense, hypoenhancing bilobed in the posterior sella right of midline now measures approximately 3.0 x 2.6 x 3.5 mm (AP X RL X CC), previously 6 x 12 x 6 mm. The infundibulum is midline. Optic chiasm is normal. The sellar-suprasellar contents previously contacted and mildly displace the optic chiasm althou gh do not contact the chiasm on the current exam. Parasellar structures are normal. BRAIN: Visualized portions are unremarkable with similar appearance of mildly asymmetric mo rphology of the lateral ventricles. SOFT TISSUES AND MARROW: Visualized portions are unremarkable. IMPRESSION: Interval decrease in size of a hypoenhancing focus to the right of midline in the posterior pituitary, now measuring 3.0 x 2.6 x 3.5 mm, status post transsphenoidal surgery. Attention on follow-up imaging could be considered. Previously seen mild mass effect on the undersurface of the optic chiasm has resolved. I have personally reviewed the images and, if necessary, edited the report. I agree with veronica report as now presented. Final signature: Jonatan Bryant MD 10/09/2019 12:50 PM Preliminary: Danae Downs MD Dictation initiated: Danae Downs MD 10/09/2019 9:35 AM Specimen Collected: 10/09/19 09:35 Last Resulted: 10/09/19 12:50 MRI images reviewed in detail with patient and neurosurgery team. I answered all questions to apparent satisfaction and patient verbalized understanding. I answered pt questions to her satisfaction Plan: 1. Adrenal gland function on 20mg HC postop. AM cortisol from outside lab was good en ough to taper off HC and she is on 10 mg . NURSING SERVICE DIRECTOR today pending We discussed in detail about adrenal insufficiency The nature of the hormonal deficit and the rationale for treatment Maintenance medications and adjustment during minor illnesses When to consult a physician When and how to inject a glucocorticoid for emergencies Glucocorticoid regimens The ideal glucocorticoid replacement therapy would: Mimic the endogenous cortisol rhythm, with a tressa at bedtime and peak values in the leasing associate before waking Use the lowest possible dose without inducing Cushingoid signs and symptom The average daily secretion rate of cortisol in normal subjects is 2.7 to 14 mg/M2/day, wit h some interindividual variation in metabolism of the steroids and the fact that a single do se is less effective than the same amount of steroid administered in multiple doses. 2. Thyroid function- F4 and TSH normal preop and also normal on 09/06 3. Prolactin has been normal. Last PRL also normal post-op 4. Growth hormone - IGF-1 normal pre-op and post-op 5. Gonadal FSH/LH axis - normal menses reg. Follow with [facility] prn 6. ADH. No nocturia, usually thirsty. BMP normal (09/06). No indication of DI I am Lisbet Duarte functioning as a scribe for Mery Barnett MD at 10:05 PM on 10/08/2019 I have reviewed and verified the above scribed note of my visit with this patient as record ed by Lisbet Duarte. Anushka Delcid, [id number] Reason for visit: Chief Complaint Patient presents with Return Patient MRI Results Anushka Delcid is a 39 y.o. female, who presented to Pituitary clinic on 10/09/2019 for a consultation and low dose cortrosyn stimulation test. E23.6 Pituitary mass (HCC). Procedure note: ( In addition to [...] Director [facility]uitary [facility] Medicine/Endocrinology & Neurological Surgery Component Latest Ref Rng & Units 10/09/2019 10/09/2019 10/09/2019 10/09/2019 10:45 AM 10:45 AM 10:45 AM 10:45 AM GLUCOSE, PLASMA (LAB) 70 - 99 mg/dL 66 (L) BUN, PLASMA (LAB) 6 - 20 mg/dL 12 CREATININE PLASMA (LAB) 0.60 - 1.10 mg/dL 0.86 EGFR - KENYAN >60 mL/min >60 EGFR NON -KENYAN >60 mL/min >60 SODIUM, PLASMA (LAB) 136 - 145 mmol/L 142 POTASSIUM, PLASMA (LAB) 3.4 - 5.0 mmol/L 3.9 CHLORIDE, PLASMA (LAB) 97 - 108 mmol/L 110 (H) TOTAL CO2, PLASMA (LAB) 21 - 32 mmol/L 24 CALCIUM, PLASMA (LAB) 8.6 - 10.2 mg/dL 9.1 ANION GAP 4 - 11 mmol/L 8 POTASSIUM CMNT No Hemo BUN/CREATININE RATIO 8 - 25 14 CORTISOL, TOTAL SERUM ug/dL FREE T4, SERUM 0.6 - 1.2 ng/dL 0.8 PROLACTIN 2.8 - 26.0 ng/ml 5.2 TSH 0.44 - 4.75 mIU/L 1.36 Component Latest Ref Rng & Units 10/09/2019 10/09/2019 10:45 AM 11:15 AM GLUCOSE, PLASMA (LAB) 70 - 99 mg/dL BUN, PLASMA (LAB) 6 - 20 mg/dL CREATININE PLASMA (LAB) 0.60 - 1.10 mg/dL EGFR - KENYAN >60 mL/min EGFR NON -KENYAN >60 mL/min SODIUM, PLASMA (LAB) 136 - 145 mmol/L POTASSIUM, PLASMA (LAB) 3.4 - 5.0 mmol/L CHLORIDE, PLASMA (LAB) 97 - 108 mmol/L TOTAL CO2, PLASMA (LAB) 21 - 32 mmol/L CALCIUM, PLASMA (LAB) 8.6 - 10.2 mg/dL ANION GAP 4 - 11 mmol/L POTASSIUM CMNT BUN/CREATININE RATIO 8 - 25 CORTISOL, TOTAL SERUM ug/dL 6.0 14.5 FREE T4, SERUM 0.6 - 1.2 ng/dL PROLACTIN 2.8 - 26.0 ng/ml TSH 0.44 - 4.75 mIU/L We discussed diagnosis, treatment, imaging studies and follow up. I spent 40 minutes [id number] time with this patient ( separately from time spent on test ing) of which over 50% was spent in medically indicated counseling and education pertaining to the issues discussed above. Anushka, testing was borderline, better but not ready to stop Hydrocortisone yet. Can decr ease to 5 mg for now and will retest later. However if you need surgery at any point or you get sick with flu or anything else, increase to 10 mg daily and call us Other pituitary labs are good See you in 6 months or so Regards, Mery Barnett M.D Professor [facility] Medicine (Endocrinology) and Neurological Surgery 6 mo MF or CGY, NURSING SERVICE DIRECTOR, RF, MRI, [employer] 20 11:00 AM PDTdocumented in this encounter Plan of Treatment +--------+ [...] [address] | | | | | | [address] | | | | | | Road [place], [place] | | | | | | [address] | | +--------+ + + + + | 12/30/ | Appointment | Radiology | Thu Fields, | | | 2019 | | | [address] | | | | | | [address] [place], | | | | | | [place] [address] | | | | | | [phone] | | | | | | | | +--------+ + + + + | 12/30/ | Appointment | Radiology | Thu Fields, | | | 2019 | | | MD [address] | | | | | | [address] [place], | | | | | | [place] [address] | | | | | | [phone] | | | | | | | | +--------+ + + + + | 01/21/ | Office | Neurology | Thu Fields, | | | 2019 | Visit | | MD [address] | | | | | | [address] [place], | | | | | | [place] [address] | | | | | | [phone] | | | | | | | [...] + + documented in this encounter Results CORTISOL, SERUM (10/09/2019 11:15 AM PDT) + +-------+ + + + [...] + + | [facility] | [address] | [place] [address] | | | SERVICES, CORE | PARK [...] [facility] | [address] | [place] [address] | | | SERVICES, CORE | PARK [...] + + + | Test performed in [facility] Core lab. New reference range in effect | [facility] | | 218. | LABORATORY | | | SERVICES, CORE | + + + + + + + + | Performing | Address | City/State/Zipcode | Phone Number | | Organization | | | | + + + + + | [facility] | [address] | [place] [address] | | | SERVICES, CORE | PARK [...] | | | | | | by [email or web address] | | | | | | [facility] | | | | | | [address] | | | | | | [phone].[facility]. | | | | | | Nura [...] [facility] | [address] | [place], [place] | | | [facility] | | [address] | | + + + + + [...] | + + + + + | [facility] | [address] | [place] [address] | | | SERVICES, CORE | MA[address] [...] | | | LABORATORY | | | KENYAN | | | SERVICES, | | | [...] | + + + + + | [facility] | [address] | [place] [address] | | | SERVICES, CORE | [address] | | | + + + + + CORTISOL, SERUM (10/09/2019 10:45 AM PDT) + +-------+ + + + | Component | Value | Ref Range | Performed | Pathologist | | | | | At | Signature | + +-------+ + + + | CORTISOL, | 6.0 | ug/dL | [facility] | | | [...] | + + + + + | [facility] | [address] | [place] [address] | | | SERVICES, CORE | MAICO [...] - | | | | | | [place] | | + +-------+ + + + [...] + | [facility] | [address] | [place] [address] | | | [place] | | | | + + + + + documented in this encounter Visit Diagnoses + + | Diagnosis | + + | Pituitary mass (HCC) - Primary Unspecified disorder of the pituitary gland and its | | hypothalamic control | + + | Adrenal cortex hypofunction (HCC) Glucocorticoid deficiency | + + | History of pituitary surgery | + + documented in this encounter Administered Medications + +--------+ +-------+------+------+ | Medication Order | MAR | Action | Dose | Rate | Site | | | Action | Date | | | | + +--------+ +-------+------+------+ | cosyntropin 1 mcg/ml injection | Given | 10/09/19 | 1 mcg | | | | 1 mcg 1 mcg, intravenous, ONCE, | | 20 10:15 | | | | | 1 dose, Salty 10/09/19 at 0615 | | AM PDT | | | | + +--------+ +-------+------+------+ +---+---+ | | | +---+---+ documented in this encounter
--- OUTSIDE RECORDS SUMMARY | ~2019-12-19 | XMS | Encounter Summary ---
Demographics + + + | Address | [address] | | | [place] [address] | + + + | Home Phone | | + + + | Preferred Language | Unknown | + + + | Marital Status | | + + + | Uatsdin Affiliation | CHR | + + + | Race | White | + + + | Ethnic Group | Not or | + + + Author + + + | Author | [facility] | + + + | Organization | [facility] | + + + | Address | Unknown | + + + | Phone | Unavailable | + + + Support + + +---------+ + | Name | Relationship | Address | Phone | + + +---------+ + | Anushka Mitchell | ECON | Unknown | | + + +---------+ + Care Team Providers + +------+ + | Care Contracting Specialist Name | Role | Phone | [...] | | | | | pituitary | [place] | [address] | | | | | gland | Family | Andrew Bolanos | | | | | Procedures | Medicine | [place] | | | | | [place] | [address] | [address] | | | | | OFFICE/OUTPT | Mike Dias | Phone: | | | | | | Analy, | [phone] | | | | | VISIT,[place] | [place] [address] | Fax: | | | | | KORINA III | Phone: | [phone] | | | | | | [phone] | | | | | | | Fax: | | | | | | | [phone] | | + +--------+ + + + [...] | uled | Surgery Services at | [facility] [address] | | | | | [facility] [address] | [place], [place] | | | | | [facility] for | [address] | | | | | Health and Healing, | [phone] | | | | | [address] | | | | | | [facility] [place] | | | | | | [address] | | | | | | [phone] | | | +--------+ + + + [...] fro m the original. Begin [address] The visit took place via Telemedicine. Patient location is the home. Patient was located in the [facility] at the time of the visit. Telepresenter (relative and/or transporter radiology) wa s not used during the visit. [...] | | | | | | Road [place], [place] | | | | | | [address] | | +--------+ + + + + | 12/30/ | Appointment | Radiology | hTu Fields, | | | 2019 | | | MD [address] | | | | | | [address] [place], | | | | | | [place] [address] | | | | | | [phone] | | | | | | | | +--------+ + + + + | 12/30/ | Appointment | Radiology | Thu Fields, | | | 2019 | | | MD [address] | | | | | | [address] [place], | | | | | | [place] [address] | | | | | | [phone] | | | | | | | | +--------+ + + + + | 01/21/ | Office | Neurology | Thu Fields, | | | 2019 | Visit | | MD [address] | | | | | | [address] [place], | | | | | | [place] [address] | | | | | | [phone] | | | | | | | | +--------+ + + + + documented as of this encounter Visit Diagnoses + + | Diagnosis | + + | 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
--- OUTSIDE RECORDS SUMMARY | ~2019-12-19 | XMS | Encounter Summary ---
Demographics + + + | Address | [address] | | | [place] [address] | + + + | Home Phone | | + + + | Preferred Language | Unknown | + + + | Marital Status | | + + + | Scientology Affiliation | Unknown | + + + | Race | Unknown | + + + | Ethnic Group | Unknown | + + + Author + + + | Author | [facility] | | | and [place] | + + + | Organization | [facility] | | [...] Team Providers + +------+ + | Care Box Icer Name | Role | Phone | [...] Provider Unknown | | | | | [place], [place] | [phone] | | | | | [address] | | | | | | [phone] | | | +--------+ + + + [...]
--- OUTSIDE RECORDS SUMMARY | ~2019-12-19 | XMS | Encounter Summary ---
Demographics + + + | Address | [address] | | | [place] [address] | + + + | Home Phone [...] Providers + +------+ + | Care Solar Energy Specialist Name | Role | Phone | [...] | | | gland and | [address] [facility] | Health and | | | | | craniopharyn | [facility] | Healing, | | | | | geal duct | Rd | [address], | | | | | ([facility]) | [facility] [place] | 3rd Floor | | | | | Procedures | [address] | [place], [place] | | | | | CTA | Phone: | [phone] | | | | | STEREOTACTIC | [phone] | Phone: | | | | | HEAD [address] | Fax: | [phone] | | | | | [place] | [phone] | Fax: | | | | | [place] | | [phone] | | | | | ANGIO,HEAD | [...] | | gland and | [address] [facility] | Health and | | | | | craniopharyn | [facility] | Healing, | | | | | geal duct | Rd | Building 1, | | | | | (HCC) | [place], [place] | 3rd Floor | | | | | Procedures | [address] | [place], [place] | | | | | CTA | Phone: | [phone] | | | | | STEREOTACTIC | [phone] | Phone: | | | | | HEAD [address] | Fax: | [phone] | | | | | [place] | [phone] | Fax: | | | | | [place] | | [phone] | | | | | ANGIO,HEAD | [...] Yadav | | | | | [facility] | [address] | | | | | Health and Healing, | [address] [place], | | | | | [address], 3rd | [place] [address] | | | | | Floor [place], [place] | [phone] | | | | | [address] | | | | | | [phone] | | | +--------+ + + + [...] | | | | | | Road [place], [place] | | | | | | [address] | | +--------+ + + + + | 12/30/ | Appointment | Radiology | Thu Fields, | | | 2019 | | | MD [address] | | | | | | [address] [place], | | | | | | [place] [address] | | | | | | [phone] | | | | | | | | +--------+ + + + + | 12/30/ | Appointment | Radiology | Thu Fields, | | | 2019 | | | MD [address] | | | | | | [address] [place], | | | | | | [place] [address] | | | | | | [phone] | | | | | | | | +--------+ + + + + | 01/21/ | Office | Neurology | Thu Fields, | | 2019 | Visit | | [address] | | | | | | [address] [place], | | | | | | [place] [address] | | | | | | [phone] | | | | | | | [...] stenoses. Incidentally noted origin of the left ACID REGENERATOR. Limited | | | evaluation of known [...] | Incidentally noted origin of the left ACID REGENERATOR. Limited evaluation of known pituitary | | [...] Incidentally no rossy origin of the left ACID REGENERATOR. | | | |Limited evaluation of known [...]
--- OUTSIDE RECORDS SUMMARY | ~2019-12-19 | XMS | Encounter Summary ---
Demographics + + + | Address | [address] | | | [place] [address] | + + + | Home Phone [...] + + + | Author | [facility] | + + + | Organization | [facility] | + + + | Address | Unknown | + + + | Phone | Unavailable | + + + Support + + +---------+ + | Name | Relationship | Address | Phone | + + +---------+ + | Anushka Mitchell | ECON | Unknown | | + + +---------+ + Care Team Providers + +------+ + | Care Humidifier Operator Name | Role | Phone | [...] | neoplasm of | [facility] | [address] | | | | Neurological | pituitary | [place] | [address] | | | | Surgery | gland | Family | Andrew Bolanos, | | | | | Pituitary | Medicine | [place] | | | | | adenoma, | [address] | [address] | | | | | facial pain | Mike Dias | Phone: | | | | | and facial | [place], | [phone] | | | | | numbness | [place] [address] | Fax: | | | | | Procedures | Phone: | [phone] | | | | | [place] NEW | [phone] | | | | | | PATIENT | Fax: | | | | | | [place] | [phone] | | | | | | EST PATIENT | | | | | | | [place] | | | | | | | THR/PRPH/DX | | | | | | | INJ,IV PSH | | | | | | | [place] INJ | | | | | | [...] Mery Barnett, | Pituitary adenoma | | 2020 | Visit | [place] [facility] | [address] | ([facility]) (Primary Dx) | | | | and Healing [address] | | | | | [address] [facility] | [place], [place] | | | | | Health and Healing, | [address] | | | | | [place] [address] | [phone] | | | | | [place], [place] | | | | | | [address] | | | | | | [phone] | | | +--------+---------+ + + + [...] Progress Notes Mery Barnett MD - 05/29/2019 1:15 PM PSTSee clinic visit documented in this encounter Plan of Treatment [...] | | | | | | Road [place], [place] | | | | | | [address] | | +--------+ + + + + | 12/30/ | Appointment | Radiology | Thu Fields, | | | 2019 | | | [address] | | | | | | [address] | | | | | | [place] [address] | | | | | | [phone] | | | | | | | | +--------+ + + + + | 12/30/ | Appointment | Radiology | Thu Fields, | | | 2019 | | | MD [address] | | | | | | [address] [place], | | | | | | [place] [address] | | | | | | [phone] | | | | | | | | +--------+ + + + + | 01/21/ | Office | Neurology | Thu Fields, | | | 2019 | Visit | | MD [address] | | | | | | [address] [facility], | | | | | | [place] [address] | | | | | | [phone] | | | | | | | | +--------+ + + + + documented as of this encounter Visit Diagnoses + + | Diagnosis | + + | Pituitary adenoma (HCC) - Primary Benign neoplasm of pituitary gland and | | craniopharyngeal duct (pouch) | + + documented in this encounter"
--- OUTSIDE RECORDS SUMMARY | ~2019-12-19 | XMS | Encounter Summary ---
Demographics + + + | Address | [address] | | | [place] [address] | + + + | Home Phone [...] + + + | Author | [facility] | + + + | Organization | [facility] | + + + | Address | Unknown | + + + | Phone | Unavailable | + + + Support + + +---------+ + | Name | Relationship | Address | Phone | + + +---------+ + | Anushka Mitchell | ECON | Unknown | | + + +---------+ + Care Team Providers + +------+ + | Care Tufter Name | Role | Phone | + +------+ + | Lisa Adorno PA-C PCP | | + +------+ + Encounter Details +--------+ + + + + | Date | Type | Department | Care Team | Description | +--------+ + + + + | 05/21/ | Abstract | Neurology at | Unknown . | | | 2019 | | [facility] | | | | | | Healing [address] | | | | | | [facility] | | | | | | [facility] He[facility], | | | | | | Building | | | | | | Floor [place], [place] | | | | | | [address] | | | | | | [phone] | | | +--------+ + + + [...] | | | | | [facility], [place] | | | | | | [address] | | +--------+ + + + + | 12/30/ | Appointment | Radiology | Thu Fields, | | | 2019 | | | MD [address] | | | | | | [address] [place], | | | | | | [place] [address] | | | | | | [phone] | | | | | | | | +--------+ + + + + | 12/30/ | Appointment | Radiology | Thu Fields, | | | 2019 | | | MD [address] | | | | | | [address] [place], | | | | | | [place] [address] | | | | | | [phone] | | | | | | | | +--------+ + + + + | 01/21/ | Office | Neurology | Thu Fields, | | | 2019 | Visit | | [address] | | | | | | [address], | | | | | | [place] [address] | | | | | | [phone] | | | | | | | | +--------+ + + + + documented as of this encounter Visit Diagnoses Not on filedocumented in this encounter"
--- OUTSIDE RECORDS SUMMARY | ~2019-12-19 | XMS | Encounter Summary ---
Demographics + + + | Address | [address] | | | [place] [address] | + + + | Home Phone | | + + + | Preferred Language | Unknown | + + + | Marital Status | | + + + | Mu-Ism Affiliation | CHR | + + + [...] Team Providers + +------+ + | Care Operating Room Technician Name | Role | Phone | [...] | +--------+ + + + + | 03/04/ | Anesthesia | 6A Intra Op 3181 | Abdiaziz Almeida, | | | 2019 | Event | [address] | [address] | | | | | [facility] | [address] | | | | | Hospital Admitting | [place], [place] | | | | | Desk Located on the | [address] | | | | | 9th floor | [phone] | | | | | [place], [place] | | | | | | [address] | Danuta Evans MD [address] | | | | | | [address] | | | | | | [facility] [place] | | | | | | [address] | | | | | | [phone] | | | | | | | | +--------+ + + + + Anesthesia Record + + + + + | Procedure Name | Responsible | Anesthesia Start | Anesthesia Stop Time | | | Anesthesiologist | Time | | + + + + + | FRAMELESS | Abdiaziz Almeida MD | 07/29/19 0730 | 07/29/19 1058 | | STEREOTACTIC | | | | | EXPANDED ENDOSCOPIC | | | | | ENDONASAL APPROACH | | | | | FOR RESECTION OF | | | | | PITUITARY MASS | | | | | (Midline Nose) | | | | + + + + + +----+---+ + + | Da | T | Event | Comment | | te | i | | | | | m | | | | | e | | | +----+---+ + + | 03 | 0 | Eq Check | Anesthesia machine checked Equipment verified | | /0 | 7 | | | | 4/ | 0 | | | | 20 | 2 | | | | 20 | | | | +----+---+ + + | | 0 | Pt. Check | Prior to anesthesia start, pt. Identified, examined, chart | | | 7 | | reviewed, PARQ held, anesthetic plan made or approved by | | | 0 | | attending anesthesiologist. NPO status confirmed as appropriate | | | 2 | | for procedure Preoperative evaluation: unchanged | +----+---+ + + | | 0 | An Start | | | | 7 | | | | | 3 | | | | | 0 | | | +----+---+ + + | | 0 | An Start | | | | 7 | Data | | | | 3 | | | | | 0 | | | +----+---+ + + | | 0 | Vitals | Monitors applied Vital signs checked Patient ready for anesthesia | | | 7 | Checked | | | | 3 | | | | | 6 | | | +----+---+ + + | | 0 | ETT | | | | 7 | | | | | 4 | | | | | 4 | | | +----+---+ + + | | 0 | Ready | | | | 7 | | | | | 4 | | | | | 7 | | | +----+---+ + + | | 0 | Abx | | | | 7 | Administere | | | | 5 | d | | | | 8 | | | +----+---+ + + | | 0 | Quick Note | Time out completed | | | 8 | | | | | 1 | | | | | 7 | | | +----+---+ + + | | 0 | Incision | | | | 8 | | | | | 1 | | | | | 8 | | | +----+---+ + + | | 0 | Quick Note | Recruitment breaths given | | | 9 | | | | | 1 | | | | | 4 | | | +----+---+ + + | | 1 | Surgery end | | | | 0 | | | | | 3 | | | | | 6 | | | +----+---+ + + | | 1 | An Extubate | Neuromuscular function Intact. Pharynx suctioned. Patient obeys | | | 0 | | commands. Adequate pulmonary mechanics. | | | 4 | | | | | 7 | | | +----+---+ + + | | 1 | an stop | | | | 0 | data | | | | 4 | | | | | 9 | | | +----+---+ + + | | 1 | PACU Rpt | | | | 0 | Given | | | | 5 | | | | | 3 | | | +----+---+ + + | | 1 | PACU Rpt | | | | 0 | Given | | | | 5 | | | | | 7 | | | +----+---+ + + | | 1 | Anesthesia | | | | 0 | End | | | | 5 | | | | | 8 | | | +----+---+ + + | | 1 | Post-Op | | | | 2 | Page | | | | 1 | | | | | 5 | | | +----+---+ + + +------+ | Meds | +------+ + + + | Name | Total | + + + | midazolam | 2 mg | + + + | fentaNYL | 100 mcg | + + + | lidocaine 1% | 10 mL | + + + | lidocaine PF (XYLOCAINE MPF) 10 | 200 mg | | mg/mL (1 %) injection | | + + + | propofol | 250 mg | + + + | rocuronium | 80 mg | + + + | ceFAZolin | 2,000 mg | + + + | dexamethasone | 4 mg | + + + | HYDROmorphone | 1.4 mg | + + + | metoprolol | 5 mg | + + + | glycopyrrolate | 0.6 mg | + + + | neostigmine vial | 4 mg | + + + | LR bolus | 400 mL | + + + | NS bolus | 1,000 mL | + + + + + | Name | + + | O2 FR Avance (Total Liters) | + + | Air FR Avance (l/min) | + + | Insp Sevo | + + | Et Sevo | + + | EtN2O % | + + | Insp N2O % | + + + + | No blood administrations on file. | + + +--------+ + + + | Type | Details | Placement | Removal | +--------+ + + + | Incisi | 07/29/19; 817; Md Krish; | 07/29/19817 by | | | on | nose | Alicja Best RN | | +--------+ + + + | Periph | 07/29/19; 0704; Left; Hand; 20 g; | 07/29/19 0704 by | 08/01/19 1243 by | | eral | 08/01/19; 1243; Discharge | Micah Rhoades RN | Brenden Camargo RN | | IV | | | | +--------+ + + + | ETT | 07/29/19; 47 (created via | 07/29/19746 by | 07/29/19 1047 by | | | procedure documentation); Danuta | Danuta Evans MD | Danuta Evans MD | | | MD Nathan; Endotracheal Tube; 7; | | | | | 07/29/19; 1047 | | | +--------+ + + + | Urethr | 07/29/19; 0750; CHANDAN Best; | 07/29/19 0750 by | 07/30/19 0645 by | | al | Kajal; 16 Fr.; 10 mL; 07/30/19; | Alicja Best RN | Nini Huerta RN | | Cathet | 0645; Per order | | | | er | | | | +--------+ + + + | Periph | 07/29/19; 0811; Right; Hand; 16 | 07/29/19 0811 by | 08/01/19 1243 by | | heladio | g; None; Positive; 08/01/19; | Danuta Evans MD | Brenden Camargo RN | | IV | 1243; Discharge | | | +--------+ + + + documented in this encounter Social [...] | | | | | | Road [place], [place] | | | | | | [address] | | +--------+ + + + + | 12/30/ | Appointment | Radiology | Thu Fields, | | | 2019 | | | [address] | | | | | | [facility] [address] [facility] | | | | | | [place] [address] | | | | | | [phone] | | | | | | | | +--------+ + + + + | 12/30/ | Appointment | Radiology | Thu Fields, | | | 2019 | | | MD [address] | | | | | | [address] [place], | | | | | | [place] [address] | | | | | | [phone] | | | | | | | | +--------+ + + + + | 01/21/ | Office | Neurology | Thu Fields, | | | 2019 | Visit | | MD [address] | | | | | | [address] [place], | | | | | | [place] [address] | | | | | | [phone] | | | | | | | | +--------+ + + + + documented as of this encounter Procedures + +--------+ + + + | Procedure Name | Priori | Date/Time | Associated Diagnosis | Comments | | | ty | | | | + +--------+ + + + | ANE ETT | Routin | 07/29/2019 | | Results for this | | | e | 8:49 AM | | procedure are in the | | | | PST | | results section. | + +--------+ + + + documented in this encounter Results ETT (07/29/2019 8:49 AM PST) + + + | Narrative | Performed At | + + + | Danuta Evans MD 07/29/2019 8:50 AM AIRWAY MANAGEMENT - ETT | | | Time of Placement: 07/29/2019 7:47 AM Intubation Reason: For surgical | | | procedure Positioning: Sniffing Location Performed:[place] | | | OXYGENATION Patient was preoxygenated Grade: Grade 1 - Ventilated by | | | mask Manual in-Line Stabilization: No Induction:Routine, without | | | Cricoid Pressure INTUBATION ATTEMPT 1 Videolaryngoscopy: CMAC | | | Hyperangulated D-blade Laryngoscopic View: Grade I Surgical Airway: | | | no Surgical Airway ETT DETAILS ETT Type:Standard, Hi-Lo Cuffed | | | Size: 7 ETT secured with adhesive tape Depth at Lip: 21 cm | | | CONFIRMATION airway not difficult Number of Attempts: 1 Positive | | | for EtCO2:Waveform capnography NARRATIVE Attending was physically | | | present for the critical portions of the procedure as described in | | | the procedure note Attending/Authorizing Provider: Abdiaziz Almeida | | | Performing Provider: Danuta Evans MD Procedure Comments: One | | | attempt, performed by medical student with some help. CMAC used | | | given patient's multiple crowns and retainers. | | + + + documented in this encounter Visit Diagnoses Not on filedocumented in this encounter Administered Medications + +--------+ + +------+------+ | Medication Order | MAR | Action | Dose | Rate | Site | | | Action | Date | | | | + +--------+ + +------+------+ | ceFAZolin (ANCEF) injection | Given | 07/29/19 | 2,000 mg | | | | INTRAPROCEDURE PRN, Starting Wed | | 20 7:58 | | | | | 07/29/19 at 0758, Until Sat07/29/19 | | AM PST | | | | | at 1058 | | | | | | + +--------+ + +------+------+ +---+---+ | | | +---+---+ + +-------+ +------+---+---+ | dexamethasone (DECADRON) | Given | 07/29/19 | 4 mg | | | | injection INTRAPROCEDURE PRN, | | 20 8:01 | | | | | Starting Sat07/29/19 at 0801, | | AM PST | | | | | Until Sat07/29/19 at 1058 | | | | | | + +-------+ +------+---+---+ +---+---+ | | | +---+---+ + +-------+ +---------+---+---+ | fentaNYL (SUBLIMAZE) injection | Given | 07/29/19 | 100 mcg | | | | INTRAPROCEDURE PRN, Starting Sat | | 20 7:39 | | | | | 07/29/19 at 0739, Until Sat07/29/19 | | AM PST | | | | | at 1058 | | | | | | + +-------+ +---------+---+---+ +---+---+ | | | +---+---+ + +-------+ +--------+---+---+ | glycopyrrolate (PF) (SONALI) | Given | 07/29/19 | 0.6 mg | | | | injection soln INTRAPROCEDURE | | 20 10:36 | | | | | PRN, Starting Sat07/29/19 at 1036, | | AM PST | | | | | Until Sat07/29/19 at 1058 | | | | | | + +-------+ +--------+---+---+ +---+---+ | | | +---+---+ + +-------+ +--------+---+---+ | HYDROmorphone (DILAUDID) | Given | 07/29/19 | 0.2 mg | | | | injection INTRAPROCEDURE PRN, | | 20 10:19 | | | | | Starting Sat07/29/19 at 0815, | | AM PST | | | | | Until Sat07/29/19 at 1058 | | | | | | + +-------+ +--------+---+---+ +-------+ +--------+---+---+ | Given | 07/29/19 | 0.4 mg | | | | | 20 9:31 | | | | | | AM PST | | | | +-------+ +--------+---+---+ | Given | 07/29/19 | 0.4 mg | | | | | 20 8:27 | | | | | | AM PST | | | | +-------+ +--------+---+---+ +---+---+ | | | +---+---+ + + + +---+---+---+ | lactated ringers (LR) bolus | given by | 07/29/19 | | | | | INTRAPROCEDURE CONTINUOUS PRN, | | 20 10:53 | | | | | Starting Sat07/29/19 at 0813, | anesthes | AM PST | | | | | Until Sat07/29/19 at 1058 | iology | | | | | + + + +---+---+---+ + + +---+---+---+ | given by anesthesiology | 07/29/19 | | | | | | 20 8:25 | | | | | | AM PST | | | | + + +---+---+---+ | New Bag | 07/29/19 | | | | | | 20 8:13 | | | | | | AM PST | | | | + + +---+---+---+ +---+---+ | | | +---+---+ + +-------+ +-------+---+---+ | lidocaine PF (XYLOCAINE MPF) 10 | Given | 07/29/19 | 50 mg | | | | mg/mL (1 %) injection | | 20 7:44 | | | | | subcutaneous, PREPROCEDURE PRN, | | AM PST | | | | | Starting Sat07/29/19 at 0601, | | | | | | | Until Sat07/29/19 at 1354, IV | | | | | | | start | | | | | | + +-------+ +-------+---+---+ +-------+ +-------+---+---+ | Given | 07/29/19 | 50 mg | | | | | 20 7:43 | | | | | | AM PST | | | | +-------+ +-------+---+---+ | Given | 07/29/19 | 50 mg | | | | | 20 7:42 | | | | | | AM PST | | | | +-------+ +-------+---+---+ +---+---+ | | | +---+---+ + +-------+ +-------+---+---+ | lidocaine PF (XYLOCAINE MPF) 10 | Given | 07/29/19 | 10 mL | | | | mg/mL (1 %) injection | | 20 7:41 | | | | | INTRAPROCEDURE PRN, Starting Wed | | AM PST | | | | | 07/29/19 at 0741, Until 07/29/19 | | | | | | | at 1058 | | | | | | + +-------+ +-------+---+---+ +---+---+ | | | +---+---+ + +-------+ +------+---+---+ | metoprolol (LOPRESSOR) | Given | 07/29/19 | 3 mg | | | | injection intravenous, | | 20 9:39 | | | | | INTRAPROCEDURE PRN, Starting Wed | | AM PST | | | | | 07/29/19 at 0939, Until 07/29/19 | | | | | | | at 1058 | | | | | | + +-------+ +------+---+---+ +-------+ +------+---+---+ | Given | 07/29/19 | 2 mg | | | | | 20 9:34 | | | | | | AM PST | | | | +-------+ +------+---+---+ +---+---+ | | | +---+---+ + +-------+ +------+---+---+ | midazolam (PF) (VERSED) | Given | 07/29/19 | 2 mg | | | | injection INTRAPROCEDURE PRN, | | 20 7:23 | | | | | Starting 07/29/19 at 0723, | | AM PST | | | | | Until Sat07/29/19 at 1058 | | | | | | + +-------+ +------+---+---+ +---+---+ | | | +---+---+ + +-------+ +------+---+---+ | neostigmine (PROSTIGMIN) | Given | 07/29/19 | 4 mg | | | | intravenous, INTRAPROCEDURE PRN, | | 20 10:37 | | | | | Starting Sat07/29/19 at 1037, | | AM PST | | | | | Until Sat07/29/19 at 1058 | | | | | | + +-------+ +------+---+---+ +---+---+ | | | +---+---+ + +-------+ +-------+---+---+ | propofoL (DIPRIVAN) injection | Given | 07/29/19 | 50 mg | | | | INTRAPROCEDURE PRN, Starting Sat | | 20 7:45 | | | | | 07/29/19 at 0741, Until 3/4/20 | | AM PST | | | | | at 1058 | | | | | | + +-------+ +-------+---+---+ +-------+ +-------+---+---+ | Given | 07/29/19 | 50 mg | | | | | 20 7:44 | | | | | | AM PST | | | | +-------+ +-------+---+---+ | Given | 07/29/19 | 50 mg | | | | | 20 7:43 | | | | | | AM PST | | | | +-------+ +-------+---+---+ +---+---+ | | | +---+---+ + +-------+ +-------+---+---+ | rocuronium injection | Given | 07/29/19 | 10 mg | | | | INTRAPROCEDURE PRN, Starting Wed | | 20 9:12 | | | | | 07/29/19 at 0743, Until Sat07/29/19 | | AM PST | | | | | at 1058 | | | | | | + +-------+ +-------+---+---+ +-------+ +-------+---+---+ | Given | 07/29/19 | 20 mg | | | | | 20 8:12 | | | | | | AM PST | | | | +-------+ +-------+---+---+ | Given | 07/29/19 | 50 mg | | | | | 20 7:43 | | | | | | AM PST | | | | +-------+ +-------+---+---+ +---+---+ | | | +---+---+ + + + +---+---+---+ | sodium chloride (NS) 0.9 % | given by | 07/29/19 | | | | | bolus INTRAPROCEDURE CONTINUOUS | | 20 9:33 | | | | | PRN, Starting Sat07/29/19 at 0722, | anesthes | AM PST | | | | | Until Sat07/29/19 at 1058 | iology | | | | | + + + +---+---+---+ + + +---+---+---+ | given by anesthesiology | 07/29/19 | | | | | | 20 7:40 | | | | | | AM PST | | | | + + +---+---+---+ | New Bag | 07/29/19 | | | | | | 20 7:22 | | | | | | AM PST | | | | + + +---+---+---+ +---+---+ | | | +---+---+ documented in this encounter"
--- OUTSIDE RECORDS SUMMARY | ~2019-12-19 | XMS | Encounter Summary ---
Demographics + + + | Address | [address] | | | [place] [address] | + + + | Home Phone [...] Team Providers + +------+ + | Care Back Up Scan Coordinator Name | Role | Phone | [...] gland and | [address] | [place], [place] | | | | | craniopharyn | [facility] | [address] | | | | | geal duct | Rd | Phone: | | | | | (HCC) | [place], [place] | [phone] | | | | | Procedures | [address] | Fax: | | | | | REQUEST TO | Phone: | [phone] | | | | | SURGERY | [phone] | | | | | | TRANSPORTATION AID | Fax: | | | | | | [place] | [phone] | | | | | | NEUROENDOSCO | | | | | | | P,EXC,PIT | | | | | | | JENNIFER,TRANSNAS | | | | | | | /SPHEN ND | | | | | | | SCAN PROC | | | | | | | CRANIAL | | | | | | | INTRA ND | | | | | | | SPINAL | | | | | | | PUNCTURE, | | | | | | | THERAPEUTIC, | | | | | | | FOR | | | | | | | DRAINAGE OF | | | | | | | CEREBROSPINA | | | | | | | L FLUID ND | | | | | | | GRAFTING OF | | | | | | | AUTOLOGOUS | | | | | | | SOFT TISS BY | | | | | | | DIRECT EXC | | | | | | | ND | | | | | | | NEUROVASCULA | | | | | | | R PEDICLE | | | | | | | GRAFT ND | | | | | | | FORM SKIN | | | | | | | PEDICLE FLAP | | | | | | | | | | | | | | LID,EAR,NOSE | | | | | | | ND ADJ | | | | | | [...] | | | | | craniopharyn | [facility] | Healing, | | | | | geal duct | Rd | [address], | | | | | (HCC) | [place], [place] | 3rd Floor | | | | | Procedures | [address] | [place], [place] | | | | | CTA | Phone: | [phone] | | | | | STEREOTACTIC | [phone] | Phone: | | | | | HEAD W | Fax: | [phone] | | | | | CONTRAST [place] | [phone] | Fax: | | | | | CT | | [phone] | | | | | ANGIO,HEAD | [...] pituitary gland and | | | | [facility] | [place], [place] | craniopharyngeal | | | | Health and Healing, | [address] | duct (HCC) (Primary | | | | | [phone] | Dx) | | | | floor [place], [place] | | | | | | [address] | | | | | | [phone] | | | +--------+---------+ + + + [...] by me and if not recorded in [employer] will be scanned into the [employer] stem using intake patient forms during this [...] [address] | | | | | | [place], [place] | | | | | | [address] | | +--------+ + + + + | 12/30/ | Appointment | Radiology | Thu Fields, | | | 2019 | | | MD [address] | | | | | | [address] [place], | | | | | | [place] [address] | | | | | | [phone] | | | | | | | | +--------+ + + + + | 12/30/ | Appointment | Radiology | Thu Fields, | | | 2019 | | | MD [address] | | | | | | [address] [place], | | | | | | [place] [address] | | | | | | [phone] | | | | | | | | +--------+ + + + + | 01/21/ | Office | Neurology | Thu Fields, | | | 2019 | Visit | | MD [address] | | | | | | [address] [place], | | | | | | [place] [address] | | | | | | [phone] | | | | | | | [...] stenoses. Incidentally noted origin of the left BUSINESS PROCESS ANALYST. Limited | | | evaluation of known [...] | Incidentally noted origin of the left BUSINESS PROCESS ANALYST. Limited evaluation of known pituitary | | [...] Incidentally no rossy origin of the left BUSINESS PROCESS ANALYST. | | | |Limited evaluation of known [...]
--- OUTSIDE RECORDS SUMMARY | ~2019-12-19 | XMS | Encounter Summary ---
Demographics + + + | Address | [address] | | | [place] [address] | + + + | Home Phone | | + + + | Preferred Language | Unknown | + + + | Marital Status | | + + + | Voodoo Affiliation | CHR | + + + | Race | White | + + + | Ethnic Group | Not or | + + + Author + + + | Author | [facility] | + + + | Organization | [facility] | + + + | Address | Unknown | + + + | Phone | Unavailable | + + + Support + + +---------+ + | Name | Relationship | Address | Phone | + + +---------+ + | Anushka Mitchell | ECON | Unknown | | + + +---------+ + Care Team Providers + +------+ + | Care Pulp House Supervisor Name | Role | Phone | [...] | | | | | craniopharyn | [place], [place] | [place] | | | | | geal duct | [address] | [facility] [place] | | | | | (HCC) | Phone: | [phone] | | | | | Procedures | [phone] | Phone: | | | | | MRI | Fax: | [phone] | | | | | PITUITARY | [phone] | Fax: | | | | | [facility] CONTRAST | | [phone] | | | | | [place] MRI | | | | | | | BRAIN COMBO | | | +--------+--------+ + + + + Reason for Visit Diagnostic Testing (Urgent) +--------+--------+ + + + + | Status | Reason | Specialty | Diagnoses / | Referred By | Referred To | | | | | Procedures | Contact | Contact | +--------+--------+ + + + + | Closed | | Radiology | Diagnoses | Fleseriu, | [facility]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[address] | | | | | pituitary | [address] | [place] | | | | | gland and | Rd | Research | | | | | craniopharyn | [place], [place] | [place] | | | | | geal duct | [address] | [place], [place] | | | | | (HCC) | Phone: | [phone] | | | | | Procedures | [phone] | Phone: | | | | | MRI | Fax: | [phone] | | | | | PITUITARY | [phone] | Fax: | | | | | [facility] CONTRAST | | [phone] | | | | | [place] MRI | | | | | | | BRAIN COMBO | | | +--------+--------+ + + + + Encounter Details +--------+ + + + + | Date | Type | Department | Care Team | Description | +--------+ + + + + | 06/04/ | Hospital | Diagnostic Imaging | Mery Barnett, | | | 2019 | Encounter | Services at [facility] | [address] | | | | | [address] | [address] | | | | | Shamika Ford | [place], [place] | | | | | [facility] | [address] | | | | | [place], [place] | [phone] | | | | | [address] | | | | | | [phone] | | | +--------+ + + + [...] + + + + | Weight | 89.8 kg (198 lb) | 06/04/2019 9:38 PM | | | | | PST | | + + + + + | Height | 172.7 cm (5' 8") | 06/04/2019 9:38 PM | | | | | PST | | + + + + + | Body Mass Index | 30.11 | 06/04/2019 9:38 PM | | | | | PST | | + + + + + documented in this encounter Medications at Time of Discharge + + + +---------+--------+ + | Medication | Sig | Dispensed | Refills | Start | End Date | | | | | | Date | | + + + +---------+--------+ + | ascorbic acid | Take 250 mg by mouth | | 0 | | | | (vitamin C) 250 mg | three times daily. | | | | | | oral tablet | | | | | | + + + +---------+--------+ + | BIOTIN ORAL | Take by mouth. | | 0 | | | + + + +---------+--------+ + | calcium | Take by mouth. | | 0 | | | | carbonate/vitamin D3 | | | | | | | (VITAMIN D-3 ORAL) | | | | | | + + + +---------+--------+ + | herbal drugs | Take by mouth. | | 0 | | | | (FIBER DIET ORAL) | | | | | | + + + +---------+--------+ + | | Take by mouth. | | 0 | | | | L.acid,gas,plan,rhm/ | | | | | | | B.ani/cran (UP4 | | | | | | | PROBIOTICS WOMEN'S | | | | | | | ORAL) | | | | | | + + + +---------+--------+ + | multivit with | Take by mouth. | | 0 | | | | calcium,iron,min | | | | | | | (MULTIPLE VITAMIN, | | | | | | | WOMENS ORAL) | | | | | | + + + +---------+--------+ + documented as of this encounter Plan [...] | | | | | [facility], [place] | | | | | | [id number] | | +--------+ + + + + | 12/30/ | Appointment | Radiology | Thu Fields, | | 2019 | | | MD [address] | | | | | | [address] [place], | | | | | | [place] [address] | | | | | | [phone] | | | | | | | | +--------+ + + + + | 12/30/ | Appointment | Radiology | Thu Fields, | | | 2019 | | | MD [address] | | | | | | [address] [place], | | | | | | [place] [address] | | | | | | [phone] | | | | | | | | +--------+ + + + + | 01/21/ | Office | Neurology | Thu Fields, | | 2019 | Visit | | MD [address] | | | | | | [address] [place], | | | | | | [place] [address] | | | | | | [phone] | | | | | | | | +--------+ + + + + documented as of this encounter Procedures + +--------+ + + + | Procedure Name | Priori | Date/Time | Associated Diagnosis | Comments | | | ty | | | | + +--------+ + + + | MRI PITUITARY WWO | Urgent | 06/04/2019 | 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
--- OUTSIDE RECORDS SUMMARY | ~2019-12-19 | XMS | Encounter Summary ---
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, | [address] | [address] | | | | | facial pain | [address] | Phone: | | | | | and facial | [place], | [phone] | | | | | numbness | [place] [address] | Fax: | | | | | Procedures | Phone: | [phone] | | | | | [place] NEW | [phone] | | | | | | PATIENT | Fax: | | | | | | LEVEL V [place] | [phone] | | | | | | EST PATIENT | | | | | | | LEVEL [place] | | | | | | | THR/PRPH/DX | | | | | | | INJ,IV PSH | | | | | | | [place] INJ | | | | | | [...] adenoma | | 2019 | Visit | Addy for [facility] | [address] | ([facility]) (Primary Dx); | | | | and Healing [address] | Other headache | | | | [address] Addy for | [place], [place] | syndrome | | | | Health and Healing, | [address] | | | | | [facility] | [phone] | | | | | [place], [place] | | | | | | [address] | | | | | | [phone] | | | +--------+---------+ + + + [...] file Gets together: Not on file Attends alevism service: Not on file Active member of [...] sometimes harder to detect in incipient phases. ARCHITECTURAL MODEL MAKER normal. In general we will prefer to see a cortisol over 18 ng/ml at 30 min, but I ment ioned caution to the patient as this should be correlated with clinical status as well as ot her factors that could influence CBG. ARCHITECTURAL MODEL MAKER was normal B. Thyroid function- F4 and [...] and follow up. I spent 26 minutes qyco-ol-ttyy time with this patient of which over [...] | | | | | | Road [place], [place] | | | | | | [address] | | +--------+ + + + + | 12/30/ | Appointment | Radiology | Thu Fields, | | | 2019 | | | MD [address] | | | | | | [address] [place], | | | | | | [place] [address] | | | | | | [phone] | | | | | | | | +--------+ + + + + | 12/30/ | Appointment | Radiology | Thu Fields, | | | 2019 | | | MD [address] | | | | | | [address] [place], | | | | | | [place] [address] | | | | | | [phone] | | | | | | | | +--------+ + + + + | 08/28/ | Office | Neurology | Thu Fields, | | | 2019 | Visit | | [address] | | | | | | [address] [place], | | | | | | [place] [address] | | | | | | [phone] | | | | | | | [...]
--- OUTSIDE RECORDS SUMMARY | ~2019-12-19 | XMS | Encounter Summary ---
Demographics + + + | Address | [address] | | | [place] [address] | + + + | Home Phone [...] Team Providers + +------+ + | Care Pmo Manager Name | Role | Phone | + +------+ + | Lisa Adorno PA-C PCP | | + +------+ + Encounter Details +--------+ + + + + | Date | Type | Department | Care Team | Description | +--------+ + + + + | 08/15/ | Pharmacy | Outpatient Retail | | | | 2019 | Visit | Clinic Pharmacy | | | | | | [address] | | | | | | Loop [place], [place] | | | | | | [address] | | | | | | [phone] | | | +--------+ + + + [...] [address] | | | | | | [place], [place] | | | | | | [address] | | +--------+ + + + + | 12/30/ | Appointment | Radiology | Thu Fields, | | | 2019 | | | [address] | | | | | | [address] | | | | | | [place] [address] | | | | | | [phone] | | | | | | | | +--------+ + + + + | 12/30/ | Appointment | Radiology | Thu Fields, | | | 2019 | | | MD [address] | | | | | | [address] [place], | | | | | | [place] [address] | | | | | | [phone] | | | | | | | | +--------+ + + + + | 01/21/ | Office | Neurology | Thu Fields, | | | 2019 | Visit | | MD [address] | | | | | | [address] [place], | | | | | | [place] [address] | | | | | | [phone] | | | | | | | | +--------+ + + + + documented as of this encounter Visit Diagnoses Not on filedocumented in this encounter"
--- OUTSIDE RECORDS SUMMARY | ~2019-12-19 | XMS | Encounter Summary ---
Demographics + + + | Address | [address] | | | [place] [address] | + + + | Home Phone | | + + + | Preferred Language | Unknown | + + + | Marital Status | | + + + | Advent Affiliation | CHR | + + + [...] Team Providers + +------+ + | Care Mainframe Developer Name | Role | Phone | + +------+ + | Lisa Adorno PA-C PCP | | + +------+ + Reason for Visit +--------+ + | Reason | Comments | +--------+ + | Other | Telemedicine appointment on 09-08-2019 | +--------+ + Encounter Details +--------+ + + + + | Date | Type | Department | Care Team | Description | +--------+ + + + + | 09/01/ | MyChart | Neurosurgery at | [place], | Telemedicine | | 2020 | Encounter | [facility] | [place], | appointment on | | | | and Healing [address] | DNP,LOBBY ATTENDANT,[place] [address] | 09-08-2019 | | | | [address] [facility] | [address] [place], | | | | | Health and Healing, | [place] [address] | | | | | Building [address] | [phone] | | | | | [place], [place] | | | | | | [address] | | | | | | [phone] | | | +--------+ + + + [...] | | | | | | Road [place], [place] | | | | | | [address] | | +--------+ + + + + | 12/30/ | Appointment | Radiology | Thu Fields, | | | 2019 | | | MD [address] | | | | | | [address] [place], | | | | | | [place] [address] | | | | | | [phone] | | | | | | | | +--------+ + + + + | 12/30/ | Appointment | Radiology | Thu Fields, | | | 2019 | | | MD [address] | | | | | | [address] [place], | | | | | | [place] [address] | | | | | | [phone] | | | | | | | | +--------+ + + + + | 01/21/ | Office | Neurology | Thu Fields, | | | 2019 | Visit | | MD [address] | | | | | | [address] [place], | | | | | | [place] [address] | | | | | | [phone] | | | | | | | | +--------+ + + + + documented as of this encounter Visit Diagnoses Not on filedocumented in this encounter"
--- OUTSIDE RECORDS SUMMARY | ~2019-12-19 | XMS | Encounter Summary ---
Demographics + + + | Address | [address] | | | [place] [address] | + + + | Home Phone | | + + + | Preferred Language | Unknown | + + + | Marital Status | | + + + | Confucianist Affiliation | CHR | + + + [...] Team Providers + +------+ + | Care Instructor Ground Services Name | Role | Phone | + +------+ + | Lisa Adorno PA-C PCP | | + +------+ + Encounter Details +--------+ + + + + | Date | Type | Department | Care Team | Description | +--------+ + + + + | 07/31/ | Pharmacy | Outpatient Retail | | | | 2020 | Visit | Clinic Pharmacy | | | | | | [address] | | | | | | Loop [place], [place] | | | | | | [address] | | | | | | [phone] | | | +--------+ + + + [...] | | | | | | Road [place], [place] | | | | | | [address] | | +--------+ + + + + | 12/30/ | Appointment | Radiology | Thu Fields, | | | 2019 | | | MD [address] | | | | | | [address] [place], | | | | | | [place] [address] | | | | | | [phone] | | | | | | | | +--------+ + + + + | 12/30/ | Appointment | Radiology | Thu Fields, | | | 2019 | | | MD [address] | | | | | | [address] [place], | | | | | | [place] [address] | | | | | | [phone] | | | | | | | | +--------+ + + + + | 01/21/ | Office | Neurology | Thu Fields, | | | 2019 | Visit | | MD [address] | | | | | | [address] [place], | | | | | | [place] [address] | | | | | | [phone] | | | | | | | | +--------+ + + + + documented as of this encounter Visit Diagnoses Not on filedocumented in this encounter"
--- OUTSIDE RECORDS SUMMARY | ~2019-12-19 | XMS | Clinical Summary ---
Demographics + + + | Address | [address] | | | [place] [address] | + + + | Home Phone | | + + + | Preferred Language | Unknown | + + + | Marital Status | | + + + | Oriental Orthodox Affiliation | Unknown | + + + | Race | Unknown | + + + | Ethnic Group | Unknown | + + + Author + + + | Author | [facility] | | | and [place] | + + + | Organization | [facility] | | | [...] Team Providers + +------+ + | Care Instructional Paraprofessional Name | Role | Phone | + [...] + + + + | Meloxicam | Other (See Comments) | | 05/06/20 | Sores in mouth [...] | mouth Daily. | tablet | | 20 | | e | | tabletIndications: | [...] + + + + Plan of Treatment + + + + + | Health Maintenance | Due Date | Last | Comments | | | | Done | | + + + + + | Med Mgmt: BUN | | | | | | 0 | | | + + + + + | Med Mgmt: Cr | | | | | | 0 | | | + + + + + | Medication | | | | | Management | 0 | | | + + + + + | Vaccine: | | | | | Dtap/Tdap/Td (1 - | 9 | | | | Tdap) | | | | + + + + + | Cervical Cancer | | | | | Screening (Pap) | 0 | | | + + + + + | Vaccine: Influenza | | 03/19/20 | | | (#1) | 0 | 19 | | + + + + + Results Not on filefrom Last 3 Months Insurance + +--------+ +--------+ +---------+------+ | Payer | Benefi | Subscriber | Effect | Phone | Address | Type | | | t Plan | ID | branden | | | | | | / | | Dates | | | | | | Group | | | | | | + +--------+ +--------+ +---------+------+ | [employer] | UNITED | [id number] | 05/27/19 | [phone] | | PPO | | | | [...] | Self | [birth year] | | [address] | | [place] | al/Fam | | 1980 | [phone] | [place] | | | [place] | | | 5 (Home) | [address] | + +--------+ +--------+ + + Advance Directives + + + + + | Type | Date Recorded | Patient | Explanation | | | | Human Resource Adviser | | + + + + + | Power of | | | | | Director Information Security | | | | + + + + + | Advance | | | | | Directive | | | | + + + + +
--- OUTSIDE RECORDS SUMMARY | ~2019-12-19 | XMS | Encounter Summary ---
Demographics + + + | Address | [address] | | | [place] [address] | + + + | Home Phone | | + + + | Preferred Language | Unknown | + + + | Marital Status | | + + + | Christianity Affiliation | CHR | + + + [...] Team Providers + +------+ + | Care Rfp Writer Name | Role | Phone | + [...] | Medicine Clinic at | Jamie R, GEOSPATIAL ENGINEER [address] | (Primary Dx) | | | | [facility] | [facility] | | | | | [address] | [address] [place], [place] | | | | | [facility] | [address] | | | | | and Dc, | [phone] | | | | | [address] | | | | | | [place], [place] | | | | | | [address] | | | | | | [phone] | | | +--------+---------+ + + + [...] a surgery and recovery. [facility] Surgery Check in Time: you will receive a call 1-3 business days before your surgery confi rming your exact arrival/check-in time for your surgery day. We know that planning for surg elieser can be stressful and involve a lot of family/friend/transportation coordination as well as hotel arrangements. The Preoperative Medicine Clinic does not have access to check in [facility], and we encourage you to contact your [...] it is after office hours, call the [facility] gantry crane operator at [phone] and ask them to page him or [...] complications: none Functional Capacity: High (>10 mets) Neuropsychology Service Director or current activity: walks ~13 miles per [...] renal failure no electrolyte abnormalities no dialysis Urology/Clinical Trial Head: Within Defined Limits except as noted below no Urologic Conditions No M[employer] ASSOC conditions Endo: Body mass index is 31.08 [...] based on this patients comorbid conditions and pqk-cy-nbiaorj care coordination needs Medication management recommendations: The [...] care. Jamie Nation NP PRE-[place]ATIVE [place] [address] [phone] (fax) Bob Finney MA - 07/14/2019 8:20 [...] | | | | | | Road [place], [place] | | | | | | [address] | | +--------+ + + + + | 12/30/ | Appointment | Radiology | Thu Fields, | | | 2019 | | | MD [address] | | | | | | [address] [place], | | | | | | [place] [address] | | | | | | [phone] | | | | | | | | +--------+ + + + + | 12/30/ | Appointment | Radiology | Thu Fields, | | | 2019 | | | MD [address] | | | | | | [address] [facility] | | | | | | [place] [address] | | | | | | [phone] | | | | | | | | +--------+ + + + + | 01/21/ | Office | Neurology | Thu Fields, | | | 2019 | Visit | | MD [address] | | | | | | [address] [place], | | | | | | [place] [address] | | | | | | [phone] | | | | | | | [...] | + +--------+ + + + | MT COLLECTION VENOUS | Routin | 07/14/2019 | [...] [facility] | [address] | [place] [address] | | | SERVICES, | [address] [...] [facility] | [address] | [place] [address] | | | SERVICES, CORE | [address] [...] | + + + + + | [facility] | [address] | [place] [address] | | | SERVICES, | [address] [...] [facility] | [address] | [place] [address] | | | SERVICES, | [address] [...] [facility] | [address] | [place] [address] | | | SERVICES, CORE | P[address] [...] LABORATORY | [address] | [place] [address] | | | SERVICES, [facility] | | | | | HEALTH [...] | | | LABORATORY | | | [place] | | | SERVICES, | | | [...] MDRD equation recommended by the National | [facility] | | Kidney Disease Education Program. Estimated [...] [facility] | [address] | [place] [address] | | | SERVICES, [facility] | | | | | HEALTH + HEALING | | | | + + + + + documented in this encounter Visit Diagnoses + + | Diagnosis | + + | Preop examination - Primary Preoperative examination, unspecified | + + documented in this encounter
--- OUTSIDE RECORDS SUMMARY | ~2019-12-19 | XMS | Encounter Summary ---
Demographics + + + | Address | [address] | | | [place] [address] | + + + | Home Phone [...] Providers + +------+ + | Care Licensed Nuclear Operator Name | Role | Phone | [...] Rd | | | | | | [place], [place] | | | | | | [address] | | | +--------+ + + + [...] | | | | | | Road [place], [place] | | | | | | [address] | | +--------+ + + + + | 12/30/ | Appointment | Radiology | Thu Fields, | | | 2019 | | | [address] | | | | | | [address] | | | | | | [place] [address] | | | | | | [phone] | | | | | | | | +--------+ + + + + | 12/30/ | Appointment | Radiology | Thu Fields, | | | 2019 | | | MD [address] | | | | | | [address] [place], | | | | | | [place] [address] | | | | | | [phone] | | | | | | | | +--------+ + + + + | 01/21/ | Office | Neurology | Thu Fields, | | 2019 | Visit | | MD [address] | | | | | | [address] [place], | | | | | | [place] [address] | | | | | | [phone] | | | | | | | | +--------+ + + + + documented as of this encounter Visit Diagnoses Not on filedocumented in this encounter"
--- OUTSIDE RECORDS SUMMARY | ~2019-12-19 | XMS | Encounter Summary ---
Demographics + + + | Address | [address] | | | [place] [address] | + + + | Home Phone [...] Team Providers + +------+ + | Care Lathe Scalper Operator Name | Role | Phone | [...] Pharmacy | | | | | | [address] | | | | | | Loop [place], [place] | | | | | | [address] | | | | | | [phone] | | | +--------+ + + + [...] [address] | | | | | | [place], [place] | | | | | | [address] | | +--------+ + + + + | 12/30/ | Appointment | Radiology | Thu Fields, | | | 2019 | | | [address] | | | | | | [address] | | | | | | [place] [address] | | | | | | [phone] | | | | | | | | +--------+ + + + + | 12/30/ | Appointment | Radiology | Thu Fields, | | | 2019 | | | MD [address] | | | | | | [address] [place], | | | | | | [place] [address] | | | | | | [phone] | | | | | | | | +--------+ + + + + | 01/21/ | Office | Neurology | Thu Fields, | | | 2019 | Visit | | MD [address] | | | | | | [address] [place], | | | | | | [place] [address] | | | | | | [phone] | | | | | | | | +--------+ + + + + documented as of this encounter Visit Diagnoses Not on filedocumented in this encounter"
--- OUTSIDE RECORDS SUMMARY | ~2019-12-19 | XMS | Encounter Summary ---
Demographics + + + | Address | [address] | | | [place] [address] | + + + | Home Phone [...] Team Providers + +------+ + | Care Inbound Sales Advisor Name | Role | Phone | + [...] Request | | Clinical | Diagnoses | [place], | [place] | | | | Neurophysiolo | Loss of | Thu White MD | Health & | | | | gy | consciousnes | [address] | [employer] | | | | | s ([facility]) | Ave [address] | [address] | | | | | Procedures | [address], | [facility] | | | | | EEG ROUTINE | [place] | ROAD | | | | | | [address] | [place], [place] | | | | | | Phone: | [address] | | | | | | [phone] | Phone: | | | | | | Fax: | [phone] | | | | | | [phone] | | + +--------+ + + + + Diagnostic Testing (Routine) + +--------+ + + + + | Status | Reason | Specialty | Diagnoses / | Referred By | Referred To | | | | | Procedures | Contact | Contact | + +--------+ + + + + | New Request | | Radiology | Diagnoses | [place], | [place] | | | | | Left-sided | Thu White MD | Health & | | | | | trigeminal | [address] | [employer] | | | | | neuralgia | Ave [address] | [address] | | | | | Dizziness | [address], | [facility] | | | | | Word finding | [place] | ROAD | | | | | difficulty | [address] | [place], [place] | | | | | Hx of brain | Phone: | [address] | | | | | surgery | [phone] | Phone: | | | | | 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 (HCC) | [phone] | | | | | | Procedures [...] Request | | Radiology | Diagnoses | [place], | [place] | | | | | Left-sided | Thu White MD | Health & | | | | | trigeminal | [address] | [employer] | | | | | neuralgia | Ave [address] | [address] [facility] | | | | | Dizziness | [address], | [facility] | | | | | Word finding | [place] | ROAD | | | | | difficulty | [address] | [place], [place] | | | | | Hx of brain | Phone: | [phone] | | | | | surgery | [phone] | Phone: | | | | | Pituitary | Fax: | [phone] | | | | | mass ([facility]) | [phone] | | | | | | Procedures [...] Ave Center | | | | | [place] EST | | for Health | | | | | PATIENT | | and Healing, | | | | | LEVEL [address] | | Building [address] | | | | | | | [place], [place] | | | | | | | [address] | | | | | | | Phone: | | | | | | | [phone] | | | | | | | Fax: | | | | | | | [phone] | + +--------+ + + + + Encounter Details +--------+---------+ + + + | Date | Type | Department | Care Team | Description | +--------+---------+ + + + | 11/19/ | Office | Neurology at | Thu Fields, | Left-sided | | 2020 | Visit | [facility] & | MD [address] | trigeminal neuralgia | | | | Healing [address] | [address] [facility], | (Primary Dx); | | | | Ave [facility] | [place] [address] | Dizziness; Word | | | | Health and Healing, | [phone] | finding difficulty; | | | | [address] | | Hx of brain surgery; | | | | 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 At [...] or send a message vi a my [facility] chart if questions or concerns arise prior to that visit. I spent 45 minutes with the patient. Greater than 50% of the time was spent counseling the patient regarding diagnosis, risks, benefits, and alternatives to current management. All questions were answered to patient s satisfaction. Thu Fields M.D. Licensed Life And Health Agent of Neurology Headache Medicine Adult and Pediatric Neurology [facility] documented in this en [...] [address] | | | | | | [place], [place] | | | | | | [address] | | +--------+ + + + + | 12/30/ | Appointment | Radiology | Thu Fields, | | | 2019 | | | MD [address] | | | | | | [address] [place], | | | | | | [place] [address] | | | | | | [phone] | | | | | | | | +--------+ + + + + | 12/30/ | Appointment | Radiology | Thu Fields, | | | 2019 | | | MD [address] | | | | | | [address] [place], | | | | | | [place] [address] | | | | | | [phone] | | | | | | | | +--------+ + + + + | 01/21/ | Office | Neurology | Thu Fields, | | | 2019 | Visit | | MD [address] | | | | | | [address] [place], | | | | | | [place] [address] | | | | | | [phone] | | | | | | | [...]
--- OUTSIDE RECORDS SUMMARY | ~2019-12-19 | XMS | Encounter Summary ---
Demographics + + + | Address | [address] | | | [place] [address] | + + + | Home Phone [...] Providers + +------+ + | Care Marketing Recruiter Name | Role | Phone | + [...] Pharmacy | | | | | | [address] | | | | | | Loop [place], [place] | | | | | | [address] | | | | | | [phone] | | | +--------+ + + + [...] | | | | | | Road [place], [place] | | | | | | [address] | | +--------+ + + + + | 12/30/ | Appointment | Radiology | Thu Fields, | | | 2019 | | | MD [address] | | | | | | [address] [place], | | | | | | [place] [address] | | | | | | [phone] | | | | | | | | +--------+ + + + + | 12/30/ | Appointment | Radiology | Thu Fields, | | | 2019 | | | MD [address] | | | | | | [address] [place], | | | | | | [place] [address] | | | | | | [phone] | | | | | | | | +--------+ + + + + | 01/21/ | Office | Neurology | Thu Fields, | | | 2019 | Visit | | MD [address] | | | | | | [address] [place], | | | | | | [place] [address] | | | | | | [phone] | | | | | | | | +--------+ + + + + documented as of this encounter Visit Diagnoses Not on filedocumented in this encounter"
--- OUTSIDE RECORDS SUMMARY | ~2019-12-19 | XMS | Encounter Summary ---
Demographics + + + | Address | [address] | | | [place] [address] | + + + | Home Phone [...] Team Providers + +------+ + | Care Commodity Management Specialist Name | Role | Phone | [...] | | | | | | Road [place], [place] | | | | | | [address] | | +--------+ + + + + | 12/30/ | Appointment | Radiology | Thu Fields, | | | 2019 | | | MD [address] | | | | | | [address] [place], | | | | | | [place] [address] | | | | | | [phone] | | | | | | | | +--------+ + + + + | 12/30/ | Appointment | Radiology | Thu Fields, | | | 2019 | | | MD [address] | | | | | | [address] [place], | | | | | | [place] [address] | | | | | | [phone] | | | | | | | | +--------+ + + + + | 01/21/ | Office | Neurology | Thu Fields, | | | 2019 | Visit | | MD [address] | | | | | | [address] [place], | | | | | | [place] [address] | | | | | | [phone] | | | | | | | | +--------+ + + + + documented as of this encounter Visit Diagnoses Not on filedocumented in this encounter"
--- OUTSIDE RECORDS SUMMARY | ~2019-12-19 | XMS | Encounter Summary ---
Demographics + + + | Address | [address] | | | [place] [address] | + + + | Home Phone [...] Team Providers + +------+ + | Care Ribbon Tier Name | Role | Phone | + [...] | | | | | [facility], [place] | | | | | | [address] | | +--------+ + + + + | 12/30/ | Appointment | Radiology | Thu Fields, | | | 2019 | | | MD [address] | | | | | | [address] [place], | | | | | | [place] [address] | | | | | | [phone] | | | | | | | | +--------+ + + + + | 12/30/ | Appointment | Radiology | Thu Fields, | | | 2019 | | | MD [address] | | | | | | [address] [place], | | | | | | [place] [address] | | | | | | [phone] | | | | | | | | +--------+ + + + + | 01/21/ | Office | Neurology | Thu Fields, | | | 2019 | Visit | | MD [address] | | | | | | [address] [place], | | | | | | [place] [address] | | | | | | [phone] | | | | | | | | +--------+ + + + + documented as of this encounter Visit Diagnoses Not on filedocumented in this encounter"
--- OUTSIDE RECORDS SUMMARY | ~2019-12-19 | XMS | Encounter Summary ---
Demographics + + + | Address | [address] | | | [place] [address] | + + + | Home Phone [...] + + + | Author | [facility] | + + + | Organization | [facility] | + + + | Address | Unknown | + + + | Phone | Unavailable | + + + Support + + +---------+ + | Name | Relationship | Address | Phone | + + +---------+ + | Anushka Mitchell | ECON | Unknown | | + + +---------+ + Care Team Providers + +------+ + | Care Criminalist Technician Name | Role | Phone | + +------+ + | Lisa Adorno PA-C | PCP | | + +------+ + Encounter Details +--------+ + + + + | Date | Type | Department | Care Team | Description | +--------+ + + + + | 06/05/ | Procedure | Radiology/Imaging | | | | 2019 | Pass | Lab at [facility] [address] | | | | | | [address] [facility] | | | | | | Health and Healing, | | | | | | [address] | | | | | | Floor [place], [place] | | | | | | [address] | | | | | | [phone] | | | +--------+ + + + [...] | | | | | | Road [place], [place] | | | | | | [address] | | +--------+ + + + + | 12/30/ | Appointment | Radiology | Thu Fields, | | | 2019 | | | MD [address] | | | | | | [address] [place], | | | | | | [place] [address] | | | | | | [phone] | | | | | | | | +--------+ + + + + | 12/30/ | Appointment | Radiology | Thu Fields, | | | 2019 | | | MD [address] | | | | | | [address] [facility], | | | | | | [place] [address] | | | | | | [phone] | | | | | | | | +--------+ + + + + | 01/21/ | Office | Neurology | Thu Fields, | | | 2019 | Visit | | MD [address] | | | | | | [address], | | | | | | [place] [address] | | | | | | [phone] | | | | | | | | +--------+ + + + + documented as of this encounter Visit Diagnoses Not on filedocumented in this encounter"
--- OUTSIDE RECORDS SUMMARY | ~2019-12-19 | XMS | Encounter Summary ---
Demographics + + + | Address | [address] | | | [place] [address] | + + + | Home Phone [...] + + + | Author | [facility] | + + + | Organization | [facility] | + + + | Address | Unknown | + + + | Phone | Unavailable | + + + Support + + +---------+ + | Name | Relationship | Address | Phone | + + +---------+ + | Anushka Mitchell | ECON | Unknown | | + + +---------+ + Care Team Providers + +------+ + | Care Dairy Grazer Name | Role | Phone | + [...] | | | | gland and | [place], [place] | Research | | | | | craniopharyn | [address] | Center | | | | | geal duct | Phone: | [facility] [place] | | | | | ([facility]) | [phone] | [address] | | | | | Pituitary | Fax: | Phone: | | | | | adenoma | [phone] | [phone] | | | | | (HCC) | | Fax: | | | | | Procedures | | [phone] | | | | | MRI | | | | | | | PITUITARY | | | | | | | WWO CONTRAST | | | | | | | DE MRI | | | | | | [...] | | | | gland and | [place], [place] | Research | | | | | craniopharyn | [address] | Center | | | | | geal duct | Phone: | [place], [place] | | | | | (HCC) | [phone] | [address] | | | | | Pituitary | Fax: | Phone: | | | | | adenoma | [phone] | [phone] | | | | | ([facility]) | | Fax: | | | | | Procedures | | [phone] | | | | | MRI | | | | | | | PITUITARY | | | | | | | WWO CONTRAST | | | | | | | DE MRI | | | | | | | BRAIN COMBO | | | +--------+--------+ + + + + Encounter Details +--------+ + + + + | Date | Type | Department | Care Team | Description | +--------+ + + + + | 10/08/ | Hospital | Diagnostic Imaging | Pawan Mann MD | | | 2020 | Encounter | Services at [facility] | [address] | | | | | [address] | [facility] [place] | | | | | Shamika Ford | [address] | | | | | [facility] | [phone] | | | | | [place], [place] | | | | | | [address] | | | | | | [phone] | | | +--------+ + + + [...] + +---------+ + + | | Take 1 tablet by | 20 | 0 | 09/15/19 | | | amoxicillin-clavulan | mouth every twelve | tablet | | 20 | | | ate (AUGMENTIN) | hours. | | | | | | 875-125 mg oral [...] 1 tablet by | | 0 | 03/07/20 | | | mg oral tablet | [...] + + +---------+ + + | hydrocortisone 10 | Take 1-2 tabs daily, | 60 | 3 | 09/16/19 | | | mg oral | as instructed. 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 | | | | | | insufficiency | of the adrenal gland | | | | | + + [...] [address] | | | | | | [address] | | | | | | Road [place], [place] | | | | | | [address] | | +--------+ + + + + | 12/30/ | Appointment | Radiology | Thu Fields, | | | 2019 | | | MD [address] | | | | | | [address] [place], | | | | | | [place] [address] | | | | | | [phone] | | | | | | | | +--------+ + + + + | 12/30/ | Appointment | Radiology | Thu Fields, | | | 2019 | | | MD [address] | | | | | | [address] [place], | | | | | | [place] [address] | | | | | | [phone] | | | | | | | | +--------+ + + + + | 01/21/ | Office | Neurology | Thu Fields, | | | 2019 | Visit | | MD [address] | | | | | | [address] [place], | | | | | | [place] [address] | | | | | | [phone] | | | | | | | [...] | | Danae Downs MD Dictation initiated: aDnae Downs MD | | | 10/09/2019 9:35 [...] craniopharyngeal duct (pouch) | + + | Pituitary adenoma (HCC) [...] gadoterate meglumine (DOTAREM) | IV Push | 10/09/19 | 19 mL | | | | 0.5 mmol/mL (376.9 mg/mL) | | 20 9:30 | | | | | injection 19 mL 19 mL (rounded | | AM PDT | | | | | from 18.6 mL = 0.2 mL/kg | | | | | | | 93 kg Order-specific weight), | | | | | | | intravenous, ONCE, 1 dose, Fri | | | | | | | 10/09/19 at 0930 | | | | | | + +---------+ +-------+------+------+ +---+---+ | | | +---+---+ documented in this encounter"
--- OUTSIDE RECORDS SUMMARY | ~2019-12-19 | XMS | Encounter Summary ---
Demographics + + + | Address | [address] | | | [place] [address] | + + + | Home Phone [...] + + + | Author | [facility] | + + + | Organization | [facility] | + + + | Address | Unknown | + + + | Phone | Unavailable | + + + Support + + +---------+ + | Name | Relationship | Address | Phone | + + +---------+ + | Anushka Mitchell | ECON | Unknown | | + + +---------+ + Care Team Providers + +------+ + | Care Cocoa Bean Roaster Helper Name | Role | Phone | [...] Anushka Delcid | | | | [facility] for | [place], [place] | | | | | Health and Healing, | [address] | | | | | | [phone] | | | | | floor [place], [place] | | | | | | [address] | | | | | | [phone] | | | +--------+ + + + [...] | | | | | | Road [place], [place] | | | | | | [address] | | +--------+ + + + + | 12/30/ | Appointment | Radiology | Thu Fields, | | | 2019 | | | [address] | | | | | | [address] [facility] | | | | | | [place] [address] | | | | | | [phone] | | | | | | | | +--------+ + + + + | 12/30/ | Appointment | Radiology | Thu Fields, | | | 2019 | | | MD [address] | | | | | | [address] [place], | | | | | | [place] [address] | | | | | | [phone] | | | | | | | | +--------+ + + + + | 01/21/ | Office | Neurology | Thu Fields, | | | 2019 | Visit | | MD [address] | | | | | | [address] [place], | | | | | | [place] [address] | | | | | | [phone] | | | | | | | | +--------+ + + + + documented as of this encounter Visit Diagnoses Not on filedocumented in this encounter"
--- OUTSIDE RECORDS SUMMARY | ~2019-12-19 | XMS | Encounter Summary ---
Demographics + + + | Address | [address] | | | [place] [address] | + + + | Home Phone [...] Team Providers + +------+ + | Care Melt House Centrifugal Operator Name | Role | Phone | [...] | letter | | | | [address] [facility] for | | | | | | Health and Healing, | | | | | | Building | | | | | | floor [place], [place] | | | | | | [address] | | | | | | [phone] | | | +--------+ + + + [...] | | | | | | Road [place], [place] | | | | | | [address] | | +--------+ + + + + | 12/30/ | Appointment | Radiology | Thu Fields, | | | 2019 | | | [address] | | | | | | [address] | | | | | | [place] [address] | | | | | | [phone] | | | | | | | | +--------+ + + + + | 12/30/ | Appointment | Radiology | Tuh Fields, | | | 2019 | | | MD [address] | | | | | | [address] [place], | | | | | | [place] [address] | | | | | | [phone] | | | | | | | | +--------+ + + + + | 01/21/ | Office | Neurology | Thu Fields, | | | 2019 | Visit | | MD [address] | | | | | | [address] [place], | | | | | | [place] [address] | | | | | | [phone] | | | | | | | | +--------+ + + + + documented as of this encounter Visit Diagnoses Not on filedocumented in this encounter"
--- OUTSIDE RECORDS SUMMARY | ~2019-12-19 | XMS | Encounter Summary ---
Demographics + + + | Address | [address] | | | [place] [address] | + + + | Home Phone | | + + + | Preferred Language | Unknown | + + + | Marital Status | | + + + | Jew Affiliation | CHR | + + + [...] Team Providers + +------+ + | Care Blast Furnace Auxiliaries Supervisor Name | Role | Phone | [...] | neoplasm of | JEROME Sin | [address] | | | | Neurological | pituitary | [place] | [address] | | | | Surgery | gland | Family | Andrew Bolanos, | | | | | Pituitary | Medicine | [place] | | | | | adenoma, | [address] | [address] | | | | | facial pain | [address] | Phone: | | | | | and facial | [place], | [phone] | | | | | numbness | [place] [address] | Fax: | | | | | Procedures | Phone: | [phone] | | | | | [place] NEW | [phone] | | | | | | PATIENT | Fax: | | | | | | LEVEL V [place] | [phone] | | | | | | EST PATIENT | | | | | | | LEVEL V [place] | | | | | | | THR/PRPH/DX | | | | | | | INJ,IV PSH | | | | | | | [place] INJ | | | | | | [...] adenoma | | 2020 | Visit | [place] [facility] | [address] | ([facility]) (Primary Dx) | | | | and Healing [address] | | | | | [facility] | [place], [place] | | | | | Health and Healing, | [address] | | | | | [place] [address] | [phone] | | | | | [place], [place] | | | | | | [address] | | | | | | [phone] | | | +--------+---------+ + + + [...] | | | | | | Road [place], [place] | | | | | | [address] | | +--------+ + + + + | 12/30/ | Appointment | Radiology | Thu Fields, | | | 2019 | | | [address] | | | | | | [address] | | | | | | [place] [address] | | | | | | [phone] | | | | | | | | +--------+ + + + + | 12/30/ | Appointment | Radiology | Thu Fields, | | | 2019 | | | MD [address] | | | | | | [address] [place], | | | | | | [place] [address] | | | | | | [phone] | | | | | | | | +--------+ + + + + | 01/21/ | Office | Neurology | Thu Fields, | | | 2019 | Visit | | MD [address] | | | | | | [address] [place], | | | | | | [place] [address] | | | | | | [phone] | | | | | | | | +--------+ + + + + documented as of this encounter Visit Diagnoses + + | Diagnosis | + + | Pituitary adenoma (HCC) - Primary Benign neoplasm of pituitary gland and | | craniopharyngeal duct (pouch) | + + documented in this encounter"
--- OUTSIDE RECORDS SUMMARY | ~2019-12-19 | XMS | Encounter Summary ---
Demographics + + + | Address | [address] | | | [place] [address] | + + + | Home Phone | | + + + | Preferred Language | Unknown | + + + | Marital Status | | + + + | Muslim Affiliation | CHR | + + + [...] Team Providers + +------+ + | Care Computer Aided Design Technician Name | Role | Phone | [...] Avenue | follow-up | | | | [facility] for | [place], [place] | | | | | Health and Healing, | [address] | | | | | Building | [phone] | | | | | floor [place], [place] | | | | | | [address] | | | | | | [phone] | | | +--------+ + + + [...] | | | | | [address] | | | | | | Road [place], [place] | | | | | | [address] | | +--------+ + + + + | 12/30/ | Appointment | Radiology | Thu Fields, | | | 2019 | | | MD [address] | | | | | | [address] [place], | | | | | | [place] [address] | | | | | | [phone] | | | | | | | | +--------+ + + + + | 12/30/ | Appointment | Radiology | Thu Fields, | | | 2019 | | | MD [address] | | | | | | [address] [place], | | | | | | [place] [address] | | | | | | [phone] | | | | | | | | +--------+ + + + + | 01/21/ | Office | Neurology | Thu Fields, | | | 2020 | Visit | | [address] | | | | | | [address], | | | | | | [place] [address] | | | | | | [phone] | | | | | | | | +--------+ + + + + documented as of this encounter Visit Diagnoses Not on filedocumented in this encounter"
--- OUTSIDE RECORDS SUMMARY | ~2019-12-19 | XMS | Encounter Summary ---
Demographics + + + | Address | [address] | | | [place] [address] | + + + | Home Phone | | + + + | Preferred Language | Unknown | + + + | Marital Status | | + + + | Restorationist Affiliation | CHR | + + + [...] Team Providers + +------+ + | Care Collar Folder Operator Name | Role | Phone | [...] Telemedicine | | 2020 | Encounter | [facility] | [place], | appointment on | | | | and Healing [address] | DNP,SEAS[place] [address] | 09-08-2019 | | | | [facility] | [address] [place], | | | | | Health and Healing, | [place] [address] | | | | | Building 1 | [phone] | | | | | [place], [place] | | | | | | [address] | | | | | | [phone] | | | +--------+ + + + [...] | | | | | | Road [place], [place] | | | | | | [address] | | +--------+ + + + + | 12/30/ | Appointment | Radiology | Thu Fields, | | | 2019 | | | MD [address] | | | | | | [address] [place], | | | | | | [place] [address] | | | | | | [phone] | | | | | | | | +--------+ + + + + | 12/30/ | Appointment | Radiology | Thu Fields, | | | 2019 | | | MD [address] | | | | | | [address] [place], | | | | | | [place] [address] | | | | | | [phone] | | | | | | | | +--------+ + + + + | 01/21/ | Office | Neurology | Thu Fields, | | | 2019 | Visit | | MD [address] | | | | | | [address] [place], | | | | | | [place] [address] | | | | | | [phone] | | | | | | | | +--------+ + + + + documented as of this encounter Visit Diagnoses Not on filedocumented in this encounter"
--- OUTSIDE RECORDS SUMMARY | ~2019-12-19 | XMS | Encounter Summary ---
Demographics + + + | Address | [address] | | | [place] [address] | + + + | Home Phone | | + + + | Preferred Language | Unknown | + + + | Marital Status | | + + + | Muslim Affiliation | CHR | + + + | Race | White | + + + | Ethnic Group | Not or | + + + Author + + + | Author | [facility] | + + + | Organization | [facility] | + + + | Address | Unknown | + + + | Phone | Unavailable | + + + Support + + +---------+ + | Name | Relationship | Address | Phone | + + +---------+ + | Anushka Mitchell | ECON | Unknown | | + + +---------+ + Care Team Providers + +------+ + | Care Snake Charmer Name | Role | Phone | + [...] | | | Surgery Services at | [facility] [address] | | | | | [facility] [address] | [place], [place] | | | | | [facility] for | [address] | | | | | Health and Healing, | [phone] | | | | | [facility] | | | | | | [place], [place] | | | | | | [address] | | | | | | [phone] | | | +--------+ + + + [...] | | | | | | Road [place], [place] | | | | | | [address] | | +--------+ + + + + | 12/30/ | Appointment | Radiology | Thu Fields, | | | 2019 | | | MD [address] | | | | | | [address] [facility] | | | | | | [place] [address] | | | | | | [phone] | | | | | | | | +--------+ + + + + | 12/30/ | Appointment | Radiology | Thu Fields, | | | 2019 | | | MD [address] | | | | | | [address] [place], | | | | | | [place] [address] | | | | | | [phone] | | | | | | | | +--------+ + + + + | 01/21/ | Office | Neurology | Thu Fields, | | | 2019 | Visit | | MD [address] | | | | | | [address] [place], | | | | | | [place] [address] | | | | | | [phone] | | | | | | | | +--------+ + + + + documented as of this encounter Visit Diagnoses Not on filedocumented in this encounter"
--- OUTSIDE RECORDS SUMMARY | ~2019-12-19 | XMS | Encounter Summary ---
Demographics + + + | Address | [address] | | | [place] [address] | + + + | Home Phone | | + + + | Preferred Language | Unknown | + + + | Marital Status | | + + + | Congregational Affiliation | CHR | + + + [...] Team Providers + +------+ + | Care Civil Drafting Technician Name | Role | Phone | [...] my | | 2020 | Encounter | [facility] | Shayy, | medication | | | | and Healing [address] | DENISSE,COMMISSARY HELPER,[place] [address] | | | | | [facility] for | [address] [place], | | | | | Health and Healing, | [place] [address] | | | | | [facility] | [phone] | | | | | [place], [place] | | | | | | [address] | | | | | | [phone] | | | +--------+ + + + [...] | | | | | | Road [place], [place] | | | | | | [address] | | +--------+ + + + + | 12/30/ | Appointment | Radiology | Thu Fields, | | | 2019 | | | [address] | | | | | | [address] [facility] | | | | | | [place] [address] | | | | | | [phone] | | | | | | | | +--------+ + + + + | 12/30/ | Appointment | Radiology | Thu Fields, | | | 2019 | | | MD [address] | | | | | | [address] [place], | | | | | | [place] [address] | | | | | | [phone] | | | | | | | | +--------+ + + + + | 01/21/ | Office | Neurology | Thu Fields, | | | 2019 | Visit | | MD [address] | | | | | | [address] [place], | | | | | | [place] [address] | | | | | | [phone] | | | | | | | [...]
--- OUTSIDE RECORDS SUMMARY | ~2019-12-19 | XMS | Encounter Summary ---
Demographics + + + | Address | [address] | | | [place] [address] | + + + | Home Phone [...] Team Providers + +------+ + | Care Transit Mixer Operator Name | Role | Phone | [...] Neurological | pituitary | Analy | [address] | | | | Surgery | gland | Family | Rd [place], | | | | | Pituitary | Medicine | [place] | | | | | adenoma, | [address] | [address] | | | | | facial pain | [address] | Phone: | | | | | and facial | [place], | [phone] | | | | | numbness | [place] [address] | Fax: | | | | | Procedures | Phone: | [phone] | | | | | [place] NEW | [phone] | | | | | | PATIENT | Fax: | | | | | | LEVEL V [place] | [phone] | | | | | | EST PATIENT | | | | | | | LEVEL V [place] | | | | | | | THR/PRPH/DX | | | | | | | INJ,IV PSH | | | | | | | UT INJ | | | | | | [...] cortex | | | | [address] [place]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 aMnn. Path showed pituitary tissue. Trigeminal neuralgia following [...] bottles plus fluid with meals Lab from [facility] on 09/06 - cortisol was good enough [...] file Gets together: Not on file Attends holiness service: Not on file Active member of [...] - 1.2 ng/dL 0.8 09/07/2019 SURGICAL PATHOLOGY: [id number] Order: [id number] Collected: 07/29/2019 09:41 Status: Final result Visible [...] cell types that show positivity for the computer operator factors Pit-1, T-pit, and SF- 1, as well as for anterior pituitary hormones. The Ki-67 labeling index is low. There is no significant inflammation. Additional level sections are examined on block A2 and support the final diagnosis. Case seen by: Deborah Hagen DO - Neuropathology Fellow Jerome Yoo MD, PhD Neuropathologist Pathology, [facility] My electronic signature [...] and she is on 10 mg . BUSINESS CONTROLLER today pending We discussed in detail about [...] at bedtime and peak values in the pin drafting machine tender before waking Use the lowest possible dose [...] axis - normal menses reg. Follow with MACHINE CLOTHING REPLACER prn 6. ADH. No nocturia, usually thirsty. BMP normal (09/06). No indication of DI I am Lisbet Duarte functioning as a scribe for Mery Barnett MD at 10:05 PM on 10/08/2019 I have reviewed and verified the above scribed note of my visit with this patient as record ed by Lisbet Duarte. Anushka Delcid, [id number] Reason for visit: Chief Complaint Patient presents [...] 0.60 - 1.10 mg/dL 0.86 EGFR - DOMINICAN >60 mL/min >60 EGFR NON -DOMINICAN >60 mL/min >60 SODIUM, PLASMA (LAB) 136 [...] (LAB) 0.60 - 1.10 mg/dL EGFR - DOMINICAN >60 mL/min EGFR NON -DOMINICAN >60 mL/min SODIUM, PLASMA (LAB) 136 - [...] and follow up. I spent 40 minutes [id number]-[id number] time with this patient ( separately from [...] Neurological Surgery 6 mo MF or CGY, BUSINESS CONTROLLER, RF, MRI, [employer] 20 11:00 AM PDTdocumented [...] [place] | | | | | | [address] | | +--------+ + + + + | 12/30/ | Appointment | Radiology | Thu Fields, | | | 2019 | | | [address] | | | | | | [address] [place], | | | | | | [place] [address] | | | | | | [phone] | | | | | | | | +--------+ + + + + | 12/30/ | Appointment | Radiology | Thu Fields, | | | 2019 | | | MD [address] | | | | | | [address] [place], | | | | | | [place] [address] | | | | | | [phone] | | | | | | | | +--------+ + + + + | 01/21/ | Office | Neurology | Thu Fields, | | | 2019 | Visit | | MD [address] | | | | | | [address] [place], | | | | | | [place] [address] | | | | | | [phone] | | | | | | | [...] LABORATORY | [address] | [place] [address] | | | SERVICES, CORE | PARK [...] [facility] | [address] | [place] [address] | | | SERVICES, CORE | PARK [...] + + + | Test performed in [facility] Core lab. New reference range in effect | [facility] | | 218. | LABORATORY | | | SERVICES, CORE | + + + + + + + + | Performing | Address | City/State/Zipcode | Phone Number | | Organization | | | | + + + + + | [facility] | [address] | [place] [address] | | | SERVICES, CORE | PARK [...] | | | | | | by [employer],[address] | | | | | | [facility],[place] | | | | | | [address] | | | | | | [phone]. | | | | | | Nura [...] [facility] | [address] | [place], [place] | | | [facility] | | [address] | | + + + + + [...] | + + + + + | [facility] | [address] | [place] [address] | | | SERVICES, CORE | MAICO [...] | | | LABORATORY | | | DOMINICAN | | | SERVICES, | | | [...] | + + + + + | [facility] | [address] | [place] [address] | | | SERVICES, CORE | MAICO [...] | + + + + + | [facility] | [address] | [place] [address] | | | SERVICES, CORE | MAICO [...] + | [facility] - | [address] | [place] [address] | | | PETROS | | | | + + + [...]
--- OUTSIDE RECORDS SUMMARY | ~2019-12-19 | XMS | Encounter Summary ---
Demographics + + + | Address | [address] | | | [place] [address] | + + + | Home Phone | | + + + | Preferred Language | Unknown | + + + | Marital Status | | + + + | Jainism Affiliation | CHR | + + + | Race | White | + + + | Ethnic Group | Not or | + + + Author + + + | Author | [facility] | + + + | Organization | [facility] | + + + | Address | Unknown | + + + | Phone | Unavailable | + + + Support + + +---------+ + | Name | Relationship | Address | Phone | + + +---------+ + | Anushka Mitchell | ECON | Unknown | | + + +---------+ + Care Team Providers + +------+ + | Care Conduit Worker Name | Role | Phone | [...] | | | | | craniopharyn | [place], [place] | [place] | | | | | geal duct | [address] | [facility] [place] | | | | | (HCC) | Phone: | [phone] | | | | | Procedures | [phone] | Phone: | | | | | MRI | Fax: | [phone] | | | | | PITUITARY | [phone] | Fax: | | | | | WWO CONTRAST | | [phone] | | | | | NE MRI | | | | | | [...] | pituitary | [address] | [place] | | | | | gland and | Rd | Research | | | | | craniopharyn | [place], [place] | [place] | | | | | geal duct | [address] | [place], [place] | | | | | (HCC) | Phone: | [phone] | | | | | Procedures | [phone] | Phone: | | | | | MRI | Fax: | [phone] | | | | | PITUITARY | [phone] | Fax: | | | | | WWO CONTRAST | | [phone] | | | | | NE MRI | | | | | | | BRAIN COMBO | | | +--------+--------+ + + + + Encounter Details +--------+ + + + + | Date | Type | Department | Care Team | Description | +--------+ + + + + | 06/04/ | Hospital | Diagnostic Imaging | Mery Barnett, | | | 2019 | Encounter | Services at [facility] | [address] | | | | | [address] | [address] | | | | | Shamika Ford | [place], [place] | | | | | [facility] | [address] | | | | | [place], [place] | [phone] | | | | | [address] | | | | | | [phone] | | | +--------+ + + + [...] [address] | | | | | | [facility], [place] | | | | | | [address] | | +--------+ + + + + | 12/30/ | Appointment | Radiology | Thu Fields, | | 2019 | | | MD [address] | | | | | | [address] [place], | | | | | | [place] [address] | | | | | | [phone] | | | | | | | | +--------+ + + + + | 12/30/ | Appointment | Radiology | Thu Fields, | | | 2019 | | | MD [address] | | | | | | [address] [place], | | | | | | [place] [address] | | | | | | [phone] | | | | | | | | +--------+ + + + + | 01/21/ | Office | Neurology | Thu Fields, | | 2019 | Visit | | MD [address] | | | | | | [address] [place], | | | | | | [place] [address] | | | | | | [phone] | | | | | | | [...] | | | | | | dose, [facility] 06/04/19 at 2215 | | | | | | + +---------+ +-------+------+------+ +---+---+ | | | +---+---+ documented in this encounter
--- OUTSIDE RECORDS SUMMARY | ~2019-12-19 | XMS | Encounter Summary ---
Demographics + + + | Address | [address] | | | [place] [address] | + + + | Home Phone | | + + + | Preferred Language | Unknown | + + + | Marital Status | | + + + | Sikh Affiliation | CHR | + + + | Race | White | + + + | Ethnic Group | Not or | + + + Author + + + | Author | [facility] | + + + | Organization | [facility] | + + + | Address | Unknown | + + + | Phone | Unavailable | + + + Support + + +---------+ + | Name | Relationship | Address | Phone | + + +---------+ + | Anushka Mitchell | ECON | Unknown | | + + +---------+ + Care Team Providers + +------+ + | Care Green House Manager Name | Role | Phone | [...] | | | Surgery Services at | [facility] [address] | | | | | [facility] [address] | [place], [place] | | | | | [facility] | [address] | | | | | Health and Healing, | [phone] | | | | | [facility] | | | | | | [place], [place] | | | | | | [address] | | | | | | [phone] | | | +--------+ + + + [...] | Appointment | Clinical | Tech, [facility] | | | 2019 | | Neurophysiology | Outpatient [address] | | | | | [address] | | | | | | Road [place], [place] | | | | | | [address] | | +--------+ + + + + | 12/30/ | Appointment | Radiology | Thu Fields, | | | 2019 | | | MD [address] | | | | | | [facility] [address] [facility] | | | | | | [place] [address] | | | | | | [phone] | | | | | | | | +--------+ + + + + | 12/30/ | Appointment | Radiology | Thu Fields, | | | 2019 | | | MD [address] | | | | | | [address] [place], | | | | | | [place] [address] | | | | | | [phone] | | | | | | | | +--------+ + + + + | 01/21/ | Office | Neurology | Thu Fields, | | | 2019 | Visit | | MD [address] | | | | | | [address] [place], | | | | | | [place] [address] | | | | | | [phone] | | | | | | | | +--------+ + + + + documented as of this encounter Visit Diagnoses Not on filedocumented in this encounter"
--- OUTSIDE RECORDS SUMMARY | ~2019-12-19 | XMS | Encounter Summary ---
Demographics + + + | Address | [address] | | | [place] [address] | + + + | Home Phone [...] Team Providers + +------+ + | Care Coloring Checker Name | Role | Phone | + +------+ + | Lisa Adorno PA-C | PCP | | + +------+ + Encounter Details +--------+--------+ + + + | Date | Type | Department | Care Team | Description | +--------+--------+ + + + | 11/19/ | Travel [...] Shamika | | | | | | [facility], [place] | | | | | | [address] | | +--------+ + + + + | 12/30/ | Appointment | Radiology | Thu Fields, | | | 2019 | | | MD [address] | | | | | | [address] [place], | | | | | | [place] [address] | | | | | | [phone] | | | | | | | | +--------+ + + + + | 12/30/ | Appointment | Radiology | Thu Fields, | | | 2019 | | | MD [address] | | | | | | [address] [place], | | | | | | [place] [address] | | | | | | [phone] | | | | | | | | +--------+ + + + + | 01/21/ | Office | Neurology | Thu Fields, | | | 2019 | Visit | | MD [address] | | | | | | [address] [place], | | | | | | [place] [address] | | | | | | [phone] | | | | | | | | +--------+ + + + + documented as of this encounter Visit Diagnoses Not on filedocumented in this encounter"
--- OUTSIDE RECORDS SUMMARY | ~2019-12-19 | XMS | Encounter Summary ---
Demographics + + + | Address | [address] | | | [place] [address] | + + + | Home Phone [...] Providers + +------+ + | Care Overlock Operator Name | Role | Phone | [...] | | | | | | [facility], [place] | | | | | | [address] | | +--------+ + + + + | 12/30/ | Appointment | Radiology | Thu Fields, | | | 2019 | | | MD [address] | | | | | | [address] [place], | | | | | | [place] [address] | | | | | | [phone] | | | | | | | | +--------+ + + + + | 12/30/ | Appointment | Radiology | Thu Fields, | | | 2019 | | | MD [address] | | | | | | [address] [place], | | | | | | [place] [address] | | | | | | [phone] | | | | | | | | +--------+ + + + + | 01/21/ | Office | Neurology | Thu Fields, | | | 2019 | Visit | | MD [address] | | | | | | [address] [place], | | | | | | [place] [address] | | | | | | [phone] | | | | | | | | +--------+ + + + + documented as of this encounter Visit Diagnoses Not on filedocumented in this encounter"
--- OUTSIDE RECORDS SUMMARY | ~2019-12-19 | XMS | Encounter Summary ---
Demographics + + + | Address | [address] | | | [place] [address] | + + + | Home Phone [...] Team Providers + +------+ + | Care Jira Developer Name | Role | Phone | [...] | | | | | | Road [place], [place] | | | | | | [address] | | +--------+ + + + + | 12/30/ | Appointment | Radiology | Thu Fields, | | | 2019 | | | MD [address] | | | | | | [address] [place], | | | | | | [place] [address] | | | | | | [phone] | | | | | | | | +--------+ + + + + | 12/30/ | Appointment | Radiology | Thu Fields, | | | 2019 | | | MD [address] | | | | | | [address] [place], | | | | | | [place] [address] | | | | | | [phone] | | | | | | | | +--------+ + + + + | 01/21/ | Office | Neurology | Thu Fields, | | | 2019 | Visit | | MD [address] | | | | | | [address] [place], | | | | | | [place] [address] | | | | | | [phone] | | | | | | | | +--------+ + + + + documented as of this encounter Visit Diagnoses Not on filedocumented in this encounter"
--- OUTSIDE RECORDS SUMMARY | ~2019-12-19 | XMS | Encounter Summary ---
Demographics + + + | Address | [address] | | | [place] [address] | + + + | Home Phone | | + + + | Preferred Language | Unknown | + + + | Marital Status | | + + + | Voodoo Affiliation | Unknown | + + + | Race | Unknown | + + + | Ethnic Group | Unknown | + + + Author + + + | Author | [facility] | | | and [place] | + + + | Organization | [facility] | | | [...] Team Providers + +------+ + | Care Pipe Insulator Name | Role | Phone | + +------+ + | Jarocho Tate | PCP | | | MD | | | + +------+ + Reason for Visit +--------+ + | Reason | Comments | +--------+ + | Other | PT Initial Evaluation | +--------+ + Encounter Details +--------+ + + + + | Date | Type | Department | Care Team | Description | +--------+ + + + + | 06/08/ | Documentati | [facility] | Forest Castillo, | Other (PT Initial | | 2020 | on | [facility] | [address] | Evaluation) | | | | MEDICINE CAR[place]EL | [place] [address] | | | | | [address] | [phone] | | | | | [place], [place] | | | | | | [address] | | | | | | [phone] | | | +--------+ + + + [...]
--- OUTSIDE RECORDS SUMMARY | ~2019-12-19 | XMS | Encounter Summary ---
Demographics + + + | Address | [address] | | | [place] [address] | + + + | Home Phone [...] + + + | Author | [facility] | + + + | Organization | [facility] | + + + | Address | Unknown | + + + | Phone | Unavailable | + + + Support + + +---------+ + | Name | Relationship | Address | Phone | + + +---------+ + | Anushka Mitchell | ECON | Unknown | | + + +---------+ + Care Team Providers + +------+ + | Care Business Process Lead Name | Role | Phone | + [...] FRAMELESS | | 2019 | | [facility] | [address] | STEREOTACTIC | | | | Rd [facility] | [place], [place] | EXPANDED ENDOSCOPIC | | | | Hospital Admitting | [address] | ENDONASAL APPROACH | | | | Desk Located on the | [phone] | FOR RESECTION OF | | | | 9th floor | | PITUITARY MASS | | | | [place], [place] | | | | | | [address] | | | +--------+---------+ + + + [...] Mann MD PCP: Lisa Diaz PA-C Service: [facility] Neurosurgery Diagnoses Principal Final Diagnosis: Pituitary adenoma; [...] was indica rossy. You were admitted to [facility] and underwent endoscopic nasal approach for resection [...] 8:45 AM Discharging Attending: Pawan Mann MD [address] [email or web address] [address] documented in this encounter Medications at Time [...] Diaz PA-C Admission Date: 07/29/2019 ANUSHKA DAVID, [id number] Hospital Day #3 SUBJECTIVE INTERVAL EVENTS: No [...] Code Status: FULL LAYO JAVED MD Pager #[phone] Surgery Resident R4 [facility] dams, Kaye García PA-C - 08/01/2019 8:19 [...] hair growth; facia l pain admitted to [facility] on 07/29/[address] Rutherford [...] bed Dispo: Home today. KAYE TRINIDAD PA-C [facility] 10K [address] [email or web address] [address] ttila Woodson P A-C - 07/31/2019 8:59 AM PST DOS: 07/31/2019 Head and Neck Surgery Inpatient Daily Progress Note: Primary Care Provider: Lisa Diaz PA-C Admission Date: 07/29/2019 ANUSHKA Downing DAVID, [id number] Hospital Day #2 SUBJECTIVE INTERVAL EVENTS: No [...] ATTILA WOODSON PA-C Otolaryngology-Head and Neck Surgery [facility] Pager [phone] Associated attestation - Brandon Rutherford MD - [...] hair growth; facia l pain admitted to [facility] on 07/29/[address] Rutherford [...] discharge Sat DERIK Krishna Neurological Surgery Pager: [phone] Attila Banuelos PA-C - 07/30/2019 11:02 AM PSTFormatting of this note might be different from the o riginal. DOS: 07/30/2019 Head and Neck Surgery Inpatient Daily Progress Note: Primary Care Provider: Lisa Diaz PA-C Admission Date: 07/29/2019 ANUSHKA Chang DAVID, [id number] Hospital Day #1 SUBJECTIVE INTERVAL EVENTS: No [...] FULL YVETTE PALOMINO-C Otolaryngology-Head and Neck Surgery [facility] Pager [phone] Associated attestation - Brandon Rutherford MD - 07/30/2019 12:01 PM PSTI examined the patien t on rounds and agree with Kandice's assessment and plan. Brandon Rutherford MD Professor of Otolaryngology, Head & Neck Surgery Shu Cade PA - 07/30/2019 6:28 AM PST INPATIENT PROGRESS NOTE Hospital Day:1 Author; YVETTE ROJAS Attending Physician: Pawan Mann MD Interval Hx: -POD 1 from [facility] -Na+ 138; spec grav 1.012 -pt reports [...] hair growth; f acial pain admitted to [facility] on 07/28 for EEEA. No CSF leak [...] home in next 2-3 days. YVETTE ROJAS [facility] 10K [address] [email or web address] [place], [place] [id number] Joshua Claudio MD - 07/29/2019 11:36 AM PSTNeurosurgery Post-Op Check 07/29/2019 11:36 AM Examined in PACU Procedure performed: EEA Awakening from anesthesia Minimally interactive PERRL, EOMI, VFF FS BUE/BLE 09/28 No drift SILT No drainage from nares Please page [phone] with any questions Joshua Miller M.D. Neurosurgery [...] | | | | | | Road [place], [place] | | | | | | [address] | | +--------+ + + + + | 12/30/ | Appointment | Radiology | Thu Fields, | | | 2019 | | | MD [address] | | | | | | [address] [place], | | | | | | [place] [address] | | | | | | [phone] | | | | | | | | +--------+ + + + + | 12/30/ | Appointment | Radiology | Thu Fields, | | | 2019 | | | MD [address] | | | | | | [address] [place], | | | | | | [place] [address] | | | | | | [phone] | | | | | | | | +--------+ + + + + | 01/21/ | Office | Neurology | Thu Fields, | | | 2019 | Visit | | MD [address] | | | | | | [address] [place], | | | | | | [place] [address] | | | | | | [phone] | | | | | | | [...] | + + + + + | [facility] | [address] [facility] | [place] [address] | | | SERVICES, CORE | MAICO [...] [facility] | | | GRAVITY | [facility] [place] | | LABORATORY | | | | [...] [facility] | [address] | [place] [address] | | | SERVICES, CORE | PARK [...] [facility] | | | GRAVITY | [facility] [place] | | LABORATORY | | | | [...] + + | [facility] | [address] [facility] | [place] [address] | | | SERVICES, CORE | PARK [...] | | | LABORATORY | | | STATELESS | | | SERVICES, | | | [...] equation recommended by the National | [facility] | | Kidney Disease Education Program. Estimated [...] [facility] | [address] | [place] [address] | | | SERVICES, CORE | PARK [...] | + + + + + | [facility] | [address] | [place] [address] | | | SERVICES, CORE | MAICO [...] | [facility] | | | GRAVITY | [place] performed by | | LABORATORY | | [...] LABORATORY | [address] | [place] [address] | | | SERVICES, CORE | PARK [...] [facility] | [address] | [place] [address] | | | SERVICES, CORE | PARK [...] | [facility] | | | GRAVITY | [place] performed by | | LABORATORY | | [...] [facility] | [address] | [place] [address] | | | SERVICES, CORE | MAICO [...] [facility] | [address] | [place] [address] | | | MADHU, VALERY | MAICO [...] | [facility] | | | GRAVITY | [place] performed by | | LABORATORY | | [...] | + + + + + | [facility] | [address] | [place] [address] | | | SERVICES, CORE | MAICO [...] | | | LABORATORY | | | STATELESS | | | SERVICES, | | | [...] equation recommended by the National | [facility] | | Kidney Disease Education Program. Estimated [...] | + + + + + | [facility] | [address] | [place] [address] | | | SERVICES, CORE | MAICO [...] | [facility] | | | GRAVITY | [place] performed by | | LABORATORY | | [...] [facility] | [address] | [place] [address] | | | SERVICES, CORE | MAICO [...] [facility] | [address] | [place] [address] | | | SERVICES, CORE | PARK [...] | + + + + + | [facility] | [address] | [place] [address] | | | SERVICES, CORE | MAICO [...] [facility] | | | GRAVITY | [facility] [place] | | LABORATORY | | | | [...] [facility] | [address] | [place] [address] | | | MADHU, VALERY | PARK [...] | [facility] | | | GRAVITY | [place] performed by | | LABORATORY | | [...] [facility] | [address] | [place] [address] | | | SERVICES, CORE | PARK [...] | + + + + + | [facility] | [address] | [place] [address] | | | SERVICES, CORE | MAICO [...] | [facility] | | | GRAVITY | [place] performed by | | LABORATORY | | [...] [facility] | [address] | [place] [address] | | | SERVICES, CORE | PARK [...] [facility] | [address] | [place] [address] | | | SERVICES, CORE | PARK [...] | + + + + + | [facility] | [address] | [place] [address] | | | SERVICES, VALERY | MAICO [...] [facility] | [address] | [place] [address] | | | SERVICES, CORE | PARK [...] | | | LABORATORY | | | STATELESS | | | SERVICES, | | | [...] equation recommended by the National | [facility] | | Kidney Disease Education Program. Estimated GFR Interpretive | LABORATORY | | Information: <60 mL/min/1.73 sq m Chronic Kidney | SERVICES, [facility] | | Disease <15 mL/min/1.73 sq m [...] + + + + + | [facility] | [address] | [place] [address] | | | VALERY LEUNG | MAICO [...] | [facility] | | | GRAVITY | [place] performed by | | LABORATORY | | [...] [facility] | [address] | [place] [address] | | | SERVICES, CORE | MAICO [...] | + + + + + | [facility] | [address] | [place] [address] | | | SERVICES, CORE | MAICO [...] | [facility] | | | GRAVITY | [place] performed by | | LABORATORY | | [...] [facility] | [address] | [place] [address] | | | SERVICES, CORE | PARK [...] [facility] | [address] | [place] [address] | | | SERVICES, VALERY | MAICO [...] | [facility] | | | GRAVITY | [place] performed by | | LABORATORY | | [...] | + + + + + | [facility] | [address] | [place] [address] | | | SERVICES, CORE | MAICO [...] | + + + + + | [facility] | [address] | [place] [address] | | | SERVICES, CORE | MAICO ROB | | | + + + + + PROCEDURE NOTE (07/29/2019 11:24 AM PST) + + + | Narrative | Performed At | + + + | Brandon Rutherford MD 07/29/2019 11:26 AM Date of Service: | | | 07/29/2019 Attending Surgeon: | | | Brandon Rutherford MD | | | Band Head Saw Operator(s): | | | | | | [...] - [facility] | [address] | [place], [place] | | | JENIFER POINT OF CARE | [address] | [address] | | | TESTS | | | [...] | | | | | | the historical interpreter | | | | | | factors [...] | | | | | | y, [facility] | | | | | | [facility] | | | | | electronic [...] | | PATHOLOGY | | | | [facility]) and medical record | | | | | | number [id number] | | | | | | Brain, [...] | | | | | | , [facility] & | | | | | | [facility] | | | | + + + [...] | | | | | | Crooke [id number]: | | | | | | Positive, [...] | | | | | determined by [facility] | | | | | | laboratories. [...] | + + + + + | [facility] | [address] | [place] [address] | | | PATHOLOGY | [address] [...]
--- OUTSIDE RECORDS SUMMARY | ~2019-12-19 | XMS | Encounter Summary ---
Demographics + + + | Address | [address] | | | [place] [address] | + + + | Home Phone | | + + + | Preferred Language | Unknown | + + + | Marital Status | | + + + | Confucianist Affiliation | Unknown | + + + | Race | Unknown | + + + | Ethnic Group | Unknown | + + + Author + + + | Author | [facility] | | | and [place] | + + + | Organization | [facility] | | | [...] Team Providers + +------+ + | Care Stripper Printed Circuit Boards Name | Role | Phone | + +------+ + | Edwige Moreira MD | PCP | | + +------+ + Encounter Details +--------+ + + + + | Date | Type | Department | Care Team | Description | +--------+ + + + + | 11/10/ | Orders Only | [facility] | Vianney Michele, | | | 2019 | | VASCULAR SURGERY | SUPPLY TECHNICIAN [address] | | | | | ULTRASOUND [address] | [address] [place], [place] | | | | | [address] | [address] | | | | | [place] | [phone] | | | | | [address] | | | | | | [phone] | | | +--------+ + + + [...] by: Rosibel | | | Artur Hernandez Sign Date/Time: 11/11/2018 10:37 AM | | + [...]
--- OUTSIDE RECORDS SUMMARY | ~2019-12-19 | XMS | Encounter Summary ---
Demographics + + + | Address | [address] | | | [place] [address] | + + + | Home Phone | | + + + | Preferred Language | Unknown | + + + | Marital Status | | + + + | Gnosticist Affiliation | CHR | + + + | Race | White | + + + | Ethnic Group | Not or | + + + Author + + + | Author | [facility] | + + + | Organization | [facility] | + + + | Address | Unknown | + + + | Phone | Unavailable | + + + Support + + +---------+ + | Name | Relationship | Address | Phone | + + +---------+ + | Anushka Mitchell | ECON | Unknown | | + + +---------+ + Care Team Providers + +------+ + | Care Contract Law Specialist Name | Role | Phone | [...] Question | | 2020 | Encounter | [facility] | [address] | regarding | | | | and Healing [address] | TSH-THYROID STIM | | | | [address] [facility] | [place], [place] | [facility] | | | | Health and Healing, | [address] | | | | | [address] | [phone] | | | | | [place], [place] | | | | | | [address] | | | | | | [phone] | | | +--------+ + + + [...] | | | | | | Road [place], [place] | | | | | | [address] | | +--------+ + + + + | 12/30/ | Appointment | Radiology | Thu Fields, | | | 2019 | | | [address] | | | | | | [address] [facility] | | | | | | [place] [address] | | | | | | [phone] | | | | | | | | +--------+ + + + + | 12/30/ | Appointment | Radiology | Thu Fields, | | | 2019 | | | MD [address] | | | | | | [address] [place], | | | | | | [place] [address] | | | | | | [phone] | | | | | | | | +--------+ + + + + | 01/21/ | Office | Neurology | Thu Fields, | | | 2019 | Visit | | MD [address] | | | | | | [address] [place], | | | | | | [place] [address] | | | | | | [phone] | | | | | | | | +--------+ + + + + documented as of this encounter Visit Diagnoses Not on filedocumented in this encounter"
--- OUTSIDE RECORDS SUMMARY | ~2019-12-19 | XMS | Encounter Summary ---
Demographics + + + | Address | [address] | | | [place] [address] | + + + | Home Phone | | + + + | Preferred Language | Unknown | + + + | Marital Status | | + + + | Zoroastrian Affiliation | CHR | + + + [...] Providers + +------+ + | Care Solar Panel Technician Name | Role | Phone | [...] Refill Request | | 2020 | | [facility] & | [address] | | | | | Healing [address] | [address] [place], | | | | | [facility] | [place] [address] | | | | | Health and Healing, | [phone] | | | | | [facility] [address] | | | | | | [place], [place] | | | | | | [address] | | | | | | [phone] | | | +--------+--------+ + + + [...] | | | | | | Road [place], [place] | | | | | | [address] | | +--------+ + + + + | 12/30/ | Appointment | Radiology | Thu Fields, | | | 2019 | | | MD [address] | | | | | | [address] [facility], | | | | | | [place] [address] | | | | | | [phone] | | | | | | | | +--------+ + + + + | 12/30/ | Appointment | Radiology | Thu Fields, | | | 2019 | | | MD [address] | | | | | | [address] [facility], | | | | | | [place] [address] | | | | | | [phone] | | | | | | | | +--------+ + + + + | 01/21/ | Office | Neurology | Thu Fields, | | | 2019 | Visit | | MD [address] | | | | | | [address] [place], | | | | | | [place] [address] | | | | | | [phone] | | | | | | | [...]
--- OUTSIDE RECORDS SUMMARY | ~2019-12-19 | XMS | Encounter Summary ---
Demographics + + + | Address | [address] | | | [place] [address] | + + + | Home Phone [...] Team Providers + +------+ + | Care Sample Mounter Name | Role | Phone | + [...] 2019 | Event | [address] | [address] | | | | | Andrew [facility] | [address] | | | | | Hospital Admitting | [place], [place] | | | | | Desk Located on the | [address] | | | | | 9th floor | [phone] | | | | | [place], [place] | | | | | | [address] | Danuta Evans MD [address] | | | | | | [address] | | | | | | Andrew [facility] [place] | | | | | | [address] | | | | | | [phone] | | | | | | | [...] | | | | | | Road [place], [place] | | | | | | [address] | | +--------+ + + + + | 12/30/ | Appointment | Radiology | Thu Fields, | | | 2019 | | | [address] | | | | | | [facility] [address] [facility] | | | | | | [place] [address] | | | | | | [phone] | | | | | | | | +--------+ + + + + | 12/30/ | Appointment | Radiology | Thu Fields, | | | 2019 | | | MD [address] | | | | | | [address] [place], | | | | | | [place] [address] | | | | | | [phone] | | | | | | | | +--------+ + + + + | 01/21/ | Office | Neurology | Thu Fields, | | | 2019 | Visit | | MD [address] | | | | | | [address] [place], | | | | | | [place] [address] | | | | | | [phone] | | | | | | | [...]
--- OUTSIDE RECORDS SUMMARY | ~2019-12-19 | XMS | Encounter Summary ---
Demographics + + + | Address | [address] | | | [place] [address] | + + + | Home Phone | | + + + | Preferred Language | Unknown | + + + | Marital Status | | + + + | Rastafari Affiliation | CHR | + + + [...] Team Providers + +------+ + | Care Wearing Apparel Assembler Name | Role | Phone | + [...] | | | | gland and | [place], [place] | Research | | | | | craniopharyn | [address] | Center | | | | | geal duct | Phone: | [facility] [place] | | | | | ([facility]) | [phone] | [address] | | | | | Pituitary | Fax: | Phone: | | | | | adenoma | [phone] | [phone] | | | | | (HCC) | | Fax: | | | | | Procedures | | [phone] | | | | | MRI | | | | | | | PITUITARY | | | | | | | WWO CONTRAST | | | | | | | RI MRI | | | | | | [...] | | | | gland and | [place], [place] | Research | | | | | craniopharyn | [address] | Center | | | | | geal duct | Phone: | [place], [place] | | | | | (HCC) | [phone] | [address] | | | | | Pituitary | Fax: | Phone: | | | | | adenoma | [phone] | [phone] | | | | | ([facility]) | | Fax: | | | | | Procedures | | [phone] | | | | | MRI | | | | | | | PITUITARY | | | | | | | WWO CONTRAST | | | | | | | RI MRI | | | | | | | BRAIN COMBO | | | +--------+--------+ + + + + Encounter Details +--------+ + + + + | Date | Type | Department | Care Team | Description | +--------+ + + + + | 10/08/ | Hospital | Diagnostic Imaging | Pawan Mann MD | | | 2020 | Encounter | Services at [facility] | [address] | | | | | [address] | [facility] [place] | | | | | Shamika Ford | [address] | | | | | [facility] | [phone] | | | | | [place], [place] | | | | | | [address] | | | | | | [phone] | | | +--------+ + + + [...] | | | | | | Road [place], [place] | | | | | | [address] | | +--------+ + + + + | 12/30/ | Appointment | Radiology | Thu Fields, | | | 2019 | | | MD [address] | | | | | | [address] [place], | | | | | | [place] [address] | | | | | | [phone] | | | | | | | | +--------+ + + + + | 12/30/ | Appointment | Radiology | Thu Fields, | | | 2019 | | | MD [address] | | | | | | [address] [place], | | | | | | [place] [address] | | | | | | [phone] | | | | | | | | +--------+ + + + + | 01/21/ | Office | Neurology | Thu Fields, | | | 2019 | Visit | | MD [address] | | | | | | [address] [place], | | | | | | [place] [address] | | | | | | [phone] | | | | | | | [...]
[~2019-12-19 11:07] MED LIST changes: +SUDAFED 12-HOU120 MG PO
--- OUTSIDE RECORDS SUMMARY | 2019-12-19 11:10 | XMS ---
PreManage Notification: JAYDA DAVID Security [employer] Events No recent Security Events currently on file [facility] There are no care providers on record at this time. Niesha has no Care Guidelines for this patient. Mary VISIT COUNT (12 MO.) 2 [facility] TOTAL 2 NOTE: Visits indicate total known visits. ED/C VISIT TRACKING (12 MO.) 12/19/2019 11:08 [facility] [place] TYPE: Emergency COMPLAINT: - DOG BITE 05/03/2019 16:49 [facility] [place] TYPE: Emergency COMPLAINT: - VISION ISSUES DIAGNOSES: - Allergy status to other drugs, medicaments and biological sub - Latex allergy status - Chronic sinusitis, unspecified - Allergy status to narcotic agent status - Allergy status to sulfonamides status - Allergy status to other antibiotic agents status INPATIENT VISIT TRACKING (12 MO.) 07/29/2019 05:37 [facility] TYPE: Neuro Surgery DIAGNOSES: 19696. 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 Other disorders of pituitary gland 94436. Other disorders of pituitary gland [email or web address]
[2019-12-19] MEDS ORDERED: HYDROCORTISONE5 MG PO (11:19)
[2019-12-19] MEDS ORDERED: LYRICA100 MG PO (11:19)
[2019-12-19] MEDS ORDERED: OMEPRAZOLE20 M1 PO (11:20)
== END 2019-12-19 12:37 | disposition home or self-care (01) ==
LOC: ED 11:07
DX: S31.153A Open bite of abdominal wall, right lower quadrant without penetration into peritoneal cavity, initial encounter (principal); Z23 Encounter for immunization; Z86.711 Personal history of pulmonary embolism; Z86.718 Personal history of other venous thrombosis and embolism; Z91.040 Latex allergy status; Z88.2 Allergy status to sulfonamides; Z88.5 Allergy status to narcotic agent; Z88.8 Allergy status to other drugs, medicaments and biological substances; Z79.899 Other long term (current) drug therapy; W54.0XXA Bitten by dog, initial encounter
CPT/HCPCS: 90471; 90715; 99283-25; A9270

== ENCOUNTER 2020-05-18 07:07 | Emergency (ER) | payer OTHER ==
[~2020-05-18] VITALS: Ht 172.7 cm; Wt 88.5 kg
[~2020-05-18 07:07] MED LIST changes: +HYDROCORTISONE5 MG PO; +LYRICA100 MG PO; +OMEPRAZOLE20 M1 PO
[2020-05-18] MEDS ORDERED: PREDNISONE20 MG PO (07:54)
[2020-05-18] MEDS ORDERED: AMITRIPTYLINE H10 MG PO (08:12)
== END 2020-05-18 08:10 | disposition home or self-care (01) ==
LOC: ED 07:07
DX: L50.9 Urticaria, unspecified (principal); Z91.040 Latex allergy status; Z88.8 Allergy status to other drugs, medicaments and biological substances; Z88.5 Allergy status to narcotic agent; Z88.1 Allergy status to other antibiotic agents; Z88.2 Allergy status to sulfonamides; Z79.899 Other long term (current) drug therapy
CPT/HCPCS: 99283; J7512

== ENCOUNTER 2021-05-14 15:09 | Emergency (ER) | payer OTHER ==
[~2021-05-14] VITALS: Ht 172.7 cm; Wt 86.2 kg
[~2021-05-14 15:09] MED LIST changes: +AMITRIPTYLINE H10 MG PO; +PREDNISONE20 MG PO
--- OUTSIDE RECORDS SUMMARY | 2021-05-14 15:12 | XMS ---
PreManage Notification: JAYDA DAVID Security Die Cast Die Maker Events No recent Security Events currently on file CRITERIA MET - PDMP CARE PROVIDERS KHUSHBOO MENDOSA Physician Surgical Assistant 12/21/2019-Current PHONE: [phone] Niesha has no Care Guidelines for this patient. ERashid VISIT COUNT (12 MO.) 2 [facility] TOTAL 2 NOTE: Visits indicate total known visits. ED/UCC VISIT TRACKING (12 MO.) 05/14/2021 15:10 [facility] [place] TYPE: Emergency COMPLAINT: - HEMORRHOID 05/18/2020 07:08 [facility] [place] TYPE: Emergency COMPLAINT: - POSSIBLE ALLERGIC REACTION DIAGNOSES: - Allergy status to other antibiotic agents - Allergy status to narcotic agent - Allergy status to other antibiotic agents - Allergy status to sulfonamides - Latex allergy status - Other predatory animal exterminator (current) drug therapy - Urticaria, unspecified - Allergy status to narcotic agent - Allergy status to other drugs, medicaments and biological substances - Allergy status to other drugs, medicaments and biological substances - Allergy status to sulfonamides INPATIENT VISIT TRACKING (12 MO.) No inpatient visits to display in this time frame [email or web address]
== END 2021-05-14 16:11 | disposition home or self-care (01) ==
LOC: ED 15:09
DX: N93.8 Other specified abnormal uterine and vaginal bleeding (principal); Z88.8 Allergy status to other drugs, medicaments and biological substances; Z91.040 Latex allergy status; Z88.2 Allergy status to sulfonamides; Z88.1 Allergy status to other antibiotic agents; Z79.899 Other long term (current) drug therapy
CPT/HCPCS: 85025; 99284

== ENCOUNTER 2021-08-08 06:53 | Day surgery (SDC) | payer OTHER ==
[~2021-08-08] VITALS: Ht 172.7 cm; Wt 90.9 kg
--- NOTE | 2021-08-08 10:01 | NUR ---
[id number]: PT RESTING IN BED WITH EYES CLOSED, DAUGHTER AT BEDSIDE. PT WAKES WITH ENTRANCE AND STATES "I AM COLD" PT PROVIDED WARM BLANKET AND REFUGIO HUGGER PLACED ON WARM. CALL LIGHT WITHIN REACH AND PT ENCOURAGED TO USE WITH ANY NEEDS.
--- NOTE | 2021-08-08 11:43 | NUR ---
[id number]: DR. SEBASTIAN AND OR CHARGE IN TO UPDATE PT ON PROCEDURE DELAY. FAMILY MEMBER AT BEDSIDE PROVIDED MEAL VOUCHER TO USE IN CAFETERIA. PT RESTING IN BED WITH REFUGIO HUGGER IN PLACE, DENIES ANY NEEDS AT THIS TIME. CALL LIGHT WITHIN REACH.
--- NOTE | 2021-08-08 12:37 | NUR ---
PT ALERT, ORIENTED AND SUPPORTED BY HER DAUGHTER CHERRI. PT MENTIONED QUITE A FEW HEALTH ISSUES SHE HAS EXPERIENCED LATELY. GAVE ENCOURAGEMENT, PT REQUESTED PRAYER. KNOWS THERE IS A DELAY DUE TO MEDICAL EMERGENCY. WILL FOLLOW
--- NOTE | 2021-08-08 14:35 | NUR ---
1245: PATIENT ASSISTED OOB AND TO BATHROOM. 1255: CHECKED PATIENT. PATIENT BACK IN BED. NO OTHER REQUESTS AT THIS TIME. CALL LIGHT WITHIN REACH. FAMILY MEMBER AT BEDSIDE.
--- NOTE | 2021-08-08 16:30 | NUR ---
[id number]: DR. SEBASTIAN AND OR CHARGE IN PT ROOM TO SEE IF PT WOULD LIKE TO RESCHEDULE OR CONTINUE TO WAIT FOR PROCEDURE. PT WOULD LIKE TO CALL PRIOR TO MAKING A DECISION AND STATES, "HE WILL BE CALLING IN ABOUT A HALF HOUR." [id number]: PT CONT TO WAIT FOR 'S PHONE CALL TO MAKE A DECISION. PT VERY UNDERSTANDING AND CALM ABOUT DELAYS. DAUGHTER REMAINS AT BEDSIDE, CALL LIGHT WITHIN REACH. 1530: PT DECIDES THAT SHE WOULD LIKE TO FOLLOW THROUGH WITH TODAY'S SURGERY PLANS AND CONT TO WAIT. PT STATES, "IT IS REALLY DIFFICULT TO GET TWO DAYS OFF IN A ROW AT WORK, I WOULD LIKE TO JUST GET IT DONE." [id number]: NEW BAG OF LR HUNG AT THIS TIME, PT CONT TO HAVE NO COMPLAINTS AT THIS TIME.
--- NOTE | 2021-08-08 19:23 | NUR ---
08/08/211922 Raquel Cantu 1915: PT ARRIVES TO PACU FOR RECOVERY VIA STRETCHER. MAINTAINS OWN AIRWAY AND RESPONDS TO QUESTIONS APPROPRIATELY. REMAINS DROWSY. VSS, RESP EVEN AND UNLABORED ON 9L VIA FACEMASK. DENIES PAIN AND NAUSEA. NO DRAINAGE NOTED TO PERIPAD. DESAI DRAINS CLEAR YELLOW URINE AT THE BEDSIDE. LAP SITES C/D/I 1919: REMAINS DROWSY, VSS, RESP EVEN AND UNLABORED ON 9L VIA FACEMASK. CONTS TO DENY PAIN AND NAUSEA
--- NOTE | 2021-08-08 20:15 | NUR ---
PT TO FLOOR FROM DAY SURGERY WITH PACU NURSE. ALERT AND ORIENTED. DENIES NAUSEA. REPORTS INCREASED PAIN. PRN FOR PAIN ADMIN PER EMAR WITH JELLO AND CRACKERS. VSS. ABD LAP SITES X 2 WITH BANDAIDS INTACT. NO REDNESS OR DRAINAGE NOTED. JOSE PAD IN PLACE WITH MINIMAL RED DRAINAGE. PT ORIENTED TO ROOM AND NURSE CALL LIGHT. NO FURTHER NEEDS AT THIS TIME. CALL LIGHT IN REACH.
--- NOTE | 2021-08-08 20:45 | NUR ---
PT FRIEND TOOK PERSCRIPTION TO [facility] TO DROP OFF. PT AWARE THAT SHE WILL BE SENT HOME WITH A HOME PACK FOR THE NIGHT ([employer]ect). THEY PLAN TO BRING HER BACK SOME SALTINE CRACKERS. PT WITH CALL LIGHT NEAR, WORKING ON HER JELLO, DRANK WATER.
--- NOTE | 2021-08-08 21:00 | NUR ---
PT UP TO BR WITH SBA TO VOID 100 ML. JOSE PAD CHANGED. BACK TO BED, YAMEL WELL. DENIES NAUSEA. REPORTS PAIN IMPROVED. POST OP VSS.
--- NOTE | 2021-08-08 21:45 | NUR ---
PT ABLE TO VOID. PAIN UNDER CONTROL WITH PO MEDS. DENIES NAUSEA. DISCHARGE INSTRUCTIONS PROVIDED. PT VERBALIZES UNDERSTANDING. IV DC'D WNL. TIP INTACT. VSS. PT DAUGHTER AND FRIEND HERE TO DRIVE PT HOME. WHEELCHAIR RIDE GIVEN TO FRONT OF THE HOSPITAL. PT LEFT IN PERSONAL VEHICLE WITH ALL BELONGINGS.
--- NOTE | 2021-08-09 09:03 | OR ---
[facility] [address] [place], [place] [address] Signed DATE OF OPERATION: 08/08/2021 SURGEON: Jamie Daley MD PREOPERATIVE DIAGNOSES: Abnormal uterine bleeding and chronic pelvic pain. POSTOPERATIVE DIAGNOSES: Abnormal uterine bleeding and chronic pelvic pain, plus pelvic congestion, deep endometriosis of the sigmoid and rectovaginal septum. PROCEDURES: Hysteroscopy with D and C and diagnostic laparoscopy. DIRECTOR EDUCATION: Dr. Ibrahim. ANESTHESIA: General. ESTIMATED BLOOD LOSS: 30 mL. SPECIMEN: Uterine curettings. DRAINS: Rdz to bladder. PACKING: None. FINDINGS: Vagina, no lesions, no blood. Cervix normal size and shape, no bleeding. Uterus normal size and shape. The endometrial cavity was normal in size and shape with normal-appearing tubal ostia bilateral. The endometrium was slightly thickened, but otherwise normal in appearance. The outside of the uterus was slightly hyperemic in appearance. Anterior cul-de-sac was without any adhesions. Posterior cul-de-sac had a deep pocket with small dark endometriosis at the bottom. The endometriosis implant in the bottom of Electronically Signed By: JAMIE DALEY MD 08/09/21 0903 PATIENT NAME: JAYDA DAVID OPERATIVE REPORT DATE OF : 80 REPORT #: [id number] PHYSICIAN: JAMIE DALEY MD PCP: KHUSHBOO ADORNO PA-C REPORT IS CONFIDENTIAL AND NOT TO BE RELEASED WITHOUT AUTHORIZATION [facility] [address] [place], [place] [address] Signed the pocket was just above the sigmoid extending into the rectovaginal septum. The ovaries were normal bilaterally with pelvic congestion in both the broad ligament and the mesosalpinx bilateral. There was also hyperemia of both pelvic sidewalls, but no adhesions. The fallopian tubes were normal, except for evidence of previous tubal ligation with Falope rings bilateral. No adhesions or other lesions seen. COMPLICATIONS: None. DESCRIPTION OF PROCEDURE: The patient was brought to the operating room, placed in the supine position. After adequate general anesthesia was obtained, she was placed in the dorsal lithotomy position, prepped and draped in the usual sterile fashion. Rdz catheter placed in the bladder. A weighted speculum was placed in the vagina and the anterior lip of the cervix grasped with an Allis clamp. Uterine cavity was partially dilated and then the hysteroscope set up and the hysteroscope placed in the cervical os and entered the uterine cavity under direct visualization. Sterile saline was used as distending medium during insertion. The above findings were noted. There was slightly thickened endometrium, but no polyps. No lesions seen. A MyoSure Lite was then placed through the hysteroscope and under direct visualization, the endometrium sampled throughout the cavity. The hysteroscope was removed and sharp curette carefully introduced in the uterine cavity and scraped in 360-degree fashion to get better and even removal of the lining and a small amount of additional tissue was removed in this way, this all sent together to pathology. All instruments were then removed from the cervix. The cervix observed and noted to have good hemostasis. The fluid deficit was noted to be 145 mL and pressure had been set at 80 mmHg. The Hulka clamp was then introduced in the cervical cavity and attached to the anterior lip of the cervix. The weighted speculum was removed. A small infraumbilical skin incision was then made with a scalpel after injecting the area with 0.25% Marcaine with epinephrine. A 5-mm direct entry trocar and sleeve were used to attempt a direct entry and the direct entry went through the subcutaneous tissue and fascia without difficulty, but the trocar would not go through the peritoneum, so after 3 attempts, it was decided not to continue with the direct entry. The incision was extended a little further and the fascia grasped with hemostats, elevated and nicked with Metzenbaum scissors. Finger was attempted to push through the peritoneum, but the peritoneum was quite strong and so, the retractor was inserted into the incision and the peritoneum identified, grasped with 2 hemostats After palpating to make sure no bowel Electronically Signed By: JAMIE DALEY MD 08/09/21 0903 PATIENT NAME: JAYDA DAVID OPERATIVE REPORT DATE OF : [birth year] REPORT #: [id number] PHYSICIAN: JAMIE DALEY MD PCP: KHUSHBOO ADORNO PA-C REPORT IS CONFIDENTIAL AND NOT TO BE RELEASED WITHOUT AUTHORIZATION [address] [address] Signed or pelvic structures were caught within the hemostats, the peritoneum was nicked with scissors and opened with finger dissection. Retention stitches of 0 Vicryl suture were placed ing the fascia above and below the incision. An S retractor was inserted into the incision and the Sheela cannula and sleeve entered the abdomen under direct visualization. The balloon was filled with air. Trocar removed and the outer sleeve slid down and tightened in place. The retention stitches were then attached to the outer sleeve. The laparoscope with video attachment entered the abdomen under direct visualization. The above findings were noted. A small skin incision was made on the left side just below the level of the umbilicus approximately 10 cm lateral to midline. This was done after transilluminating the abdominal wall to avoid any vessels. The area was injected with 0.25% Marcaine with epinephrine and then a small skin incision was made with a scalpel. A bladed 5-mm trocar and sleeve entered the abdomen under direct visualization. Trocar was removed and a blunt grasper inserted. The entire pelvis was carefully inspected throughout on the above findings noted. The deep endometriosis was only in one spot, but it appeared to be deep and involved the rectovaginal septum because of all the hyperemia and the diffuse complaint of pain, it was thought that excision of the deep endometriosis would increase risk of injury to the rectum or vagina because of its position and did not appear that this would help with her diffuse pelvic pain, so it was decided not to attempt removal at this time. All instruments were then removed. The gas allowed to escape and the final sleeve removed. The infraumbilical fascia was closed using running stitch of 0 Vicryl suture. The 2 retention stitches were tied together for further support. The 2 skin incisions were closed using 4-0 Vicryl in subcuticular stitch. The Hulka clamp was removed and the cervix observed and noted to have good hemostasis. The patient tolerated the procedure well, went to recovery room in good condition. The sponge, needle, and instrument count correct at the end of the procedure. The uterine curettings were sent to Pathology for identification. MD MANDO Bhatt/JUAN CARLOS /[id number] cc: Khushboo Adorno PA-C Electronically Signed By: JAMIE DALEY MD 08/09/21 0903 PATIENT NAME: JAYDA DAVID OPERATIVE REPORT DATE OF : 80 REPORT #: [id number] PHYSICIAN: JAMIE DALEY MD PCP: KHUSHBOO ADORNO PA-C REPORT IS CONFIDENTIAL AND NOT TO BE RELEASED WITHOUT AUTHORIZATION [address] [place], [place] [address] Signed [facility] Copies: ~ Electronically Signed By: JAMIE DALEY MD 08/09/21 0903 PATIENT NAME: JAYDA DAVID OPERATIVE REPORT DATE OF : 80 REPORT #: [id number] PHYSICIAN: JAMIE DALEY MD PCP: KHUSHBOO ADORNO PA-C REPORT IS CONFIDENTIAL AND NOT TO BE RELEASED WITHOUT AUTHORIZATION
--- NOTE | 2021-08-11 18:30 | PATH ---
[facility] [address] [place], [place] [address] Signed SPECIMEN(S): A ENDOMETRIAL CURETTINGS SPECIMEN SOURCE: A. ENDOMETRIAL CURETTINGS CLINICAL HISTORY: Heavy menstrual bleeding; dysmenorrhea; pelvic pain. FINAL PATHOLOGIC DIAGNOSIS: Endometrium, curettage: - Secretory phase endometrium with foci of glandular crowding. - Endocervical mucosa and squamous epithelium with no histopathologic abnormality. - Negative for atypia or malignancy. COMMENT: Given the phase of the endometrium, it is difficult to definitively evaluate for hyperplasia. As part of [facility]' Quality Improvement Program, this case was reviewed by another member of our pathology staff. NAL:NRT:cml:C2NR MICROSCOPIC EXAMINATION: Histologic sections of all submitted blocks are examined by light microscopy. These findings, together with the gross examination, support the pathologic diagnosis. GROSS DESCRIPTION: The specimen, labeled "GIL, EMC," is received in formalin and consists of a portion of pacheco and red-brown soft tissue (5.5 x 4.5 x 1.3 cm in aggregate). The specimen is submitted entirely in cassette A1-A4. AC (under the direct supervision of a pathologist) The Gross Description was prepared using a voice recognition system. The report was reviewed for accuracy; however, sound-alike word errors, addition and/or deletions may occur. If there is any question about this report, please contact Client Services. PERFORMING LABORATORY: The technical component was performed by [facility], [address] [place] [address] (Curriculum Writer: Cyn Calle MD; CLIA# [id number]). PATIENT NAME: JAYDA DAVID PATHOLOGY DATE OF : [birth year] REPORT #: [id number] PHYSICIAN: SUDEEP HEDRICK PCP: KHUSHBOO MENDOSA PA-C REPORT IS CONFIDENTIAL AND NOT TO BE RELEASED WITHOUT AUTHORIZATION [facility] [address] [place], [place] [address] Signed Professional interpretation was performed by [facility], [address] [address] (CLIA# [id number]). Diagnostician: Sol Romero MD Pathologist Electronically Signed 08/11/2021 Copies: ~ PATIENT NAME: JAYDA DAVID PATHOLOGY DATE OF : 80 REPORT #: [id number] PHYSICIAN: SUDEEP HEDRICK PCP: KHUSHBOO MENDOSA PA-C REPORT IS CONFIDENTIAL AND NOT TO BE RELEASED WITHOUT AUTHORIZATION
== END 2021-08-08 21:45 | disposition home or self-care (01) ==
LOC: OPS 06:53 → DS 06:53 → OPS 21:45
PROVIDERS: ATTEND General Practice
PROC: 0UB98ZX Excision of Uterus, Via Natural or Artificial Opening Endoscopic, Diagnostic (ICD-10-PCS; principal; 2021-08-08 09:00)
PROC: 0WJJ4ZZ Inspection of Pelvic Cavity, Percutaneous Endoscopic Approach (ICD-10-PCS; 2021-08-08 09:00)
DX: N93.9 Abnormal uterine and vaginal bleeding, unspecified (principal); R10.2 Pelvic and perineal pain; N80.4 Endometriosis of rectovaginal septum and vagina; Z88.5 Allergy status to narcotic agent; Z88.2 Allergy status to sulfonamides; Z91.030 Bee allergy status; Z91.040 Latex allergy status
CPT/HCPCS: J0131; J1100; J1644; J1885; J2001; J2250; J2405; J2704; J3010; J7121

== ENCOUNTER 2021-11-19 13:39 | Emergency (ER) | payer OTHER ==
[~2021-11-19] VITALS: Ht 172.7 cm; Wt 90.7 kg
--- OUTSIDE RECORDS SUMMARY | 2021-11-19 13:42 | XMS ---
PreManage Notification: JAYDA DAVID Security Wincher Events No recent Security Events currently on file CRITERIA MET - PDMP CARE PROVIDERS KHUSHBOO MENDOSA Physician Carport Erector 12/21/2019-Current PHONE: [phone] Niesha has no Care Guidelines for this patient. ERashid VISIT COUNT (12 MO.) 2 NAT [facility] TOTAL 2 NOTE: Visits indicate total known visits. 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
[2021-11-19] MEDS ORDERED: HYDROCORTISONE10 MG PO (14:02)
[2021-11-19] MEDS ORDERED: ONDANSETRON ODT8 MG PO (16:09)
--- NOTE | 2021-11-20 14:02 | EKG ---
[facility] [address] [facility] [place], [place] [address] Signed Normal sinus rhythm Normal ECG No previous ECGs available Confirmed by MARIEL MADRIGAL MD ([id number]) on 11/20/2021 2:02:13 PM Electronically Signed By: MARIEL MADRIGAL MD 11/20/21 140 PATIENT NAME: JAYDA DAVID Electrocardiogram DATE OF : 80 PHYSICIAN: MARIEL MADRIGAL MD REPORT #: [id number] REPORT IS CONFIDENTIAL AND NOT TO BE RELEASED WITHOUT AUTHORIZATION
== END 2021-11-19 16:36 | disposition home or self-care (01) ==
LOC: ED 13:39
DX: U07.1 COVID-19 (principal); Z91.040 Latex allergy status; Z88.2 Allergy status to sulfonamides; Z88.5 Allergy status to narcotic agent; Z88.1 Allergy status to other antibiotic agents; Z79.899 Other long term (current) drug therapy
CPT/HCPCS: 87502; 93005; 93010; 99284-25; A9270; C9803; U0003

== ENCOUNTER 2022-03-26 11:44 | Day surgery (SDC) | payer OTHER ==
[~2022-03-26] VITALS: Ht 172.7 cm; Wt 95.5 kg
--- NOTE | ~2022-03-26 | OR ---
[facility] [address] [place], [place] [address] Draft DATE OF OPERATION: 03/26/2022 SURGEON: Amanda Ott MD PREOPERATIVE DIAGNOSIS: Pelvic pain; known history of extensive endometriosis including rectouterine pouch of Mauri. POSTOPERATIVE DIAGNOSIS: Diminutive polyp of rectum. No evidence of mucosal endometriosis of colon. PROCEDURE: Total colonoscopy to cecum with cold morcellation polypectomy x1. ANESTHESIA: Intravenous sedation; fentanyl 50 mcg, Versed 9 mg. INDICATION: This 41-year-old white woman has known endometriosis and has undergone laparoscopic ablation therapy by Dr. Daley. Extensive involvement in the rectouterine pouch of Pavel was noted. As she has continuing of pelvic pain, consideration has been made for possibility of colonic involvement in endometriosis, though she has no rectal bleeding on an episodic basis to suggest the same. The risks of bleeding, infection, and perforation related to colonoscopy reviewed with her, she understands and wished to proceed. FINDINGS: The prep was excellent. Complete colonoscopy was undertaken to the cecum without question. The only abnormality was a very tiny polyp of the rectum, which was excised with cold morcellation technique. The remaining colon was normal. DESCRIPTION OF PROCEDURE: The patient was brought to the endoscopy suite and placed in lateral decubitus position, given intravenous sedation to the point of slurred speech and nystagmus. Full cardiopulmonary monitoring was maintained. Digital rectal examination was found to be normal. An Olympus video colonoscope was passed in the rectum and manipulated throughout the colon ultimately intubating the cecum, ileocecal valve and appendiceal orifice were normal. The scope was withdrawn from that point and examination throughout showed no sign of abnormality specifically no PATIENT NAME: JAYDA DAVID OPERATIVE REPORT DATE OF : 80 REPORT #: [id number] PHYSICIAN: AMANDA OTT MD PCP: JAMIE DALEY MD REPORT IS CONFIDENTIAL AND NOT TO BE RELEASED WITHOUT AUTHORIZATION [facility] [address] [place] [id number] Draft polyps diverticular formation or colitis, or cancer and no sign of mucosal endometriosis. There was a diminutive polyp of the actual rectum, which was excised with cold morcellation technique. There were no other findings of concern. The scope was removed. The patient was taken to the recovery room in good condition. CONCLUDING DIAGNOSIS: Essentially normal colon except for diminutive probably hyperplastic polyp of rectum (excised). No evidence of endometriosis of mucosa anywhere. PLAN: We would recommend repeat colonoscopy in 5 years, sooner if she should have any problems. She will return to the ongoing care of Dr. Daley. MD KALEN Campos/SHIRAL /[id number] cc: Jamie Daley MD Copies: JAMIE DALEY MD ~ PATIENT NAME: JAYDA DAVID OPERATIVE REPORT DATE OF : [birth year] REPORT #: [id number] PHYSICIAN: AMANDA OTT MD PCP: JAMIE DALEY MD REPORT IS CONFIDENTIAL AND NOT TO BE RELEASED WITHOUT AUTHORIZATION
[~2022-03-26 11:44] MED LIST changes: +HYDROCORTISONE10 MG PO; +METRONIDAZOLE45 GM TOP; +VENTOLIN HFA18 GM
[2022-03-26] MEDS ORDERED: HYDROCORTISONE5 MG PO (12:07)
--- NOTE | 2022-03-26 13:44 | NUR ---
03/26/22 1344 Amisha Marinelli 1340 PATIENT ARRIVES TO PACU AWAKE BUT DROWSY. DENIES PAIN OR NAUSEA. SLEEPING WHEN NOT STIMULATED. RESP EVEN AND UNLABORED, NC AT 2 LITERS, TURNED OFF. PASSING GAS. GLASS GIVEN BACK TO PATIENT.
--- NOTE | 2022-03-28 06:16 | PATH ---
[facility] [address] [place], [place] [address] Signed SPECIMEN(S): A RECTAL POLYP SPECIMEN SOURCE: A. RECTAL POLYP CLINICAL HISTORY: History of endometriosis of pelvis; family history of colon polyps and cancer; history of C. diff FINAL PATHOLOGIC DIAGNOSIS: Colon, rectal polyp, biopsy: - Hyperplastic polyp. NRT:april:DILSHAD MICROSCOPIC EXAMINATION: Histologic sections of all submitted blocks are examined by light microscopy. These findings, together with the gross examination, support the pathologic diagnosis. GROSS DESCRIPTION: The specimen, labeled "GIL, 1," and designated on the requisition "rectum polypectomy," is received in formalin and consists of two fragments of pink-pacheco tissue (0.2 cm in greatest dimension). The specimen is submitted entirely in cassette A1. AC (under the direct supervision of a pathologist) The Gross Description was prepared using a voice recognition system. The report was reviewed for accuracy; however, sound-alike word errors, addition and/or deletions may occur. If there is any question about this report, please contact Client Services. PERFORMING LABORATORY: The technical component was performed by [facility], [address] [place] [address] (CLIA# [id number]). [facility], [address] [place] [address], [place] [address] (CLIA# [id number]). Diagnostician: Estefany Lancaster MD Pathologist Electronically Signed 03/27/2022 PATIENT NAME: JAYDA DAVID PATHOLOGY DATE OF : 80 REPORT #: [id number] PHYSICIAN: [facility] PATHOLOG[facility] PCP: ELANA SEBASTIAN MD REPORT IS CONFIDENTIAL AND NOT TO BE RELEASED WITHOUT AUTHORIZATION [address] [place], [place] [address] Signed Copies: ~ PATIENT NAME: JAYDA DAVID PATHOLOGY DATE OF : [birth year] REPORT #: [id number] PHYSICIAN: SUDEEP PATHOLOGY PCP: ELANA SEBASTIAN MD REPORT IS CONFIDENTIAL AND NOT TO BE RELEASED WITHOUT AUTHORIZATION
== END 2022-03-26 14:15 | disposition home or self-care (01) ==
LOC: OPS 11:44 → DS 11:44 → OPS 13:00
PROVIDERS: ATTEND Surgery
PROC: 0DBP8ZX Excision of Rectum, Via Natural or Artificial Opening Endoscopic, Diagnostic (ICD-10-PCS; principal; 2022-03-26 13:00)
DX: R10.2 Pelvic and perineal pain (principal); K62.1 Rectal polyp; Z80.0 Family history of malignant neoplasm of digestive organs; Z83.71 Family history of colonic polyps; Z86.011 Personal history of benign neoplasm of the brain; Z88.2 Allergy status to sulfonamides; Z88.5 Allergy status to narcotic agent; Z88.8 Allergy status to other drugs, medicaments and biological substances; Z91.040 Latex allergy status; Z87.42 Personal history of other diseases of the female genital tract
CPT/HCPCS: 84703; 99153; G0500; J1720; J2250; J3010

== ENCOUNTER 2022-08-12 14:01 | Emergency (ER) | payer OTHER ==
[~2022-08-12] VITALS: Ht 172.7 cm; Wt 95.2 kg
--- OUTSIDE RECORDS SUMMARY | 2022-08-12 14:05 | XMS ---
PreManage Notification: JAYDA DAVID [employer] Manager Events No recent Security Events currently on file CRITERIA MET - [facility] KHUSHBOO MENDOSA Physician Clinical Case Manager 12/21/2019-Current PHONE: Unknown LANI MOJICA Internal Medicine Current PHONE: Unknown Niesha has no Care Guidelines for this patient. Mary VISIT COUNT (12 MO.) [facility]is Swift TOTAL 3 NOTE: Visits indicate total known visits. ED/UCC VISIT TRACKING (12 MO.) 08/12/2022 14:01 [facility] [place] TYPE: Emergency COMPLAINT: - COLD SYMPTOMS 12/19/2021 18:00 [facility] [place] TYPE: Emergency COMPLAINT: - DIFFICULTY BREATHING DIAGNOSES: - Latex allergy status - Allergy status to other drugs, medicaments and biological substances - Dyspnea, unspecified - Other malaise - Post COVID-19 condition, unspecified - Allergy status to narcotic agent - Allergy status to sulfonamides - Other fatigue 11/19/2021 13:[address] [facility] [place] TYPE: Emergency COMPLAINT: - BODY ACHES, SOB, CHEST TIGHTNESS DIAGNOSES: - Latex allergy status - Other half-way (current) drug therapy - Allergy status to other antibiotic agents - COVID-19 - Allergy status to narcotic agent - Other fatigue - Allergy status to sulfonamides INPATIENT VISIT TRACKING (12 MO.) No inpatient visits to display in this time frame [email or web address]
[2022-08-12] MEDS ORDERED: GABAPENTIN300 MG PO (14:26)
== END 2022-08-12 16:34 | disposition home or self-care (01) ==
LOC: ED 14:01
DX: U07.1 COVID-19 (principal); Z91.040 Latex allergy status; Z88.2 Allergy status to sulfonamides; Z88.8 Allergy status to other drugs, medicaments and biological substances; Z88.1 Allergy status to other antibiotic agents; Z88.5 Allergy status to narcotic agent; Z79.899 Other long term (current) drug therapy
CPT/HCPCS: 36415; 80048; 85025; 87502; 99283; C9803; U0003

== ENCOUNTER 2023-11-15 16:59 | Emergency (ER) | payer OTHER ==
[~2023-11-15] VITALS: Ht 172.7 cm; Wt 90.2 kg
[~2023-11-15 16:59] MED LIST changes: +CARBIDOPA-LEVO1 EAC1 PO; +GABAPENTIN300 MG PO; +SYNTHROID25 MCG PO
[2023-11-15] MEDS ORDERED: ALBUTEROL/IPRATROPIUM 3 ML NEB INH ONE (18:15)
[2023-11-15 18:52] LABS: BASOPHILS 0.6 % (0-2); EOSINOPHILS 0.4 % (0-6); HEMATOCRIT 37.1 % (35.0-50.0); HEMOGLOBIN 11.8 g/dL (12.0-18.0); LYMPHOCYTES 37.2 % (24-44); MCHC 31.8 g/dl (30-36); MCV 81.7 fl (81-99); MONOCYTES 10.2 % (0-12); NEUTROPHILS 51.6 % (39-80); PLATELET COUNT 180 K/uL (140-440); RBC 4.54 M/ul (4.3-5.7); RDW 15.4 (10.5-15.0)
[2023-11-15 19:07] LABS: ALBUMIN 3.4 g/dL (3.4-5.0); ALBUMIN/GLOBULIN RATIO 0.94 (1.1-2.4); ANION GAP 13.3 (7-21); BILIRUBIN, TOTAL 0.3 ng/dL (0.2-1.0); BUN/CREATININE RATIO 13.48 (6.0-28.6); CALCIUM 8.7 mg/dL (8.5-10.1); CREATININE, SERUM 0.89 mg/dL (0.55-1.02); POTASSIUM 4.3 mmol/L (3.5-5.1)
[2023-11-15 19:22] LABS: INFLUENZA B NAA NEGATIVE (NEGATIVE); RESPIRATORY SYNCYTIAL VIR NAA NEGATIVE (NEGATIVE)
[2023-11-15] MEDS ORDERED: INHALER, ASSIST DEVICES 1 EACH SPACER MISC ONE (20:00)
[2023-11-15] MEDS ORDERED: ALBUTEROL SULFATE 8 GM HOME.PACK INH ONE (20:00)
[2023-11-15] MEDS ORDERED: PAXLOVID 300-11 EAC1 PO (20:01)
[2023-11-15 20:32] VITALS: BP 120/89
== END 2023-11-15 20:32 | disposition home or self-care (01) ==
LOC: ED 16:59
PROVIDERS: Family Medicine
DX: U07.1 COVID-19 (principal); J06.9 Acute upper respiratory infection, unspecified; Z88.5 Allergy status to narcotic agent; Z88.2 Allergy status to sulfonamides; Z88.8 Allergy status to other drugs, medicaments and biological substances; Z88.1 Allergy status to other antibiotic agents; Z91.040 Latex allergy status; Z79.899 Other long term (current) drug therapy; Z79.890 Hormone replacement therapy
CPT/HCPCS: 36415; 71045; 80053; 85025; 87502; 94640; 99284-25; U0002

== ENCOUNTER 2024-01-21 05:33 | Day surgery (SDC) | payer OTHER ==
[2024-01-15 16:27] VITALS: BP 109/73
[~2024-01-21] VITALS: Ht 172.7 cm; Wt 93.2 kg
[~2024-01-21 05:33] MED LIST changes: +LACTATED RINGER'S 1,000 ML IV SCH; +PAXLOVID 300-11 EAC1 PO
[2024-01-21 06:15] VITALS: BP 114/79
[2024-01-21] MEDS ORDERED: fentaNYL citrate 100 MCG/2 ML VIAL ONE (06:42)
[2024-01-21] MEDS ORDERED: MIDAZOLAM HCL 2 MG/2 ML VIAL ONE (06:42)
[2024-01-21] MEDS ORDERED: HYDROmorphone HCL 2 MG/ML VIAL ONE (06:42)
[2024-01-21] MEDS ORDERED: ondansetron HCL 4 MG/2 ML VIAL ONE (06:44)
[2024-01-21] MEDS ORDERED: propofoL 200 MG/20 ML VIAL ONE ×2 (06:44→11:53)
[2024-01-21] MEDS ORDERED: LIDOCAINE HCL 2% 5 ML SDV ONE (06:47)
[2024-01-21] MEDS ORDERED: IBLOOD GLUCOSE TEST STRIP 1 EA TEST VI PRN (07:00)
[2024-01-21] MEDS ORDERED: LIDOCAINE HCL 1% 5 ML SDV INJ ONE (07:00)
[2024-01-21] MEDS ORDERED: HEParin SOD (PORCINE) 5,000 UNIT/0.5 ML SYR SUB-Q SCH (07:00)
[2024-01-21] MEDS ORDERED: CEFAZOLIN SODIUM 2 GM/20 ML SYR IV SCH (07:00)
[2024-01-21] MEDS ORDERED: HYDROCORTISONE SOD SUCCINATE 100 MG/2 ML VIAL IV SCH (07:00)
[2024-01-21] MEDS ORDERED: SCOPOLAMINE 1 MG/3 DAYS PATCH 1 EACH TDSY TD ONE (07:30)
[2024-01-21] MEDS ORDERED: ROCURONIUM BROMIDE 50 MG/5 ML SYR ONE (08:19)
[2024-01-21] MEDS ORDERED: DEXAMETHASONE SOD PHOS 4 MG/ML VIAL ONE (08:47)
[2024-01-21] MEDS ORDERED: KETOROLAC TROMETHAMINE 30 MG/ML VIAL ONE ×2 (08:59→11:53)
[2024-01-21] MEDS ORDERED: FLUORESCEIN SODIUM 500 MG/5 ML ML ONE (09:32)
[2024-01-21] MEDS ORDERED: SUGAMMADEX SODIUM 200 MG/2 ML ML ONE (09:58)
[2024-01-21] MEDS ORDERED: FAMOTIDINE 20 MG TAB PO PRN (10:30)
[2024-01-21] MEDS ORDERED: METOCLOPRAMIDE HCL 10 MG/2 ML SDV IV PRN ×2 (10:30→13:00)
[2024-01-21] MEDS ORDERED: HYDROCODONE/ACETA 5/325 TAB PO PRN (10:30)
[2024-01-21] MEDS ORDERED: SIMETHICONE 125 MG TABLET CHEWABLE PO PRN (10:30)
[2024-01-21] MEDS ORDERED: ondansetron HCL 4 MG/2 ML VIAL IV PRN ×2 (10:30→13:00)
[2024-01-21] MEDS ORDERED: PROCHLORPERAZINE EDISYLATE 10 MG/2 ML VIAL IV PRN (10:30)
[2024-01-21] MEDS ORDERED: NALOXONE HCL 0.4 MG SYR IV PRN ×2 (10:30→13:00)
[2024-01-21] MEDS ORDERED: MORPHINE SULFATE 10 MG/ML VIAL IV PRN (10:30)
[2024-01-21 10:44] VITALS: BP 112/79
[2024-01-21 11:28] VITALS: BP 122/78
[2024-01-21] MEDS ORDERED: MEPERIDINE HCL 25 MG/1 ML VIAL ONE (12:13)
[2024-01-21 12:54] VITALS: BP 119/74
[2024-01-21] MEDS ORDERED: MEPERIDINE HCL 25 MG/1 ML VIAL IV PRN (13:00)
[2024-01-21] MEDS ORDERED: diphenhydrAMINE HCL 50 MG/ML VIAL IV PRN (13:00)
[2024-01-21] MEDS ORDERED: fentaNYL citrate 50 MCG/ML SDV IV PRN (13:00)
[2024-01-21] MEDS ORDERED: HYDROmorphone HCL 1 MG/ML SYR IV PRN (13:00)
[2024-01-21] MEDS ORDERED: SIMETHICONE 125 MG TABLET CHEWABLE PO SCH (13:00)
--- NOTE | 2024-01-22 12:14 | OR ---
[facility] [address] [place] [address] [place], [place] [address] Signed DATE OF OPERATION: 01/21/2024 SURGEON: Janelle Ibrahim DO PREOPERATIVE DIAGNOSES: 1. Adenomyosis. 2. Abnormal uterine bleeding. 3. Dysmenorrhea. 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 POSTOPERATIVE DIAGNOSES: 1. Adenomyosis. 2. Abnormal uterine bleeding. 3. Dysmenorrhea. 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 PROCEDURES PERFORMED: 1. Total laparoscopic hysterectomy. 2. Bilateral salpingectomy. 3. Cystoscopy. HOUSEPERSON: Madie Linda MD ANESTHESIA: General. ESTIMATED BLOOD LOSS: 10 mL. SPECIMENS: Uterus, cervix, and fallopian tubes. FINDINGS: Normal external genitalia with normal clitoris, urethral meatus, bilateral [place]'s, and Bartholin's glands. Normal vagina and cervix. On laparoscopy, normal appearance of uterus, tubes, and ovaries. No endometriosis or other pelvic pathology noted. On cystoscopy, normal bladder with bilateral ureteral jets. COMPLICATIONS: Electronically Signed By: JANELLE IBRAHIM DO (JD) 01/22/24 1214 PATIENT NAME: JAYDA DELCID OPERATIVE REPORT DATE OF : 80 REPORT #: [id number] PHYSICIAN: JANELLE IBRAHIM DO (JD) PCP: KHUSHBOO MENDOSA PA-C REPORT IS CONFIDENTIAL AND NOT TO BE RELEASED WITHOUT AUTHORIZATION [facility] [address] [place], [place] [address] Signed None. INDICATIONS: Ms. Delcid is a very pleasant 43-year-old patient with a history of abnormal bleeding, dysmenorrhea and symptoms and ultrasound findings consistent with adenomyosis. She has Michael's disease. She has failed conservative therapy of her adenomyosis and requests definitive therapy with TLH, BS, and cystoscopy. Risks, benefits, and alternatives were discussed in detail with the patient. The patient received perioperative stress dosing per her Endocrinology team. DESCRIPTION OF PROCEDURE: The patient was taken to the OR where time-out was performed to confirm correct patient and correct procedure. General anesthesia was adequately established. The patient was prepped and draped in the dorsal lithotomy position with her feet in Yellofin stirrups. ICPs were on running and the patient received Ancef 2 g preoperatively as well as heparin 5000 units. A latex-free Rdz catheter was inserted into the urethra. A weighted speculum was placed in the vagina and the anterior lip of the cervix was grasped with an Allis clamp. The cervix was gently dilated using Hegar dilators. A VCare uterine manipulator was placed without difficulty and attention was turned to the abdomen. The surgeon's gloves were changed. The prior infraumbilical scar was infiltrated with 0.25% Marcaine with epinephrine and incised with a surgical scalpel. Fascia was grasped with hemostats, elevated, and entered sharply. Stay sutures of 0 Vicryl were placed in the superior and inferior edge of the fascial incision. The peritoneum was entered bluntly and no adhesions were palpated. The Sheela operative port was placed and survey of the abdomen and pelvis was performed. A 5 mm assist port was placed in the left lower quadrant under direct visualization without complication. An 8 mm expanding port was placed in the right lower quadrant under direct visualization without complication. Attention was turned to the left fallopian tube. The tube was grasped at the fimbriated end, elevated and divided along the mesosalpinx using LigaSure device. This was amputated at the cornu. Prior to ligation, Falope ring was noted. The tube was sent to pathology for further evaluation. The right fallopian tube was dissected along the mesosalpinx and amputated at the cornu and sent to pathology. The left utero-ovarian ligament was fulgurated and divided with excellent hemostasis and the right utero-ovarian ligament was fulgurated and divided with excellent hemostasis. The left round ligament was fulgurated, divided and leaves of the broad ligament were dissected from the midportion of the round ligament to the edge of the vaginal cuff anteriorly and across the anterior edge of the vaginal cup and posteriorly from the midportion of the round ligament to the angle of the uterosacral ligament across the posterior edge of the vaginal cup. The uterine vessels were identified, fulgurated and divided with excellent hemostasis. The process was repeated on the right with division of the round ligament, leaves of the broad ligament and identification and fulguration and division of the uterine vessels. Colpotomy was performed using a Sonicision device Electronically Signed By: JANELLE OSEGUERA) DO COLIN 01/22/24 1214 PATIENT NAME: JAYDA DELCID OPERATIVE REPORT DATE OF : 80 REPORT #: [id number] PHYSICIAN: JANELLE IBRAHIM) PCP: KHUSHBOO MENDOSA PA-C REPORT IS CONFIDENTIAL AND NOT TO BE RELEASED WITHOUT AUTHORIZATION [address] [address] Signed following the edge of the green vaginal cup. The cervix and uterus were then delivered through the vagina and sent to pathology for further evaluation. The pneumoperitoneum was reestablished by placing a wet lap sponge inside of an operative glove and stuffing this inside the vagina. The colpotomy was then irrigated and noted to be hemostatic. The colpotomy was closed using V-Loc suture with an Endostitch device with careful attention to incorporate the uterosacral ligaments bilaterally as well as to incorporate the vaginal epithelium with each bite. Excellent apical support and hemostasis was appreciated. The pelvis was irrigated and small amount of oozing was made hemostatic with the LigaSure device. Excellent hemostasis was appreciated and Tisseel was applied to the dissection plane. Pneumoperitoneum was reduced. Trocars were removed and infraumbilical fascia was repaired using 0 Vicryl in a running nonlocked manner. Skin was reapproximated using 3-0 Vicryl Rapide and subcuticular stitch with excellent hemostasis appreciated. Attention was turned to cystoscopy. The vaginal packing was removed and the Rdz catheter was removed. A 70-degree cystoscope was placed in the urethral meatus and advanced under direct visualization to the bladder. Normal bladder dome, bilateral ureteral jets were appreciated. The bladder was drained. Rdz catheter was reinserted and the patient was taken to PACU in good and stable condition. Sponge, needle, and instrument counts were correct x2 at the end of the procedure. Dr. Linda was present and participated in all portions of the procedure. DO ELPIDIO Galvan/JUAN CARLOS /[id number] Copies: ~ Electronically Signed By: JANELLE IBRAHIM DO (JD) 01/22/24 1214 PATIENT NAME: JAYDA DELCID OPERATIVE REPORT DATE OF : [birth year] REPORT #: [id number] PHYSICIAN: JANELLE IBRAHIM) PCP: KHUSHBOO MENDOSA PA-C REPORT IS CONFIDENTIAL AND NOT TO BE RELEASED WITHOUT AUTHORIZATION
--- NOTE | 2024-01-24 12:36 | PATH ---
[facility] [address] [place], [place] [address] Signed SPECIMEN(S): A BILATERAL TUBES, CERVIX, UTERUS SPECIMEN SOURCE: A. BILATERAL TUBES, CERVIX, UTERUS CLINICAL HISTORY: AUB; pituitary tumor; chronic anemia FINAL PATHOLOGIC DIAGNOSIS: Uterus with bilateral fallopian tubes, hysterectomy with bilateral salpingectomy: - Secretory phase endometrium; no hyperplasia or neoplasia identified - Adenomyosis - Cervix with no significant pathologic changes - Bilateral fallopian tubes with no significant pathologic changes BRP MICROSCOPIC EXAMINATION: Histologic sections of all submitted blocks are examined by light microscopy. These findings, together with the gross examination, support the pathologic diagnosis. GROSS DESCRIPTION: The specimen, labeled and designated "Delcid, uterus, cervix, bilateral fallopian tubes," is received in formalin and consists of uterus and cervix with undesignated and bilateral fallopian tubes. The uterus measures 5 cm from cornu to cornu, 3.8 cm anterior to posterior and 7.5 cm from cervix to fundus. The serosal surface is pink-pacheco, smooth. The uterus weight 122 g. The ectocervix is pink-pacheco, smooth and measures 4.2 x 4.5 cm. Sectioning through the cervix reveals pink-pacheco homogenous tissue. The endometrial cavity is triangular-shaped and measure 2.7 x 2.0 cm. It is lined with pink-pacheco, smooth endometrium. Sectioning through myometrium reveals pink-pacheco homogenous tissue. No masses or abnormalities are grossly identified. Myometrium measures 1.8 cm in thickness. The endometrial measure up to 0.2 cm in thickness. Both fallopian tubes show fimbria and violaceous and smooth serosa. The first fallopian tube measures 4.3 cm in length and 0.7 cm in diameter. The proximal and shows attached plastic clip. The second fallopian tube measures 3 cm in length and 0.7 cm in diameter. PATIENT NAME: JAYDA DELCID PATHOLOGY DATE OF : [birth year] REPORT #: [id number] PHYSICIAN: [facility]EP PATHOLOGY PCP: KHUSHBOO MENDOSA PA-C REPORT IS CONFIDENTIAL AND NOT TO BE RELEASED WITHOUT AUTHORIZATION [facility] [address] [place], [place] [address] Signed Sectioning through both fallopian tubes is grossly unremarkable. Cassette Summary: (A1) cervix, customer contact representative sections, posterior inked (A2) endomyometrium, customer contact representative sections (A3) first fallopian tube, customer contact representative sections (A4) second fallopian tube, customer contact representative sections JS (under the direct supervision of a pathologist) The Gross Description was prepared using a voice recognition system. The report was reviewed for accuracy; however, sound-alike word errors, addition and/or deletions may occur. If there is any question about this report, please contact Client Services. ADDITIONAL NOTES: Immunohistochemical and/or in situ hybridization studies if performed in this case included appropriate positive controls that reacted as expected. This test was developed and its performance characteristics determined by [facility]. It has not been cleared or approved by the U.S. Food and Drug Administration. The FDA has determined that such clearance or approval is not necessary. This test is used for clinical purposes. It should not be regarded as investigational or for research. [facility] is certified under the Clinical Laboratory Improvement Amendments of 1988 (CLIA) as qualified to perform high complexity clinical laboratory testing. PERFORMING LABORATORY: Technical component was performed by [facility], [address] [place] [address] (CLIA# [id number]). Professional interpretation was performed by [facility], [facility] [place] [address] (CLIA#: [id number]). Diagnostician: Ja Cadet MD Pathologist Electronically Signed 01/24/2024 Copies: ~ PATIENT NAME: JAYDA DELCID PATHOLOGY DATE OF : [birth year] REPORT #: [id number] PHYSICIAN: [facility] PCP: KHUSHBOO MENDOSA PA-C REPORT IS CONFIDENTIAL AND NOT TO BE RELEASED WITHOUT AUTHORIZATION
== END 2024-01-21 13:16 | disposition home or self-care (01) ==
LOC: DSVR 05:33 → OPS 05:33 → DS 05:34 → OPS 07:30 → DS 07:30 → OPS 13:16
PROVIDERS: ATTEND Obstetrics & Gynecology
PROC: 0UT94ZZ Resection of Uterus, Percutaneous Endoscopic Approach (ICD-10-PCS; principal; 2024-01-21 07:30)
PROC: 0UB74ZZ Excision of Bilateral Fallopian Tubes, Percutaneous Endoscopic Approach (ICD-10-PCS; 2024-01-21 07:30)
DX: N80.03 Adenomyosis of the uterus (principal); N93.9 Abnormal uterine and vaginal bleeding, unspecified; E27.1 Primary adrenocortical insufficiency; E28.2 Polycystic ovarian syndrome; E78.5 Hyperlipidemia, unspecified; D62 Acute posthemorrhagic anemia; D49.7 Neoplasm of unspecified behavior of endocrine glands and other parts of nervous system; Z79.899 Other long term (current) drug therapy; Z88.2 Allergy status to sulfonamides; Z91.030 Bee allergy status; Z91.040 Latex allergy status
CPT/HCPCS: 00840; A9270; J0690; J1100; J1170; J1644; J1720; J1885; J2001; J2175; J2250; J2405; J2704; J3010; J3490; J7121

== ENCOUNTER 2024-06-08 16:16 | Emergency (ER) | payer OTHER ==
[~2024-06-08] VITALS: Ht 172.7 cm; Wt 102.5 kg
[~2024-06-08 16:16] MED LIST changes: -LACTATED RINGER'S 1,000 ML IV SCH
[2024-06-08] MEDS ORDERED: diphenhydrAMINE HCL 50 MG/ML VIAL IV ONE (17:15)
[2024-06-08] MEDS ORDERED: PROCHLORPERAZINE EDISYLATE 10 MG/2 ML VIAL IV ONE (17:15)
[2024-06-08] MEDS ORDERED: SODIUM CHLORIDE 0.9% 1,000 ML IV PRN (17:15)
[2024-06-08] MEDS ORDERED: ONDANSETRON 4 MG HOME.PACK SL ONE (18:30)
[2024-06-08] MEDS ORDERED: HYDROCODONE BIT/ACETAMINOPHEN 5/325 MG 1 TAB HOME.PACK PO ONE (18:30)
[2024-06-08 18:49] VITALS: BP 121/71
== END 2024-06-08 18:50 | disposition home or self-care (01) ==
LOC: ED 16:16
DX: G43.909 Migraine, unspecified, not intractable, without status migrainosus (principal); Z98.890 Other specified postprocedural states; Z86.718 Personal history of other venous thrombosis and embolism; Z91.040 Latex allergy status; Z88.2 Allergy status to sulfonamides; Z88.5 Allergy status to narcotic agent; Z88.1 Allergy status to other antibiotic agents; Z88.8 Allergy status to other drugs, medicaments and biological substances; Z79.890 Hormone replacement therapy; Z79.899 Other long term (current) drug therapy
CPT/HCPCS: 70450; 96361; 96374; 96375; 99284; A9270; J0780; J1200; J7030